=== PATIENT | female | born 1930 | race Caucasian/White ===

== ENCOUNTER 2016-08-16 16:44 | Inpatient (IN) | payer OTHER, MEDICARE ==
[~2016-08-16] VITALS: Ht 167.6 cm; Wt 49.0 kg
[2016-08-16 16:50] VITALS: BP 146/59; PULSE 108; RESP 24; TEMP 98.5; O2SAT 85
[2016-08-16] MEDS ORDERED: CLINDAMYCIN INJ 900 MG in SODIUM CHLORIDE 0.9% INJ 100 ML IV STA (19:25)
[2016-08-16] MEDS ORDERED: SODIUM CHLOR 0.9% 1000 ML INJ 1,000 ML IV ONE (19:25)
[2016-08-16] MEDS ORDERED: HYDROmorphone HCL PF 1 MG/ML VIAL IV ONE (19:30)
--- NOTE | 2016-08-16 20:47 | PD ---
HPI Chief Complaint: Musculoskeletal Complaint Time Seen by Provider: 19:18 Travel History International Travel<30 days: No Contact w/Intl Traveler<30days: No Traveled to known affect area: No History of Present Illness HPI 85-year-old female arrives to the ER complaining of pain in the left foot. She was started on Keflex a few days ago by her primary care provider secondary to a cellulitic wound along the plantar aspect of the left foot. Since then she has developed increasing edema as well as erythema and an apparent blister overlying the region of the anterior left lower leg. She reports constant pain in both lower extremities, worse on the left. The pain is worse with palpation. The Keflex has not helped. Evidently wound culture grew staph aureus resistant to Keflex. She has had no fever. [facility] Past Medical History Respiratory: Yes (COPD 2.5 LPM NC AT HOME) Past Surgical History Hysterectomy: Yes Social History Tobacco Use: Yes (Quit in 1998) Allergies-Medications (Allergen,Severity, Reaction): Coded Allergies: Sulfa (Verified Allergy, Unknown, 08/16/16) Review of Systems Except as stated in HPI: all other systems reviewed are Neg Physical Exam Narrative GENERAL: 85-year-old female pleasant mild distress secondary to pain SKIN: Warm and dry. HEAD: Atraumatic. Normocephalic. EYES: Pupils equal and round. No scleral icterus. No injection or drainage. ENT: No nasal bleeding or discharge. Mucous membranes pink and moist. NECK: Trachea midline. No JVD. CARDIOVASCULAR: Regular rate and rhythm. No murmur appreciated. RESPIRATORY: No accessory muscle use. Clear to auscultation. Breath sounds equal bilaterally. GASTROINTESTINAL: Abdomen soft, non-tender, nondistended. Hepatic and splenic margins not palpable. MUSCULOSKELETAL: Pitting edema is present bilaterally or plus on the left and plus on the right. Along the left lower extremity there is blanching erythema with somewhat indistinct margins though approximately 15 cm in greatest dimension. Within the area of erythema there is an approximate 7 cm in greatest dimension blister. Dorsalis pedis pulse is not palpable on exam. There is exquisite tenderness to palpation along the left great toe which is somewhat dusky in appearance. NEUROLOGICAL: Awake and alert. No obvious cranial nerve deficits. Motor grossly within normal limits. Normal speech. PSYCHIATRIC: Appropriate mood and affect; insight and judgment normal. Data Data Last Documented VS Vital Signs Date Time Temp Pulse Resp B/P Pulse Ox O2 Delivery O2 Flow Rate FiO2 08/16/16 21:01 83 18 08/16/16 21:00 96 Room Air 2.5 08/16/16 16:50 98.5 146/59 VS noted Orders Complete Blood Count With Diff (08/16/16 19:25) Comprehensive Metabolic Panel (08/16/16 19:25) Lactic Acid Sepsis Protocol (08/16/16 19:25) Urinalysis - C+S If Indicated (08/16/16 19:25) Blood Culture (08/16/16 19:25) Wound Culture And Gram Stain (08/16/16 19:25) Blood Glucose (08/16/16 19:25) Ecg Monitoring (08/16/16 19:25) Iv Access Insert/Monitor (08/16/16 19:25) Oximetry (08/16/16 19:25) Oxygen Administration (08/16/16 19:25) Hydromorphone Pf Inj (Dilaudid Pf Inj) (08/16/16 19:30) Clindamycin Inj (Cleocin Inj) (08/16/16 19:25) Sodium Chlor 0.9% 1000 Ml Inj (Ns 1000 M (08/16/16 19:25) Us Leg Venous Doppler (08/16/16 ) Prothrombin Time / Inr (Pt) (08/16/16 20:47) Act Partial Throm Time (Ptt) (08/16/16 20:47) Foot, Limited (2vws) (08/16/16 ) Heparin Infusion EDEL.Q1H (08/16/16 21:21) Heparin Inj (Heparin Inj) (08/16/16 21:30) Heparin Inj (Heparin Inj) (08/17/16 03:30) Heparin Inj (Heparin Inj) (08/17/16 03:30) Heparin-D5w Inj (Heparin-D5w Inj) (08/16/16 21:30) Cbc No Diff, Includes Plts (08/19/16 06:00) Act Partial Throm Time (Ptt) (08/17/16 04:21) Occult Blood (Hemoccult) Stool (08/16/16 21:21) Calcium Gluconate Inj (Calcium Gluconate (08/16/16 21:45) Insulin Human Regular Inj (Novolin R Inj (08/16/16 22:00) Dextrose 50% In Nia (Vial) Inj (D50w (Vi (08/16/16 21:45) Sodium Bicarbonate 8.4% Inj (Sodium Bica (08/16/16 21:45) Sodium Polysty Sulfate Liq (Kayexalate L (08/16/16 21:45) Electrocardiogram (08/16/16 ) Consult Vascular Surgery (08/16/16 ) (Hub Use Only)Inp Phy Cons/Ref (08/16/16 ) Admit Order (Ed Use Only) (08/16/16 22:07) Labs Laboratory Tests Test 08/16/16 08/16/16 08/16/16 20:30 20:40 21:10 White Blood Count 9.2 TH/MM3 Red Blood Count 3.62 MIL/MM3 Hemoglobin 10.3 GM/DL Hematocrit 32.0 % Mean Corpuscular Volume 88.4 FL Mean Corpuscular Hemoglobin 28.3 PG Mean Corpuscular Hemoglobin 32.1 % Concent Red Cell Distribution Width 18.3 % Platelet Count 107 TH/MM3 Mean Platelet Volume 10.3 FL Neutrophils (%) (Auto) 73.8 % Lymphocytes (%) (Auto) 17.9 % Monocytes (%) (Auto) 8.0 % Eosinophils (%) (Auto) 0.1 % Basophils (%) (Auto) 0.2 % Neutrophils # (Auto) 6.8 TH/MM3 Lymphocytes # (Auto) 1.6 TH/MM3 Monocytes # (Auto) 0.7 TH/MM3 Eosinophils # (Auto) 0.0 TH/MM3 Basophils # (Auto) 0.0 TH/MM3 CBC Comment AUTO DIFF Differential Comment AUTO DIFF CONFIRMED Ovalocytes 1+ Sodium Level 141 MEQ/L Potassium Level 6.8 MEQ/L Chloride Level 114 MEQ/L Carbon Dioxide Level 19.2 MEQ/L Anion Gap 8 MEQ/L Blood Urea Nitrogen 121 MG/DL Creatinine 2.05 MG/DL Estimat Glomerular Filtration 23 ML/MIN Rate Random Glucose 101 MG/DL Calcium Level 9.0 MG/DL Total Bilirubin 0.3 MG/DL Aspartate Amino Transf 5 U/L (AST/SGOT) Alanine Aminotransferase 17 U/L (ALT/SGPT) Alkaline Phosphatase 125 U/L Total Protein 6.4 GM/DL Albumin 2.7 GM/DL Lactic Acid Level 0.8 mmol/L Prothrombin Time 10.5 SEC Prothromb Time International 1.0 RATIO Ratio Activated Partial 22.9 SEC Thromboplast Time MDM Medical Decision Making Medical Screen Exam Complete: Yes Emergency Medical Condition: Yes Medical Record Reviewed: Yes Differential Diagnosis PAD, Cellulitis, necrotizing fasciitis, osteomyelitis, arterial occlusion, venous thrombosis, sepsis Narrative Course CBC & BMP Diagram 08/16/16 20:30 Lactic acid is 0.8 LFTs normal INR 1.0 Left lower extremity ultrasound reveals no DVT Left lower extremity x-ray shows no free air disruption of the bony cortex The patient will be admitted as she is in a state of renal failure presumably prerenal etiology with BUN/creatinine ratio 60/1. Hyperkalemia is noted with peak T waves however no QRS prolongation or hemodynamic instability. Calcium, insulin/dextrose, Kayexalate, bicarbonate given. 2 L crystalloid administered. The case was discussed with vascular surgery who will follow however the patient at this time is inappropriate for a revascularization procedure, vascular sx consult added. Heparin started. Clindamycin started. Blood cultures and wound cultures were obtained. Case discussed with Dr. Banerjee. Critical Care Narrative Aggregate critical care time was 35 minutes. Time to perform other separately billable procedures was not included in the critical care time. My time did not include minutes spent treating any other patients simultaneously or on activities that did not directly contribute to the patient's treatment. The services I provided to this patient were to treat and/or prevent clinically significant deterioration that could result in: Hyperkalemic arrhythmia, cardiopulmonary arrest, loss of limb I provided critical care services requiring my management, as noted below: Chart data review, documentation time, medication orders and management, vital sign assessments/reviewing monitor data, ordering and reviewing lab tests, ordering and interpreting/reviewing x-rays and diagnostic studies, care of the patient and discussion of the patient with the admitting physicians. Diagnosis Primary Impression: ARF (acute renal failure) Qualified Code: N17.9 - Acute renal failure, unspecified acute renal failure type Additional Impressions: PVD (peripheral vascular disease) Hyperkalemia Dehydration Admitting Information Admitting Physician Requests: Admit Jerome Mccoy MD Aug 16, 2016 20:47
[2016-08-16 21:19] LABS: AUTOMATED NEUTROPHIL # 6.8 TH/MM3 (1.8-7.7); BASOPHIL % 0.2 % (0.0-2.0); EOSINOPHIL % 0.1 % (0.0-4.0); LYMPH % 17.9 % (9.0-44.0); LYMPHOCYTE # 1.6 TH/MM3 (1.0-4.8); MEAN CELL VOLUME 88.4 FL (80.0-100.0); MEAN CORPUSCULAR HEMOGLOBIN 28.3 PG (27.0-34.0); MEAN CORPUSCULAR HGB CONC 32.1 % (32.0-36.0); NEUT % 73.8 % (16.0-70.0); PLATELET COUNT 107 TH/MM3 (150-450); RED BLOOD COUNT 3.62 MIL/MM3 (4.00-5.30); RED CELL DISTRIBUTION WIDTH 18.3 % (11.6-17.2); WHITE BLOOD COUNT 9.2 TH/MM3 (4.0-11.0)
[2016-08-16 21:21] LABS: HEMO FLAGS AUTO DIFF
[2016-08-16] MEDS ORDERED: HEPARIN SODIUM - IV 10,000 UNITS/10 ML VIAL IV ONE (21:30)
[2016-08-16 21:32] LABS: ALKALINE PHOSPHATASE 125 U/L (45-117); ALT (GPT) 17 U/L (10-53); ANION GAP 8 MEQ/L (5-15); AST (GOT) 5 U/L (15-37); BICARBONATE 19.2 MEQ/L (21.0-32.0); BLOOD UREA NITROGEN 121 MG/DL (7-18); CHLORIDE 114 MEQ/L (98-107); GLOMERULAR FILTRATION RATE 23 ML/MIN (>89); SODIUM (NA) 141 MEQ/L (136-145); TOTAL BILIRUBIN ADULT 0.3 MG/DL (0.2-1.0)
[2016-08-16 21:33] LABS: POTASSIUM 6.8 MEQ/L (3.5-5.1)
[2016-08-16] MEDS ORDERED: SODIUM BICARBONATE 8.4% SOLN 50 MEQ/50 ML VIAL SLOW IVP ONE (21:45)
[2016-08-16] MEDS ORDERED: DEXTROSE 50% IN WATER 50 ML VIAL(D50) IV PUSH ONE (21:45)
[2016-08-16] MEDS ORDERED: SODIUM POLYSTYRENE SULFONATE SUSP 15 GM/60 ML CUP PO ONE ×2 (21:45→22:30)
[2016-08-16] MEDS ORDERED: CALCIUM GLUCONATE 10% 1 GM/10 ML VIAL SLOW IVP ONE (21:45)
[2016-08-16 21:46] LABS: APTT (PATIENT) 22.9 SEC (24.3-30.1); PROTHROMBIN TIME - PATIENT 10.5 SEC (9.8-11.6)
--- NOTE | 2016-08-16 21:47 | RADRPT ---
EXAM DATE/TIME: 08/16/2016 21:07 [facility] COMPARISON: No previous studies available for comparison. INDICATIONS : Left leg pain, swelling and bruising. MEDICAL HISTORY : Chronic obstructive pulmonary disease. SURGICAL HISTORY : Hysterectomy. ENCOUNTER: Initial ACUITY: 3 days PAIN SCORE: 8/10 LOCATION: Left leg. TECHNIQUE: Venous ultrasound of the leg was performed from the inguinal ligament to the proximal calf. Real-jackie e, color Doppler and spectral tracing, compression and augmentation techniques were used. FINDINGS: There is normal compressibility of the deep venous system from the inguinal region to the proximal ca lf. No echogenic clot is seen in the lumen of the common femoral, femoral, popliteal, and posterior tibial veins. There is a normal response of the venous system to proximal and distal augmentation an d respiration. CONCLUSION: No DVT. Josue White MD on August 16, 2016 at 21:45 Board Certified Radiologist. This report was verified electronically.
[2016-08-16] MEDS ORDERED: INSULIN HUMAN REGULAR 1,000 UNITS/10 ML VIAL IV PUSH ONE (22:00)
[2016-08-16 22:01] LABS: OVALOCYTES 1+ (NORMAL); SCAN/DIFF AUTO DIFF CONFIRMED
--- NOTE | 2016-08-16 22:24 | HHI.HP ---
[facility] Service [facility] Primary Care Physician Non-Staff Admission Diagnosis HyperK, Cellulitis, PVD, ARF Diagnoses: (1) Cellulitis of left lower extremity Diagnosis: Principal (2) PVD (peripheral vascular disease) Diagnosis: Principal (3) Hyperkalemia Diagnosis: Principal (4) HARPAL (acute kidney injury) Diagnosis: Principal (5) HTN (hypertension) Diagnosis: Principal (6) COPD (chronic obstructive pulmonary disease) Diagnosis: Principal Travel History International Travel<30 Days: No Contact w/Intl Traveler <30 Da: No Traveled to Known Affected Are: No History of Present Illness This is an 85-year-old female with a PMH of HTN and COPD, O2 Dependent who came to the ER with complaints of left foot pain x2 wks. Pt is somewhat of a poor historian, however she states she developed a wound on the bottom of her left foot 2wks ago, seen by PCP at that time and started on Keflex without improvement. Was referred to Podiatry and was to have imaging at [facility], however pt states "they took too long" so Granddaughter brought her to ER. Also noted to have left pérez hematoma/blister which she states started last night. Not on ASA/Plavix or anticoagulation at home. Denies fever or chills. On arrival, BP 146/59, HR 105, O2 sat 96% on 2L NC, Afebrile. WBC normal. Creatinine 2.05, previously 0.7 on 06/27/06. K+ 6.8. S/p Ca/Insulin/D50 in ER. On exam, pt w/ cold left foot, pulses not dopplerable. ER physician spoke w/ Dr. Mccloud, no need for emergent intervention. Heparin gtt started in ER. S/p Clinda IV x1 dose in ER. Review of Systems Other ROS: 14 point review of systems otherwise negative. Past Family Social History Past Medical History PMH: HTN and COPD, O2 Dependent Past Surgical History PAST SURGICAL HISTORY: Hysterectomy Allergies: Coded Allergies: Sulfa (Verified Allergy, Unknown, 08/16/16) Family History PAST FAMILY HISTORY: Reviewed. No h/o DM or CAD Social History PAST SOCIAL HISTORY: Negative for alcohol, tobacco or drugs per Physical Exam Vital Signs Vital Signs Date Time Temp Pulse Resp B/P Pulse Ox O2 Delivery O2 Flow Rate FiO2 08/16/16 21:01 83 18 08/16/16 21:00 96 Room Air 2.5 08/16/16 16:50 98.5 108 24 146/59 85 Room Air Physical Exam PE: GENERAL: Very pleasant elderly white female in no acute distress. Granddaughter bedside. HEENT: PERRLA, EOMI. No scleral icterus or conjunctival pallor. No lid lag or facial droop. CARDIOVASCULAR: Regular rate and rhythm. No obvious murmurs to auscultation. No chest tenderness to palpation. RESPIRATORY: No obvious rhonchi or wheezing. Clear to auscultation. Breath sounds equal bilaterally. GASTROINTESTINAL: Abdomen soft, non-tender, nondistended. BS normal. MUSCULOSKELETAL: LLE w/ hematoma/blister along left pérez w/ surrounding erythema , foot cold to touch, healing wound to plantar aspect of left foot, tender to touch. 2+ edema bilaterally. NEUROLOGICAL: Awake, alert and oriented x4. No focal neurologic deficits. Moving both upper and lower extremities spontaneously. Laboratory Laboratory Tests Test 08/16/16 08/16/16 08/16/16 20:30 20:40 21:10 White Blood Count 9.2 Red Blood Count 3.62 Hemoglobin 10.3 Hematocrit 32.0 Mean Corpuscular Volume 88.4 Mean Corpuscular Hemoglobin 28.3 Mean Corpuscular Hemoglobin 32.1 Concent Red Cell Distribution Width 18.3 Platelet Count 107 Mean Platelet Volume 10.3 Neutrophils (%) (Auto) 73.8 Lymphocytes (%) (Auto) 17.9 Monocytes (%) (Auto) 8.0 Eosinophils (%) (Auto) 0.1 Basophils (%) (Auto) 0.2 Neutrophils # (Auto) 6.8 Lymphocytes # (Auto) 1.6 Monocytes # (Auto) 0.7 Eosinophils # (Auto) 0.0 Basophils # (Auto) 0.0 CBC Comment AUTO DIFF Differential Comment AUTO DIFF CONFIRMED Ovalocytes 1+ Sodium Level 141 Potassium Level 6.8 Chloride Level 114 Carbon Dioxide Level 19.2 Anion Gap 8 Blood Urea Nitrogen 121 Creatinine 2.05 Estimat Glomerular Filtration 23 Rate Random Glucose 101 Calcium Level 9.0 Total Bilirubin 0.3 Aspartate Amino Transf 5 (AST/SGOT) Alanine Aminotransferase 17 (ALT/SGPT) Alkaline Phosphatase 125 Total Protein 6.4 Albumin 2.7 Lactic Acid Level 0.8 Prothrombin Time 10.5 Prothromb Time International 1.0 Ratio Activated Partial 22.9 Thromboplast Time Date/Time Procedure Status Source Growth 08/16/16 20:40 Gram Stain Received Wound Foot Pending 08/16/16 20:40 Wound Culture Received Wound Foot Pending 08/16/16 20:40 Aerobic Blood Culture Received Blood Peripheral Pending 08/16/16 20:40 Anaerobic Blood Culture Received Blood Peripheral Pending Result Diagram: 08/16/16202908/16/162029 Assessment and Plan Problem List: (1) Cellulitis of left lower extremity ICD Code: L03.116 Status: Acute (2) PVD (peripheral vascular disease) ICD Code: I73.9 Status: Acute (3) Hyperkalemia ICD Code: E87.5 Status: Acute (4) HARPAL (acute kidney injury) ICD Code: N17.9 Status: Acute (5) HTN (hypertension) ICD Code: I10 Status: Acute (6) COPD (chronic obstructive pulmonary disease) ICD Code: J44.9 Status: Acute Assessment and Plan A/P: 1. LLE Cellulitis: wound on plantar aspect of left foot x2 wks, on Keflex with no improvement, +erythema involving left pérez. Afebrile, no leukocytosis. Outpatient Wound Cultures positive for Staph per report. S/p Wound/Blood Cultures in ER and Clinda IV. Follow up cultures, continue IV Abx, Wound Consult. 2. PVD: Left foot cold to touch, pulses not dopplerable. ER physician spoke w / Dr. Mccloud, no need for emergent intervention as symptoms appear chronic, will eval in am. Started on Heparin gtt in ER. 3. Hyperkalemia: K+ 6.8. Creatinine 2.0, new. S/p Ca/Insulin/D50 in ER. Will give Kayexalate, recheck K+. Medications reviewed, hold Enalapril Consult Nephrology for further eval. Check U/a, check urine lytes, check prot/ creatinine ratio. 4. HARPAL: Creatinine 2.05, previously 0.7 on 06/27/16. Check U/a, IVF, repeat labs in am. 5. COPD: Chronic Respiratory Failure. O2 Dependent. Stable. Hypoxia on RA to 85%, O2 sat 96% on 2L NC. 6. HTN: Controlled. Hold Enalapril secondary to above. Monitor BP. 7. DVT Prophylaxis: On Heparin gtt. 8. Social work for d/c planning as needed. 9. Case discussed w/ ER physician at length. Physician Certification 2 Midnight Certification Type: Admission for Inpatient Services Order for Inpatient Services The services are ordered in accordance with Medicare regulations or non- Medicare payer requirements, as applicable. In the case of services not specified as inpatient-only, they are appropriately provided as inpatient services in accordance with the 2-midnight benchmark. Estimated LOS (days): 2 days is the estimated time the patient will need to remain in the hospital, assuming treatment plan goals are met and no additional complications. Post-Hospital Plan: Not yet determined Brandy Banerjee MD Aug 16, 2016 22:24
--- NOTE | 2016-08-16 22:28 | RADRPT ---
EXAM DATE/TIME: 08/16/2016 22:14 [facility] COMPARISON: No previous studies available for comparison. INDICATIONS : Pain. MEDICAL HISTORY : None. SURGICAL HISTORY : None. ENCOUNTER: Initial ACUITY: 2 weeks PAIN SCORE: 4/10 LOCATION: Left foot. FINDINGS: Two view examination of the left foot demonstrates no soft tissue swelling, dislocation, or fracture. The calcaneus is intact. The bones are osteopenic.. CONCLUSION: No acute disease. Josue White MD on August 16, 2016 at 22:25 Board Certified Radiologist. This report was verified electronically.
[2016-08-16] MEDS ORDERED: ACETAMINOPHEN 325 MG TAB PO PRN (22:30)
[2016-08-16] MEDS ORDERED: BISACODYL 10 MG SUPP PR PRN (22:30)
[2016-08-16] MEDS: SODIUM CHLOR 0.9% 1000 ML INJ 1,000 ML IV SCH (23:21)
[2016-08-16] MEDS: HEPARIN-D5W INJ 250 ML IV SCH (23:30)
[2016-08-16 23:36] VITALS: BP 126/58; PULSE 95; RESP 18; O2SAT 96
[2016-08-17] VITALS (13 sets, daily range): BP systolic 118–144; BP diastolic 50–63; PULSE 74–93; RESP 16–28; TEMP 97.8–98.4; O2SAT 96–100
[2016-08-17] MEDS ORDERED: ADVA250A INH (00:23)
[2016-08-17] MEDS ORDERED: APRI0.372 PO (00:23)
[2016-08-17] MEDS ORDERED: OXYM30SP8 NASAL (00:23)
[2016-08-17] MEDS ORDERED: VENTAER INH (00:23)
[2016-08-17] MEDS ORDERED: ENAL20TA PO (00:23)
[2016-08-17] MEDS ORDERED: ALLE60TA PO (00:23)
[2016-08-17] MEDS ORDERED: MISCELLANEOUS NURSING INFORMATION XX SCH (01:00)
[2016-08-17] MEDS ORDERED: CHLORHEXIDINE GLUCONATE 2 % 1 PACK (2 CLOTHS) TOP PRN (01:00)
[2016-08-17] MEDS: MORPHINE SULFATE 4 MG/ML INJ IV PRN ×3 (02:30→12:46)
[2016-08-17] MEDS ORDERED: HEPARIN SODIUM - IV 10,000 UNITS/10 ML VIAL IV PRN ×2 (03:30)
[2016-08-17] MEDS: CHLORHEXIDINE GLUCONATE 2 % 1 PACK (2 CLOTHS) TOP SCH (03:40)
[2016-08-17] MEDS: CLINDAMYCIN INJ 900 MG in SODIUM CHLORIDE 0.9% INJ 100 ML IV SCH ×3 (05:23→19:43)
[2016-08-17 07:29] LABS: AUTOMATED NEUTROPHIL # 4.7 TH/MM3 (1.8-7.7); BASOPHIL % 0.3 % (0.0-2.0); EOSINOPHIL % 0.2 % (0.0-4.0); HEMATOCRIT 26.5 % (35.0-46.0); LYMPH % 23.2 % (9.0-44.0); LYMPHOCYTE # 1.7 TH/MM3 (1.0-4.8); MEAN CORPUSCULAR HEMOGLOBIN 28.9 PG (27.0-34.0); MEAN CORPUSCULAR HGB CONC 32.1 % (32.0-36.0); MONO % 11.6 % (0.0-8.0); NEUT % 64.7 % (16.0-70.0); PLATELET COUNT 93 TH/MM3 (150-450); RED BLOOD COUNT 2.94 MIL/MM3 (4.00-5.30); RED CELL DISTRIBUTION WIDTH 18.7 % (11.6-17.2); WHITE BLOOD COUNT 7.3 TH/MM3 (4.0-11.0)
[2016-08-17 07:33] LABS: APTT (PATIENT) 56.7 SEC (24.3-30.1)
[2016-08-17 07:37] LABS: HEMO FLAGS AUTO DIFF
[2016-08-17 07:50] LABS: ALKALINE PHOSPHATASE 94 U/L (45-117); ALT (GPT) 16 U/L (10-53); ANION GAP 8 MEQ/L (5-15); AST (GOT) 8 U/L (15-37); BICARBONATE 21.2 MEQ/L (21.0-32.0); BLOOD UREA NITROGEN 113 MG/DL (7-18); CHLORIDE 119 MEQ/L (98-107); GLOMERULAR FILTRATION RATE 29 ML/MIN (>89); SODIUM (NA) 148 MEQ/L (136-145); TOTAL BILIRUBIN ADULT 0.2 MG/DL (0.2-1.0)
[2016-08-17] MEDS: SODIUM CHLORIDE 0.9% FLUSH 5 ML FLUSH FLUSH SCH ×2 (09:00→19:43)
[2016-08-17 09:14] LABS: OVALOCYTES 1+ (NORMAL); PLATELET ESTIMATE SMEAR LOW (NORMAL)
[2016-08-17 09:15] LABS: PLATELET MORPHOLOGY ENLARGED (NORMAL); SCAN/DIFF AUTO DIFF CONFIRMED
[2016-08-17 11:14] LABS: BACTERIA, URINE OCC /hpf; BLOOD, URINE NEG (NEG); GLUCOSE,URINE NEG (NEG); KETONE, URINE NEG (NEG); NITRITE,URINE NEG (NEG); SQUAMOUS EPITHELIAL CELL URINE <1 /hpf (0-5); URINE COLOR YELLOW (YELLW/STRAW)
[2016-08-17 11:15] LABS: COMMENT (UR) CATH-CULTURE IND; CULTURE IF INDICATED CATH CULTURE IND
[2016-08-17] MEDS: SODIUM CHLOR 0.9% 1000 ML INJ 1,000 ML IV SCH (11:15)
[2016-08-17 11:25] LABS: APTT (PATIENT) 55.2 SEC (24.3-30.1)
--- NOTE | 2016-08-17 11:42 | PD.CAR.PN ---
CVT Progress Note Subjective/Hospital Course: Patient seen full consult dictated Will follow Susie Dunn Objective: Vital Signs Date Time Temp Pulse Resp B/P Pulse Ox O2 Delivery O2 Flow Rate FiO2 08/17/16 11:00 87 24 118/60 98 08/17/16 10:00 80 17 120/56 98 08/17/16 10:00 77 08/17/16 09:00 74 16 143/50 98 08/17/16 08:00 84 08/17/16 08:00 97.8 84 20 143/60 98 08/17/16 06:00 77 08/17/16 04:00 98.1 85 28 128/59 100 08/17/16 04:00 85 08/17/16 02:00 93 08/17/16 01:18 98.4 82 20 144/63 99 08/17/16 00:41 96 Nasal Cannula 2.5 08/16/16 23:36 95 18 126/58 96 Nasal Cannula 2.5 08/16/16 21:01 83 18 08/16/16 21:00 96 Room Air 2.5 08/16/16 16:50 98.5 108 24 146/59 85 Room Air Labs: Laboratory Tests Test 08/17/16 08/17/16 08/17/16 08/17/16 01:45 05:15 10:10 10:57 Nasal Screen MRSA (PCR) NEGATIVE (NEGATIVE) White Blood Count 7.3 TH/MM3 (4.0-11.0) Red Blood Count 2.94 MIL/MM3 (4.00-5.30) Hemoglobin 8.5 GM/DL (11.6-15.3) Hematocrit 26.5 % (35.0-46.0) Mean Corpuscular Volume 90.0 FL (80.0-100.0) Mean Corpuscular Hemoglobin 28.9 PG (27.0-34.0) Mean Corpuscular Hemoglobin 32.1 % Concent (32.0-36.0) Red Cell Distribution Width 18.7 % (11.6-17.2) Platelet Count 93 TH/MM3 (150-450) Mean Platelet Volume 10.2 FL (7.0-11.0) Neutrophils (%) (Auto) 64.7 % (16.0-70.0) Lymphocytes (%) (Auto) 23.2 % (9.0-44.0) Monocytes (%) (Auto) 11.6 % (0.0-8.0) Eosinophils (%) (Auto) 0.2 % (0.0-4.0) Basophils (%) (Auto) 0.3 % (0.0-2.0) Neutrophils # (Auto) 4.7 TH/MM3 (1.8-7.7) Lymphocytes # (Auto) 1.7 TH/MM3 (1.0-4.8) Monocytes # (Auto) 0.8 TH/MM3 (0-0.9) Eosinophils # (Auto) 0.0 TH/MM3 (0-0.4) Basophils # (Auto) 0.0 TH/MM3 (0-0.2) CBC Comment AUTO DIFF Differential Comment AUTO DIFF CONFIRMED Platelet Estimate LOW (NORMAL) Platelet Morphology Comment ENLARGED (NORMAL) Ovalocytes 1+ (NORMAL) Activated Partial 56.7 SEC 55.2 SEC Thromboplast Time (24.3-30.1) (24.3-30.1) Sodium Level 148 MEQ/L (136-145) Potassium Level 5.0 MEQ/L (3.5-5.1) Chloride Level 119 MEQ/L (98-107) Carbon Dioxide Level 21.2 MEQ/L (21.0-32.0) Anion Gap 8 MEQ/L (5-15) Blood Urea Nitrogen 113 MG/DL (7-18) Creatinine 1.70 MG/DL (0.50-1.00) Estimat Glomerular Filtration 29 ML/MIN (>89) Rate Random Glucose 114 MG/DL (74-106) Calcium Level 8.5 MG/DL (8.5-10.1) Total Bilirubin 0.2 MG/DL (0.2-1.0) Aspartate Amino Transf 8 U/L (15-37) (AST/SGOT) Alanine Aminotransferase 16 U/L (10-53) (ALT/SGPT) Alkaline Phosphatase 94 U/L (45-117) Total Protein 5.2 GM/DL (6.4-8.2) Albumin 2.2 GM/DL (3.4-5.0) Urine Color YELLOW (YELLW/STRAW) Urine Turbidity HAZY (CLEAR) Urine pH 5.0 (5.0-8.5) Urine Specific [place] 1.014 (1.002-1.035) Urine Protein TRACE mg/dL (NEG-TRACE) Urine Glucose (UA) NEG mg/dL (NEG) Urine Ketones NEG mg/dL (NEG) Urine Occult Blood NEG (NEG) Urine Nitrite NEG (NEG) Urine Bilirubin NEG (NEG) Urine Urobilinogen LESS THAN 2.0 MG/DL (LESS THAN 2.0) Urine Leukocyte Esterase NEG (NEG) Urine RBC LESS THAN 1 /hpf (0-3) Urine WBC 3 /hpf (0-5) Urine Squamous Epithelial <1 /hpf (0-5) Cells Urine Amorphous Sediment FEW Urine Bacteria OCC /hpf (NONE) Microscopic Urinalysis Comment CATH-CULTURE IND Result Diagram: 08/17/16 0515 08/17/16 0515 Rachel Mccloud MD Aug 17, 2016 11:42
--- NOTE | 2016-08-17 11:53 | HHI.PR ---
Subjective Remarks Follow-up left lower extremity cellulitis, PVD 08/17/16-patient seen and examined and currently on heparin drip. Complained of left foot pain however tolerable. Afebrile. Objective Vitals Vital Signs Date Time Temp Pulse Resp B/P Pulse Ox O2 Delivery O2 Flow Rate FiO2 08/17/16 11:00 87 24 118/60 98 08/17/16 10:00 80 17 120/56 98 08/17/16 10:00 77 08/17/16 09:00 74 16 143/50 98 08/17/16 08:00 84 08/17/16 08:00 97.8 84 20 143/60 98 08/17/16 06:00 77 08/17/16 04:00 98.1 85 28 128/59 100 08/17/16 04:00 85 08/17/16 02:00 93 08/17/16 01:18 98.4 82 20 144/63 99 08/17/16 00:41 96 Nasal Cannula 2.5 08/16/16 23:36 95 18 126/58 96 Nasal Cannula 2.5 08/16/16 21:01 83 18 08/16/16 21:00 96 Room Air 2.5 08/16/16 16:50 98.5 108 24 146/59 85 Room Air I/O 08/16/16 08/16/16 08/16/16 08/17/16 08/17/16 08/17/16 07:00 15:00 23:00 07:00 15:00 23:00 Intake Total 2979 ml Balance 2979 ml Intake Oral 480 ml IV Total 2499 ml # Voids 1 # Bowel Movements 3 Result Diagram: 08/17/16 0515 08/17/16 0515 Imaging Last Impressions Lower Extremity Ultrasound 08/16/16 0000 Signed Impressions: Service Date/Time: Tuesday, August 16, 2016 21:07 - CONCLUSION: No DVT. Josue White MD Foot X-Ray 08/16/16 0000 Signed Impressions: Service Date/Time: Tuesday, August 16, 2016 22:14 - CONCLUSION: No acute disease. Josue White MD Objective Remarks GENERAL: No acute distress SKIN: Warm and dry. Left lower extremity redness HEAD: Normocephalic. EYES: No scleral icterus. No injection or drainage. NECK: Supple, trachea midline. No JVD or lymphadenopathy. CARDIOVASCULAR: Regular rate and rhythm without murmurs, gallops, or rubs. RESPIRATORY: Breath sounds equal bilaterally. No accessory muscle use. GASTROINTESTINAL: Abdomen soft, non-tender, nondistended. MUSCULOSKELETAL: No cyanosis, or edema. Left foot no palpable pulse BACK: Nontender without obvious deformity. No CVA tenderness. A/P Problem List: (1) Cellulitis of left lower extremity ICD Code: L03.116 Status: Acute (2) PVD (peripheral vascular disease) ICD Code: I73.9 Status: Acute (3) Hyperkalemia ICD Code: E87.5 Status: Acute (4) HARPAL (acute kidney injury) ICD Code: N17.9 Status: Acute (5) HTN (hypertension) ICD Code: I10 Status: Acute (6) COPD (chronic obstructive pulmonary disease) ICD Code: J44.9 Status: Acute Assessment and Plan 85yrs old female 1. LLE Cellulitis: wound on plantar aspect of left foot x2 wks, on Keflex with no improvement, +erythema involving left pérez. Afebrile, no leukocytosis. Outpatient Wound Cultures positive for Staph per report. S/p Wound/Blood Cultures in ER and Clinda IV. Follow up cultures, continue IV Abx, Wound Consult. 2. PVD: Currently on heparin drip and appreciate input from vascular surgery. Doppler negative for DVT 3. Hyperkalemia: Resolved S/p Ca/Insulin/D50 and Kayexalate, appreciate input from nephrology and continue to monitor. 4. HARPAL: Renal ultrasound pending, management per nephrology. 5. COPD: Chronic Respiratory Failure. O2 Dependent. Stable. Hypoxia on RA to 85%, O2 sat 96% on 2L NC. 6. HTN: Controlled. Hold Enalapril secondary to above. Monitor BP. 7. DVT Prophylaxis: On Heparin gtt. Transfer to Eric Piña MD Aug 17, 2016 11:53
--- NOTE | 2016-08-17 12:05 | PD.CONS ---
HPI Service Nephrology Consult Requested By Dr. Banerjee Reason for Consult [facility] Primary Care Physician Non-Staff History of Present Illness Patient is a 85-year-old female with history of COPD, oxygen dependence, hypertension who has the left foot infection and cellulitis that has been treated with Keflex, patient has not been eating and drinking properly and got dehydrated the creatinine was elevated to 2.05 baseline creatinine is 0.7, she denies kidney problems in the past the period, with hydration her creatinine declined to 1.7 she had hyperkalemia resolved as well potassium at admission was 6.8 and now is normal. She received calcium gluconate, D50, insulin, sodium bicarbonate and Kayexalate. Review of Systems Constitutional: COMPLAINS OF: Fatigue Respiratory: COMPLAINS OF: Shortness of breath Gastrointestinal: COMPLAINS OF: Anorexia Musculoskeletal: COMPLAINS OF: Joint pain, Muscle aches, Stiffness Integumentary: COMPLAINS OF: Abnormal pigmentation (X bilateral leg) Neurologic: COMPLAINS OF: Abnormal gait Psychiatric: COMPLAINS OF: Depression Past Family Social History Allergies: Coded Allergies: Sulfa (Verified Allergy, Unknown, 08/16/16) Past Medical History Hypertension COPD Oxygen dependent Bilateral leg edema and skin color changes Left foot wound Peripheral vascular disease Past Surgical History Hysterectomy Appendectomy Reported Medications Reported Meds & Active Scripts Active Reported Apriso (Mesalamine) 0.375 Gm Caper 1.5 Gm PO DAILY Ventolin Hfa 18 GM Inh (Albuterol Sulfate) 90 Mcg/Act Aer 1 Puff INH Q4H PRN Advair Diskus Inh (Fluticasone-Salmeterol Inh) 250-50 Mcg/Blist Aer 1 Puff INH BID Rinse mouth after use. Nasal [place] (Oxymetazoline HCl) 0.05 % Spr 50 Mcg NASAL PRN Zaynab Allergy (Fexofenadine HCl) 60 Mg Tab 60 Mg PO DAILY Enalapril (Enalapril Maleate) 20 Mg Tab 20 Mg PO DAILY Active Ordered Medications Current Medications Medications (Trade) Dose Ordered Sig/Alejandro Route Start Time Stop Time Status Last Admin (Heparin Inj) 5,000 units UNSCH PRN IV 08/17/16 03:30 Heparin Sodium (Porcine) 2500 units 2,500 units UNSCH PRN IV 08/17/16 03:30 Heparin Sodium/ Dextrose 250 ml @ 0 mls/hr TITRATE IV 08/16/16 21:30 08/16/16 23:30 Clindamycin Phosphate 900 mg/ Sodium Chloride 106 ml @ 212 mls/hr Q8H IV 08/17/16 05:00 08/17/16 05:23 (NS 1000 ml Inj) 1,000 ml @ 100 mls/hr Q10H IV 08/16/16 22:19 08/17/16 11:15 (NS Flush) 2 ml UNSCH PRN FLUSH 08/16/16 22:30 (NS Flush) 2 ml BID FLUSH 08/17/16 09:00 (Zofran Inj) 4 mg Q6H PRN IVP 08/16/16 22:30 (Dulcolax Supp) 10 mg DAILY PRN VT 08/16/16 22:30 (Tylenol) 650 mg Q6H PRN PO 08/16/16 22:30 ([place] 5-325 Mg) 1 tab Q4H PRN PO 08/16/16 22:30 (Morphine Inj) 2 mg Q3H PRN IV 08/16/16 22:30 08/17/16 05:24 Miscellaneous Information 1 Q361D XX 08/17/16 01:00 08/17/16 01:00 (Chlorhexidine 2% Cloth) 3 pack Taper DAILY@04 TOP 08/17/16 04:00 08/13/17 03:59 08/17/16 03:40 (Chlorhexidine 2% Cloth) 3 pack UNSCH PRN TOP 08/17/16 01:00 Family History Noncontributory Social History Smoked cigarettes for 50 years quit in 1998, she denied alcohol use Physical Exam Vital Signs Vital Signs Date Time Temp Pulse Resp B/P Pulse Ox O2 Delivery O2 Flow Rate FiO2 08/17/16 11:00 87 24 118/60 98 08/17/16 10:00 80 17 120/56 98 08/17/16 10:00 77 08/17/16 09:00 74 16 143/50 98 08/17/16 08:00 84 08/17/16 08:00 97.8 84 20 143/60 98 08/17/16 06:00 77 08/17/16 04:00 98.1 85 28 128/59 100 08/17/16 04:00 85 08/17/16 02:00 93 08/17/16 01:18 98.4 82 20 144/63 99 08/17/16 00:41 96 Nasal Cannula 2.5 08/16/16 23:36 95 18 126/58 96 Nasal Cannula 2.5 08/16/16 21:01 83 18 08/16/16 21:00 96 Room Air 2.5 08/16/16 16:50 98.5 108 24 146/59 85 Room Air Physical Exam GENERAL: Well-nourished, well-developed patient. SKIN: Warm and dry. HEAD: Normocephalic. EYES: No scleral icterus. No injection or drainage. NECK: Supple, trachea midline. No JVD or lymphadenopathy. CARDIOVASCULAR: Regular rate and rhythm without murmurs, gallops, or rubs. RESPIRATORY: Breath sounds diminished at bases GASTROINTESTINAL: Abdomen soft, non-tender, nondistended. EXTREMITIES: No cyanosis, bilateral edema skin color changes and skin breakdown in the foot. NEUROLOGICAL: Awake, alert, and oriented x 3. Non-focal. Laboratory Laboratory Tests Test 08/16/16 08/16/16 08/16/16 08/17/16 20:30 20:40 21:10 01:45 Sodium Level 141 Potassium Level 6.8 Chloride Level 114 Carbon Dioxide Level 19.2 Anion Gap 8 Blood Urea Nitrogen 121 Creatinine 2.05 Estimat Glomerular Filtration 23 Rate Random Glucose 101 Calcium Level 9.0 Total Bilirubin 0.3 Aspartate Amino Transf 5 (AST/SGOT) Alanine Aminotransferase 17 (ALT/SGPT) Alkaline Phosphatase 125 Total Protein 6.4 Albumin 2.7 White Blood Count 9.2 Red Blood Count 3.62 Hemoglobin 10.3 Hematocrit 32.0 Mean Corpuscular Volume 88.4 Mean Corpuscular Hemoglobin 28.3 Mean Corpuscular Hemoglobin 32.1 Concent Red Cell Distribution Width 18.3 Platelet Count 107 Mean Platelet Volume 10.3 Neutrophils (%) (Auto) 73.8 Lymphocytes (%) (Auto) 17.9 Monocytes (%) (Auto) 8.0 Eosinophils (%) (Auto) 0.1 Basophils (%) (Auto) 0.2 Neutrophils # (Auto) 6.8 Lymphocytes # (Auto) 1.6 Monocytes # (Auto) 0.7 Eosinophils # (Auto) 0.0 Basophils # (Auto) 0.0 CBC Comment AUTO DIFF Differential Comment AUTO DIFF CONFIRMED Ovalocytes 1+ Lactic Acid Level 0.8 Prothrombin Time 10.5 Prothromb Time International 1.0 Ratio Activated Partial 22.9 Thromboplast Time Nasal Screen MRSA (PCR) NEGATIVE Test 08/17/16 08/17/16 08/17/16 05:15 10:10 10:57 White Blood Count 7.3 Red Blood Count 2.94 Hemoglobin 8.5 Hematocrit 26.5 Mean Corpuscular Volume 90.0 Mean Corpuscular Hemoglobin 28.9 Mean Corpuscular Hemoglobin 32.1 Concent Red Cell Distribution Width 18.7 Platelet Count 93 Mean Platelet Volume 10.2 Neutrophils (%) (Auto) 64.7 Lymphocytes (%) (Auto) 23.2 Monocytes (%) (Auto) 11.6 Eosinophils (%) (Auto) 0.2 Basophils (%) (Auto) 0.3 Neutrophils # (Auto) 4.7 Lymphocytes # (Auto) 1.7 Monocytes # (Auto) 0.8 Eosinophils # (Auto) 0.0 Basophils # (Auto) 0.0 CBC Comment AUTO DIFF Differential Comment AUTO DIFF CONFIRMED Platelet Estimate LOW Platelet Morphology Comment ENLARGED Ovalocytes 1+ Activated Partial 56.7 55.2 Thromboplast Time Sodium Level 148 Potassium Level 5.0 Chloride Level 119 Carbon Dioxide Level 21.2 Anion Gap 8 Blood Urea Nitrogen 113 Creatinine 1.70 Estimat Glomerular Filtration 29 Rate Random Glucose 114 Calcium Level 8.5 Total Bilirubin 0.2 Aspartate Amino Transf 8 (AST/SGOT) Alanine Aminotransferase 16 (ALT/SGPT) Alkaline Phosphatase 94 Total Protein 5.2 Albumin 2.2 Urine Color YELLOW Urine Turbidity HAZY Urine pH 5.0 Urine Specific [place] 1.014 Urine Protein TRACE Urine Glucose (UA) NEG Urine Ketones NEG Urine Occult Blood NEG Urine Nitrite NEG Urine Bilirubin NEG Urine Urobilinogen LESS THAN 2.0 Urine Leukocyte Esterase NEG Urine RBC LESS THAN 1 Urine WBC 3 Urine Squamous Epithelial <1 Cells Urine Amorphous Sediment FEW Urine Bacteria OCC Microscopic Urinalysis Comment CATH-CULTURE IND Date/Time Procedure Status Source Growth 08/17/16 10:10 Urine Culture Received Urine Catheterized Urine Pending 08/17/16 02:30 Stool Occult Blood (RICK) - Final Complete Stool Stool HEMOCCULT NEGATIVE 08/16/16 20:40 Gram Stain - Final Resulted Wound Foot 08/16/16 20:40 Wound Culture Resulted Wound Foot Pending 08/16/16 20:40 Aerobic Blood Culture - Preliminary Resulted Blood Peripheral NO GROWTH IN 1 DAY 08/16/16 20:40 Anaerobic Blood Culture - Preliminary Resulted Blood Peripheral NO GROWTH IN 1 DAY Result Diagram: 08/17/16 0515 08/17/16 0515 Imaging Last Impressions Lower Extremity Ultrasound 08/16/16 0000 Signed Impressions: Service Date/Time: Tuesday, August 16, 2016 21:07 - CONCLUSION: No DVT. Josue White MD Foot X-Ray 08/16/16 0000 Signed Impressions: Service Date/Time: Tuesday, August 16, 2016 22:14 - CONCLUSION: No acute disease. Josue White MD Assessment and Plan Problem List: (1) HARPAL (acute kidney injury) Plan: History of acute renal failure is resolving with hydration will continue to hydrate as BMP has improved we just have to observe her for further recovery Due to hypernatremia I will use half normal saline This can be managed by primary team if you need any further input please reconsult (2) Dehydration Plan: Resolving with hydration (3) COPD (chronic obstructive pulmonary disease) Plan: Continue to monitor (4) HTN (hypertension) Plan: Stable (5) PVD (peripheral vascular disease) Plan: Vascular surgery to see her Maia Gutiérrez MD Aug 17, 2016 12:05
[2016-08-17] MEDS: SODIUM CHLOR 0.45% 1000 ML INJ 1,000 ML IV SCH ×2 (12:45→22:02)
--- NOTE | 2016-08-17 13:15 | MB ---
cc: RACHEL DARDEN MD DATE OF CONSULTATION: 08/17/2016. REASON FOR CONSULTATION: Ischemia of the left leg. Renal failure. Congestive heart failure. Hyperkalemia. HISTORY OF PRESENT ILLNESS: This 85-year-old lady was admitted through the emergency room where she showed up with a shallow ulcer of the left foot. The patient states that her foot has been hurting more and more and she had developed edema in both lower legs, left more than right. She was seen by several physicians. Some studies were ordered but then the patient came to the emergency room last night. I was consulted for this vascular evaluation. It is noted by the patient that the last time she walked any was before , so at least two weeks ago, and then short distances. But since then, things got worse and she has not been able to walk at all due to swelling and pain in both legs as well as weakness. The question arises about any surgical implications. PAST MEDICAL HISTORY: The patient states: 1. Hypertension. 2. COPD. 3. She is oxygen-dependent at home. 4. No history of coronary artery disease. PAST SURGICAL HISTORY: A hysterectomy many years ago. SOCIAL HISTORY: The patient does not smoke or drink. ALLERGIES: NO ALLERGIES. MEDICATIONS: Her medications can be found on the record. PHYSICAL EXAMINATION: GENERAL: The physical examination reveals an unfortunate 85-year-old lady awake, alert, oriented. HEAD, EYES, EARS, NOSE, THROAT: Normocephalic. No trauma to the head. Pupils appear to be equal and reactive. Extraocular muscles are intact. NECK: Bilateral carotid pulses. I do not hear any bruit. CHEST: Decreased breath sounds over both lung hernández and atrophy of the chest wall musculature consistent with pulmonary cachexia. HEART: Regular rhythm. No murmurs. ABDOMEN: Patulous, soft, hyperactive bowel sounds. EXTREMITIES: The patient has bilateral palpable femoral pulses but left is worse than right. She has strong Dopplerable popliteal pulses right and weaker signal on the left. Below that, I do not appreciate a dorsalis pedis pulse or posterior tibial pulse on the left and a weak dorsalis pedis pulse on the right. Capillary refill is delayed and toes appear to be somewhat cyanotic bilaterally but more so on the left. There is a small shallow ulcer over the second metatarsal plantar surface, but this is certainly not going to the bone and it appears to be fairly shallow. NEUROLOGICAL: Grossly the patient is intact. In addition, the patient has bruising over both lower extremities, more on the left in the pérez area where the skin is now thinned out and clearly the superficial layers of the skin are necrotic. This is going to peel off soon. Whether this was a trauma of some sort or spontaneous bleeding it is hard to say IMPRESSION AND RECOMMENDATIONS: This is a lady with numerous problems that have now arisen clearly unable to walk for two weeks at least with severe reduction of flow to the left leg. This may be a combination of cardiac disease and pump failure as well as a combination of peripheral vascular disease. The patient certainly has arteriosclerotic changes just by exam but may have superimposed either thromboembolic occlusion or simply cessation of blood flow and degenerative disease that has occurred over many years. Patient likely has an inflow problem by either occlusion or stenosis of the external iliac artery on the left side and probably occlusion of the superficial femoral artery and the left and possibly even on the right but certainly right leg flow is better by clinical exam. At this point, the patient has acute renal insufficiency with a BUN in 100 range and creatinine about 2.8 range. At this point, the patient is not a candidate for any contrast study. The renal failure will have to be attended first and when this is adequately at least partially resolved, we would be able to shoot some dye and see what the vessels look like. For the time being, the patient has other pressing medical problems and clearly my vascular issues are sort of on the back burner. It should be noted the patient is at high risk of losing her extremity with this type of presentation and may have a limited ability for reconstruction considering her general condition, her bedridden state and such. Thank you very much for the referral. I will continue to follow with you and will order appropriate studies as indicated. CRITICAL CARE TIME: Thirty-five (35) minutes. Rachel LOYOLA/MACY /11:36 AM /12:58 PM BRENT
--- NOTE | 2016-08-17 17:13 | RADRPT ---
EXAM DATE/TIME: 08/17/2016 16:01 [facility] COMPARISON: No previous studies available for comparison. EXTERNAL COMPARISON : [facility], US ABDOMEN - COMPLETE, April 18, 2014, CT ABDOMEN & PELVIS W/ & W/O CONTRAST, [place] 2013, CT ABDOMEN & PELVIS W/CONTRAST, July 28, 2012. INDICATIONS : Increased BUN/creatinine. MEDICAL HISTORY : Hypertension. Chronic obstructive pulmonary disease. Dyspnea. Gait problems. Depression. SURGICAL HISTORY : Appendectomy. Hysterectomy. Tubal ligation. ENCOUNTER: Subsequent ACUITY: 1 day PAIN SCORE: 0/10 LOCATION: Bilateral flank MEASUREMENTS: RIGHT KIDNEY: 11.2 x 3.4 x 4.8 cm LEFT KIDNEY: 10.7 x 4.1 x 4.3 cm FINDINGS: RIGHT KIDNEY: The renal cortex is normal in thickness. There is mild dilation of the renal pelvis and calyces. Th e distal seen in the renal sinus. Superior and medial to the right kidney, there is a hypoechoic ova l lesion measuring 2.1 x 2.3 cm which appears to demonstrate through-transmission and has a hyperecho ic echogenic anterior wall. This is of uncertain organ of origin. No flow seen within this area on color Doppler. LEFT KIDNEY: Renal cortex is normal in thickness and echotexture. No hydronephrosis, stone, or mass. BLADDER: Nondistended. Mendes catheter. CONCLUSION: 1. Mild dilation of the collecting system of the right kidney. No evidence of hydronephrosis on the left. 2. 2.1 x 2.3 cm round non-shadowing lesion supermedial to the upper pole the right kidney of uncertai n organ of origin. The right adrenal gland could be located in this area. Wei Corley MD on August 17, 2016 at 17:07 Board Certified Radiologist. This report was verified electronically.
--- NOTE | 2016-08-17 21:55 | EKG ---
Date Performed: 08/16/2016 Time Performed: 22:55:54 PTAGE: 85 years EKG: Sinus rhythm INDETERMINATE AXIS INCOMPLETE RIGHT BUNDLE BRANCH BLOCK BORDERLINE ECG NO PREVIOUS TRACING DOCTOR: Jen Hameed Interpretating Date/Time 08/17/2016 21:54:44
[2016-08-18] VITALS (7 sets, daily range): BP systolic 122–137; BP diastolic 56–63; PULSE 85–92; RESP 16–18; TEMP 96.8–98.4; O2SAT 94–100
[2016-08-18] MEDS: CLINDAMYCIN INJ 900 MG in SODIUM CHLORIDE 0.9% INJ 100 ML IV SCH ×3 (04:00→19:20)
[2016-08-18] MEDS: CHLORHEXIDINE GLUCONATE 2 % 1 PACK (2 CLOTHS) TOP SCH (04:00)
[2016-08-18] MEDS: HEPARIN-D5W INJ 250 ML IV SCH (04:04)
[2016-08-18 05:00] LABS: AUTOMATED NEUTROPHIL # 4.6 TH/MM3 (1.8-7.7); BASOPHIL % 0.3 % (0.0-2.0); EOSINOPHIL % 0.4 % (0.0-4.0); HEMATOCRIT 23.4 % (35.0-46.0); LYMPH % 29.6 % (9.0-44.0); LYMPHOCYTE # 2.4 TH/MM3 (1.0-4.8); MEAN CELL VOLUME 88.3 FL (80.0-100.0); MEAN CORPUSCULAR HEMOGLOBIN 29.2 PG (27.0-34.0); MEAN CORPUSCULAR HGB CONC 33.1 % (32.0-36.0); MONO % 11.5 % (0.0-8.0); NEUT % 58.2 % (16.0-70.0); PLATELET COUNT 84 TH/MM3 (150-450); RED BLOOD COUNT 2.65 MIL/MM3 (4.00-5.30); RED CELL DISTRIBUTION WIDTH 18.2 % (11.6-17.2); WHITE BLOOD COUNT 7.9 TH/MM3 (4.0-11.0)
[2016-08-18 05:02] LABS: APTT (PATIENT) 51.5 SEC (24.3-30.1)
[2016-08-18 05:05] LABS: HEMO FLAGS AUTO DIFF
[2016-08-18 05:11] LABS: BICARBONATE 20.4 MEQ/L (21.0-32.0); POTASSIUM 4.9 MEQ/L (3.5-5.1)
[2016-08-18 06:34] LABS: OVALOCYTES 1+ (NORMAL); SCAN/DIFF AUTO DIFF CONFIRMED
[2016-08-18] MEDS: SODIUM CHLOR 0.45% 1000 ML INJ 1,000 ML IV SCH ×2 (10:20→19:21)
[2016-08-18] MEDS: SODIUM CHLORIDE 0.9% FLUSH 5 ML FLUSH FLUSH SCH ×2 (10:21→19:21)
--- NOTE | 2016-08-18 11:47 | HHI.PR ---
Subjective Remarks Follow-up left lower extremity cellulitis, PVD 08/17/16-patient seen and examined and currently on heparin drip. Complained of left foot pain however tolerable. Afebrile. 08/18/16-patient seen and examined; still complains of left lower extremity pain. Currently afebrile. Denies any shortness of breath. BUN and creatinine improving. Objective Vitals Vital Signs Date Time Temp Pulse Resp B/P Pulse Ox O2 Delivery O2 Flow Rate FiO2 08/18/16 08:00 97.2 85 16 137/60 94 08/18/16 04:00 97.5 87 18 133/56 98 08/18/16 00:00 98.4 85 16 134/63 100 08/17/16 20:18 80 08/17/16 20:00 97.9 84 18 131/59 96 08/17/16 16:45 98.3 88 17 139/60 99 08/17/16 12:00 85 16 136/60 98 08/17/16 12:00 85 I/O 08/17/16 08/17/16 08/17/16 08/18/16 08/18/16 08/18/16 07:00 15:00 23:00 07:00 15:00 23:00 Intake Total 2979 ml 1615 ml 640 ml 1265 ml Output Total 275 ml 400 ml 150 ml Balance 2979 ml 1340 ml 240 ml 1115 ml Intake Oral 480 ml 520 ml 120 ml 240 ml IV Total 2499 ml 1095 ml 520 ml 1025 ml Output Urine Total 275 ml 400 ml 150 ml # Voids 1 # Bowel Movements 3 0 0 0 Result Diagram: 08/18/16 0435 08/18/16 0435 Imaging Last Impressions Renal Ultrasound 08/17/16 0000 Signed Impressions: Service Date/Time: Wednesday, August 17, 2016 16:01 - CONCLUSION: 1. Mild dilation of the collecting system of the right kidney. No evidence of hydronephrosis on the left. 2. 2.1 x 2.3 cm round non-shadowing lesion supermedial to the upper pole the right kidney of uncertain organ of origin. The right adrenal gland could be located in this area. Wei Corley MD Lower Extremity Ultrasound 08/16/16 0000 Signed Impressions: Service Date/Time: Tuesday, August 16, 2016 21:07 - CONCLUSION: No DVT. Josue White MD Foot X-Ray 08/16/16 0000 Signed Impressions: Service Date/Time: Tuesday, August 16, 2016 22:14 - CONCLUSION: No acute disease. Josue White MD Objective Remarks GENERAL: No acute distress SKIN: Warm and dry. Left lower extremity redness HEAD: Normocephalic. EYES: No scleral icterus. No injection or drainage. NECK: Supple, trachea midline. No JVD or lymphadenopathy. CARDIOVASCULAR: Regular rate and rhythm without murmurs, gallops, or rubs. RESPIRATORY: Breath sounds equal bilaterally. No accessory muscle use. GASTROINTESTINAL: Abdomen soft, non-tender, nondistended. MUSCULOSKELETAL: No cyanosis, or edema. Left foot no palpable pulse BACK: Nontender without obvious deformity. No CVA tenderness. A/P Problem List: (1) Cellulitis of left lower extremity ICD Code: L03.116 Status: Acute (2) PVD (peripheral vascular disease) ICD Code: I73.9 Status: Acute (3) Hyperkalemia ICD Code: E87.5 Status: Acute (4) HARPAL (acute kidney injury) ICD Code: N17.9 Status: Acute (5) HTN (hypertension) ICD Code: I10 Status: Acute (6) COPD (chronic obstructive pulmonary disease) ICD Code: J44.9 Status: Acute Assessment and Plan 85yrs old female 1. LLE Cellulitis: wound on plantar aspect of left foot x2 wks, on Keflex with no improvement, +erythema involving left pérez. Afebrile, no leukocytosis. Outpatient Wound Cultures positive for Staph per report. S/p Wound/Blood Cultures in ER and [facility] IV. Follow up cultures, continue IV clindamycin, Wound Consult. 2. PVD: Currently on heparin drip and appreciate input from vascular surgery. Doppler negative for DVT 3. Hyperkalemia: Resolved S/p Ca/Insulin/D50 and Kayexalate, appreciate input from nephrology and continue to monitor. 4. HARPAL: Renal ultrasound reviewed and No evidence of hydronephrosis on the left. 2. 2.1 x 2.3 cm round non-shadowing lesion supermedial to the upper pole the right kidney of uncertain organ of origin. Improving BUN and creatinine, Management per nephrology. 5. COPD: Chronic Respiratory Failure. O2 Dependent. Stable. Hypoxia on RA to 85%, O2 sat 96% on 2L NC. 6. HTN: Controlled. Hold Enalapril secondary to above. Monitor BP. 7. DVT Prophylaxis: On Heparin gtt. Eric Houser MD Aug 18, 2016 11:47
--- NOTE | 2016-08-18 12:03 | PD.CAR.PN ---
CVT Progress Note Subjective/Hospital Course: Patient seen full consult dictated Will follow Susie Dunn 08/18/16 Patient with significant peripheral vascular disease ulcer of the left foot and now reduced edema of the both legs. On physical exam patient has no discernible distal pulses and bluish discoloration of the toes left more than right At this point patient has acute superimposed on chronic renal insufficiency with elevated creatinine view when and I would wait until the renal function improves before we preform a CTA with a runoff, but eventually patient will need arterial a runoff to evaluate degree of the disease and possible options for reconstruction. The current clinical situation based on physical findings including the plantar ulcer the note limb threatening ischemia and therefore full workup is mandatory however correcting renal function and medical issues trumps any further vascular workup at this time Will continue to follow patient which you and when renal function is improved we 'll go ahead with CTA and runoff Objective: Vital Signs Date Time Temp Pulse Resp B/P Pulse Ox O2 Delivery O2 Flow Rate FiO2 08/18/16 08:00 97.2 85 16 137/60 94 08/18/16 04:00 97.5 87 18 133/56 98 08/18/16 00:00 98.4 85 16 134/63 100 08/17/16 20:18 80 08/17/16 20:00 97.9 84 18 131/59 96 08/17/16 16:45 98.3 88 17 139/60 99 Labs: Laboratory Tests Test 08/18/16 04:35 White Blood Count 7.9 TH/MM3 (4.0-11.0) Red Blood Count 2.65 MIL/MM3 (4.00-5.30) Hemoglobin 7.7 GM/DL (11.6-15.3) Hematocrit 23.4 % (35.0-46.0) Mean Corpuscular Volume 88.3 FL (80.0-100.0) Mean Corpuscular Hemoglobin 29.2 PG (27.0-34.0) Mean Corpuscular Hemoglobin 33.1 % Concent (32.0-36.0) Red Cell Distribution Width 18.2 % (11.6-17.2) Platelet Count 84 TH/MM3 (150-450) Mean Platelet Volume 9.8 FL (7.0-11.0) Neutrophils (%) (Auto) 58.2 % (16.0-70.0) Lymphocytes (%) (Auto) 29.6 % (9.0-44.0) Monocytes (%) (Auto) 11.5 % (0.0-8.0) Eosinophils (%) (Auto) 0.4 % (0.0-4.0) Basophils (%) (Auto) 0.3 % (0.0-2.0) Neutrophils # (Auto) 4.6 TH/MM3 (1.8-7.7) Lymphocytes # (Auto) 2.4 TH/MM3 (1.0-4.8) Monocytes # (Auto) 0.9 TH/MM3 (0-0.9) Eosinophils # (Auto) 0.0 TH/MM3 (0-0.4) Basophils # (Auto) 0.0 TH/MM3 (0-0.2) CBC Comment AUTO DIFF Differential Comment AUTO DIFF CONFIRMED Ovalocytes 1+ (NORMAL) Activated Partial 51.5 SEC Thromboplast Time (24.3-30.1) Sodium Level 143 MEQ/L (136-145) Potassium Level 4.9 MEQ/L (3.5-5.1) Chloride Level 115 MEQ/L (98-107) Carbon Dioxide Level 20.4 MEQ/L (21.0-32.0) Anion Gap 8 MEQ/L (5-15) Blood Urea Nitrogen 89 MG/DL (7-18) Creatinine 1.41 MG/DL (0.50-1.00) Estimat Glomerular Filtration 36 ML/MIN (>89) Rate Random Glucose 87 MG/DL (74-106) Calcium Level 7.7 MG/DL (8.5-10.1) Result Diagram: 08/18/16 0435 08/18/16 0435 Rachel Mccloud MD Aug 18, 2016 12:03
--- NOTE | 2016-08-18 14:29 | HHI.NPPN ---
Subjective History of Present Illness 85 year old with HAPRAL/CKD PVD Left foot pain Review of Systems Musculoskeletal MS: Pain/Stiffness Objective Data Data 08/17/16 08/18/16 19:00 07:00 Intake Total 1615 ml 1905 ml Output Total 275 ml 550 ml Balance 1340 ml 1355 ml Intake Oral 520 ml 360 ml IV Total 1095 ml 1545 ml Output Urine Total 275 ml 550 ml # Bowel Movements 0 0 Vital Signs Date Time Temp Pulse Resp B/P Pulse Ox O2 Delivery O2 Flow Rate FiO2 08/18/16 12:00 97.3 92 18 133/61 96 08/18/16 08:00 97.2 85 16 137/60 94 08/18/16 04:00 97.5 87 18 133/56 98 08/18/16 00:00 98.4 85 16 134/63 100 08/17/16 20:18 80 08/17/16 20:00 97.9 84 18 131/59 96 08/17/16 16:45 98.3 88 17 139/60 99 -: 08/18/16 0435 08/18/16 0435 Physical Exam General Appearance: Well Developed Neck Neck Exam: Neck Supple Pulmonary Resp Exam: Clear Bilaterally, Breath Sounds Equal Cardiology CV Exam: Regular, Normal Sinus Rhythm Gastrointestinal/Abdomen GI Exam: Soft, Non-Tender, Bowel Sounds Present Integumentary Skin Exam: Lesion(s) Extremeties Extremities Exam: No Edema Assessment/Plan Problem List: (1) HARPAL (acute kidney injury) Plan: History of acute renal failure is resolving with hydration will continue to hydrate as BMP has improved we just have to observe her for further recovery US Kidney mild hydronephrosis right side possible adrenal gland shadow seen Na aug I will sign off (2) Dehydration Plan: Resolving with hydration (3) COPD (chronic obstructive pulmonary disease) Plan: Continue to monitor (4) HTN (hypertension) Plan: Stable (5) PVD (peripheral vascular disease) Plan: Vascular surgery to see her Maia Gutiérrez MD Aug 18, 2016 14:29
[2016-08-19] VITALS (9 sets, daily range): BP systolic 126–147; BP diastolic 58–66; PULSE 80–99; RESP 16–18; TEMP 96.7–98.9; O2SAT 94–98
[2016-08-19] MEDS: RESP: ALBUTEROL 2.5 MG/IPRATROPIUM 0.5 MG NEB (PRN) NEB ×3 (02:08→20:34)
[2016-08-19] MEDS: CHLORHEXIDINE GLUCONATE 2 % 1 PACK (2 CLOTHS) TOP SCH (04:00)
[2016-08-19] MEDS: CLINDAMYCIN INJ 900 MG in SODIUM CHLORIDE 0.9% INJ 100 ML IV SCH ×3 (04:05→21:09)
[2016-08-19] MEDS: SODIUM CHLOR 0.45% 1000 ML INJ 1,000 ML IV SCH ×3 (04:06→21:09)
[2016-08-19 06:04] LABS: AUTOMATED NEUTROPHIL # 4.1 TH/MM3 (1.8-7.7); BASOPHIL % 0.2 % (0.0-2.0); EOSINOPHIL % 0.2 % (0.0-4.0); HEMATOCRIT 22.6 % (35.0-46.0); LYMPH % 17.7 % (9.0-44.0); MEAN CELL VOLUME 87.9 FL (80.0-100.0); MEAN CORPUSCULAR HEMOGLOBIN 28.5 PG (27.0-34.0); MEAN CORPUSCULAR HGB CONC 32.4 % (32.0-36.0); MONO % 12.6 % (0.0-8.0); NEUT % 69.3 % (16.0-70.0); PLATELET COUNT 75 TH/MM3 (150-450); RED BLOOD COUNT 2.57 MIL/MM3 (4.00-5.30); RED CELL DISTRIBUTION WIDTH 17.6 % (11.6-17.2); WHITE BLOOD COUNT 5.9 TH/MM3 (4.0-11.0)
[2016-08-19 06:11] LABS: APTT (PATIENT) 49.5 SEC (24.3-30.1)
[2016-08-19 06:13] LABS: HEMO FLAGS AUTO DIFF
[2016-08-19 08:16] LABS: BICARBONATE 15.6 MEQ/L (21.0-32.0); POTASSIUM 4.7 MEQ/L (3.5-5.1)
[2016-08-19 08:18] LABS: OVALOCYTES 1+ (NORMAL); PLATELET ESTIMATE SMEAR LOW (NORMAL); PLATELET MORPHOLOGY NORMAL (NORMAL); SCAN/DIFF AUTO DIFF CONFIRMED
[2016-08-19] MEDS: SODIUM CHLORIDE 0.9% FLUSH 5 ML FLUSH FLUSH SCH ×2 (08:54→21:00)
--- NOTE | 2016-08-19 11:02 | HHI.PR ---
Subjective Remarks Follow-up left lower extremity cellulitis, PVD 08/17/16-patient seen and examined and currently on heparin drip. Complained of left foot pain however tolerable. Afebrile. 08/18/16-patient seen and examined; still complains of left lower extremity pain. Currently afebrile. Denies any shortness of breath. BUN and creatinine improving. 08/19/16-patient seen and examined; no complaint of left lower extremity pain. Currently afebrile. Objective Vitals Vital Signs Date Time Temp Pulse Resp B/P Pulse Ox O2 Delivery O2 Flow Rate FiO2 08/19/16 08:00 96.7 99 16 126/60 98 08/19/16 07:40 98 3.00 08/19/16 04:00 97.8 87 18 130/60 96 08/19/16 02:08 98 Nasal Cannula 3.00 08/19/16 00:00 98.9 88 16 131/60 97 08/18/16 20:00 96.8 87 16 129/60 97 08/18/16 19:54 85 08/18/16 15:56 97.6 87 17 122/56 98 08/18/16 12:00 97.3 92 18 133/61 96 I/O 08/18/16 08/18/16 08/18/16 08/19/16 08/19/16 08/19/16 07:00 15:00 23:00 07:00 15:00 23:00 Intake Total 1265 ml 1556 ml 550 ml 1172 ml Output Total 150 ml 325 ml 350 ml 550 ml Balance 1115 ml 1231 ml 200 ml 622 ml Intake Oral 240 ml 480 ml 240 ml 120 ml IV Total 1025 ml 988 ml 310 ml 1052 ml Other 88 ml Output Urine Total 150 ml 325 ml 350 ml 550 ml # Bowel Movements 0 0 1 0 Result Diagram: 08/19/1653008/19/16530 Objective Remarks GENERAL: No acute distress SKIN: Warm and dry. Left lower extremity redness HEAD: Normocephalic. EYES: No scleral icterus. No injection or drainage. NECK: Supple, trachea midline. No JVD or lymphadenopathy. CARDIOVASCULAR: Regular rate and rhythm without murmurs, gallops, or rubs. RESPIRATORY: Breath sounds equal bilaterally. No accessory muscle use. GASTROINTESTINAL: Abdomen soft, non-tender, nondistended. MUSCULOSKELETAL: No cyanosis, or edema. Left foot no palpable pulse BACK: Nontender without obvious deformity. No CVA tenderness. A/P Problem List: (1) Cellulitis of left lower extremity ICD Code: L03.116 Status: Acute (2) PVD (peripheral vascular disease) ICD Code: I73.9 Status: Acute (3) Hyperkalemia ICD Code: E87.5 Status: Acute (4) HARPAL (acute kidney injury) ICD Code: N17.9 Status: Acute (5) HTN (hypertension) ICD Code: I10 Status: Acute (6) COPD (chronic obstructive pulmonary disease) ICD Code: J44.9 Status: Acute Assessment and Plan 85yrs old female 1. LLE Cellulitis: wound on plantar aspect of left foot x2 wks, on Keflex with no improvement, +erythema involving left pérez. Afebrile, no leukocytosis. Outpatient Wound Cultures positive for Staph per report. S/p Wound/Blood Cultures in ER and Clinda IV. Follow up cultures, continue IV clindamycin, Wound Consult input appreciated 2. PVD: Currently on heparin drip and appreciate input from vascular surgery. Doppler negative for DVT. Plan for CTA and run off when renal function improved. 3. Hyperkalemia: Resolved S/p Ca/Insulin/D50 and Kayexalate, appreciate input from nephrology and continue to monitor. 4. HARPAL: Renal ultrasound reviewed and No evidence of hydronephrosis on the left. 2. 2.1 x 2.3 cm round non-shadowing lesion supermedial to the upper pole the right kidney of uncertain organ of origin. Improving BUN and creatinine, Management per nephrology who signed of. 5. COPD: Chronic Respiratory Failure. O2 Dependent. Stable. Hypoxia on RA to 85%, O2 sat 96% on 2L NC. 6. HTN: Controlled. Hold Enalapril secondary to above. Monitor BP. 7. DVT Prophylaxis: On Heparin gtt. Eric Houser MD Aug 19, 2016 11:02
[2016-08-19] MEDS: HEPARIN-D5W INJ 250 ML IV SCH (12:53)
[2016-08-19] MEDS: MORPHINE SULFATE 4 MG/ML INJ IV PRN (21:24)
[2016-08-20] VITALS (7 sets, daily range): BP systolic 112–138; BP diastolic 58–64; PULSE 81–103; RESP 17–18; TEMP 95.8–98.6; O2SAT 93–98
[2016-08-20] MEDS: MORPHINE SULFATE 4 MG/ML INJ IV PRN ×4 (01:14→21:09)
[2016-08-20] MEDS: CHLORHEXIDINE GLUCONATE 2 % 1 PACK (2 CLOTHS) TOP SCH (02:28)
[2016-08-20] MEDS: CLINDAMYCIN INJ 900 MG in SODIUM CHLORIDE 0.9% INJ 100 ML IV SCH (04:43)
[2016-08-20 06:02] LABS: APTT (PATIENT) 38.5 SEC (24.3-30.1)
[2016-08-20 06:08] LABS: BICARBONATE 21.2 MEQ/L (21.0-32.0); POTASSIUM 4.9 MEQ/L (3.5-5.1)
[2016-08-20] MEDS: SODIUM CHLORIDE 0.9% FLUSH 5 ML FLUSH FLUSH SCH ×2 (09:13→20:38)
[2016-08-20] MEDS: RESP: ALBUTEROL 2.5 MG/IPRATROPIUM 0.5 MG NEB (PRN) NEB (10:38)
--- NOTE | 2016-08-20 10:53 | HHI.PR ---
Subjective Remarks Follow-up left lower extremity cellulitis, PVD 08/17/16-patient seen and examined and currently on heparin drip. Complained of left foot pain however tolerable. Afebrile. 08/18/16-patient seen and examined; still complains of left lower extremity pain. Currently afebrile. Denies any shortness of breath. BUN and creatinine improving. 08/19/16-patient seen and examined; no complaint of left lower extremity pain. Currently afebrile. 08/20/16-patient seen and examined;+ some shortness of breath; no chest pain and currently afebrile Objective Vitals Vital Signs Date Time Temp Pulse Resp B/P Pulse Ox O2 Delivery O2 Flow Rate FiO2 08/20/16 10:38 97 Nasal Cannula 2.00 08/20/16 08:00 97.1 81 17 137/58 95 08/20/16 00:08 98.6 103 18 137/60 96 08/19/16 20:36 98 Nasal Cannula 3.00 08/19/16 20:00 98.6 86 18 133/60 96 08/19/16 16:00 98.2 93 17 147/66 94 08/19/16 12:00 96.9 80 16 126/58 98 I/O 08/19/16 08/19/16 08/19/16 08/20/16 08/20/16 08/20/16 06:59 14:59 22:59 06:59 14:59 22:59 Intake Total 1412 ml 1802 ml 1108 ml 1108 ml Output Total 900 ml 500 ml 600 ml 400 ml Balance 512 ml 1302 ml 508 ml 708 ml Intake Oral 360 ml 720 ml 240 ml 240 ml IV Total 1052 ml 1082 ml 800 ml 800 ml Other 68 ml 68 ml Output Urine Total 900 ml 500 ml 600 ml 400 ml # Bowel Movements 1 1 0 Result Diagram: 08/19/16 0531 08/20/16 0422 Imaging Last Impressions Renal Ultrasound 08/17/16 0000 Signed Impressions: Service Date/Time: Wednesday, August 17, 2016 16:01 - CONCLUSION: 1. Mild dilation of the collecting system of the right kidney. No evidence of hydronephrosis on the left. 2. 2.1 x 2.3 cm round non-shadowing lesion supermedial to the upper pole the right kidney of uncertain organ of origin. The right adrenal gland could be located in this area. Wei Croley MD Lower Extremity Ultrasound 08/16/16 0000 Signed Impressions: Service Date/Time: Tuesday, August 16, 2016 21:07 - CONCLUSION: No DVT. Josue White MD Foot X-Ray 08/16/16 0000 Signed Impressions: Service Date/Time: Tuesday, August 16, 2016 22:14 - CONCLUSION: No acute disease. Josue White MD Objective Remarks GENERAL: No acute distress SKIN: Warm and dry. Left lower extremity redness HEAD: Normocephalic. EYES: No scleral icterus. No injection or drainage. NECK: Supple, trachea midline. No JVD or lymphadenopathy. CARDIOVASCULAR: Regular rate and rhythm without murmurs, gallops, or rubs. RESPIRATORY: Breath sounds equal bilaterally. No accessory muscle use. Positive for crackles GASTROINTESTINAL: Abdomen soft, non-tender, nondistended. MUSCULOSKELETAL: No cyanosis, or edema. Left foot no palpable pulse BACK: Nontender without obvious deformity. No CVA tenderness. A/P Problem List: (1) Cellulitis of left lower extremity ICD Code: L03.116 Status: Acute (2) PVD (peripheral vascular disease) ICD Code: I73.9 Status: Acute (3) Hyperkalemia ICD Code: E87.5 Status: Acute (4) HARPAL (acute kidney injury) ICD Code: N17.9 Status: Acute (5) HTN (hypertension) ICD Code: I10 Status: Acute (6) COPD (chronic obstructive pulmonary disease) ICD Code: J44.9 Status: Acute (7) Respiratory failure ICD Code: J96.90 Status: Acute (8) Normochromic normocytic anemia ICD Code: D64.9 Status: Acute Assessment and Plan 85yrs old female 1. LLE Cellulitis: wound on plantar aspect of left foot x2 wks, on Keflex with no improvement, +erythema involving left pérez. Afebrile, no leukocytosis. Outpatient Wound Cultures positive for Staph per report. S/p Wound/Blood Cultures in ER and Clinda IV. Follow up cultures, change to by mouth clindamycin, Wound Consult input appreciated 2. PVD: Currently on heparin drip and appreciate input from vascular surgery. Doppler negative for DVT. Plan for CTA and run off when renal function improved. 3. Hyperkalemia: Resolved S/p Ca/Insulin/D50 and Kayexalate, appreciate input from nephrology and continue to monitor. 4. HARPAL: Renal ultrasound reviewed and No evidence of hydronephrosis on the left. 2. 2.1 x 2.3 cm round non-shadowing lesion supermedial to the upper pole the right kidney of uncertain organ of origin. Improving BUN and creatinine however will decrease IV fluid rate, Management per nephrology who signed off. 5. COPD: Chronic Respiratory Failure. O2 Dependent. Stable. Hypoxia on RA to 85%, O2 sat 96% on 2L NC. 6. HTN: Controlled. Hold Enalapril secondary to above. Monitor BP. 7. DVT Prophylaxis: On Heparin gtt. 8. Respiratory failure: Check chest x-ray as well as BNP 08/20/16, start scheduled DuoNeb 9. Normocytic normochromic anemia: H&H trending down, transfuse for hemoglobin less than 7 monitor H&H Eric Houser MD Aug 20, 2016 10:53
--- NOTE | 2016-08-20 11:29 | EC ---
Study Study Date:08/20/2016 STUDY CONCLUSIONS SUMMARY - Left ventricle: The cavity size was normal. Wall thickness was normal. Systolic function was normal. The estimated ejection fraction was in the range of 55% to 60%. Wall motion was normal; there were no regional wall motion abnormalities. - Aortic valve: Valve area: 2.16cm^2 (Vmax). - Left atrium: The atrium was mildly dilated. - Right atrium: There may be a possible mass in the low atrial cavity, which may be associated with a catheter in SVC although it is not well visualized. This may represent a prominent Eustacian valve. Clinical correlation recommended. - Tricuspid valve: Mild regurgitation. - Pulmonary arteries: Systolic pressure was moderately increased. PA peak pressure: 58mm Hg (S). - Pericardium, extracardiac: There was a left pleural effusion. If LV function is below 40, please consider prescribing an ACEI or ARB or document rationale for non-use. PROCEDURE DATA STUDY STATUS: Elective. Procedure: Transthoracic echocardiography. Image quality was good. Scanning was performed from the parasternal, apical, and subcostal acoustic windows. Study completion: The patient tolerated the procedure well. Transthoracic echocardiography. M-mode, complete 2D, complete spectral Doppler, and color Doppler. Height: Height: 66in. Weight: Weight: 107.8lb. Body mass index: BMI: 17.4kg/m^2. Body surface area: BSA: 1.54m^2. Patient status: Inpatient. CARDIAC ANATOMY LEFT VENTRICLE: The cavity size was normal. Wall thickness was normal. Systolic function was normal. The estimated ejection fraction was in the range of 55% to 60%. Wall motion was normal; there were no regional wall motion abnormalities. AORTIC VALVE: Trileaflet; normal thickness leaflets. Doppler: Transvalvular velocity was within the normal range. There was no stenosis. No regurgitation. Valve area: 2.16cm^2 (Vmax). Indexed valve area: 1.4cm^2/m^2 (Vmax). Peak gradient: 10mm Hg (S). AORTA: Aortic root: The aortic root was normal in size. MITRAL VALVE: Structurally normal valve. Doppler: Transvalvular velocity was within the normal range. There was no evidence for stenosis. Trace to mild regurgitation. Peak gradient: 6mm Hg (D). LEFT ATRIUM: The atrium was mildly dilated. RIGHT VENTRICLE: The cavity size was normal. Wall thickness was normal. PULMONIC VALVE: Doppler: Transvalvular velocity was within the normal range. There was no evidence for stenosis. No regurgitation. TRICUSPID VALVE: Structurally normal valve. Doppler: Transvalvular velocity was within the normal range. Mild regurgitation. PULMONARY ARTERY: Systolic pressure was moderately increased. RIGHT ATRIUM: The atrium was normal in size. There may be a possible mass in the low atrial cavity, which may be associated with a catheter in SVC although it is not well visualized. This may represent a prominent Eustacian valve. Clinical correlation recommended. PERICARDIUM: There was no pericardial effusion. SYSTEMIC VEINS: Inferior vena cava: The vessel was normal in size. Pleura: There was a left pleural effusion. Patient weight: 107.8lb _Ejection fraction:_ 65-75% _Fractional shortening:_ 32% up to 5Kg 5-11.5Kg 11.6-22.9Kg 23-45Kg 45-57Kg Aortic Root 7-13 <17 13-22 17-27 17-27 LA diam 6-13 <23 24-38 33-47 37-40 RVID 10-17 7-15 7-15 7-18 8-17 LVIDd 12-22 <32 24-38 33-47 37-40 LVPW 2-4 3-6 5-7 6-8 7-8 IVS 2-4 3-6 5-7 6-8 7-8 BASIC MEASUREMENTS ADULT NORMAL Left ventricle LV internal dimension, ED, chordal *38.7 mm 43-52 level, PLAX LV internal dimension, ES, chordal 26.7 mm 23-38 level, PLAX Fractional shortening, chordal level, 31 % >29 PLAX LV posterior wall thickness, ED 7.17 mm IVS/LVPW ratio, ED 1.14 <1.3 Ventricular septum Septal thickness, ED 8.19 mm Aortic valve Leaflet separation 15 mm 15-26 Left atrium Anterior-posterior dimension 30 mm Anterior-posterior dimension index 1.95 cm/m^2 <2.2 Right ventricle RV internal dimension, ED, PLAX *15.6 mm 19-38 BASIC MEASUREMENTS ADULT NORMAL Aortic valve Leaflet separation 15 mm 15-26 Aorta Root diameter, ED 26 mm 20-37 DOPPLER MEASUREMENTS ADULT NORMAL Main pulmonary artery Pressure, S *58 mm Hg =30 Aortic valve Peak velocity, S 161 cm/s Peak gradient, S 10 mm Hg Valve area, Vmax 2.16 cm^2 Valve area index, Vmax 1.4 cm^2/m^2 Mitral valve Peak E-wave velocity 127 cm/s Peak A-wave velocity 119 cm/s Deceleration time 180 ms 150-230 Peak gradient, D 6 mm Hg Peak E/A ratio 1.1 Maximal regurgitant velocity 471 cm/s Tricuspid valve Regurgitant peak velocity 295 cm/s Peak RV-RA gradient, S 35 mm Hg Maximal regurgitant velocity 295 cm/s Systemic veins Estimated CVP 10 mm Hg Right ventricle RV pressure, S *58 mm Hg <30 LEGEND: Mean values are shown as u=mean value. Asterisk (*) antoine values outside specified normal range. Prepared and signed by Tunde Chamorro [id number]
[2016-08-20] MEDS: CLINDAMYCIN 150 MG CAP PO SCH ×2 (12:30→17:34)
--- NOTE | 2016-08-20 13:40 | RADRPT ---
EXAM DATE/TIME: 08/20/2016 13:15 [facility] COMPARISON: No previous studies available for comparison. INDICATIONS : Congestion and shortness of breath. MEDICAL HISTORY : Chronic obstructive pulmonary disease. SURGICAL HISTORY : None. ENCOUNTER: Subsequent ACUITY: 4 - 6 days PAIN SCORE: 0/10 LOCATION: Bilateral chest FINDINGS: Portable AP view of the chest demonstrates a normal-sized cardiac silhouette. There are abnormal inte rstitial and air space opacities in the mid and lower lung zones and there are bilateral pleural-base d opacities, left larger than right. No pneumothorax is visualized. Bones and soft tissues demonstrat e no acute finding. CONCLUSION: Bilateral lower lung zone predominant airspace consolidation with small bilateral pleural effusions, left greater than right. Although nonspecific, all of these findings could be related to pulmonary ed lyly in the appropriate clinical setting. Josue Mccall MD on August 20, 2016 at 13:37 Board Certified Radiologist. This report was verified electronically.
[2016-08-20] MEDS: RESP: ALBUTEROL 2.5 MG/IPRATROPIUM 0.5 MG NEB (SCH) NEB ×2 (13:46→21:12)
[2016-08-20 14:23] LABS: APTT (PATIENT) 43.6 SEC (24.3-30.1)
[2016-08-20] MEDS ORDERED: IOHEXOL 350 MG/ML 10 ML VIAL (for RAD DIAG) IV ONE (15:58)
--- NOTE | 2016-08-20 16:41 | PD.CAR.PN ---
CVT Progress Note Subjective/Hospital Course: Patient seen full consult dictated Will follow Susie Dunn 08/18/16 Patient with significant peripheral vascular disease ulcer of the left foot and now reduced edema of the both legs. On physical exam patient has no discernible distal pulses and bluish discoloration of the toes left more than right At this point patient has acute superimposed on chronic renal insufficiency with elevated creatinine view when and I would wait until the renal function improves before we preform a CTA with a runoff, but eventually patient will need arterial a runoff to evaluate degree of the disease and possible options for reconstruction. The current clinical situation based on physical findings including the plantar ulcer the note limb threatening ischemia and therefore full workup is mandatory however correcting renal function and medical issues trumps any further vascular workup at this time Will continue to follow patient which you and when renal function is improved we 'll go ahead with CTA and runoff 08/20/16 Swelling of the legs is significantly decreased Toes are still fairly purplish due to cyanosis but no gangrene is noted Patient is awaiting CTA point we'll be able to tell if there is any unreconstructable disease in the left leg Based on patient's age and frail status of course any procedure has to be tailored toward patient's ability to tolerate the same Objective: Vital Signs Date Time Temp Pulse Resp B/P Pulse Ox O2 Delivery O2 Flow Rate FiO2 08/20/16 12:00 97.5 95 17 138/64 93 08/20/16 10:38 97 Nasal Cannula 2.00 08/20/16 08:00 97.1 81 17 137/58 95 08/20/16 00:08 98.6 103 18 137/60 96 08/19/16 20:36 98 Nasal Cannula 3.00 08/19/16 20:00 98.6 86 18 133/60 96 Labs: Laboratory Tests Test 08/20/16 13:45 Activated Partial 43.6 SEC Thromboplast Time (24.3-30.1) B-Type Natriuretic Peptide 503 PG/ML (0-100) Result Diagram: 08/19/16 0531 08/20/16 0422 Rachel Mccloud MD Aug 20, 2016 16:41
[2016-08-20] MEDS: HEPARIN-D5W INJ 250 ML IV SCH (17:36)
[2016-08-20] MEDS: LACTOBACILLUS ACIDOPHILUS TAB PO SCH (20:38)
[2016-08-20 21:44] LABS: APTT (PATIENT) 86.4 SEC (24.3-30.1)
[2016-08-21] VITALS (10 sets, daily range): BP systolic 110–150; BP diastolic 53–65; PULSE 86–92; RESP 16–18; TEMP 95.4–97; O2SAT 92–97
[2016-08-21] MEDS: MORPHINE SULFATE 4 MG/ML INJ IV PRN ×2 (00:01→03:34)
[2016-08-21] MEDS: CHLORHEXIDINE GLUCONATE 2 % 1 PACK (2 CLOTHS) TOP SCH ×2 (03:40→23:04)
[2016-08-21 03:53] LABS: AUTOMATED NEUTROPHIL # 4.9 TH/MM3 (1.8-7.7); BASOPHIL % 0.1 % (0.0-2.0); EOSINOPHIL % 0.3 % (0.0-4.0); HEMATOCRIT 24.1 % (35.0-46.0); LYMPH % 19.1 % (9.0-44.0); LYMPHOCYTE # 1.4 TH/MM3 (1.0-4.8); MEAN CELL VOLUME 87.9 FL (80.0-100.0); MEAN CORPUSCULAR HEMOGLOBIN 28.9 PG (27.0-34.0); MEAN CORPUSCULAR HGB CONC 32.9 % (32.0-36.0); MONO % 14.9 % (0.0-8.0); NEUT % 65.6 % (16.0-70.0); PLATELET COUNT 75 TH/MM3 (150-450); RED BLOOD COUNT 2.74 MIL/MM3 (4.00-5.30); RED CELL DISTRIBUTION WIDTH 17.9 % (11.6-17.2); WHITE BLOOD COUNT 7.5 TH/MM3 (4.0-11.0)
[2016-08-21 03:55] LABS: HEMO FLAGS AUTO DIFF
[2016-08-21 03:58] LABS: APTT (PATIENT) 36.2 SEC (24.3-30.1)
[2016-08-21 04:12] LABS: BICARBONATE 19.9 MEQ/L (21.0-32.0); POTASSIUM 4.7 MEQ/L (3.5-5.1)
[2016-08-21] MEDS: SODIUM CHLOR 0.45% 1000 ML INJ 1,000 ML IV SCH ×2 (05:06→23:04)
[2016-08-21] MEDS: CLINDAMYCIN 150 MG CAP PO SCH ×5 (05:57→23:03)
[2016-08-21 07:08] LABS: BANDS 3 % (0-6); METAMYELOCYTES 2 % (0-1); NEUTROPHIL # MANUAL DIFF 5.5 TH/MM3 (1.8-7.7); POLYS (SEG NEUTROPHILS) 68 % (16-70); WBC DIFF SAMPLE 100
[2016-08-21 07:12] LABS: OVALOCYTES 1+ (NORMAL); PLATELET ESTIMATE SMEAR LOW (NORMAL); PLATELET MORPHOLOGY NORMAL (NORMAL); SCAN/DIFF FINAL DIFF MANUAL
[2016-08-21] MEDS: LACTOBACILLUS ACIDOPHILUS TAB PO SCH ×2 (08:20→20:27)
[2016-08-21] MEDS: SODIUM CHLORIDE 0.9% FLUSH 5 ML FLUSH FLUSH SCH ×2 (08:21→20:29)
[2016-08-21] MEDS: ACETAMINOPHEN/HYDROcodone 325 MG/5 MG TAB PO PRN ×5 (08:27→22:08)
[2016-08-21] MEDS: RESP: ALBUTEROL 2.5 MG/IPRATROPIUM 0.5 MG NEB (SCH) NEB ×3 (09:07→19:58)
--- NOTE | 2016-08-21 10:38 | RADRPT ---
EXAM DATE/TIME: 08/20/2016 15:58 [facility] COMPARISON: No previous studies available for comparison. INDICATIONS : Peripheral vascular disease with ischemia right leg. IV CONTRAST: 70 cc Omnipaque 350 (iohexol) IV RADIATION DOSE: 7.66 CTDIvol (mGy) MEDICAL HISTORY : Peripheral vascular disease. Cellulitis left leg. SURGICAL HISTORY : None. ENCOUNTER: Initial ACUITY: 4 - 6 days PAIN SCALE: 5/10 LOCATION: Right Leg TECHNIQUE: Volumetric scanning was performed using a multi-row detector CT scanner. The data was post processed with a variety of visualization algorithms including full volume maximum intensity projection, multi -planar sliding thin slab reformation, curved planar reformation, and surface rendering techniques. Using automated exposure control and adjustment of the mA and/or kV according to patient size, radiat ion dose was kept as low as reasonably achievable to obtain optimal diagnostic quality images. FINDINGS: Abdominal aorta: Heavily calcified plaque is present throughout the abdominal aorta. There is no evidence of aneurysma l enlargement or focal aortic stenosis. Significant narrowing and luminal irregularity is present in the aortic branches. There is a high-grade stenosis at the origin of the celiac artery. A moderate to severe stenosis is seen at the origin the superior mesenteric artery. The SMA demonstrates diffuse l uminal irregularity with segmental areas of moderate stenosis. High-grade stenotic lesions are identified in both kidneys. There is a subtotal occlusion of the righ t renal artery and a moderate to severe stenosis of the left renal artery. Inferior mesenteric arteries patent. Iliac vessels: The right iliac vessels demonstrates diffuse irregularity. There is moderate to severe stenosis of th e proximal external iliac artery. The degree of narrowing is in the 50-60% range. The left iliac vessels demonstrate diffuse irregularity and calcific plaquing. There are a high-grade stenoses identified in the proximal and distal external iliac artery. Stenoses appears to be greater than 70%. The distal stenosis lies just above the inguinal ligament. Right lower extremity: Moderate plaquing is identified in the common femoral artery. There is evidence of mild stenosis. The superficial femoral artery is completely occluded. The profunda femoris is patent. There are poorly developed collaterals distally. The proximal popliteal artery is occluded. The popliteal artery reconstitutes approximately 4-5 cente rs about the knee joint. The infrapopliteal vessels are patent however there is diffuse irregularity with multiple tandem mode rate to severe stenotic lesions throughout. Very poor flow is identified into the right foot. Left lower extremity: Calcified eccentric plaque is identified in the common femoral artery. As indicated above there is a high-grade stenosis at the junction of the external iliac and common femoral artery. The common femor al artery demonstrates at least moderate stenosis due to eccentric calcified plaque. The profunda femoris is patent. The superficial femoral artery penetrates long segmental occlusion again at its origin. There is sera nstitution of the vessel just above the adductor canal. Small collateral branches from the profunda f emoris are provided reconstituted flow. Severe disease is identified in the popliteal artery. There is high-grade segmental stenosis just abo ve the knee. The infrapopliteal vessels are patent however they demonstrate diffuse luminal irregularity with tand em moderate to severe stenotic lesions throughout. There is good flow identified extending into the f oot. Miscellaneous: Moderate effusions with underlying consolidating airspace disease is identified in both lower lobes. The liver, spleen pancreas, adrenal glands and kidneys are unremarkable. A small amount of free fluid is identified in the abdomen. Most of fluid is seen in the pelvis. Diverticula are disease is present of the sigmoid colon. There are no active inflammatory changes. 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 Severe irregularity with moderate to severe stenotic lesions are seen in the infrapopliteal runoff ve ssels to both calves and feet. Significantly diminished flow is evident to the right foot. Moderate bilateral pleural effusions with consolidating airspace disease in both lower lobes. Rajat Hu MD on August 21, 2016 at 9:08 Board Certified Radiologist. This report was verified electronically.
[2016-08-21 11:50] LABS: APTT (PATIENT) 38.1 SEC (24.3-30.1)
--- NOTE | 2016-08-21 14:42 | PD.CAR.PN ---
CVT Progress Note Subjective/Hospital Course: Patient seen full consult dictated Will follow Susie Dunn 08/18/16 Patient with significant peripheral vascular disease ulcer of the left foot and now reduced edema of the both legs. On physical exam patient has no discernible distal pulses and bluish discoloration of the toes left more than right At this point patient has acute superimposed on chronic renal insufficiency with elevated creatinine view when and I would wait until the renal function improves before we preform a CTA with a runoff, but eventually patient will need arterial a runoff to evaluate degree of the disease and possible options for reconstruction. The current clinical situation based on physical findings including the plantar ulcer the note limb threatening ischemia and therefore full workup is mandatory however correcting renal function and medical issues trumps any further vascular workup at this time Will continue to follow patient which you and when renal function is improved we 'll go ahead with CTA and runoff 08/20/16 Swelling of the legs is significantly decreased Toes are still fairly purplish due to cyanosis but no gangrene is noted Patient is awaiting CTA point we'll be able to tell if there is any unreconstructable disease in the left leg Based on patient's age and frail status of course any procedure has to be tailored toward patient's ability to tolerate the same 08/21/16 I reviewed the CTA with a runoff This one confirms the clinical impression Right Patient has some external and common iliac disease but no flow-limiting stenosis Right SFA occlusion with distal reconstitution Left Patient has left tight iliofemoral stenosis as well as left external iliac artery stenosis little higher up SFAs are occluded and popliteal artery severely diseased on the left Runoff via posterior tibial artery which is interrupted in several areas At this point I recommend the percutaneous endovascular iliac angioplasty and common femoral angioplasty with the eluding balloon and possibly a stent in the left external iliac. This can be done on endovascular basis Patient will be taken to the endovascular suite tomorrow Objective: Vital Signs Date Time Temp Pulse Resp B/P Pulse Ox O2 Delivery O2 Flow Rate FiO2 08/21/16 13:50 17 08/21/16 12:00 96.5 90 17 115/53 94 08/21/16 09:08 97 Nasal Cannula 2.00 08/21/16 08:00 96.7 92 17 126/59 97 08/21/16 04:00 96.0 88 17 110/60 95 08/21/16 00:00 95.4 88 16 114/55 95 08/20/16 21:13 98 Nasal Cannula 2.00 08/20/16 20:00 97.6 86 18 132/63 97 08/20/16 16:00 95.8 91 17 126/58 94 08/20/16 16:00 96.7 85 17 112/60 97 Labs: Laboratory Tests Test 08/21/16 08/21/16 03:24 11:15 White Blood Count 7.5 TH/MM3 (4.0-11.0) Red Blood Count 2.74 MIL/MM3 (4.00-5.30) Hemoglobin 7.9 GM/DL (11.6-15.3) Hematocrit 24.1 % (35.0-46.0) Mean Corpuscular Volume 87.9 FL (80.0-100.0) Mean Corpuscular Hemoglobin 28.9 PG (27.0-34.0) Mean Corpuscular Hemoglobin 32.9 % Concent (32.0-36.0) Red Cell Distribution Width 17.9 % (11.6-17.2) Platelet Count 75 TH/MM3 (150-450) Mean Platelet Volume 10.4 FL (7.0-11.0) Neutrophils (%) (Auto) 65.6 % (16.0-70.0) Lymphocytes (%) (Auto) 19.1 % (9.0-44.0) Monocytes (%) (Auto) 14.9 % (0.0-8.0) Eosinophils (%) (Auto) 0.3 % (0.0-4.0) Basophils (%) (Auto) 0.1 % (0.0-2.0) Neutrophils # (Auto) 4.9 TH/MM3 (1.8-7.7) Lymphocytes # (Auto) 1.4 TH/MM3 (1.0-4.8) Monocytes # (Auto) 1.1 TH/MM3 (0-0.9) Eosinophils # (Auto) 0.0 TH/MM3 (0-0.4) Basophils # (Auto) 0.0 TH/MM3 (0-0.2) CBC Comment AUTO DIFF Differential Total Cells 100 Counted Neutrophils % (Manual) 68 % (16-70) Band Neutrophils % 3 % (0-6) Lymphocytes % 18 % (9-44) Monocytes % 9 % (0-8) Neutrophils # (Manual) 5.5 TH/MM3 (1.8-7.7) Metamyelocytes 2 % (0-1) Differential Comment FINAL DIFF MANUAL Platelet Estimate LOW (NORMAL) Platelet Morphology Comment NORMAL (NORMAL) Ovalocytes 1+ (NORMAL) Activated Partial 36.2 SEC 38.1 SEC Thromboplast Time (24.3-30.1) (24.3-30.1) Sodium Level 141 MEQ/L (136-145) Potassium Level 4.7 MEQ/L (3.5-5.1) Chloride Level 111 MEQ/L (98-107) Carbon Dioxide Level 19.9 MEQ/L (21.0-32.0) Anion Gap 10 MEQ/L (5-15) Blood Urea Nitrogen 44 MG/DL (7-18) Creatinine 1.05 MG/DL (0.50-1.00) Estimat Glomerular Filtration 50 ML/MIN (>89) Rate Random Glucose 91 MG/DL (74-106) Calcium Level 7.9 MG/DL (8.5-10.1) Result Diagram: 08/21/16 0324 08/21/16 0324 Rachel Mccloud MD Aug 21, 2016 14:42
[2016-08-21 19:12] LABS: APTT (PATIENT) 39.9 SEC (24.3-30.1)
[2016-08-21] MEDS: HEPARIN-D5W INJ 250 ML IV SCH (20:30)
--- NOTE | 2016-08-21 23:57 | HHI.PR ---
Subjective Remarks patient seen today around noon. She reports that pain is under control. Objective Vital Signs Date Time Temp Pulse Resp B/P Pulse Ox O2 Delivery O2 Flow Rate FiO2 08/21/16 23:54 96.9 90 17 115/56 94 08/21/16 20:14 96.2 90 18 150/65 92 08/21/16 19:58 95 Nasal Cannula 2.00 08/21/16 18:11 20 08/21/16 16:00 97.0 90 18 134/62 94 08/21/16 12:00 96.5 90 17 115/53 94 08/21/16 09:08 97 Nasal Cannula 2.00 08/21/16 08:00 96.7 92 17 126/59 97 08/21/16 04:00 96.0 88 17 110/60 95 08/21/16 00:00 95.4 88 16 114/55 95 I/O 08/20/16 08/20/16 08/20/16 08/21/16 08/21/16 08/21/16 06:59 14:59 22:59 06:59 14:59 22:59 Intake Total 1108 ml 881 ml 716 ml 685 ml 1276 ml 612 ml Output Total 400 ml 800 ml 600 ml 200 ml 500 ml Balance 708 ml 81 ml 116 ml 485 ml 776 ml 612 ml Intake Oral 240 ml 240 ml 240 ml 280 ml IV Total 800 ml 881 ml 400 ml 400 ml 1276 ml 332 ml Other 68 ml 76 ml 45 ml Output Urine Total 400 ml 800 ml 600 ml 200 ml 500 ml # Voids 0 # Bowel Movements 1 0 0 Result Diagram: 08/21/16 0324 08/21/16 0324 Objective Remarks GENERAL: patient sitting up in bed. Appears comfortable. Alert and oriented x3. SKIN: Warm and dry. HEAD: Normocephalic. EYES: No scleral icterus. No injection or drainage. NECK: Supple, trachea midline. No JVD or lymphadenopathy. CARDIOVASCULAR: Regular rate and rhythm without murmurs, gallops, or rubs. RESPIRATORY: Breath sounds equal bilaterally. No accessory muscle use. GASTROINTESTINAL: Abdomen soft, non-tender, nondistended. MUSCULOSKELETAL: No cyanosis, or edema. decreased perfusion left foot. BACK: Nontender without obvious deformity. No CVA tenderness. A/P Assessment and Plan //LLE Cellulitis: wound on plantar aspect of left foot x2 wks, on Keflex with no improvement, +erythema involving left pérez. Afebrile, no leukocytosis. Outpatient Wound Cultures positive for Staph per report. S/p Wound/Blood Cultures in ER and Clinda IV. Follow up cultures, change to by mouth clindamycin, Wound Consult input appreciated //PVD: Currently on heparin drip and appreciate input from vascular surgery. Doppler negative for DVT. Plan for CTA and run off as per vascular surgery. // Hyperkalemia: Resolved S/p Ca/Insulin/D50 and Kayexalate, appreciate input from nephrology and // HARPAL: Renal ultrasound reviewed and No evidence of hydronephrosis on the left. 2. 2.1 x 2.3 cm round non-shadowing lesion supermedial to the upper pole the right kidney of uncertain organ of origin. - Nephrology signed off. Continue IV fluids. // COPD: Chronic Respiratory Failure. O2 Dependent. Stable. Hypoxia on RA to 85%, O2 sat 96% on 2L NC. //HTN: Controlled. Hold Enalapril secondary to above. Monitor BP. // DVT Prophylaxis: On Heparin gtt. //Respiratory failure: Check chest x-ray as well as BNP 08/20/16, start scheduled DuoNeb //Normocytic normochromic anemia: H&H stable. transfuse for hemoglobin less than 7 monitor H&H //Prophylaxis. Heparin drip Bry Cowart MD Aug 21, 2016 23:57
[2016-08-22] VITALS (11 sets, daily range): BP systolic 121–158; BP diastolic 55–69; PULSE 81–104; RESP 16–18; TEMP 96.7–98.6; O2SAT 92–98
[2016-08-22] MEDS: ACETAMINOPHEN/HYDROcodone 325 MG/5 MG TAB PO PRN ×3 (02:48→10:04)
[2016-08-22 02:49] LABS: HEMATOCRIT 25.4 % (35.0-46.0); MEAN CELL VOLUME 88.2 FL (80.0-100.0); MEAN CORPUSCULAR HEMOGLOBIN 28.6 PG (27.0-34.0); MEAN CORPUSCULAR HGB CONC 32.4 % (32.0-36.0); PLATELET COUNT 95 TH/MM3 (150-450); RED BLOOD COUNT 2.88 MIL/MM3 (4.00-5.30); RED CELL DISTRIBUTION WIDTH 17.7 % (11.6-17.2)
[2016-08-22 02:51] LABS: REVIEW FLAG FINAL
[2016-08-22 03:00] LABS: APTT (PATIENT) 43.6 SEC (24.3-30.1)
[2016-08-22 05:37] LABS: BASOPHIL % 0.2 % (0.0-2.0); EOSINOPHIL % 0.2 % (0.0-4.0); HEMATOCRIT 24.9 % (35.0-46.0); LYMPH % 10.9 % (9.0-44.0); LYMPHOCYTE # 1.1 TH/MM3 (1.0-4.8); MEAN CELL VOLUME 88.7 FL (80.0-100.0); MEAN CORPUSCULAR HEMOGLOBIN 28.8 PG (27.0-34.0); MEAN CORPUSCULAR HGB CONC 32.5 % (32.0-36.0); MONO % 12.1 % (0.0-8.0); NEUT % 76.6 % (16.0-70.0); PLATELET COUNT 74 TH/MM3 (150-450); RED BLOOD COUNT 2.81 MIL/MM3 (4.00-5.30); RED CELL DISTRIBUTION WIDTH 18.1 % (11.6-17.2); WHITE BLOOD COUNT 10.5 TH/MM3 (4.0-11.0)
[2016-08-22] MEDS: CLINDAMYCIN 150 MG CAP PO SCH ×3 (05:45→19:13)
[2016-08-22 05:46] LABS: BICARBONATE 18.4 MEQ/L (21.0-32.0); POTASSIUM 4.6 MEQ/L (3.5-5.1)
[2016-08-22 06:10] LABS: HEMO FLAGS AUTO DIFF
[2016-08-22] MEDS: RESP: ALBUTEROL 2.5 MG/IPRATROPIUM 0.5 MG NEB (SCH) NEB ×3 (08:51→20:16)
[2016-08-22 09:06] LABS: BANDS 12 % (0-6); EOSINOPHILS 1 % (0-4); METAMYELOCYTES 1 % (0-1); NEUTROPHIL # MANUAL DIFF 9.3 TH/MM3 (1.8-7.7); POLYS (SEG NEUTROPHILS) 76 % (16-70); WBC DIFF SAMPLE 100
[2016-08-22 09:07] LABS: OVALOCYTES 1+ (NORMAL); PLATELET ESTIMATE SMEAR LOW (NORMAL); PLATELET MORPHOLOGY ENLARGED (NORMAL); SCAN/DIFF FINAL DIFF MANUAL
[2016-08-22] MEDS ORDERED: SODIUM BICARBONATE 650 MG TAB PO ONE (09:45)
[2016-08-22] MEDS: LACTOBACILLUS ACIDOPHILUS TAB PO SCH ×2 (10:03→21:37)
--- NOTE | 2016-08-22 11:48 | HHI.PR ---
Subjective Remarks Patient seen this morning around 11 AM. Says she is feeling all right. Denies any chest pain or shortness of breath. Denies any nausea or vomiting. Objective Vital Signs Date Time Temp Pulse Resp B/P Pulse Ox O2 Delivery O2 Flow Rate FiO2 08/22/16 08:51 95 Nasal Cannula 2.00 08/22/16 08:00 97.1 95 17 136/63 92 08/22/16 03:54 96.7 92 16 152/66 94 08/21/16 23:54 96.9 90 17 115/56 94 08/21/16 20:14 96.2 90 18 150/65 92 08/21/16 20:13 86 08/21/16 19:58 95 Nasal Cannula 2.00 08/21/16 18:11 20 08/21/16 16:00 97.0 90 18 134/62 94 08/21/16 12:00 96.5 90 17 115/53 94 I/O 08/21/16 08/21/16 08/21/16 08/22/16 08/22/16 08/22/16 06:59 14:59 22:59 06:59 14:59 22:59 Intake Total 685 ml 1276 ml 612 ml 617 ml Output Total 200 ml 500 ml 700 ml Balance 485 ml 776 ml 612 ml -83 ml Intake Oral 240 ml 280 ml IV Total 400 ml 1276 ml 332 ml 617 ml Other 45 ml Output Urine Total 200 ml 500 ml 700 ml # Voids 0 # Bowel Movements 0 Result Diagram: 08/22/1644008/22/16440 Objective Remarks GENERAL: patient sitting up in bed. Appears comfortable. Alert and oriented x3. No change on exam. SKIN: Warm and dry. HEAD: Normocephalic. EYES: No scleral icterus. No injection or drainage. NECK: Supple, trachea midline. No JVD. CARDIOVASCULAR: Regular rate and rhythm without murmurs, gallops, or rubs. RESPIRATORY: Breath sounds equal bilaterally. No accessory muscle use. GASTROINTESTINAL: Abdomen soft, non-tender, nondistended. MUSCULOSKELETAL: No cyanosis, or edema. decreased perfusion left foot, with slight ecchymosis anterior pérez. BACK: Nontender without obvious deformity. No CVA tenderness. A/P Assessment and Plan //LLE Cellulitis: wound on plantar aspect of left foot x2 wks, on Keflex with no improvement, +erythema involving left pérez. Afebrile, no leukocytosis. Outpatient Wound Cultures positive for Staph per report. S/p Wound/Blood Cultures in ER and Clinda IV. -Follow up cultures -Continue by mouth clindamycin, Wound Consult input appreciated //PVD: Currently on heparin drip and appreciate input from vascular surgery. Doppler negative for DVT. - Plan for CTA and run off as per vascular surgery. // Hyperkalemia: Resolved S/p Ca/Insulin/D50 and Kayexalate, appreciate input from nephrology and // HARPAL: Renal ultrasound reviewed and No evidence of hydronephrosis on the left. 2. 2.1 x 2.3 cm round non-shadowing lesion supermedial to the upper pole the right kidney of uncertain organ of origin. - Nephrology signed off. Continue IV fluids. //Non-anion gap metabolic acidosis. Likely rebound after acute kidney injury. -No diarrhea reported. -08/22. Gave some bicarbonate today. We'll continue to monitor // COPD: Chronic Respiratory Failure. O2 Dependent. Stable. Hypoxia on RA to 85%, O2 sat 96% on 2L NC. //HTN: Controlled. Hold Enalapril secondary to above. Monitor BP. // DVT Prophylaxis: On Heparin gtt. //Respiratory failure: Check chest x-ray as well as BNP 08/20/16, start scheduled DuoNeb //Normocytic normochromic anemia: H&H stable. transfuse for hemoglobin less than 7 monitor H&H //Prophylaxis. Heparin drip Bry Cowart MD Aug 22, 2016 11:48
[2016-08-22] MEDS ORDERED: MIDAZOLAM HCL 5 MG/5 ML VIAL ONE (12:33)
[2016-08-22] MEDS ORDERED: fentaNYL CITRATE 250 MCG/5 ML AMP ONE (12:33)
[2016-08-22] MEDS ORDERED: IODIXANOL 320 MG/ML 50 ML VIAL (for RAD SPEC) I-ARTERIAL ONE (14:26)
--- NOTE | 2016-08-22 16:13 | PD.RAD ---
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 Treament Area: Left Common Femoral angioplasty with DCB Left Ext Iliac angioplasty. Right Ext Iliac angioplasty and stenting. Rajat Hu MD Aug 22, 2016 16:13
--- NOTE | 2016-08-22 16:34 | RADRPT ---
EXAM DATE/TIME: 08/22/2016 13:13 [facility] COMPARISON: No previous studies available for comparison. INDICATIONS : Patient with Rt SFA occlussion and lt SFA occlussion. MEDICAL HISTORY : 1.PVD 2.Lt LE cellulitis 3. Acute kidney injury 4. HTN 5. COPD 6. Hyperkalemia SURGICAL HISTORY : 1.Hysterectomy 2. appendectomy 3. 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 Ultrasound-guided puncture of the access site. 2. Angiography of the access site prior to closure device. 3. Conscious sedation with continuous EKG and Oximetry monitoring. 4. Percutaneous closure of the access site. 5. Angiography of the aortoiliac vessels 6. Angiography of the left common femoral artery 7. Percutaneous transluminal angioplasty of the left common femoral artery with a drug coated balloon . 8. Percutaneous transluminal angioplasty of the left external iliac artery. 9. Percutaneous transluminal angioplasty of the right external iliac artery. 10. Percutaneous transluminal stenting of the right external iliac artery. The risks, benefits and alternatives to the procedure were explained and verbal and written consent w as obtained. The site was prepped in sterile fashion. Full sterile technique was used, including ca p, mask, sterile gloves and gown and a large sterile sheet. Hand hygiene and 2% chlorhexidine and/or betadine/alcohol prep was utilized per protocol for cutaneous antisepsis. The skin and subcutaneous tissues were infiltrated with local anesthetic solution. With ultrasound and fluoroscopic guidance the selected artery was punctured and a vascular sheath was placed. Angiography of the common femoral artery was performed for evaluation prior to percutaneous closure device placement. Aortoiliac arterial: A diagnostic flush catheter was advanced into the infrarenal abdominal aorta and aortoiliac arteriogr am performed. High-grade stenotic lesions are identified in the right external iliac artery, left external iliac ar pau and left common femoral artery. The left common iliac artery was selectively catheterized and a guidewire advanced into the profunda femoris. A 6 Azeri sheath was then advanced through the right groin into the proximal left common iliac arter y. Left common femoral arteriogram: Selective left common femoral arteriogram demonstrates irregular plaque with high-grade stenosis. Left common femoral angioplasty: High-grade stenosis of the left common femoral artery was traversed with a guidewire. A 5 mm balloon was advanced and the left common femoral artery was angioplastied. This was then followed by 6 mm geovani g coated angioplasty balloon. Following angioplasty left calf arteriogram demonstrates significant im provement a little patency with improved flow. Left external iliac artery angioplasty: A 6 mm angiographic balloon was advanced through the sheath into the mid to proximal left external il iac artery. Balloon angioplasty was performed. Post contrast and again demonstrates significant impro vement of luminal patency with no residual stenosis. Right external iliac artery angioplasty and stenting: The high-grade proximal right external echo artery stenosis present opacity with a 6 mm balloon. Resi dual stenosis was noted with a complete luminal expansion. And plasty was then followed by stenting w ith an 8 x 80 mm self-expanding stent. The stent was post dilated with a 6 mm balloon. The post stent ing angiogram demonstrates a widely patent right external iliac artery with significant improvement i n flow. Lower extremity arterial system was not evaluated. Hemostasis was obtained with the prescribed medicated closure device. Conscious sedation was perform ed with the prescribed dosages and duration as above. EKG and oximetry remained stable throughout th e procedure. The patient was sent to post anesthesia recovery in stable condition. CONCLUSION: Diagnostic angiography as described above demonstrates high-grade bilateral external iliac artery angeline noses and high-grade left common femoral artery stenosis. Successful angioplasty of the left common femoral artery and left external iliac artery. Right external iliac artery angioplasty and stenting as described above. Significant improvement in luminal patency of the external iliac arteries and left common femoral art radha following endovascular treatment. Rajat Hu MD on August 22, 2016 at 16:21 Board Certified Radiologist. This report was verified electronically.
[2016-08-22] MEDS: SODIUM CHLORIDE 0.9% FLUSH 5 ML FLUSH FLUSH SCH ×2 (19:09→21:44)
[2016-08-22] MEDS: CLOPIDOGREL 75 MG TAB PO SCH (21:37)
[2016-08-22] MEDS: MORPHINE SULFATE 4 MG/ML INJ IV PRN (21:43)
[2016-08-22] MEDS: SODIUM CHLOR 0.45% 1000 ML INJ 1,000 ML IV SCH (21:44)
[2016-08-23] VITALS (8 sets, daily range): BP systolic 121–141; BP diastolic 50–62; PULSE 92–107; RESP 16–20; TEMP 96.4–97.7; O2SAT 93–100
[2016-08-23] MEDS: CLINDAMYCIN 150 MG CAP PO SCH ×4 (00:50→18:28)
[2016-08-23] MEDS: CHLORHEXIDINE GLUCONATE 2 % 1 PACK (2 CLOTHS) TOP SCH (04:00)
[2016-08-23] MEDS: RESP: ALBUTEROL 2.5 MG/IPRATROPIUM 0.5 MG NEB (PRN) NEB (04:42)
[2016-08-23 05:48] LABS: AUTOMATED NEUTROPHIL # 12.5 TH/MM3 (1.8-7.7); BASOPHIL % 0.1 % (0.0-2.0); EOSINOPHIL % 0.1 % (0.0-4.0); HEMATOCRIT 23.8 % (35.0-46.0); LYMPH % 9.1 % (9.0-44.0); LYMPHOCYTE # 1.4 TH/MM3 (1.0-4.8); MEAN CELL VOLUME 88.6 FL (80.0-100.0); MEAN CORPUSCULAR HEMOGLOBIN 28.4 PG (27.0-34.0); MEAN CORPUSCULAR HGB CONC 32.1 % (32.0-36.0); MONO % 10.2 % (0.0-8.0); NEUT % 80.5 % (16.0-70.0); PLATELET COUNT 80 TH/MM3 (150-450); RED BLOOD COUNT 2.69 MIL/MM3 (4.00-5.30); RED CELL DISTRIBUTION WIDTH 18.2 % (11.6-17.2); WHITE BLOOD COUNT 15.5 TH/MM3 (4.0-11.0)
[2016-08-23 06:05] LABS: HEMO FLAGS AUTO DIFF
[2016-08-23 06:07] LABS: BICARBONATE 18.8 MEQ/L (21.0-32.0); POTASSIUM 4.7 MEQ/L (3.5-5.1)
[2016-08-23] MEDS: ACETAMINOPHEN/HYDROcodone 325 MG/5 MG TAB PO PRN ×3 (06:31→21:33)
[2016-08-23 07:09] LABS: ACANTHOCYTES OCC (NORMAL); KERATOCYTES OCC (NORMAL); OVALOCYTES 1+ (NORMAL); PLATELET ESTIMATE SMEAR LOW (NORMAL); PLATELET MORPHOLOGY NORMAL (NORMAL); SCAN/DIFF AUTO DIFF CONFIRMED
[2016-08-23] MEDS ORDERED: SODIUM BICARBONATE 650 MG TAB PO ONE (09:00)
[2016-08-23] MEDS: SODIUM CHLORIDE 0.9% FLUSH 5 ML FLUSH FLUSH SCH ×2 (09:00→21:32)
[2016-08-23] MEDS: CLOPIDOGREL 75 MG TAB PO SCH (09:49)
[2016-08-23] MEDS: LACTOBACILLUS ACIDOPHILUS TAB PO SCH ×2 (09:49→21:00)
[2016-08-23] MEDS: RESP: ALBUTEROL 2.5 MG/IPRATROPIUM 0.5 MG NEB (SCH) NEB ×3 (09:50→21:08)
[2016-08-23 10:20] LABS: BLOOD GAS BASE EXCESS -8.5 mmol/L (-2-2); BLOOD GAS CARBOXYHEMOGLOBIN 1.5 % (0-4); BLOOD GAS HCO3 18 mmol/L (22-26); BLOOD GAS METHEMOGLOBIN 0.9 % (0-2); BLOOD GAS O2 HGB SATURATION 85 % (90-100); BLOOD GAS OXYGEN CONTENT 9.8 Vol % (12.0-20.0); BLOOD GAS PCO2 45 mmHg (38-42); BLOOD GAS PO2 57 mmHg (61-120); BLOOD GAS TOTAL HGB 8.2 G/DL (12.0-16.0); TEMP CORR TO 98.6
[2016-08-23 10:21] LABS: CRITICAL VALUE YES; OXYGEN DEVICE NASAL CANNULA
[2016-08-23 10:22] LABS: DRAW SITE RT RADIAL; LITER FLOW 2.5 L/M; NUMBER OF ARTERIAL PUNCTURES 1; STAT NO; ULNAR PULSE PRESENT
--- NOTE | 2016-08-23 10:25 | RADRPT ---
EXAM DATE/TIME: 08/23/2016 09:41 [facility] COMPARISON: CHEST SINGLE AP, August 20, 2016, 13:15. INDICATIONS : Short of breath, evaluate pneumonia MEDICAL HISTORY : Chronic obstructive pulmonary disease. SURGICAL HISTORY : None. ENCOUNTER: Subsequent ACUITY: 1 week PAIN SCORE: Non-responsive. LOCATION: Bilateral chest FINDINGS: Persistent diffuse bilateral interstitial and alveolar parenchymal opacity and bilateral effusions. C ardiomediastinal contours are grossly stable. CONCLUSION: No significant change. Josue Lacy MD on August 23, 2016 at 10:22 Board Certified Radiologist. This report was verified electronically.
[2016-08-23 14:35] LABS: BACTERIA, URINE MOD /hpf; BLOOD, URINE SMALL (NEG); COMMENT (UR) CULTURE INDICATED; CULTURE IF INDICATED CULTURE INDICATED; GLUCOSE,URINE NEG (NEG); KETONE, URINE TRACE mg/dL (NEG); NITRITE,URINE POS (NEG); PH, URINE 5.5 (5.0-8.5); SQUAMOUS EPITHELIAL CELL URINE 1 /hpf (0-5); TRANSITIONAL EPI CELLS, URINE <1 /hpf; URINE COLOR LIGHT-YELLOW (YELLW/STRAW)
[2016-08-23] MEDS: SODIUM CHLOR 0.45% 1000 ML INJ 1,000 ML IV SCH (15:09)
--- NOTE | 2016-08-23 17:42 | HHI.NPPN ---
Subjective History of Present Illness 85 year old with HARPAL/CKD PVD Left foot pain Additional Remarks s/p Left Common Femoral angioplasty Left Ext Iliac angioplasty. Right Ext Iliac angioplasty and stenting. Review of Systems Musculoskeletal MS: Pain/Stiffness Objective Data Data 08/22/16 08/23/16 19:00 07:00 Intake Total 360 ml Output Total 1500 ml Balance -1140 ml Intake Oral 360 ml Output Urine Total 1500 ml # Voids 2 # Bowel Movements 0 0 Vital Signs Date Time Temp Pulse Resp B/P Pulse Ox O2 Delivery O2 Flow Rate FiO2 08/23/16 16:00 96.4 102 16 138/62 98 08/23/16 11:55 97.0 107 19 141/61 94 08/23/16 09:51 93 Nasal Cannula 2.50 08/23/16 08:00 97.0 95 17 134/62 97 08/23/16 04:34 96.6 92 16 121/56 98 08/23/16 00:34 97.7 100 16 122/58 94 08/22/16 20:18 98 Nasal Cannula 3.00 08/22/16 20:14 97.6 92 16 121/55 94 -: 08/23/16 0506 08/23/16 0506 Microbiology 08/23/16 Urine Culture, Received Pending Physical Exam General Appearance: Well Developed Neck Neck Exam: Neck Supple Pulmonary Resp Exam: Clear Bilaterally, Breath Sounds Equal Cardiology CV Exam: Regular, Normal Sinus Rhythm Gastrointestinal/Abdomen GI Exam: Soft, Non-Tender, Bowel Sounds Present Integumentary Skin Exam: Lesion(s) Extremeties Extremities Exam: No Edema Assessment/Plan Problem List: (1) Acidosis, metabolic Plan: this is combination of renal failure and bicarbonate loss, new diagnosis UTI, non anion gap type of acidosis in UTI can be seen, urine anion gap + 18 again not reliable as infected. I will treat UTI first usually greater then + 20 is seen in RTA (2) UTI (lower urinary tract infection) Plan: Culture pending start Levaquin (3) CKD (chronic kidney disease) stage 3, GFR 30-59 ml/min Plan: follow GFR s/p angioplasty (4) HARPAL (acute kidney injury) Plan: ARF resolved (5) COPD (chronic obstructive pulmonary disease) Plan: Continue to monitor (6) HTN (hypertension) Plan: Stable (7) PVD (peripheral vascular disease) Plan: Vascular surgery Following her s/p angioplasty Brock,Sajid MD Aug 23, 2016 17:42
[2016-08-23] MEDS: LEVOFLOXACIN 250 MG TAB PO SCH (18:28)
--- NOTE | 2016-08-23 19:31 | PD.CAR.PN ---
CVT Progress Note Subjective/Hospital Course: Patient seen full consult dictated Will follow Thanks Shaun 08/18/16 Patient with significant peripheral vascular disease ulcer of the left foot and now reduced edema of the both legs. On physical exam patient has no discernible distal pulses and bluish discoloration of the toes left more than right At this point patient has acute superimposed on chronic renal insufficiency with elevated creatinine view when and I would wait until the renal function improves before we preform a CTA with a runoff, but eventually patient will need arterial a runoff to evaluate degree of the disease and possible options for reconstruction. The current clinical situation based on physical findings including the plantar ulcer the note limb threatening ischemia and therefore full workup is mandatory however correcting renal function and medical issues trumps any further vascular workup at this time Will continue to follow patient which you and when renal function is improved we 'll go ahead with CTA and runoff 08/20/16 Swelling of the legs is significantly decreased Toes are still fairly purplish due to cyanosis but no gangrene is noted Patient is awaiting CTA point we'll be able to tell if there is any unreconstructable disease in the left leg Based on patient's age and frail status of course any procedure has to be tailored toward patient's ability to tolerate the same 08/21/16 I reviewed the CTA with a runoff This one confirms the clinical impression Right Patient has some external and common iliac disease but no flow-limiting stenosis Right SFA occlusion with distal reconstitution Left Patient has left tight iliofemoral stenosis as well as left external iliac artery stenosis little higher up SFAs are occluded and popliteal artery severely diseased on the left Runoff via posterior tibial artery which is interrupted in several areas At this point I recommend the percutaneous endovascular iliac angioplasty and common femoral angioplasty with the eluding balloon and possibly a stent in the left external iliac. This can be done on endovascular basis Patient will be taken to the endovascular suite tomorrow 08/23/16 Status post percutaneous revascularization of the left leg with eluding balloon dilatation Both feet are now nice and warm and capillary refill is much improved This is a great outcome thanks to great work of Dr. Hu From our point patient can be discharged any time Objective: Vital Signs Date Time Temp Pulse Resp B/P Pulse Ox O2 Delivery O2 Flow Rate FiO2 08/23/16 16:00 96.4 102 16 138/62 98 08/23/16 11:55 97.0 107 19 141/61 94 08/23/16 09:51 93 Nasal Cannula 2.50 08/23/16 08:00 97.0 95 17 134/62 97 08/23/16 04:34 96.6 92 16 121/56 98 08/23/16 00:34 97.7 100 16 122/58 94 08/22/16 20:18 98 Nasal Cannula 3.00 08/22/16 20:14 97.6 92 16 121/55 94 Labs: Laboratory Tests Test 08/23/16 08/23/16 10:06 14:19 Blood Gas Puncture Site RT RADIAL Blood Gas Patient Temperature 98.6 Blood Gas HCO3 18 mmol/L (22-26) Blood Gas Base Excess -8.5 mmol/L (-2-2) Blood Gas Oxygen Saturation 85 % (90-100) Arterial Blood pH 7.22 (7.380-7.420) Arterial Blood Partial 45 mmHg (38-42) Pressure CO2 Arterial Blood Partial 57 mmHg Pressure O2 (61-120) Arterial Blood Oxygen Content 9.8 Vol % (12.0-20.0) Arterial Blood 1.5 % (0-4) Carboxyhemoglobin Arterial Blood Methemoglobin 0.9 % (0-2) Blood Gas Hemoglobin 8.2 G/DL (12.0-16.0) Oxygen Delivery Device NASAL CANNULA Blood Gas Liter Flow 2.5 L/M Urine Color LIGHT-YELLOW (YELLW/STRAW) Urine Turbidity HAZY (CLEAR) Urine pH 5.5 (5.0-8.5) Urine Specific [place] 1.014 (1.002-1.035) Urine Protein 30 mg/dL (NEG-TRACE) Urine Glucose (UA) NEG mg/dL (NEG) Urine Ketones TRACE mg/dL (NEG) Urine Occult Blood SMALL (NEG) Urine Nitrite POS (NEG) Urine Bilirubin NEG (NEG) Urine Urobilinogen LESS THAN 2.0 MG/DL (LESS THAN 2.0) Urine Leukocyte Esterase LARGE (NEG) Urine RBC 32 /hpf (0-3) Urine WBC /hpf (0-5) Urine WBC Clumps RARE (NONE) Urine Squamous Epithelial 1 /hpf (0-5) Cells Urine Transitional Epithelial <1 /hpf (NONE) Cells Urine Bacteria MOD /hpf (NONE) Microscopic Urinalysis Comment CULTURE INDICATED Result Diagram: 08/23/16 0506 08/23/16 0506 Rachel Mccloud MD Aug 23, 2016 19:31
--- NOTE | 2016-08-23 22:04 | HHI.PR ---
Subjective Remarks Patient seen this afternoon around 3pm. denies any pain. reports nausea only when presented with food. no CP. no vomiting Objective Vital Signs Date Time Temp Pulse Resp B/P Pulse Ox O2 Delivery O2 Flow Rate FiO2 08/23/16 20:00 96.9 92 20 126/50 100 08/23/16 16:00 96.4 102 16 138/62 98 08/23/16 11:55 97.0 107 19 141/61 94 08/23/16 09:51 93 Nasal Cannula 2.50 08/23/16 08:00 97.0 95 17 134/62 97 08/23/16 04:34 96.6 92 16 121/56 98 08/23/16 00:34 97.7 100 16 122/58 94 I/O 08/22/16 08/22/16 08/22/16 08/23/16 08/23/16 08/23/16 07:00 15:00 23:00 07:00 15:00 23:00 Intake Total 617 ml 360 ml 753 ml Output Total 700 ml 500 ml 1000 ml Balance -83 ml -140 ml -1000 ml 753 ml Intake Oral 360 ml 210 ml IV Total 617 ml 543 ml Output Urine Total 700 ml 500 ml 1000 ml # Voids 1 1 1 # Bowel Movements 0 0 0 Result Diagram: 08/23/16 0506 08/23/16 0506 Objective Remarks GENERAL: patient sitting up in bed. Appears comfortable. Alert and oriented x3. SKIN: Warm and dry. HEAD: Normocephalic. EYES: No scleral icterus. No injection or drainage. NECK: Supple, trachea midline. No JVD. CARDIOVASCULAR: Regular rate and rhythm without murmurs, gallops, or rubs. RESPIRATORY: Breath sounds equal bilaterally. No accessory muscle use. GASTROINTESTINAL: Abdomen soft, non-tender, nondistended. MUSCULOSKELETAL: No cyanosis, or edema. improved color of BL feet. improved perfusion. BACK: Nontender without obvious deformity. No CVA tenderness. A/P Assessment and Plan //LLE Cellulitis: wound on plantar aspect of left foot x2 wks, on Keflex with no improvement, +erythema involving left pérez. Afebrile, no leukocytosis. Outpatient Wound Cultures positive for Staph per report. S/p Wound/Blood Cultures in ER and Clinda IV. -Follow up cultures -Continue by mouth clindamycin, Wound Consult input appreciated //PVD: Currently on heparin drip and appreciate input from vascular surgery. Doppler negative for DVT. - s/p angioplasty as per vas surgery. appreciate assistance. AC per vas surgery. // Hyperkalemia: Resolved S/p Ca/Insulin/D50 and Kayexalate, appreciate input from nephrology // HARPAL: Renal ultrasound reviewed and No evidence of hydronephrosis on the left. 2. 2.1 x 2.3 cm round non-shadowing lesion supermedial to the upper pole the right kidney of uncertain organ of origin. - Nephrology signed off. Continue IV fluids. //Non-anion gap metabolic acidosis. Likely rebound after acute kidney injury. -No diarrhea reported. -08/23. give bicarb again. consult nephrology. We'll continue to monitor //UTI - levaquin started per neph. f/u cx. // COPD: Chronic Respiratory Failure. O2 Dependent. Stable. Hypoxia on RA to 85%, O2 sat 96% on 2L NC. //HTN: Controlled. Hold Enalapril secondary to above. Monitor BP. // DVT Prophylaxis: On Heparin gtt. //Respiratory failure: Check chest x-ray as well as BNP 08/20/16, start scheduled DuoNeb //Normocytic normochromic anemia: H&H stable. transfuse for hemoglobin less than 7 monitor H&H //malnutrition. poor appetite. patient requests boost, says she will drink this. monitor. //Prophylaxis. Heparin drip Discharge Planning pt will need Rehab placement. expect DC to Rehab/SNF in 2-3 days. Bry Cowart MD Aug 23, 2016 22:03
[2016-08-24] VITALS (7 sets, daily range): BP systolic 133–150; BP diastolic 53–64; PULSE 84–93; RESP 16–20; TEMP 96.9–97.6; O2SAT 95–98
[2016-08-24] MEDS: CHLORHEXIDINE GLUCONATE 2 % 1 PACK (2 CLOTHS) TOP SCH (00:09)
[2016-08-24] MEDS: CLINDAMYCIN 150 MG CAP PO SCH ×4 (00:09→18:33)
[2016-08-24] MEDS: ACETAMINOPHEN/HYDROcodone 325 MG/5 MG TAB PO PRN ×3 (05:10→18:33)
[2016-08-24] MEDS: RESP: ALBUTEROL 2.5 MG/IPRATROPIUM 0.5 MG NEB (PRN) NEB ×2 (05:47→21:34)
[2016-08-24] MEDS: LACTOBACILLUS ACIDOPHILUS TAB PO SCH ×2 (08:27→21:25)
[2016-08-24] MEDS: CLOPIDOGREL 75 MG TAB PO SCH (08:27)
[2016-08-24] MEDS: LEVOFLOXACIN 250 MG TAB PO SCH (08:27)
[2016-08-24] MEDS: SODIUM CHLORIDE 0.9% FLUSH 5 ML FLUSH FLUSH SCH ×2 (08:28→21:26)
[2016-08-24] MEDS: RESP: ALBUTEROL 2.5 MG/IPRATROPIUM 0.5 MG NEB (SCH) NEB ×2 (08:42→13:52)
[2016-08-24 09:16] LABS: AUTOMATED NEUTROPHIL # 9.7 TH/MM3 (1.8-7.7); BASOPHIL % 0.2 % (0.0-2.0); EOSINOPHIL % 0.1 % (0.0-4.0); HEMATOCRIT 21.8 % (35.0-46.0); LYMPH % 6.6 % (9.0-44.0); LYMPHOCYTE # 0.8 TH/MM3 (1.0-4.8); MEAN CELL VOLUME 87.8 FL (80.0-100.0); MEAN CORPUSCULAR HEMOGLOBIN 28.6 PG (27.0-34.0); MEAN CORPUSCULAR HGB CONC 32.6 % (32.0-36.0); MONO % 12.7 % (0.0-8.0); NEUT % 80.4 % (16.0-70.0); PLATELET COUNT 71 TH/MM3 (150-450); RED BLOOD COUNT 2.48 MIL/MM3 (4.00-5.30); WHITE BLOOD COUNT 12.1 TH/MM3 (4.0-11.0)
[2016-08-24 09:21] LABS: HEMO FLAGS AUTO DIFF
[2016-08-24 09:42] LABS: POTASSIUM 4.6 MEQ/L (3.5-5.1)
[2016-08-24 10:43] LABS: BANDS 7 % (0-6); MYELOCYTES 1 % (0-0); NEUTROPHIL # MANUAL DIFF 11.4 TH/MM3 (1.8-7.7); PLATELET ESTIMATE SMEAR LOW (NORMAL); PLATELET MORPHOLOGY NORMAL (NORMAL); POLYS (SEG NEUTROPHILS) 86 % (16-70); SCAN/DIFF FINAL DIFF MANUAL; WBC DIFF SAMPLE 100
--- NOTE | 2016-08-24 16:35 | HHI.NPPN ---
Subjective History of Present Illness 85 year old with HARPAL/CKD PVD Left foot pain Additional Remarks No acute complaints today Review of Systems Musculoskeletal MS: Pain/Stiffness Objective Data Data 08/23/16 08/24/16 19:00 07:00 Intake Total 753 ml 180 ml Balance 753 ml 180 ml Intake Oral 210 ml 180 ml IV Total 543 ml # Voids 1 5 # Bowel Movements 0 Vital Signs Date Time Temp Pulse Resp B/P Pulse Ox O2 Delivery O2 Flow Rate FiO2 08/24/16 12:00 96.9 91 19 146/64 97 08/24/16 08:42 98 Nasal Cannula 3.00 08/24/16 08:00 96.9 92 17 137/64 97 08/24/16 00:00 97.6 92 20 133/53 98 08/23/16 21:08 98 Nasal Cannula 4.00 08/23/16 20:00 96.9 92 20 126/50 100 -: 08/24/16 0855 08/24/16 0855 Physical Exam General Appearance: Well Developed Neck Neck Exam: Neck Supple Pulmonary Resp Exam: Clear Bilaterally, Breath Sounds Equal Cardiology CV Exam: Regular, Normal Sinus Rhythm Gastrointestinal/Abdomen GI Exam: Soft, Non-Tender, Bowel Sounds Present Integumentary Skin Exam: Lesion(s) Extremeties Extremities Exam: No Edema Assessment/Plan Problem List: (1) Acidosis, metabolic Plan: Resolved now. This is combination of renal failure and bicarbonate loss, new diagnosis UTI, non anion gap type of acidosis in UTI can be seen, urine anion gap + 18 again not reliable as infected. Continue UTI treatment (2) UTI (lower urinary tract infection) Plan: Gram negative rods on culture- continue to follow On Levaquin (3) CKD (chronic kidney disease) stage 3, GFR 30-59 ml/min Plan: follow GFR s/p angioplasty Creatinine 1.4 today Will give NS 1L x 1, post angioplasty with IR 08/22 (4) HARPAL (acute kidney injury) Plan: ARF resolved (5) COPD (chronic obstructive pulmonary disease) Plan: Continue to monitor (6) HTN (hypertension) Plan: Stable (7) PVD (peripheral vascular disease) Plan: Vascular surgery Following her s/p angioplasty Jerome Bean MD Aug 24, 2016 16:35
[2016-08-24] MEDS ORDERED: SODIUM CHLOR 0.9% 1000 ML INJ 1,000 ML IV SCH (16:45)
--- NOTE | 2016-08-24 18:29 | HHI.PR ---
Subjective Remarks patient seen on 2 PM. Sleeping, wakes her exam. She denies any pain. Denies any shortness of breath. Instead of chocolate boost, she has chocolate Ensure, which she says she will not drink. No acute events per nursing. Objective Vital Signs Date Time Temp Pulse Resp B/P Pulse Ox O2 Delivery O2 Flow Rate FiO2 08/24/16 16:00 97.1 84 19 149/63 97 08/24/16 12:00 96.9 91 19 146/64 97 08/24/16 08:42 98 Nasal Cannula 3.00 08/24/16 08:00 96.9 92 17 137/64 97 08/24/16 00:00 97.6 92 20 133/53 98 08/23/16 21:08 98 Nasal Cannula 4.00 08/23/16 20:00 96.9 92 20 126/50 100 I/O 08/23/16 08/23/16 08/23/16 08/24/16 08/24/16 08/24/16 07:00 15:00 23:00 07:00 15:00 23:00 Intake Total 753 ml 120 ml 60 ml 440 ml Output Total 1000 ml 200 ml Balance -1000 ml 753 ml 120 ml 60 ml 240 ml Intake Oral 210 ml 120 ml 60 ml 440 ml IV Total 543 ml Output Urine Total 1000 ml 200 ml # Voids 1 2 3 # Bowel Movements 0 0 0 Result Diagram: 08/24/16 0855 08/24/16 0855 Objective Remarks GENERAL: sleeping, wakes for exam.patient sitting up in bed. Appears comfortable. Alert and oriented x3. SKIN: Warm and dry. HEAD: Normocephalic. EYES: No scleral icterus. No injection or drainage. NECK: Supple, trachea midline. No JVD. CARDIOVASCULAR: Regular rate and rhythm without murmurs, gallops, or rubs. RESPIRATORY: Breath sounds equal bilaterally. No accessory muscle use. GASTROINTESTINAL: Abdomen soft, non-tender, nondistended. MUSCULOSKELETAL: No cyanosis, or edema. improved color of BL feet. peripheral perfusion intact. BACK: Nontender without obvious deformity. No CVA tenderness. A/P Assessment and Plan 08/24/16 Anemia. Hemoglobin down to 7.1. No sign of bleeding. Likely dilutional from fluids overnight. Monitor. UTI. Gram-negative abebe on urinalysis. Follow urine cultures. Continue Levaquin. Creatinine slight increase, however BUN stable. Appreciate nephrology assistance. Poor by mouth intake. Consult dietary. Patient says she will accept chocolate boost. Order to dietary. //LLE Cellulitis: wound on plantar aspect of left foot x2 wks, on Keflex with no improvement, +erythema involving left pérez. Afebrile, no leukocytosis. Outpatient Wound Cultures positive for Staph per report. S/p Wound/Blood Cultures in ER and Clinda IV. -Follow up cultures -Continue by mouth clindamycin, Wound Consult input appreciated //PVD: - s/p angioplasty as per vasc surgery. appreciate assistance. AC per vas surgery. // Hyperkalemia: Resolved S/p Ca/Insulin/D50 and Kayexalate, appreciate input from nephrology // HARPAL: Renal ultrasound reviewed and No evidence of hydronephrosis on the left. 2. 2.1 x 2.3 cm round non-shadowing lesion supermedial to the upper pole the right kidney of uncertain organ of origin. - Nephrology signed off. Continue IV fluids. //Non-anion gap metabolic acidosis. Likely rebound after acute kidney injury. -No diarrhea reported. -08/23. give bicarb again. consult nephrology. We'll continue to monitor //UTI - levaquin started per neph. f/u cx. // COPD: Chronic Respiratory Failure. O2 Dependent. Stable. Hypoxia on RA to 85%, O2 sat 96% on 2L NC. //HTN: Controlled. Hold Enalapril secondary to above. Monitor BP. // DVT Prophylaxis: On Heparin gtt. //Respiratory failure: Check chest x-ray as well as BNP 08/20/16, start scheduled DuoNeb //Normocytic normochromic anemia: H&H stable. transfuse for hemoglobin less than 7 monitor H&H //malnutrition. poor appetite. patient requests boost, says she will drink this. monitor. //Prophylaxis. Heparin drip Discharge Planning cleared by vascular surgery and. Still awaiting results of UTI culture. -pt will need Rehab placement. expect DC to Rehab/SNF in 2-3 days. Bry Cowart MD Aug 24, 2016 18:29
[2016-08-25] VITALS (7 sets, daily range): BP systolic 123–145; BP diastolic 51–65; PULSE 94–98; RESP 16–20; TEMP 96.9–98; O2SAT 96–100
[2016-08-25] MEDS: RESP: ALBUTEROL 2.5 MG/IPRATROPIUM 0.5 MG NEB (PRN) NEB ×3 (04:30→19:50)
[2016-08-25] MEDS: CLINDAMYCIN 150 MG CAP PO SCH ×4 (04:44→17:16)
[2016-08-25 06:26] LABS: HEMATOCRIT 24.4 % (35.0-46.0); MEAN CELL VOLUME 88.3 FL (80.0-100.0); MEAN CORPUSCULAR HEMOGLOBIN 28.8 PG (27.0-34.0); MEAN CORPUSCULAR HGB CONC 32.6 % (32.0-36.0); PLATELET COUNT 84 TH/MM3 (150-450); RED BLOOD COUNT 2.76 MIL/MM3 (4.00-5.30); RED CELL DISTRIBUTION WIDTH 18.3 % (11.6-17.2)
[2016-08-25 06:38] LABS: POTASSIUM 4.4 MEQ/L (3.5-5.1)
[2016-08-25 06:51] LABS: REVIEW FLAG AUTO DIFF
[2016-08-25] MEDS: CLOPIDOGREL 75 MG TAB PO SCH (09:59)
[2016-08-25] MEDS: SODIUM CHLORIDE 0.9% FLUSH 5 ML FLUSH FLUSH SCH ×2 (09:59→21:27)
[2016-08-25] MEDS: LACTOBACILLUS ACIDOPHILUS TAB PO SCH ×2 (09:59→21:00)
[2016-08-25] MEDS: LEVOFLOXACIN 250 MG TAB PO SCH (09:59)
[2016-08-25] MEDS ORDERED: DOCUSATE SODIUM 50 MG/SENNA 8.6 MG TAB PO ONE (10:00)
[2016-08-25] MEDS: ONDANSETRON HCL 4 MG/2 ML VIAL IVP PRN ×2 (14:18→21:26)
--- NOTE | 2016-08-25 15:51 | HHI.NPPN ---
Subjective History of Present Illness 85 year old with HARPAL/CKD PVD Left foot pain Additional Remarks No acute complaints today Review of Systems Musculoskeletal MS: Pain/Stiffness Objective Data Data 08/24/16 08/25/16 19:00 07:00 Intake Total 440 ml 60 ml Output Total 200 ml 1575 ml Balance 240 ml -1515 ml Intake Oral 440 ml 60 ml Output Urine Total 200 ml 1575 ml Bladder Scan Volume Amount 720 ml # Bowel Movements 0 Vital Signs Date Time Temp Pulse Resp B/P Pulse Ox O2 Delivery O2 Flow Rate FiO2 08/25/16 11:16 97.5 98 20 145/63 99 08/25/16 09:52 99 Nasal Cannula 3.00 08/25/16 08:00 96.9 94 17 143/65 96 08/25/16 00:00 98.0 94 16 131/63 98 08/24/16 21:35 95 Nasal Cannula 3.00 08/24/16 20:00 97.3 93 16 150/63 97 08/24/16 16:00 97.1 84 19 149/63 97 -: 08/25/16 0508 08/25/16 0508 Physical Exam General Appearance: Well Developed Neck Neck Exam: Neck Supple Pulmonary Resp Exam: Clear Bilaterally, Breath Sounds Equal Cardiology CV Exam: Regular, Normal Sinus Rhythm Gastrointestinal/Abdomen GI Exam: Soft, Non-Tender, Bowel Sounds Present Integumentary Skin Exam: Lesion(s) Extremeties Extremities Exam: No Edema Assessment/Plan Problem List: (1) Acidosis, metabolic Plan: Resolved now. This is combination of renal failure and bicarbonate loss, new diagnosis UTI, non anion gap type of acidosis in UTI can be seen, urine anion gap + 18 again not reliable as infected. Continue UTI treatment - E. Coli UTI (2) UTI (lower urinary tract infection) Plan: E. Coil UTI on culture- continue to follow On Levaquin (3) CKD (chronic kidney disease) stage 3, GFR 30-59 ml/min Plan: follow GFR s/p angioplasty Creatinine 1.4 -> 1.3, stable Given 1L NS yesterday due to poor PO intake. Continue to encourage PO intake, off IVFs now. (4) HARPAL (acute kidney injury) Plan: ARF resolved (5) COPD (chronic obstructive pulmonary disease) Plan: Continue to monitor (6) HTN (hypertension) Plan: Stable (7) PVD (peripheral vascular disease) Plan: Vascular surgery Following her s/p angioplasty Jerome Bean MD Aug 25, 2016 15:51
[2016-08-25] MEDS: CHLORHEXIDINE GLUCONATE 2 % 1 PACK (2 CLOTHS) TOP SCH ×2 (21:27)
--- NOTE | 2016-08-25 23:26 | HHI.PR ---
Subjective Remarks patient seen around 11 AM. She says she is feeling a little better than yesterday. Her daughter has brought in boost from home, she will try this for lunch. Patient denies any nausea, vomiting. no bowel movement in several days. Denies any abdominal pain or discomfort. Objective Vital Signs Date Time Temp Pulse Resp B/P Pulse Ox O2 Delivery O2 Flow Rate FiO2 08/25/16 20:00 97.2 96 20 129/51 98 08/25/16 19:53 99 Nasal Cannula 3.00 08/25/16 16:00 97.8 97 20 123/63 100 08/25/16 11:16 97.5 98 20 145/63 99 08/25/16 09:52 99 Nasal Cannula 3.00 08/25/16 08:00 96.9 94 17 143/65 96 08/25/16 00:00 98.0 94 16 131/63 98 I/O 08/24/16 08/24/16 08/24/16 08/25/16 08/25/16 08/25/16 06:59 14:59 22:59 06:59 14:59 22:59 Intake Total 60 ml 440 ml 60 ml 100 ml 60 ml Output Total 200 ml 425 ml 1150 ml 600 ml 300 ml Balance 60 ml 240 ml -365 ml -1150 ml -500 ml -240 ml Intake Oral 60 ml 440 ml 60 ml 100 ml 60 ml Output Urine Total 200 ml 425 ml 1150 ml 600 ml 300 ml Bladder Scan Volume Amount 720 ml # Voids 3 # Bowel Movements 0 0 Result Diagram: 08/25/16 0508 08/25/16 0508 Objective Remarks GENERAL:awake. Daughter at bedside. Appears comfortable. Alert and oriented x3. SKIN: Warm and dry. HEAD: Normocephalic. EYES: No scleral icterus. No injection or drainage. NECK: Supple, trachea midline. No JVD. CARDIOVASCULAR: Regular rate and rhythm without murmurs, gallops, or rubs. RESPIRATORY: Breath sounds equal bilaterally. No accessory muscle use. GASTROINTESTINAL: Abdomen soft, non-tender, nondistended. MUSCULOSKELETAL: No cyanosis, or edema. improved color of BL feet. peripheral perfusion intact. BACK: Nontender without obvious deformity. No CVA tenderness. A/P Assessment and Plan 08/25/16 Anemia. stable.Back to 8 from 7.1. No sign of bleeding. UTI. Escherichia coli sensitive to most antibiotics.Continue Levaquin. Creatinine /BUN stable.Appreciate nephrology assistance. Poor by mouth intake. daughter has brought in chocolate boost. Hopefully patient will take this. Monitor.. //LLE Cellulitis: wound on plantar aspect of left foot x2 wks, on Keflex with no improvement, +erythema involving left pérez. Afebrile, no leukocytosis. Outpatient Wound Cultures positive for Staph per report. S/p Wound/Blood Cultures in ER and Clinda IV. -Follow up cultures -Continue by mouth clindamycin, Wound Consult input appreciated //PVD: - s/p angioplasty as per vasc surgery. appreciate assistance. AC per vasc surgery. // Hyperkalemia: Resolved S/p Ca/Insulin/D50 and Kayexalate, appreciate input from nephrology // HARPAL: Renal ultrasound reviewed and No evidence of hydronephrosis on the left. 2. 2.1 x 2.3 cm round non-shadowing lesion supermedial to the upper pole the right kidney of uncertain organ of origin. - Nephrology signed off. Continue IV fluids. //Non-anion gap metabolic acidosis. Likely rebound after acute kidney injury. -No diarrhea reported. -08/23. give bicarb again. consult nephrology. We'll continue to monitor -resolved. //UTI - Escherichia coli. Continue Levaquin. Remove Mendes. // COPD: Chronic Respiratory Failure. O2 Dependent. Stable. Hypoxia on RA to 85%, O2 sat 96% on 2L NC. //HTN: Controlled. Hold Enalapril secondary to above. Monitor BP. // DVT Prophylaxis: On Heparin gtt. //Respiratory failure: Check chest x-ray as well as BNP 08/20/16, start scheduled DuoNeb //Normocytic normochromic anemia: H&H stable. transfuse for hemoglobin less than 7 monitor H&H //malnutrition. poor appetite. patient requests boost, says she will drink this. monitor. //Prophylaxis. Heparin drip Discharge Planning -expect patient can be discharged tomorrow if she is tolerating diet, constipation resolved -pt will need Rehab placement. expect DC to Rehab/SNF in one-2 days. Bry Cowart MD Aug 25, 2016 23:26
[2016-08-26] VITALS (7 sets, daily range): BP systolic 117–132; BP diastolic 47–61; PULSE 93–99; RESP 17–20; TEMP 95.4–96.6; O2SAT 94–100
[2016-08-26] MEDS: CLINDAMYCIN 150 MG CAP PO SCH ×4 (00:08→16:58)
[2016-08-26] MEDS: ONDANSETRON HCL 4 MG/2 ML VIAL IVP PRN ×2 (05:35→12:15)
[2016-08-26 06:04] LABS: AUTOMATED NEUTROPHIL # 8.5 TH/MM3 (1.8-7.7); BASOPHIL % 0.1 % (0.0-2.0); HEMATOCRIT 24.9 % (35.0-46.0); LYMPH % 7.4 % (9.0-44.0); LYMPHOCYTE # 0.8 TH/MM3 (1.0-4.8); MEAN CELL VOLUME 88.2 FL (80.0-100.0); MEAN CORPUSCULAR HEMOGLOBIN 29.1 PG (27.0-34.0); MONO % 15.2 % (0.0-8.0); NEUT % 77.3 % (16.0-70.0); PLATELET COUNT 90 TH/MM3 (150-450); RED BLOOD COUNT 2.82 MIL/MM3 (4.00-5.30); RED CELL DISTRIBUTION WIDTH 17.9 % (11.6-17.2)
[2016-08-26 06:05] LABS: HEMO FLAGS AUTO DIFF
[2016-08-26 06:25] LABS: BICARBONATE 26.9 MEQ/L (21.0-32.0); POTASSIUM 4.2 MEQ/L (3.5-5.1)
[2016-08-26 07:02] LABS: BANDS 2 % (0-6); MYELOCYTES 3 % (0-0); NEUTROPHIL # MANUAL DIFF 8.9 TH/MM3 (1.8-7.7); POLYS (SEG NEUTROPHILS) 76 % (16-70); WBC DIFF SAMPLE 100
[2016-08-26 07:04] LABS: KERATOCYTES OCC (NORMAL); PLATELET ESTIMATE SMEAR LOW (NORMAL); PLATELET MORPHOLOGY NORMAL (NORMAL); SCAN/DIFF FINAL DIFF MANUAL
[2016-08-26] MEDS: LACTOBACILLUS ACIDOPHILUS TAB PO SCH ×2 (07:15→21:34)
[2016-08-26] MEDS: CLOPIDOGREL 75 MG TAB PO SCH (07:15)
[2016-08-26] MEDS: LEVOFLOXACIN 250 MG TAB PO SCH (07:15)
[2016-08-26] MEDS: SODIUM CHLORIDE 0.9% FLUSH 5 ML FLUSH FLUSH SCH ×2 (07:18→21:34)
--- NOTE | 2016-08-26 11:27 | HHI.NPPN ---
Subjective History of Present Illness 85 year old with HARPAL/CKD PVD Left foot pain Additional Remarks No acute complaints today Review of Systems Musculoskeletal MS: Pain/Stiffness Objective Data Data 08/25/16 08/26/16 19:00 07:00 Intake Total 100 ml 60 ml Output Total 600 ml 400 ml Balance -500 ml -340 ml Intake Oral 100 ml 60 ml Output Urine Total 600 ml 400 ml # Bowel Movements 0 Vital Signs Date Time Temp Pulse Resp B/P Pulse Ox O2 Delivery O2 Flow Rate FiO2 08/26/16 08:00 95.4 93 17 132/59 99 08/26/16 00:00 96.6 95 20 117/47 100 08/25/16 20:00 97.2 96 20 129/51 98 08/25/16 19:53 99 Nasal Cannula 3.00 08/25/16 16:00 97.8 97 20 123/63 100 -: 08/26/16 0510 08/26/16 0510 Physical Exam General Appearance: Well Developed Neck Neck Exam: Neck Supple Pulmonary Resp Exam: Clear Bilaterally, Breath Sounds Equal Cardiology CV Exam: Regular, Normal Sinus Rhythm Gastrointestinal/Abdomen GI Exam: Soft, Non-Tender, Bowel Sounds Present Integumentary Skin Exam: Lesion(s) Extremeties Extremities Exam: No Edema Assessment/Plan Problem List: (1) Acidosis, metabolic Plan: Resolved now. This is combination of renal failure and bicarbonate loss, new diagnosis UTI, non anion gap type of acidosis in UTI can be seen, urine anion gap + 18 again not reliable as infected. Continue UTI treatment - E. Coli UTI nephrology to follow PRN (2) UTI (lower urinary tract infection) Plan: E. Coil UTI on culture- continue to follow On Levaquin (3) CKD (chronic kidney disease) stage 3, GFR 30-59 ml/min Plan: follow GFR s/p angioplasty Creatinine 1.4 -> 1.3 ---> 1.09, stable FOLLOW OUT PT (4) HARPAL (acute kidney injury) Plan: ARF resolved (5) COPD (chronic obstructive pulmonary disease) Plan: Continue to monitor (6) HTN (hypertension) Plan: Stable (7) PVD (peripheral vascular disease) Plan: Vascular surgery Following her s/p angioplasty Maia Gutiérrez MD Aug 26, 2016 11:27
[2016-08-26] MEDS: MEGESTROL ACETATE 40 MG TAB PO SCH (21:34)
--- NOTE | 2016-08-26 22:10 | HHI.PR ---
Subjective Remarks patient seen around 10:30 AM. She says she is not hungry. Denies any chest pain or shortness of breath. She was nauseous when presented with food earlier. Denies any vomiting. Positive bowel movement. Denies abdominal pain. Objective Vital Signs Date Time Temp Pulse Resp B/P Pulse Ox O2 Delivery O2 Flow Rate FiO2 08/26/16 21:13 98 Nasal Cannula 2.00 08/26/16 20:00 96.5 96 20 130/48 97 08/26/16 16:00 95.5 95 18 130/61 99 08/26/16 13:21 97 Nasal Cannula 2.00 08/26/16 12:00 96.2 99 17 126/57 94 08/26/16 08:00 95.4 93 17 132/59 99 08/26/16 00:00 96.6 95 20 117/47 100 I/O 08/25/16 08/25/16 08/25/16 08/26/16 08/26/16 08/26/16 07:00 15:00 23:00 07:00 15:00 23:00 Intake Total 100 ml 60 ml 0 ml 0 ml Output Total 1150 ml 600 ml 300 ml 100 ml 700 ml Balance -1150 ml -500 ml -240 ml -100 ml -700 ml Intake Oral 100 ml 60 ml 0 ml 0 ml Output Urine Total 1150 ml 600 ml 300 ml 100 ml 700 ml Bladder Scan Volume Amount 720 ml # Bowel Movements 0 3 Result Diagram: 08/26/16 0510 08/26/16 0510 Objective Remarks GENERAL: sleeping, wakes up for exam. Alert and oriented x3. SKIN: Warm and dry. HEAD: Normocephalic. EYES: No scleral icterus. No injection or drainage. NECK: Supple, trachea midline. No JVD. CARDIOVASCULAR: Regular rate and rhythm without murmurs, gallops, or rubs. RESPIRATORY: Breath sounds equal bilaterally. No accessory muscle use. GASTROINTESTINAL: Abdomen soft, non-tender, nondistended. MUSCULOSKELETAL: patient has some residual discoloration of left first toe, however no broken skin. No tenderness. No pain. no edema. improved color of BL feet. peripheral perfusion intact. BACK: Nontender without obvious deformity. No CVA tenderness. A/P Assessment and Plan 08/26/16 - Appetite very poor. Appreciate dietary assistance. Ongoing calorie count until 08/29. UTI. Escherichia coli sensitive to most antibiotics.Continue Levaquin. Stop date 09/02 Creatinine /BUN improving.Appreciate nephrology assistance. - Discontinue clindamycin. No indication of bacterial infection to left lower extremity //LLE Cellulitis: wound on plantar aspect of left foot x2 wks, on Keflex with no improvement, +erythema involving left pérez. Afebrile, no leukocytosis. Outpatient Wound Cultures positive for Staph per report. S/p Wound/Blood Cultures in ER and Clinda IV. -Follow up cultures - No indication of infection currently. Inflammation was likely from vascular insufficiency. Cancel clindamycin //PVD: - s/p angioplasty as per vasc surgery. appreciate assistance. AC per vasc surgery. // Hyperkalemia: Resolved S/p Ca/Insulin/D50 and Kayexalate, appreciate input from nephrology // HARPAL: Renal ultrasound reviewed and No evidence of hydronephrosis on the left. 2. 2.1 x 2.3 cm round non-shadowing lesion supermedial to the upper pole the right kidney of uncertain organ of origin. - Nephrology signed off. Continue IV fluids. //Non-anion gap metabolic acidosis. Likely rebound after acute kidney injury. -No diarrhea reported. -08/23. give bicarb again. consult nephrology. We'll continue to monitor -resolved. //UTI - Escherichia coli. Continue Levaquin. Remove Mendes. // COPD: Chronic Respiratory Failure. O2 Dependent. Stable. Hypoxia on RA to 85%, O2 sat 96% on 2L NC. //HTN: Controlled. Hold Enalapril secondary to above. Monitor BP. // DVT Prophylaxis: On Heparin gtt. //Respiratory failure: Check chest x-ray as well as BNP 08/20/16, start scheduled DuoNeb //Normocytic normochromic anemia: H&H stable. transfuse for hemoglobin less than 7 monitor H&H //malnutrition. poor appetite. - 08/26. Start Megace. Start calorie count ending 08/29. //Prophylaxis. Heparin drip Discharge Planning - Calorie count ending 08/29. -pt will need Rehab placement. expect DC to Rehab/SNF in one-2 days. Bry Cowart MD Aug 26, 2016 22:10
[2016-08-27] VITALS (8 sets, daily range): BP systolic 121–138; BP diastolic 45–63; PULSE 90–95; RESP 16–20; TEMP 96.2–98.3; O2SAT 93–97
[2016-08-27] MEDS: CHLORHEXIDINE GLUCONATE 2 % 1 PACK (2 CLOTHS) TOP SCH ×2 (04:00→22:19)
[2016-08-27 05:21] LABS: HEMATOCRIT 23.7 % (35.0-46.0); MEAN CORPUSCULAR HEMOGLOBIN 28.9 PG (27.0-34.0); MEAN CORPUSCULAR HGB CONC 32.9 % (32.0-36.0); PLATELET COUNT 79 TH/MM3 (150-450); RED BLOOD COUNT 2.69 MIL/MM3 (4.00-5.30); RED CELL DISTRIBUTION WIDTH 17.9 % (11.6-17.2); WHITE BLOOD COUNT 9.4 TH/MM3 (4.0-11.0)
[2016-08-27 05:31] LABS: REVIEW FLAG FINAL
[2016-08-27 05:42] LABS: BICARBONATE 29.5 MEQ/L (21.0-32.0)
[2016-08-27] MEDS: CLOPIDOGREL 75 MG TAB PO SCH (08:48)
[2016-08-27] MEDS: LEVOFLOXACIN 250 MG TAB PO SCH (08:48)
[2016-08-27] MEDS: LACTOBACILLUS ACIDOPHILUS TAB PO SCH ×2 (08:48→22:18)
[2016-08-27] MEDS: MEGESTROL ACETATE 40 MG TAB PO SCH ×2 (08:48→22:18)
[2016-08-27] MEDS: SODIUM CHLORIDE 0.9% FLUSH 5 ML FLUSH FLUSH SCH ×2 (08:49→22:19)
--- NOTE | 2016-08-27 15:48 | HHI.PR ---
Subjective Remarks pt hunger slightly improved on megace but still meals make her nauseus. she only eats pudding, yogurt, milk. she denies any pain. d/w nursing. several BMs recordered yesterday. PROGRAM MANAGEMENT ANALYST says these were not very large, green and watery. patient denies any abd discomfort. left 1st toe now black at the tip, whereas had been purple before. pedal pulse present on doppler BL. Objective Vital Signs Date Time Temp Pulse Resp B/P Pulse Ox O2 Delivery O2 Flow Rate FiO2 08/27/16 12:00 96.3 95 17 137/62 97 08/27/16 10:00 95 Nasal Cannula 2.00 08/27/16 08:00 96.2 93 18 121/57 94 08/27/16 00:00 98.3 95 20 130/45 94 08/26/16 21:13 98 Nasal Cannula 2.00 08/26/16 20:00 96.5 96 20 130/48 97 08/26/16 16:00 95.5 95 18 130/61 99 I/O 08/26/16 08/26/16 08/26/16 08/27/16 08/27/16 08/27/16 07:00 15:00 23:00 07:00 15:00 23:00 Intake Total 0 ml 0 ml 120 ml 120 ml 200 ml Output Total 100 ml 700 ml 300 ml 350 ml 900 ml Balance -100 ml -700 ml -180 ml -230 ml -700 ml Intake Oral 0 ml 0 ml 120 ml 120 ml 200 ml IV Total 0 ml Output Urine Total 100 ml 700 ml 300 ml 350 ml 900 ml # Bowel Movements 3 1 Result Diagram: 08/27/16 0453 08/27/16 0453 Objective Remarks GENERAL: awake. Alert and oriented x3. SKIN: Warm and dry. HEAD: Normocephalic. EYES: No scleral icterus. No injection or drainage. NECK: Supple, trachea midline. No JVD. CARDIOVASCULAR: Regular rate and rhythm without murmurs, gallops, or rubs. RESPIRATORY: Breath sounds equal bilaterally. No accessory muscle use. GASTROINTESTINAL: Abdomen soft, non-tender, nondistended. MUSCULOSKELETAL: patient now had black tip of left first toe. positve pedal pulse on doppler. very small amount of feint surrounding erythema. No tenderness. No pain. no edema. improved color of BL feet. peripheral perfusion intact. BACK: Nontender without obvious deformity. No CVA tenderness. A/P Assessment and Plan 08/27/16 left first toe gangrene. only very minimal surrounding erythema. no pain. Dw Dr Varela - will have podiatry see for possible amputation. - Appetite improved, but still nausea with smelling meals. Appreciate dietary assistance. Ongoing calorie count until 08/29. UTI. Escherichia coli sensitive to most antibiotics.Continue Levaquin. Stop date 09/02 Creatinine /BUN continue improving.Appreciate nephrology assistance. abd film for possible constipation //LLE Cellulitis: wound on plantar aspect of left foot x2 wks, on Keflex with no improvement, +erythema involving left pérez. Afebrile, no leukocytosis. Outpatient Wound Cultures positive for Staph per report. S/p Wound/Blood Cultures in ER and Clinda IV. -Follow up cultures - No indication of infection currently. Inflammation was likely from vascular insufficiency. Cancel clindamycin //PVD: - s/p angioplasty as per vas surgery. appreciate assistance. AC per vas surgery. // Hyperkalemia: Resolved S/p Ca/Insulin/D50 and Kayexalate, appreciate input from nephrology // HARPAL: Renal ultrasound reviewed and No evidence of hydronephrosis on the left. 2. 2.1 x 2.3 cm round non-shadowing lesion supermedial to the upper pole the right kidney of uncertain organ of origin. - Nephrology signed off. Continue IV fluids. //Non-anion gap metabolic acidosis. Likely rebound after acute kidney injury. -No diarrhea reported. -08/23. give bicarb again. consult nephrology. We'll continue to monitor -resolved. //UTI - Escherichia coli. Continue Levaquin. Remove Mendes. // COPD: Chronic Respiratory Failure. O2 Dependent. Stable. Hypoxia on RA to 85%, O2 sat 96% on 2L NC. //HTN: Controlled. Hold Enalapril secondary to above. Monitor BP. // DVT Prophylaxis: On Heparin gtt. //Respiratory failure: Check chest x-ray as well as BNP 08/20/16, start scheduled DuoNeb //Normocytic normochromic anemia: H&H stable. transfuse for hemoglobin less than 7 monitor H&H //malnutrition. poor appetite. - 08/26. Start Megace. continue calorie count ending 08/29. //Constipation. small BMs, but no significant stool per nursing.. possible constipation. abd film //Prophylaxis. Heparin drip Discharge Planning - Calorie count ending 08/29. -pt will need Rehab placement. expect DC to Rehab/SNF in one-2 days. Bry Cowart MD Aug 27, 2016 15:48
[2016-08-27] MEDS ORDERED: SOD PHOSPHATE/SOD BIPHOSPHATE (ADULT) ENEMA 133ML PR ONE (16:00)
--- NOTE | 2016-08-27 20:14 | MB ---
cc: EVELIA GARCÍA DPM DATE OF CONSULTATION 08/27/16 CHIEF COMPLAINT Left foot digital ischemia. HISTORY OF PRESENT ILLNESS Ms High is an 85-year-old patient who was admitted with a chief complaint of left foot pain for two weeks. He was admitted on August 16, 2016. Since that time, she has had many medical interventions, but as of note, she underwent an angioplasty with Dr. Mccloud on August 23. He was apparently successful with the results of the angioplasty as both feet appear to be warm, well-perfused with an audible Doppler. However, over the last two days or so, the areas that were slightly ischemic have now begun to darken with an appearance similar to gangrene and that is why a consultation was placed for me. The patient states she only has minimal discomfort in the left foot. At this time, she denies any fever, headaches, chills, nausea or vomiting. PAST MEDICAL HISTORY 1. Hypertension 2. Chronic obstructive pulmonary disease PAST SURGICAL HISTORY 1. Hysterectomy 2. Angioplasty ALLERGIES [facility] HISTORY Noncontributory. SOCIAL HISTORY The patient denies alcohol and drugs or tobacco abuse. VITAL SIGNS: Temperature is 96.5. LABORATORY DATA White count 9.4, hemoglobin 7.8, hematocrit 23.7, platelets 79. IMAGING STUDIES X-ray of the left foot was negative for any gas in the soft tissue or signs of cortical erosion or other abnormalities. PHYSICAL EXAMINATION On physical exam, the patient has nonpalpable DP and PT pulses. Cap fill time of the left first and second digits is delayed. Both feet do feel warm and well-perfused with the exception of the left digits. Gross sensation is intact. Active range of motion is within normal limits. There are dark areas of surrounding areas of ischemia on the hallux as well as the plantar aspect of the second digit. The dry gangrenous area at the hallux is on the plantar aspect with ischemia extending to the metatarsal-phalangeal joint. The second digit is more isolated to the distal plantar tuft of the second digit. There is a similar ischemic appearance on the plantar fifth metatarsal head and plantar second metatarsal head. ASSESSMENT/PLAN 1. Ischemia of left foot digits one and two. - Agree with the fact that the patient is suffering from ischemia to the digits and will likely need an amputation, but at this time demarcation is not clear enough to allow for amputation. -Suggest the patient follow up as an outpatient and we can monitor until the time of demarcation and appropriate surgical intervention. This can take days or weeks, no advantage to keeping her in the hospital for this observation. -Patent advised to follow up in my office one week after discharge. -If patient remains in house for an extended period time, I will continue to monitor and possibly intervene on this admission. Thank you for this consultation. Evelia PINZON/ /6:03 PM /8:01 PM BRENT
--- NOTE | 2016-08-27 20:57 | RADRPT ---
EXAM DATE/TIME: 08/27/2016 20:39 [facility] COMPARISON: No previous studies available for comparison. INDICATIONS : Abdominal pain. MEDICAL HISTORY : Chronic obstructive pulmonary disease. SURGICAL HISTORY : None. ENCOUNTER: Initial ACUITY: 2 weeks PAIN SCORE: 2/10 LOCATION: Bilateral abdomen. FINDINGS: Left lateral decubitus view of the abdomen demonstrates a normal bowel gas pattern. No free air is i dentified. No organomegaly is evident. Osseous structures are intact. Rounded calcified density adj acent to L1. CONCLUSION: 1. No evidence of obstruction. 2. Calcified density adjacent to L1 could be aneurysm or calcified lymph node. Eric Manning MD on August 27, 2016 at 20:54 Board Certified Radiologist. This report was verified electronically.
[2016-08-28 05:58] LABS: AUTOMATED NEUTROPHIL # 6.8 TH/MM3 (1.8-7.7); BASOPHIL % 0.1 % (0.0-2.0); EOSINOPHIL % 0.1 % (0.0-4.0); HEMATOCRIT 25.3 % (35.0-46.0); LYMPH % 13.3 % (9.0-44.0); LYMPHOCYTE # 1.4 TH/MM3 (1.0-4.8); MEAN CORPUSCULAR HEMOGLOBIN 29.1 PG (27.0-34.0); MONO % 21.5 % (0.0-8.0); PLATELET COUNT 77 TH/MM3 (150-450); RED BLOOD COUNT 2.88 MIL/MM3 (4.00-5.30); RED CELL DISTRIBUTION WIDTH 17.6 % (11.6-17.2); WHITE BLOOD COUNT 10.5 TH/MM3 (4.0-11.0)
[2016-08-28 06:05] LABS: HEMO FLAGS AUTO DIFF
[2016-08-28 06:13] LABS: BICARBONATE 31.9 MEQ/L (21.0-32.0); POTASSIUM 3.7 MEQ/L (3.5-5.1)
[2016-08-28 07:06] LABS: BANDS 2 % (0-6); MYELOCYTES 1 % (0-0); NEUTROPHIL # MANUAL DIFF 7.8 TH/MM3 (1.8-7.7); POLYS (SEG NEUTROPHILS) 71 % (16-70); WBC DIFF SAMPLE 100
[2016-08-28 07:08] LABS: STOMATOCYTES 1+ (NORMAL)
[2016-08-28 07:10] LABS: DOHLE BODIES PRESENT (NONE SEEN); PLATELET ESTIMATE SMEAR LOW (NORMAL); PLATELET MORPHOLOGY NORMAL (NORMAL); SCAN/DIFF FINAL DIFF MANUAL
[2016-08-28] MEDS: LEVOFLOXACIN 250 MG TAB PO SCH (07:56)
[2016-08-28] MEDS: MEGESTROL ACETATE 40 MG TAB PO SCH ×2 (07:56→20:34)
[2016-08-28] MEDS: CLOPIDOGREL 75 MG TAB PO SCH (07:56)
[2016-08-28] MEDS: SODIUM CHLORIDE 0.9% FLUSH 5 ML FLUSH FLUSH SCH ×2 (07:57→20:34)
[2016-08-28] MEDS: LACTOBACILLUS ACIDOPHILUS TAB PO SCH ×2 (07:57→20:34)
[2016-08-28 08:00] VITALS: BP 133/63; PULSE 67; RESP 17; TEMP 96.1; O2SAT 99
[2016-08-28 10:53] VITALS: O2SAT 97
[2016-08-28] MEDS: RESP: ALBUTEROL 2.5 MG/IPRATROPIUM 0.5 MG NEB (PRN) NEB (10:53)
[2016-08-28 12:00] VITALS: BP 127/58; PULSE 85; RESP 17; TEMP 95.7; O2SAT 99
[2016-08-28] MEDS ORDERED: POTASSIUM PHOSPHATE INJ 15 MMOL in SODIUM CHLORIDE 0.9% INJ 150 ML IV ONE (12:00)
--- NOTE | 2016-08-28 12:18 | HHI.PR ---
Subjective Remarks Patient says that appetite is better, however nurse reports she is only having small amounts of yogurt, tips of milk. Denies any chest pain or shortness of breath. Denies any nausea or vomiting, except if she is presented with plates of food. Watery bowel movement after enema yesterday. green, no odor. Per nursing. Objective Vital Signs Date Time Temp Pulse Resp B/P Pulse Ox O2 Delivery O2 Flow Rate FiO2 08/28/16 10:53 97 Nasal Cannula 3.00 08/28/16 08:00 96.1 67 17 133/63 99 08/27/16 23:53 96.3 90 16 138/63 94 08/27/16 21:15 93 Nasal Cannula 2.00 08/27/16 19:59 98.3 92 16 135/63 93 08/27/16 16:00 96.5 94 17 131/60 97 I/O 08/27/16 08/27/16 08/27/16 08/28/16 08/28/16 08/28/16 06:59 14:59 22:59 06:59 14:59 22:59 Intake Total 120 ml 200 ml 280 ml 240 ml Output Total 350 ml 900 ml 480 ml 380 ml Balance -230 ml -700 ml -200 ml -140 ml Intake Oral 120 ml 200 ml 280 ml 240 ml IV Total 0 ml 0 ml Output Urine Total 350 ml 900 ml 480 ml 380 ml # Bowel Movements 1 1 Result Diagram: 08/28/16 0524 08/28/16 0524 Imaging Last Impressions Abdomen X-Ray 08/27/16 1533 Signed Impressions: Service Date/Time: Saturday, August 27, 2016 20:39 - CONCLUSION: 1. No evidence of obstruction. 2. Calcified density adjacent to L1 could be aneurysm or calcified lymph node. Eric Manning MD Chest X-Ray 08/23/16 0000 Signed Impressions: Service Date/Time: Tuesday, August 23, 2016 09:41 - CONCLUSION: No significant change. Josue Lacy MD Angiography 08/22/16 1420 Signed Impressions: Service Date/Time: August 13:13 - CONCLUSION: Diagnostic angiography as described above demonstrates high-grade bilateral external iliac artery stenoses and high-grade left common femoral artery stenosis. Successful angioplasty of the left common femoral artery and left external iliac artery. Right external iliac artery angioplasty and stenting as described above. Significant improvement in luminal patency of the external iliac arteries and left common femoral artery following endovascular treatment. Rajat Hu MD Aorta w/Runoff CTA 08/19/16 0000 Signed Impressions: Service Date/Time: Saturday, August 20, 2016 15:58 - CONCLUSION: Advanced atherosclerotic vasculopathy with hemodynamically significant stenotic/ occlusive lesions in the celiac, superior mesenteric, renal, external iliac, superficial femoral and popliteal arteries as described above. Severe irregularity with moderate to severe stenotic lesions are seen in the infrapopliteal runoff vessels to both calves and feet. Significantly diminished flow is evident to the right foot. Moderate bilateral pleural effusions with consolidating airspace disease in both lower lobes. Rajat Hu MD Renal Ultrasound 08/17/16 0000 Signed Impressions: Service Date/Time: Wednesday, August 17, 2016 16:01 - CONCLUSION: 1. Mild dilation of the collecting system of the right kidney. No evidence of hydronephrosis on the left. 2. 2.1 x 2.3 cm round non-shadowing lesion supermedial to the upper pole the right kidney of uncertain organ of origin. The right adrenal gland could be located in this area. Wei Corley MD Lower Extremity Ultrasound 08/16/16 0000 Signed Impressions: Service Date/Time: Tuesday, August 16, 2016 21:07 - CONCLUSION: No DVT. Josue White MD Foot X-Ray 08/16/16 0000 Signed Impressions: Service Date/Time: Tuesday, August 16, 2016 22:14 - CONCLUSION: No acute disease. Josue White MD Objective Remarks GENERAL: awake. Alert and oriented x3. Appears comfortable. SKIN: Warm and dry. HEAD: Normocephalic. EYES: No scleral icterus. No injection or drainage. NECK: Supple, trachea midline. No JVD. CARDIOVASCULAR: Regular rate and rhythm without murmurs, gallops, or rubs. RESPIRATORY: Breath sounds equal bilaterally. No accessory muscle use. GASTROINTESTINAL: Abdomen soft, non-tender, nondistended. MUSCULOSKELETAL: patient now had black tip of left first toe. positive pedal pulse on doppler. very small amount of feint surrounding erythema. No appreciable change on exam. No tenderness. No pain. no edema. improved color of BL feet. BACK: Nontender without obvious deformity. No CVA tenderness. A/P Assessment and Plan 08/27/16 -Replace phosphorus -Urine output decent. Remove Mendes Left first toe gangrene.Await podiatry consultation. Assistance appreciated -Malnutrition with poor appetite. Discussed with daughter. We'll start Marinol to stimulate appetite. Discussed potential side effects of confusion/ delirium, but considering that next step may be feeding tube, it is worth trying. -Continue antibiotics for UTI. Stop date Levaquin 09/02. -Abdomen with no acute findings. Not constipation. Just poor by mouth intake.. //LLE Cellulitis: Resolved. Wound on plantar aspect of left foot x2 wks, on Keflex with no improvement, +erythema involving left pérez. Afebrile, no leukocytosis. Outpatient Wound Cultures positive for Staph per report. S/p Wound/Blood Cultures in ER and Clinda IV. -Follow up cultures - No indication of infection currently. Inflammation was likely from vascular insufficiency. Cancel clindamycin //PVD: //Gangrene of left first toe. - s/p angioplasty as per vasc surgery. appreciate assistance. AC per vasc surgery. -Follow up podiatry consultation. //UTI - Escherichia coli. Continue Levaquin. -08/28 Remove Mendes. Continue antibiotics, Levaquin was stopped date of 09/02. //HTN: Controlled. Hold Enalapril secondary to above. Monitor BP. //Normocytic normochromic anemia: H&H stable. transfuse for hemoglobin less than 7 monitor H&H //malnutrition. poor appetite. - 08/26. Start Megace. continue calorie count ending 08/29. -08/28. Start Marinol. //Constipation. small BMs, but no significant stool per nursing.. possible constipation. abd film -08/28-Abdomen with no acute findings. Not constipation. Just poor by mouth intake. Chronic/resolved conditions. // Hyperkalemia: Resolved -Was 6.8 on admission. S/p Ca/Insulin/D50 and Kayexalate, appreciate input from nephrology // COPD: Chronic Respiratory Failure. O2 Dependent. Stable. Hypoxia on RA to 85%, O2 sat 96% on 2L NC. // HARPAL: -Resolved. Renal ultrasound reviewed and No evidence of hydronephrosis on the left. 2. 2.1 x 2.3 cm round non-shadowing lesion supermedial to the upper pole the right kidney of uncertain organ of origin. -Resolved. Appreciate nephrology assistance. //Non-anion gap metabolic acidosis. Likely rebound after acute kidney injury. -No diarrhea reported. -08/23. give bicarb again. consult nephrology. We'll continue to monitor -resolved. //Respiratory failure: Resolved. -Check chest x-ray as well as BNP 08/20/16, start scheduled DuoNeb -Respiratory status stable. Continue to monitor. //Prophylaxis. She is on Plavix. Avoid dual anti-coagulation secondary to anemia. Discharge Planning - Calorie count ending 08/29. -pt will need Rehab placement. She has been accepted. -If appetite does not improve, may need to consider feeding tube. DW daughter over the phone on 08/28. Bry Cowart MD Aug 28, 2016 12:18
[2016-08-28] MEDS ORDERED: DRONABINOL 2.5 MG CAP PO ONE (12:30)
[2016-08-28 16:00] VITALS: BP 127/58; PULSE 90; RESP 17; TEMP 97.1; O2SAT 100
[2016-08-28] MEDS: DRONABINOL 2.5 MG CAP PO SCH (16:02)
[2016-08-28 20:00] VITALS: BP 124/57; PULSE 92; RESP 16; TEMP 98.3; O2SAT 99
[2016-08-28] MEDS: CHLORHEXIDINE GLUCONATE 2 % 1 PACK (2 CLOTHS) TOP SCH (20:34)
[2016-08-29 00:03] VITALS: BP 128/60; PULSE 94; RESP 16; TEMP 96.6; O2SAT 99
[2016-08-29] MEDS: LEVOFLOXACIN 250 MG TAB PO SCH (07:29)
[2016-08-29] MEDS: LACTOBACILLUS ACIDOPHILUS TAB PO SCH ×2 (07:29→21:46)
[2016-08-29] MEDS: CLOPIDOGREL 75 MG TAB PO SCH (07:29)
[2016-08-29] MEDS: MEGESTROL ACETATE 40 MG TAB PO SCH ×2 (07:30→21:46)
[2016-08-29] MEDS: SODIUM CHLORIDE 0.9% FLUSH 5 ML FLUSH FLUSH SCH ×2 (07:30→21:47)
[2016-08-29 08:00] VITALS: BP 126/60; PULSE 89; RESP 22; TEMP 96.6; O2SAT 97
[2016-08-29] MEDS: DRONABINOL 2.5 MG CAP PO SCH ×2 (10:05→15:46)
[2016-08-29 12:00] VITALS: BP 135/63; PULSE 91; RESP 20; TEMP 97.6; O2SAT 99
[2016-08-29 16:00] VITALS: BP 132/59; PULSE 85; RESP 23; TEMP 97.9; O2SAT 99
[2016-08-29 16:34] VITALS: PULSE 85
[2016-08-29 20:00] VITALS: BP 128/63; PULSE 93; RESP 18; TEMP 97; O2SAT 94
--- NOTE | 2016-08-29 20:07 | RADRPT ---
EXAM DATE/TIME: 08/29/2016 19:31 [facility] COMPARISON: CHEST SINGLE AP, August 23, 2016, 9:41. ABDOMEN DECUBITUS LEFT, August 27, 2016, 20:39. INDICATIONS : Evaluate NG tube placement. MEDICAL HISTORY : None. SURGICAL HISTORY : None. ENCOUNTER: Initial ACUITY: 1 day PAIN SCORE: 0/10 LOCATION: Abdomen. FINDINGS: NG tube is present with tip in the stomach. The bowel gas is nonspecific without any signs of obstruc tion or free air. Bilateral pleural effusions are seen. CONCLUSION: NG tube tip in the stomach. Nikko Rehman MD on August 29, 2016 at 20:04 Board Certified Radiologist. This report was verified electronically.
--- NOTE | 2016-08-29 23:32 | HHI.PR ---
Subjective Remarks patient seen today around noon. She says she is feeling well. Smiling. She still is not eating. Calorie count reviewed. Patient agrees to nasogastric tube and feeding. She is alert and oriented x3. Daughter called as well, who agrees will feeding. gastroenterology consult placed Objective Vital Signs Date Time Temp Pulse Resp B/P Pulse Ox O2 Delivery O2 Flow Rate FiO2 08/29/16 20:00 97.0 93 18 128/63 94 08/29/16 16:34 85 08/29/16 16:00 97.9 85 23 132/59 99 08/29/16 12:00 97.6 91 20 135/63 99 08/29/16 08:00 96.6 89 22 126/60 97 08/29/16 00:03 96.6 94 16 128/60 99 I/O 08/28/16 08/28/16 08/28/16 08/29/16 08/29/16 08/29/16 07:00 15:00 23:00 07:00 15:00 23:00 Intake Total 240 ml 250 ml 280 ml 240 ml 202 ml 240 ml Output Total 380 ml 700 ml 500 ml 450 ml Balance -140 ml -450 ml 280 ml -260 ml -248 ml 240 ml Intake Oral 240 ml 250 ml 280 ml 240 ml 0 ml 240 ml Oral Supplement 200 ml IV Total 0 ml 2 ml Output Urine Total 380 ml 700 ml 500 ml 450 ml # Voids 2 1 # Bowel Movements 0 1 1 Result Diagram: 08/28/1652308/28/1624 Objective Remarks GENERAL: awake. Alert and oriented x3. lying in bed.Appears comfortable.smiling. SKIN: Warm and dry. HEAD: Normocephalic. EYES: No scleral icterus. No injection or drainage. NECK: Supple, trachea midline. No JVD. CARDIOVASCULAR: Regular rate and rhythm without murmurs, gallops, or rubs. RESPIRATORY: Breath sounds equal bilaterally. No accessory muscle use. GASTROINTESTINAL: Abdomen soft, non-tender, nondistended. MUSCULOSKELETAL: patient now had black tip of left first toe. positive pedal pulse on doppler. very small amount of feint surrounding erythema. No appreciable change on exam. No tenderness. No pain. no edema. improved color of BL feet. BACK: Nontender without obvious deformity. No CVA tenderness. A/P Assessment and Plan 08/29/16 -malnutrition. Start tube feeds. Out of bed elevated. Patient agrees to tube feeds. Discussed with daughter, who agrees as well. We'll consult gastroenterology for possible PEG tube placement. //LLE Cellulitis: Resolved. Wound on plantar aspect of left foot x2 wks, on Keflex with no improvement, +erythema involving left pérez. Afebrile, no leukocytosis. Outpatient Wound Cultures positive for Staph per report. S/p Wound/Blood Cultures in ER and Clinda IV. -Follow up cultures - No indication of infection currently. Inflammation was likely from vascular insufficiency. Cancel clindamycin //PVD: //Gangrene of left first toe. - s/p angioplasty as per vas surgery. appreciate assistance. AC per [facility]. -Follow up podiatry consultation. //UTI - Escherichia coli. Continue Levaquin. -08/28 Remove Mendes. Continue antibiotics, Levaquin was stopped date of 09/02. //HTN: Controlled. Hold Enalapril secondary to above. Monitor BP. //Normocytic normochromic anemia: H&H stable. transfuse for hemoglobin less than 7 monitor H&H //malnutrition. poor appetite. - 08/26. Start Megace. continue calorie count ending 08/29. -08/28. Start Marinol. -08/29start tube feeds via NG tube. Gastroenterology consult placed. //Constipation. small BMs, but no significant stool per nursing.. possible constipation. abd film -08/28-Abdomen with no acute findings. Not constipation. Just poor by mouth intake. Chronic/resolved conditions. // Hyperkalemia: Resolved -Was 6.8 on admission. S/p Ca/Insulin/D50 and Kayexalate, appreciate input from nephrology // COPD: Chronic Respiratory Failure. O2 Dependent. Stable. Hypoxia on RA to 85%, O2 sat 96% on 2L NC. // HARPAL: -Resolved. Renal ultrasound reviewed and No evidence of hydronephrosis on the left. 2. 2.1 x 2.3 cm round non-shadowing lesion supermedial to the upper pole the right kidney of uncertain organ of origin. -Resolved. Appreciate nephrology assistance. //Non-anion gap metabolic acidosis. Likely rebound after acute kidney injury. -No diarrhea reported. -08/23. give bicarb again. consult nephrology. We'll continue to monitor -resolved. //Respiratory failure: Resolved. -Check chest x-ray as well as BNP 08/20/16, start scheduled DuoNeb -Respiratory status stable. Continue to monitor. //Prophylaxis. She is on Plavix. Avoid dual anti-coagulation secondary to anemia. Discharge Planning - Calorie count ending 08/29- will place NG tube start on tube feeds. -pt will need Rehab placement. She has been accepted. -If appetite does not improve, may need to consider feeding tube. SANDRA daughter over the phone on 08/28. Bry Cowart MD Aug 29, 2016 23:32 -If appetite does not improve, may need to consider feeding tube. SANDRA daughter over the phone on 08/28. Bry Cowart MD Aug 29, 2016 23:32
[2016-08-30] VITALS (8 sets, daily range): BP systolic 125–145; BP diastolic 45–82; PULSE 85–104; RESP 16–24; TEMP 96.2–98.9; O2SAT 94–100
[2016-08-30] MEDS: CHLORHEXIDINE GLUCONATE 2 % 1 PACK (2 CLOTHS) TOP SCH (04:00)
[2016-08-30 05:26] LABS: AUTOMATED NEUTROPHIL # 5.9 TH/MM3 (1.8-7.7); BASOPHIL % 0.1 % (0.0-2.0); EOSINOPHIL % 0.1 % (0.0-4.0); HEMATOCRIT 25.5 % (35.0-46.0); LYMPH % 15.2 % (9.0-44.0); LYMPHOCYTE # 1.4 TH/MM3 (1.0-4.8); MEAN CELL VOLUME 88.9 FL (80.0-100.0); MEAN CORPUSCULAR HEMOGLOBIN 29.5 PG (27.0-34.0); MEAN CORPUSCULAR HGB CONC 33.1 % (32.0-36.0); MONO % 22.4 % (0.0-8.0); NEUT % 62.2 % (16.0-70.0); PLATELET COUNT 62 TH/MM3 (150-450); RED BLOOD COUNT 2.87 MIL/MM3 (4.00-5.30); RED CELL DISTRIBUTION WIDTH 17.6 % (11.6-17.2); WHITE BLOOD COUNT 9.4 TH/MM3 (4.0-11.0)
[2016-08-30 05:35] LABS: HEMO FLAGS AUTO DIFF
[2016-08-30 05:38] LABS: BICARBONATE 36.7 MEQ/L (21.0-32.0)
[2016-08-30 06:48] LABS: METAMYELOCYTES 1 % (0-1); MYELOCYTES 2 % (0-0); NEUTROPHIL # MANUAL DIFF 6.9 TH/MM3 (1.8-7.7); PLATELET ESTIMATE SMEAR LOW (NORMAL); PLATELET MORPHOLOGY NORMAL (NORMAL); POLYS (SEG NEUTROPHILS) 70 % (16-70); SCAN/DIFF FINAL DIFF MANUAL; WBC DIFF SAMPLE 100
[2016-08-30] MEDS: LEVOFLOXACIN 250 MG TAB PO SCH (07:55)
[2016-08-30] MEDS: SODIUM CHLORIDE 0.9% FLUSH 5 ML FLUSH FLUSH SCH ×2 (07:55→22:12)
[2016-08-30] MEDS: MEGESTROL ACETATE 40 MG TAB PO SCH ×2 (07:55→22:13)
[2016-08-30] MEDS: CLOPIDOGREL 75 MG TAB PO SCH (07:55)
[2016-08-30] MEDS: LACTOBACILLUS ACIDOPHILUS TAB PO SCH ×2 (07:55→22:12)
[2016-08-30] MEDS ORDERED: BENEPROTEIN POWDER 1 PACK G-TUBE SCH (09:00)
--- NOTE | 2016-08-30 10:00 | PD.CONS ---
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 Since then respiratory failure and HARPAL resolved. GI services have been consulted for PEG tub placement. Currently, patient is receiving TF via NGT, tolerating well, denies nausea, vomiting, abd pain, hematemesis or hematochezia. (Tati Tan) PFSH Past Medical History PMH: HTN and COPD, O2 Dependent, PVD Past Surgical History PAST SURGICAL HISTORY: Hysterectomy (Tati Tan) Coded Allergies: Sulfa (Verified Allergy, Unknown, 08/16/16) Family History PAST FAMILY HISTORY: Reviewed. No h/o DM or CAD Social History PAST SOCIAL HISTORY: Negative for alcohol, tobacco or drugs per (Tati Tan) GI Exam Vitals I&O Vital Signs Date Time Temp Pulse Resp B/P Pulse Ox O2 Delivery O2 Flow Rate FiO2 08/30/16 08:40 86 08/30/16 08:00 96.2 86 24 145/65 97 08/29/16 20:00 97.0 93 18 128/63 94 08/29/16 16:34 85 08/29/16 16:00 97.9 85 23 132/59 99 08/29/16 12:00 97.6 91 20 135/63 99 I/O 08/29/16 08/29/16 08/29/16 08/30/16 08/30/16 08/30/16 07:00 15:00 23:00 07:00 15:00 23:00 Intake Total 240 ml 202 ml 240 ml 218 ml Output Total 500 ml 450 ml Balance -260 ml -248 ml 240 ml 218 ml Intake Oral 240 ml 0 ml 240 ml 120 ml Oral Supplement 200 ml IV Total 2 ml 0 ml 0 ml Tube Feeding 0 ml 98 ml Output Urine Total 500 ml 450 ml # Voids 2 1 3 # Bowel Movements 1 1 2 Imaging Last Impressions Abdomen X-Ray 08/29/16 0000 Signed Impressions: Service Date/Time: August 19:31 - CONCLUSION: NG tube tip in the stomach. KLexi Rehman MD Chest X-Ray 08/23/16 0000 Signed Impressions: Service Date/Time: Tuesday, August 23, 2016 09:41 - CONCLUSION: No significant change. Josue Lacy MD Angiography 08/22/16 1420 Signed Impressions: Service Date/Time: August 13:13 - CONCLUSION: Diagnostic angiography as described above demonstrates high-grade bilateral external iliac artery stenoses and high-grade left common femoral artery stenosis. Successful angioplasty of the left common femoral artery and left external iliac artery. Right external iliac artery angioplasty and stenting as described above. Significant improvement in luminal patency of the external iliac arteries and left common femoral artery following endovascular treatment. Rajat Hu MD Aorta w/Runoff CTA 08/19/16 0000 Signed Impressions: Service Date/Time: Saturday, August 20, 2016 15:58 - CONCLUSION: Advanced atherosclerotic vasculopathy with hemodynamically significant stenotic/ occlusive lesions in the celiac, superior mesenteric, renal, external iliac, superficial femoral and popliteal arteries as described above. Severe irregularity with moderate to severe stenotic lesions are seen in the infrapopliteal runoff vessels to both calves and feet. Significantly diminished flow is evident to the right foot. Moderate bilateral pleural effusions with consolidating airspace disease in both lower lobes. Rajat Hu MD Renal Ultrasound 08/17/16 0000 Signed Impressions: Service Date/Time: Wednesday, August 17, 2016 16:01 - CONCLUSION: 1. Mild dilation of the collecting system of the right kidney. No evidence of hydronephrosis on the left. 2. 2.1 x 2.3 cm round non-shadowing lesion supermedial to the upper pole the right kidney of uncertain organ of origin. The right adrenal gland could be located in this area. Wei Corley MD Lower Extremity Ultrasound 08/16/16 0000 Signed Impressions: Service Date/Time: Tuesday, August 16, 2016 21:07 - CONCLUSION: No DVT. Josue White MD Foot X-Ray 08/16/16 0000 Signed Impressions: Service Date/Time: Tuesday, August 16, 2016 22:14 - CONCLUSION: No acute disease. Josue White MD Laboratory Test 08/30/16 04:15 White Blood Count 9.4 TH/MM3 Red Blood Count 2.87 MIL/MM3 Hemoglobin 8.4 GM/DL Hematocrit 25.5 % Mean Corpuscular Volume 88.9 FL Mean Corpuscular Hemoglobin 29.5 PG Mean Corpuscular Hemoglobin 33.1 % Concent Red Cell Distribution Width 17.6 % Platelet Count 62 TH/MM3 Mean Platelet Volume 10.3 FL Neutrophils (%) (Auto) 62.2 % Lymphocytes (%) (Auto) 15.2 % Monocytes (%) (Auto) 22.4 % Eosinophils (%) (Auto) 0.1 % Basophils (%) (Auto) 0.1 % Neutrophils # (Auto) 5.9 TH/MM3 Lymphocytes # (Auto) 1.4 TH/MM3 Monocytes # (Auto) 2.1 TH/MM3 Eosinophils # (Auto) 0.0 TH/MM3 Basophils # (Auto) 0.0 TH/MM3 CBC Comment AUTO DIFF Differential Total Cells 100 Counted Neutrophils % (Manual) 70 % Lymphocytes % 12 % Monocytes % 15 % Neutrophils # (Manual) 6.9 TH/MM3 Metamyelocytes 1 % Myelocytes 2 % Differential Comment FINAL DIFF MANUAL Platelet Estimate LOW Platelet Morphology Comment NORMAL Basophilic Stippling MOD Sodium Level 142 MEQ/L Potassium Level 4.0 MEQ/L Chloride Level 102 MEQ/L Carbon Dioxide Level 36.7 MEQ/L Anion Gap 3 MEQ/L Blood Urea Nitrogen 23 MG/DL Creatinine 0.59 MG/DL Estimat Glomerular Filtration 97 ML/MIN Rate Random Glucose 106 MG/DL Calcium Level 9.2 MG/DL Physical Examination HEENT: normocephalic; atraumatic; no jaundice. Throat is clear. NECK: Neck is supple, no JVD, no lymphadenopathy. CHEST: Chest is clear to auscultation and percussion. CARDIAC: Regular rate and rhythm with no murmur gallop or rubs. ABDOMEN: Soft, nondistended, nontender; no hepatosplenomegaly; bowel sounds are present in all four quadrants. EXTREMITIES: black tip of left first toe. MANAGER SHOP: No focal deficits; alert and oriented times three. 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 Since then respiratory failure and HARPAL resolved. GI services have been consulted for PEG tub placement. Currently, patient is receiving TF via NGT, tolerating well, denies nausea, vomiting, abd pain, hematemesis or hematochezia. - COPD, PVD, UTI per attending Plan: - TF feeding per recommendation - EGD/PEG tube placement sometimes next week, will need to have Plavix on hold for few days - Cont. supportive care - Patient seen and examined by Dr. Grossman and myself and this note is written on his behalf. (Tati Tan) Physician Comments Seen and examined, plan as above, will hold Plavix for a total of 5 days then PEG placement. (Shanel Grossman MD) Tati Tan Aug 30, 2016 10:00 Shanel Grossman MD Aug 30, 2016 12:37
[2016-08-30] MEDS: DRONABINOL 2.5 MG CAP PO SCH ×2 (11:26→16:00)
[2016-08-30 19:17] LABS: HEMATOCRIT 25.6 % (35.0-46.0); MEAN CORPUSCULAR HEMOGLOBIN 28.6 PG (27.0-34.0); MEAN CORPUSCULAR HGB CONC 32.6 % (32.0-36.0); PLATELET COUNT 64 TH/MM3 (150-450); RED BLOOD COUNT 2.91 MIL/MM3 (4.00-5.30); RED CELL DISTRIBUTION WIDTH 17.6 % (11.6-17.2); WHITE BLOOD COUNT 12.1 TH/MM3 (4.0-11.0)
[2016-08-30 19:19] LABS: REVIEW FLAG FINAL
--- NOTE | 2016-08-30 19:28 | HHI.PR ---
Subjective Remarks patient seen today around 2 PM. Patient's in bed. Smiling. Says she feels well. Denies any chest pain or shortness of breath. Denies any nausea, reflux , vomiting. Objective Vital Signs Date Time Temp Pulse Resp B/P Pulse Ox O2 Delivery O2 Flow Rate FiO2 08/30/16 18:06 94 Nasal Cannula 2.00 08/30/16 16:00 98.5 87 16 129/46 94 08/30/16 12:30 98.3 85 16 125/45 96 08/30/16 12:00 97.2 87 20 128/56 100 08/30/16 09:51 97 21 08/30/16 08:40 86 08/30/16 08:00 96.2 86 24 145/65 97 08/29/16 20:00 97.0 93 18 128/63 94 I/O 08/29/16 08/29/16 08/29/16 08/30/16 08/30/16 08/30/16 07:00 15:00 23:00 07:00 15:00 23:00 Intake Total 240 ml 202 ml 240 ml 218 ml Output Total 500 ml 450 ml Balance -260 ml -248 ml 240 ml 218 ml Intake Oral 240 ml 0 ml 240 ml 120 ml Oral Supplement 200 ml IV Total 2 ml 0 ml 0 ml Tube Feeding 0 ml 98 ml Output Urine Total 500 ml 450 ml # Voids 2 1 3 # Bowel Movements 1 1 2 Result Diagram: 08/30/165 08/30/16414 Objective Remarks GENERAL: awake. Alert and oriented x3. sitting up in bed.Appears comfortable.smiling as before. SKIN: Warm and dry. HEAD: Normocephalic. EYES: No scleral icterus. No injection or drainage. NECK: Supple, trachea midline. No JVD. CARDIOVASCULAR: Regular rate and rhythm without murmurs, gallops, or rubs. RESPIRATORY: Breath sounds equal bilaterally. No accessory muscle use. GASTROINTESTINAL: Abdomen soft, non-tender, nondistended. NG tube in place. MUSCULOSKELETAL: patient now has black tip of left first toe, unchanged from yesterday. 08/29positive pedal pulse on doppler. very small amount of feint surrounding erythema. No appreciable change on exam. No tenderness. No pain. no edema. improved color of BL feet. BACK: Nontender without obvious deformity. No CVA tenderness. A/P Assessment and Plan patient admitted for left lower extremity ischemia, underwent angioplasty left lower extremity on 08/25. Still big toe with gangrene. Postoperatively very poor appetite. Failed calorie count. NG tube placed with tube feeds. Plan for PEG tube placement by GI on 09/02. We'll need to hold Plavix for this, bridge on heparin drip. 08/30/16 -malnutrition. continue ng tube feeds.. Increase rate to 45 mL per hour Jevity 1.5. Plan for PEG tube on Friday. Appreciate GI assistance Peripheral vascular disease, status post left lower extremity [id number]. As patient will be having PEG tube placement on Friday. We will hold Plavix, plan to start heparin drip tomorrow, which will need to be stopped at least 4 hours prior to PEG tube placement. //LLE Cellulitis: Resolved. Wound on plantar aspect of left foot x2 wks, on Keflex with no improvement, +erythema involving left pérez. Afebrile, no leukocytosis. Outpatient Wound Cultures positive for Staph per report. S/p Wound/Blood Cultures in ER and Clinda IV. -Follow up cultures - 08/25 No indication of infection currently. Inflammation was likely from vascular insufficiency. Cancel clindamycin //PVD: //Gangrene of left first toe. - s/p angioplasty as per vasc surgery. appreciate assistance. AC per vasc surgery. -Follow up podiatry consultation. //UTI - Escherichia coli. Continue Levaquin. -08/28 Remove Mendes. Continue antibiotics, Levaquin was stopped date of 09/02. //HTN: Controlled. Hold Enalapril secondary to above. Monitor BP. //Normocytic normochromic anemia: H&H stable. transfuse for hemoglobin less than 7 monitor H&H //malnutrition. poor appetite. - 08/26. Start Megace. continue calorie count ending 08/29. -08/28. Start Marinol. -08/29start tube feeds via NG tube. Gastroenterology consult placed. //Constipation. small BMs, but no significant stool per nursing.. possible constipation. abd film -08/28-Abdomen with no acute findings. Not constipation. Just poor by mouth intake. Chronic/resolved conditions. // Hyperkalemia: Resolved -Was 6.8 on admission. S/p Ca/Insulin/D50 and Kayexalate, appreciate input from nephrology // COPD: Chronic Respiratory Failure. O2 Dependent. Stable. Hypoxia on RA to 85%, O2 sat 96% on 2L NC. // HARPAL: -Resolved. Renal ultrasound reviewed and No evidence of hydronephrosis on the left. 2. 2.1 x 2.3 cm round non-shadowing lesion supermedial to the upper pole the right kidney of uncertain organ of origin. -Resolved. Appreciate nephrology assistance. //Non-anion gap metabolic acidosis. resolved. -No diarrhea reported. -08/23. give bicarb again. consult nephrology. We'll continue to monitor -resolved. //Respiratory failure: Resolved. -Check chest x-ray as well as BNP 08/20/16, start scheduled DuoNeb -Respiratory status stable. Continue to monitor. thrombocytopenia. No bleeding noted. Continue monitor. //Prophylaxis. She is on Plavix. Avoid dual anti-coagulation secondary to anemia. Discharge Planning - malnutrition. Patient to undergo PEG tube on Friday. -pt will need Rehab placement. She has been accepted. -If appetite does not improve, may need to consider feeding tube. DW daughter over the phone on 08/28. Bry Cowart MD Aug 30, 2016 19:28
[2016-08-30 19:33] LABS: APTT (PATIENT) 31.4 SEC (24.3-30.1); INTERNATIONAL NORMALIZED RATIO 1.1 RATIO; PROTHROMBIN TIME - PATIENT 12.4 SEC (9.8-11.6)
[2016-08-31] VITALS (7 sets, daily range): BP systolic 127–154; BP diastolic 48–72; PULSE 80–94; RESP 16–18; TEMP 95.8–98.5; O2SAT 98–100
[2016-08-31] MEDS ORDERED: HEPARIN SODIUM - IV 10,000 UNITS/10 ML VIAL IV PRN ×2 (00:30)
[2016-08-31] MEDS: CHLORHEXIDINE GLUCONATE 2 % 1 PACK (2 CLOTHS) TOP SCH (04:00)
[2016-08-31 06:11] LABS: AUTOMATED NEUTROPHIL # 8.5 TH/MM3 (1.8-7.7); BASOPHIL % 0.2 % (0.0-2.0); EOSINOPHIL % 0.1 % (0.0-4.0); HEMATOCRIT 26.8 % (35.0-46.0); LYMPH % 12.1 % (9.0-44.0); LYMPHOCYTE # 1.5 TH/MM3 (1.0-4.8); MEAN CELL VOLUME 88.9 FL (80.0-100.0); MEAN CORPUSCULAR HEMOGLOBIN 28.5 PG (27.0-34.0); MEAN CORPUSCULAR HGB CONC 32.1 % (32.0-36.0); MONO % 20.8 % (0.0-8.0); NEUT % 66.8 % (16.0-70.0); PLATELET COUNT 54 TH/MM3 (150-450); RED BLOOD COUNT 3.02 MIL/MM3 (4.00-5.30); WHITE BLOOD COUNT 12.8 TH/MM3 (4.0-11.0)
[2016-08-31 06:16] LABS: HEMO FLAGS AUTO DIFF
[2016-08-31 06:42] LABS: BICARBONATE 38.6 MEQ/L (21.0-32.0); POTASSIUM 3.8 MEQ/L (3.5-5.1)
[2016-08-31 07:33] LABS: BANDS 4 % (0-6); MYELOCYTES 1 % (0-0); NEUTROPHIL # MANUAL DIFF 9.3 TH/MM3 (1.8-7.7); PLATELET ESTIMATE SMEAR LOW (NORMAL); PLATELET MORPHOLOGY ENLARGED (NORMAL); POLYS (SEG NEUTROPHILS) 68 % (16-70); SCAN/DIFF FINAL DIFF MANUAL; WBC DIFF SAMPLE 100
[2016-08-31] MEDS: SODIUM CHLORIDE 0.9% FLUSH 5 ML FLUSH FLUSH SCH ×2 (09:10→20:27)
[2016-08-31] MEDS: MEGESTROL ACETATE 40 MG TAB PO SCH ×2 (09:11→20:00)
[2016-08-31] MEDS: LACTOBACILLUS ACIDOPHILUS TAB PO SCH ×2 (09:12→19:59)
[2016-08-31] MEDS: LEVOFLOXACIN 250 MG TAB PO SCH (09:12)
[2016-08-31] MEDS: DRONABINOL 2.5 MG CAP PO SCH ×2 (11:00→17:22)
[2016-08-31] MEDS ORDERED: HEPARIN-D5W INJ 250 ML IV SCH (12:00)
--- NOTE | 2016-08-31 15:08 | HHI.PR ---
Subjective Remarks The patient was opening cards and watching TV. She said she felt comfortable and only complained of minimal discomfort from the NG tube. She had no acute complaints. Discussed with nursing. Objective Vitals Vital Signs Date Time Temp Pulse Resp B/P Pulse Ox O2 Delivery O2 Flow Rate FiO2 08/31/16 12:00 95.8 89 18 149/48 98 08/31/16 08:00 97.1 90 18 145/63 98 08/31/16 04:00 98.3 83 16 127/60 99 08/31/16 00:00 98.5 80 16 144/67 100 08/30/16 20:00 97.4 89 16 136/59 100 08/30/16 18:06 94 Nasal Cannula 2.00 08/30/16 16:00 98.5 87 16 129/46 94 I/O 08/30/16 08/30/16 08/30/16 08/31/16 08/31/16 08/31/16 06:59 14:59 22:59 06:59 14:59 22:59 Intake Total 218 ml 0 ml 100 ml Output Total 1100 ml Balance 218 ml -1100 ml 100 ml Intake Oral 120 ml 0 ml 100 ml IV Total 0 ml Tube Feeding 98 ml Output Urine Total 1100 ml # Voids 3 0 3 # Bowel Movements 2 1 3 Result Diagram: 08/31/16 0520 08/31/16 0520 Imaging Last Impressions Abdomen X-Ray 08/29/16 0000 Signed Impressions: Service Date/Time: August 19:31 - CONCLUSION: NG tube tip in the stomach. K. Alonzo Rehman MD Chest X-Ray 08/23/16 0000 Signed Impressions: Service Date/Time: Tuesday, August 23, 2016 09:41 - CONCLUSION: No significant change. Josue Lacy MD Angiography 08/22/16 1420 Signed Impressions: Service Date/Time: August 13:13 - CONCLUSION: Diagnostic angiography as described above demonstrates high-grade bilateral external iliac artery stenoses and high-grade left common femoral artery stenosis. Successful angioplasty of the left common femoral artery and left external iliac artery. Right external iliac artery angioplasty and stenting as described above. Significant improvement in luminal patency of the external iliac arteries and left common femoral artery following endovascular treatment. Rajat Hu MD Aorta w/Runoff CTA 08/19/16 0000 Signed Impressions: Service Date/Time: Saturday, August 20, 2016 15:58 - CONCLUSION: Advanced atherosclerotic vasculopathy with hemodynamically significant stenotic/ occlusive lesions in the celiac, superior mesenteric, renal, external iliac, superficial femoral and popliteal arteries as described above. Severe irregularity with moderate to severe stenotic lesions are seen in the infrapopliteal runoff vessels to both calves and feet. Significantly diminished flow is evident to the right foot. Moderate bilateral pleural effusions with consolidating airspace disease in both lower lobes. Rajat Hu MD Renal Ultrasound 08/17/16 0000 Signed Impressions: Service Date/Time: Wednesday, August 17, 2016 16:01 - CONCLUSION: 1. Mild dilation of the collecting system of the right kidney. No evidence of hydronephrosis on the left. 2. 2.1 x 2.3 cm round non-shadowing lesion supermedial to the upper pole the right kidney of uncertain organ of origin. The right adrenal gland could be located in this area. Wei Corley MD Lower Extremity Ultrasound 08/16/16 0000 Signed Impressions: Service Date/Time: Tuesday, August 16, 2016 21:07 - CONCLUSION: No DVT. Josue White MD Foot X-Ray 08/16/16 0000 Signed Impressions: Service Date/Time: Tuesday, August 16, 2016 22:14 - CONCLUSION: No acute disease. Josue White MD Objective Remarks GENERAL: Alert and oriented. Sitting up in bed. Appears comfortable. SKIN: Warm and dry. HEAD: Normocephalic. EYES: No scleral icterus. No injection or drainage. NECK: Supple, trachea midline. No JVD. CARDIOVASCULAR: Regular rate and rhythm without murmurs, gallops, or rubs. RESPIRATORY: Breath sounds equal bilaterally. No accessory muscle use. GASTROINTESTINAL: Abdomen soft, non-tender, nondistended. NG tube in place. MUSCULOSKELETAL: Patient now has black tip of left first toe. No tenderness. No pain. No edema. Improved color of BL feet. BACK: Nontender without obvious deformity. No CVA tenderness. Medications and IVs Current Medications Medications (Trade) Dose Ordered Sig/Alejandro Route Start Time Stop Time Status Last Admin (NS Flush) 2 ml UNSCH PRN FLUSH 08/16/16 22:30 (NS Flush) 2 ml BID FLUSH 08/17/16 09:00 08/31/16 09:10 (Zofran Inj) 4 mg Q6H PRN IVP 08/16/16 22:30 08/26/16 12:15 (Dulcolax Supp) 10 mg DAILY PRN NV 08/16/16 22:30 (Tylenol) 650 mg Q6H PRN PO 08/16/16 22:30 Miscellaneous Information 1 Q361D XX 08/17/16 01:00 08/17/16 01:00 (Chlorhexidine 2% Cloth) Taper DAILY@04 TOP 08/17/16 04:00 08/13/17 03:59 08/17/16 03:40 (Chlorhexidine 2% Cloth) 3 pack UNSCH PRN TOP 08/17/16 01:00 (Lactinex) 1 tab Q12HR PO 08/20/16 21:00 08/31/16 09:12 (Plavix) 75 mg DAILY PO 08/22/16 21:00 Hold 08/30/16 07:55 (Levaquin) 250 mg DAILY PO 08/23/16 17:45 08/31/16 09:12 (Megace) 40 mg Q12HR PO 08/26/16 21:00 08/31/16 09:11 (Marinol) 2.5 mg BID@,16 PO 08/28/16 16:00 08/30/16 11:26 (Heparin Inj) 5,000 units UNSCH PRN IV 08/31/16 00:30 Heparin Sodium (Porcine) 2500 units 2,500 units UNSCH PRN IV 08/31/16 00:30 (Heparin-D5W Inj) 250 ml @ 0 mls/hr TITRATE IV 08/31/16 12:00 A/P Problem List: (1) Cellulitis of left lower extremity ICD Code: L03.116 Status: Acute (2) PVD (peripheral vascular disease) ICD Code: I73.9 Status: Acute (3) Hyperkalemia ICD Code: E87.5 Status: Acute (4) HARPAL (acute kidney injury) ICD Code: N17.9 Status: Acute (5) HTN (hypertension) ICD Code: I10 Status: Acute (6) COPD (chronic obstructive pulmonary disease) ICD Code: J44.9 Status: Acute (7) Respiratory failure ICD Code: J96.90 Status: Acute (8) Normochromic normocytic anemia ICD Code: D64.9 Status: Acute Assessment and Plan Malnutrition Postoperatively very poor appetite. Failed calorie count. NG tube placed with tube feeds. Appreciate GI consult. - Plan for PEG tube placement by GI on 09/02. - We'll need to hold Plavix for this, bridge on heparin drip. Holding hepatin gtt 08/31 in setting of worsening thrombocytopenia. - Megace and Marinol added. LLE Cellulitis Wound on plantar aspect of left foot x2 wks, on Keflex with no improvement, + erythema involving left pérez. Afebrile, no leukocytosis. Outpatient Wound Cultures positive for Staph per report. S/p Wound/Blood Cultures in ER and Clinda IV. - Follow up cultures. - resolved. PVD/ Gangrene of left first toe S/p angioplasty as per [facility] surgery. - wound care per surgery. - heparin gtt, Plavix on hold. UTI Culture grew Escherichia coli. - Continue Levaquin. Stop date 09/02. Normocytic normochromic anemia Stable. - follow CBC and transfuse as needed. HARPAL Resolved. Renal ultrasound reviewed and no evidence of hydronephrosis on the left. 2. 2.1 x 2.3 cm round non-shadowing lesion supermedial to the upper pole the right kidney of uncertain organ of origin. Appreciate nephrology assistance. - follow BMP and avoid nephrotoxins. - outpt follow-up for right kidney lesion. Thrombocytopenia Unsure of baseline. No bleeding noted. Plt count decreasing. - Continue to monitor. - hold heparin. PPx: Heparin gtt on hold s/t thrombocytopenia. Discharge Planning PEG tube planned, then rehab. Abdoul Black DO Aug 31, 2016 15:08
[2016-09-01] VITALS (7 sets, daily range): BP systolic 136–156; BP diastolic 61–70; PULSE 86–94; RESP 15–28; TEMP 96.2–98.2; O2SAT 96–100
[2016-09-01] MEDS: CHLORHEXIDINE GLUCONATE 2 % 1 PACK (2 CLOTHS) TOP SCH ×2 (04:00→21:16)
[2016-09-01 04:19] LABS: HEMATOCRIT 26.8 % (35.0-46.0); MEAN CELL VOLUME 88.8 FL (80.0-100.0); MEAN CORPUSCULAR HEMOGLOBIN 28.6 PG (27.0-34.0); MEAN CORPUSCULAR HGB CONC 32.2 % (32.0-36.0); PLATELET COUNT 56 TH/MM3 (150-450); RED BLOOD COUNT 3.02 MIL/MM3 (4.00-5.30); RED CELL DISTRIBUTION WIDTH 18.3 % (11.6-17.2); WHITE BLOOD COUNT 14.2 TH/MM3 (4.0-11.0)
[2016-09-01 04:23] LABS: REVIEW FLAG FINAL
[2016-09-01 04:45] LABS: BICARBONATE 39.8 MEQ/L (21.0-32.0); MAGNESIUM 1.9 MG/DL (1.5-2.5)
[2016-09-01] MEDS: RESP: ALBUTEROL 2.5 MG/IPRATROPIUM 0.5 MG NEB (PRN) NEB ×2 (09:08→15:41)
[2016-09-01] MEDS: MEGESTROL ACETATE 40 MG TAB PO SCH ×2 (10:46→21:18)
[2016-09-01] MEDS: SODIUM CHLORIDE 0.9% FLUSH 5 ML FLUSH FLUSH SCH ×2 (10:46→21:22)
[2016-09-01] MEDS: LEVOFLOXACIN 250 MG TAB PO SCH (10:46)
[2016-09-01] MEDS: LACTOBACILLUS ACIDOPHILUS TAB PO SCH ×2 (10:46→21:18)
[2016-09-01] MEDS: DRONABINOL 2.5 MG CAP PO SCH ×2 (10:46→16:23)
[2016-09-01] MEDS ORDERED: ENALAPRILAT 1.25 MG/ML VIAL IV PUSH PRN (17:15)
--- NOTE | 2016-09-01 17:19 | HHI.PR ---
Subjective Remarks The patient had the TV on very loud. She had no acute complaints. Nursing at the bedside. Objective Vitals Vital Signs Date Time Temp Pulse Resp B/P Pulse Ox O2 Delivery O2 Flow Rate FiO2 09/01/16 16:00 97.6 88 20 148/63 99 09/01/16 12:00 98.2 88 20 138/61 100 09/01/16 09:11 97 Nasal Cannula 3.00 09/01/16 08:00 96.8 94 28 140/62 96 09/01/16 04:00 96.2 86 16 156/70 97 09/01/16 00:00 97.5 86 15 146/65 96 08/31/16 20:00 97.2 94 17 154/72 98 08/31/16 19:00 99 Nasal Cannula 2.00 I/O 08/31/16 08/31/16 08/31/16 09/01/16 09/01/16 09/01/16 07:00 15:00 23:00 07:00 15:00 23:00 Intake Total 0 ml 100 ml 120 ml Output Total 1100 ml 1 ml 200 ml Balance -1100 ml 100 ml -1 ml -80 ml Intake Oral 0 ml 100 ml 120 ml Output Urine Total 1100 ml 1 ml 200 ml # Voids 3 1 # Bowel Movements 1 3 1 Result Diagram: 09/01/16 0405 09/01/16 0405 Imaging Last Impressions Abdomen X-Ray 08/29/16 0000 Signed Impressions: Service Date/Time: August 19:31 - CONCLUSION: NG tube tip in the stomach. K. Alonzo Rehman MD Chest X-Ray 08/23/16 0000 Signed Impressions: Service Date/Time: Tuesday, August 23, 2016 09:41 - CONCLUSION: No significant change. Josue Lacy MD Angiography 08/22/16 1420 Signed Impressions: Service Date/Time: August 13:13 - CONCLUSION: Diagnostic angiography as described above demonstrates high-grade bilateral external iliac artery stenoses and high-grade left common femoral artery stenosis. Successful angioplasty of the left common femoral artery and left external iliac artery. Right external iliac artery angioplasty and stenting as described above. Significant improvement in luminal patency of the external iliac arteries and left common femoral artery following endovascular treatment. Rajat Hu MD Aorta w/Runoff CTA 08/19/16 0000 Signed Impressions: Service Date/Time: Saturday, August 20, 2016 15:58 - CONCLUSION: Advanced atherosclerotic vasculopathy with hemodynamically significant stenotic/ occlusive lesions in the celiac, superior mesenteric, renal, external iliac, superficial femoral and popliteal arteries as described above. Severe irregularity with moderate to severe stenotic lesions are seen in the infrapopliteal runoff vessels to both calves and feet. Significantly diminished flow is evident to the right foot. Moderate bilateral pleural effusions with consolidating airspace disease in both lower lobes. Rajat Hu MD Renal Ultrasound 08/17/16 0000 Signed Impressions: Service Date/Time: Wednesday, August 17, 2016 16:01 - CONCLUSION: 1. Mild dilation of the collecting system of the right kidney. No evidence of hydronephrosis on the left. 2. 2.1 x 2.3 cm round non-shadowing lesion supermedial to the upper pole the right kidney of uncertain organ of origin. The right adrenal gland could be located in this area. Wei Corley MD Lower Extremity Ultrasound 08/16/16 0000 Signed Impressions: Service Date/Time: Tuesday, August 16, 2016 21:07 - CONCLUSION: No DVT. Josue White MD Foot X-Ray 08/16/16 0000 Signed Impressions: Service Date/Time: Tuesday, August 16, 2016 22:14 - CONCLUSION: No acute disease. Josue White MD Objective Remarks GENERAL: Alert and oriented. Sitting up in bed. Appears comfortable. SKIN: Warm and dry. HEAD: Normocephalic. EYES: No scleral icterus. No injection or drainage. NECK: Supple, trachea midline. No JVD. CARDIOVASCULAR: Regular rate and rhythm without murmurs, gallops, or rubs. RESPIRATORY: Breath sounds equal bilaterally. No accessory muscle use. GASTROINTESTINAL: Abdomen soft, non-tender, nondistended. NG tube in place. MUSCULOSKELETAL: Patient now has black tip of left first toe. No tenderness. No pain. No edema. Improved color of BL feet. BACK: Nontender without obvious deformity. No CVA tenderness. NEURO: Hard of hearing. Medications and IVs Current Medications Medications (Trade) Dose Ordered Sig/Alejandro Route Start Time Stop Time Status Last Admin (NS Flush) 2 ml UNSCH PRN FLUSH 08/16/16 22:30 (NS Flush) 2 ml BID FLUSH 08/17/16 09:00 09/01/16 10:46 (Zofran Inj) 4 mg Q6H PRN IVP 08/16/16 22:30 08/26/16 12:15 (Dulcolax Supp) 10 mg DAILY PRN [place] 08/16/16 22:30 (Tylenol) 650 mg Q6H PRN PO 08/16/16 22:30 Miscellaneous Information 1 Q361D XX 08/17/16 01:00 08/17/16 01:00 (Chlorhexidine 2% Cloth) Taper DAILY@04 TOP 08/17/16 04:00 08/13/17 03:59 08/17/16 03:40 (Chlorhexidine 2% Cloth) 3 pack UNSCH PRN TOP 08/17/16 01:00 (Lactinex) 1 tab Q12HR PO 08/20/16 21:00 09/01/16 10:46 (Plavix) 75 mg DAILY PO 08/22/16 21:00 Hold 08/30/16 07:55 (Levaquin) 250 mg DAILY PO 08/23/16 17:45 09/01/16 10:46 (Megace) 40 mg Q12HR PO 08/26/16 21:00 09/01/16 10:46 (Marinol) 2.5 mg BID@11,16 PO 08/28/16 16:00 09/01/16 16:23 (Heparin Inj) 5,000 units UNSCH PRN IV 08/31/16 00:30 Heparin Sodium (Porcine) 2500 units 2,500 units UNSCH PRN IV 08/31/16 00:30 (Heparin-D5W Inj) 250 ml @ 0 mls/hr TITRATE IV 08/31/16 12:00 A/P Problem List: (1) Cellulitis of left lower extremity ICD Code: L03.116 Status: Acute (2) PVD (peripheral vascular disease) ICD Code: I73.9 Status: Acute (3) Hyperkalemia ICD Code: E87.5 Status: Acute (4) HARPAL (acute kidney injury) ICD Code: N17.9 Status: Acute (5) HTN (hypertension) ICD Code: I10 Status: Acute (6) COPD (chronic obstructive pulmonary disease) ICD Code: J44.9 Status: Acute (7) Respiratory failure ICD Code: J96.90 Status: Acute (8) Normochromic normocytic anemia ICD Code: D64.9 Status: Acute Assessment and Plan Malnutrition Postoperatively very poor appetite. Failed calorie count. NG tube placed with tube feeds. Appreciate GI consult. - Plan for PEG tube placement by GI on 09/02. Doubt GI would want to proceed in the setting of thrombocytopenia. Follow CBC. - We'll need to hold Plavix for this, bridge on heparin drip. Holding hepatin gtt 08/31 in setting of worsening thrombocytopenia. - Megace and Marinol added. LLE Cellulitis Wound on plantar aspect of left foot x2 wks, on Keflex with no improvement, + erythema involving left pérez. Afebrile, no leukocytosis. Outpatient Wound Cultures positive for Staph per report. S/p Wound/Blood Cultures in ER and Clinda IV. - Follow up cultures. - resolved. Leukocytosis The pt is afebrile. - repeat UA, check CXR. - follow CBC. PVD/ Gangrene of left first toe S/p angioplasty as per [facility] surgery. - wound care per surgery. - heparin gtt, Plavix on hold. UTI Culture grew Escherichia coli. - Continue Levaquin. Stop date 09/01. Will d/c. Normocytic normochromic anemia Stable. - follow CBC and transfuse as needed. HARPAL Resolved. Renal ultrasound reviewed and no evidence of hydronephrosis on the left. 2. 2.1 x 2.3 cm round non-shadowing lesion supermedial to the upper pole the right kidney of uncertain organ of origin. Appreciate nephrology assistance. - follow BMP and avoid nephrotoxins. - outpt follow-up for right kidney lesion. Thrombocytopenia Unsure of baseline. No bleeding noted. Plt count decreasing. - Continue to monitor. - hold heparin gtt for now. PPx: Heparin gtt on hold s/t thrombocytopenia. Discharge Planning PEG tube planned, then rehab. Abdoul Black DO Sep 01, 2016 17:19
--- NOTE | 2016-09-01 18:25 | RADRPT ---
EXAM DATE/TIME: 09/01/2016 17:16 [place] COMPARISON: CHEST SINGLE AP, August 23, 2016, 9:41. INDICATIONS : Evaluate for pneumonia. MEDICAL HISTORY : Chronic obstructive pulmonary disease. SURGICAL HISTORY : None. ENCOUNTER: Initial ACUITY: 1 day PAIN SCORE: 0/10 LOCATION: Bilateral chest FINDINGS: Bilateral pleural effusions have not changed. Left lung base consolidation is also suspected. NG tube is present with tip in the stomach. There is mild prominence of the interstitial markings may repres ent pulmonary edema. CONCLUSION: Bilateral pleural effusions probable slight pulmonary edema and left lung base consolidation not sign ificantly changed. Nikko Rehman MD on September 01, 2016 at 18:22 Board Certified Radiologist. This report was verified electronically.
[2016-09-02] VITALS (7 sets, daily range): BP systolic 131–158; BP diastolic 60–67; PULSE 81–86; RESP 16–18; TEMP 96.2–97.8; O2SAT 94–100
[2016-09-02] MEDS: SODIUM CHLORIDE 0.9% FLUSH 5 ML FLUSH FLUSH SCH ×2 (08:32→20:20)
[2016-09-02] MEDS: LACTOBACILLUS ACIDOPHILUS TAB PO SCH ×2 (08:32→20:20)
[2016-09-02] MEDS: MEGESTROL ACETATE 40 MG TAB PO SCH ×2 (08:32→20:20)
[2016-09-02 09:50] LABS: HEMATOCRIT 24.8 % (35.0-46.0); MEAN CELL VOLUME 90.5 FL (80.0-100.0); MEAN CORPUSCULAR HEMOGLOBIN 28.4 PG (27.0-34.0); MEAN CORPUSCULAR HGB CONC 31.4 % (32.0-36.0); PLATELET COUNT 56 TH/MM3 (150-450); RED BLOOD COUNT 2.75 MIL/MM3 (4.00-5.30); RED CELL DISTRIBUTION WIDTH 18.7 % (11.6-17.2); WHITE BLOOD COUNT 13.1 TH/MM3 (4.0-11.0)
[2016-09-02 09:58] LABS: REVIEW FLAG FINAL
[2016-09-02] MEDS ORDERED: LEVOFLOXACIN 500 MG PREMIX INJ 100 ML IV SCH (10:45)
[2016-09-02] MEDS: DRONABINOL 2.5 MG CAP PO SCH ×2 (11:00→15:02)
--- NOTE | 2016-09-02 11:50 | HHI.PR ---
Subjective Remarks The patient said that she used to follow with a display and banner designer for her low platelet count. She says her platelets are always low. She says she bruises pretty easily. She had no acute complaints. Discussed with nursing. Objective Vitals Vital Signs Date Time Temp Pulse Resp B/P Pulse Ox O2 Delivery O2 Flow Rate FiO2 09/02/16 08:00 97.2 84 18 140/64 94 09/02/16 04:00 96.4 84 16 158/67 99 09/02/16 00:00 96.2 84 16 140/64 99 09/01/16 19:00 97.2 86 16 136/61 100 09/01/16 16:00 97.6 88 20 148/63 99 09/01/16 12:00 98.2 88 20 138/61 100 I/O 09/01/16 09/01/16 09/01/16 09/02/16 09/02/16 09/02/16 06:59 14:59 22:59 06:59 14:59 22:59 Intake Total 120 ml 395 ml Output Total 200 ml 200 ml Balance -200 ml 120 ml 195 ml Intake Oral 120 ml Tube Feeding 295 ml Other 100 ml Output Urine Total 200 ml 200 ml # Voids 1 1 # Bowel Movements 1 1 Result Diagram: 09/02/16 0744 09/01/16 0405 Imaging Last Impressions Chest X-Ray 09/01/16 0000 Signed Impressions: Service Date/Time: Thursday, September 01, 2016 17:16 - CONCLUSION: Bilateral pleural effusions probable slight pulmonary edema and left lung base consolidation not significantly changed. Nikko Rehman MD Abdomen X-Ray 08/29/16 0000 Signed Impressions: Service Date/Time: August 19:31 - CONCLUSION: NG tube tip in the stomach. Nikko Rehman MD Angiography 08/22/16 1420 Signed Impressions: Service Date/Time: August 13:13 - CONCLUSION: Diagnostic angiography as described above demonstrates high-grade bilateral external iliac artery stenoses and high-grade left common femoral artery stenosis. Successful angioplasty of the left common femoral artery and left external iliac artery. Right external iliac artery angioplasty and stenting as described above. Significant improvement in luminal patency of the external iliac arteries and left common femoral artery following endovascular treatment. Rajat Hu MD Aorta w/Runoff CTA 08/19/16 0000 Signed Impressions: Service Date/Time: Saturday, August 20, 2016 15:58 - CONCLUSION: Advanced atherosclerotic vasculopathy with hemodynamically significant stenotic/ occlusive lesions in the celiac, superior mesenteric, renal, external iliac, superficial femoral and popliteal arteries as described above. Severe irregularity with moderate to severe stenotic lesions are seen in the infrapopliteal runoff vessels to both calves and feet. Significantly diminished flow is evident to the right foot. Moderate bilateral pleural effusions with consolidating airspace disease in both lower lobes. Rajat Hu MD Renal Ultrasound 08/17/16 0000 Signed Impressions: Service Date/Time: Wednesday, August 17, 2016 16:01 - CONCLUSION: 1. Mild dilation of the collecting system of the right kidney. No evidence of hydronephrosis on the left. 2. 2.1 x 2.3 cm round non-shadowing lesion supermedial to the upper pole the right kidney of uncertain organ of origin. The right adrenal gland could be located in this area. Wei Corley MD Lower Extremity Ultrasound 08/16/16 0000 Signed Impressions: Service Date/Time: Tuesday, August 16, 2016 21:07 - CONCLUSION: No DVT. Josue White MD Foot X-Ray 08/16/16 0000 Signed Impressions: Service Date/Time: Tuesday, August 16, 2016 22:14 - CONCLUSION: No acute disease. Josue White MD Objective Remarks GENERAL: Alert and oriented. Sitting up in bed. Appears comfortable. SKIN: Warm and dry. HEAD: Normocephalic. EYES: No scleral icterus. No injection or drainage. NECK: Supple, trachea midline. No JVD. CARDIOVASCULAR: Regular rate and rhythm without murmurs, gallops, or rubs. RESPIRATORY: Breath sounds equal bilaterally. No accessory muscle use. GASTROINTESTINAL: Abdomen soft, non-tender, nondistended. NG tube in place. MUSCULOSKELETAL: Patient now has black tip of left first toe. No tenderness. No pain. No edema. Improved color of BL feet. BACK: Nontender without obvious deformity. No CVA tenderness. NEURO: Hard of hearing. Medications and IVs Current Medications Medications (Trade) Dose Ordered Sig/Alejandro Route Start Time Stop Time Status Last Admin (NS Flush) 2 ml UNSCH PRN FLUSH 08/16/16 22:30 (NS Flush) 2 ml BID FLUSH 08/17/16 09:00 09/02/16 08:32 (Zofran Inj) 4 mg Q6H PRN IVP 08/16/16 22:30 08/26/16 12:15 (Dulcolax Supp) 10 mg DAILY PRN [place] 08/16/16 22:30 (Tylenol) 650 mg Q6H PRN PO 08/16/16 22:30 Miscellaneous Information 1 Q361D XX 08/17/16 01:00 08/17/16 01:00 (Chlorhexidine 2% Cloth) Taper DAILY@04 TOP 08/17/16 04:00 08/13/17 03:59 08/17/16 03:40 (Chlorhexidine 2% Cloth) 3 pack UNSCH PRN TOP 08/17/16 01:00 (Lactinex) 1 tab Q12HR PO 08/20/16 21:00 09/02/16 08:32 (Plavix) 75 mg DAILY PO 08/22/16 21:00 Hold 08/30/16 07:55 (Megace) 40 mg Q12HR PO 08/26/16 21:00 09/02/16 08:32 (Marinol) 2.5 mg BID@11,16 PO 08/28/16 16:00 09/01/16 16:23 (Heparin Inj) 5,000 units UNSCH PRN IV 08/31/16 00:30 Heparin Sodium (Porcine) 2500 units 2,500 units UNSCH PRN IV 08/31/16 00:30 (Heparin-D5W Inj) 250 ml @ 0 mls/hr TITRATE IV 08/31/16 12:00 Enalaprilat 1.25 mg 1.25 mg Q6H PRN IV PUSH 09/01/16 17:15 (Levaquin 750 Mg Premix Inj) 150 ml @ 100 mls/hr Q24H IV 09/02/16 12:00 A/P Problem List: (1) Cellulitis of left lower extremity ICD Code: L03.116 Status: Acute (2) PVD (peripheral vascular disease) ICD Code: I73.9 Status: Acute (3) Hyperkalemia ICD Code: E87.5 Status: Acute (4) HARPAL (acute kidney injury) ICD Code: N17.9 Status: Acute (5) HTN (hypertension) ICD Code: I10 Status: Acute (6) COPD (chronic obstructive pulmonary disease) ICD Code: J44.9 Status: Acute (7) Respiratory failure ICD Code: J96.90 Status: Acute (8) Normochromic normocytic anemia ICD Code: D64.9 Status: Acute Assessment and Plan Malnutrition Postoperatively very poor appetite. Failed calorie count. NG tube placed with tube feeds. Appreciate GI consult. - Plan for PEG tube placement by GI once Plavix has been on hold for 5 days. The patient also has thrombocytopenia. Follow CBC. - Holding hepatin gtt 08/31 in setting of worsening thrombocytopenia. - Megace and Marinol added. LLE Cellulitis Wound on plantar aspect of left foot x2 wks, on Keflex with no improvement, + erythema involving left pérez. Afebrile, no leukocytosis. Outpatient Wound Cultures positive for Staph per report. S/p Wound/Blood Cultures in ER and Clinda IV. - Follow up cultures. - resolved. Leukocytosis/ PNA The pt is afebrile. Status post treatment for UTI. Chest x-ray with evidence of consolidation. Concern for aspiration. - Start IV Levaquin. - Speech evaluation pending. - follow CBC. PVD/ Gangrene of left first toe S/p angioplasty as per vas surgery. - wound care per surgery. - heparin gtt, Plavix on hold. Normocytic normochromic anemia Stable. - follow CBC and transfuse as needed. HARPAL Resolved. Renal ultrasound reviewed and no evidence of hydronephrosis on the left. 2. 2.1 x 2.3 cm round non-shadowing lesion supermedial to the upper pole the right kidney of uncertain organ of origin. Appreciate nephrology assistance. - follow BMP and avoid nephrotoxins. - outpt follow-up for right kidney lesion. Thrombocytopenia Unsure of baseline. No bleeding noted. Plt count low but stable. Has followed with a display and banner designer in the past. - Continue to monitor. - hold heparin gtt for now. - hematology consult pending. PPx: Heparin gtt on hold s/t thrombocytopenia. Discharge Planning PEG tube planned, then rehab. Abdoul Black DO Sep 02, 2016 11:49
[2016-09-02] MEDS: LEVOFLOXACIN 750 MG PREMIX INJ 150 ML IV SCH (13:00)
[2016-09-02 15:09] LABS: AUTOMATED NEUTROPHIL # 6.5 TH/MM3 (1.8-7.7); BASOPHIL % 0.3 % (0.0-2.0); EOSINOPHIL % 0.2 % (0.0-4.0); HEMATOCRIT 23.8 % (35.0-46.0); LYMPH % 13.6 % (9.0-44.0); LYMPHOCYTE # 1.4 TH/MM3 (1.0-4.8); MEAN CELL VOLUME 90.2 FL (80.0-100.0); MEAN CORPUSCULAR HEMOGLOBIN 28.5 PG (27.0-34.0); MEAN CORPUSCULAR HGB CONC 31.6 % (32.0-36.0); MONO % 22.9 % (0.0-8.0); PLATELET COUNT 49 TH/MM3 (150-450); RED BLOOD COUNT 2.64 MIL/MM3 (4.00-5.30); RED CELL DISTRIBUTION WIDTH 18.5 % (11.6-17.2); WHITE BLOOD COUNT 10.3 TH/MM3 (4.0-11.0)
[2016-09-02 15:11] LABS: HEMO FLAGS AUTO DIFF
[2016-09-02 15:24] LABS: APTT (PATIENT) 30.8 SEC (24.3-30.1); PROTHROMBIN TIME - PATIENT 11.5 SEC (9.8-11.6)
[2016-09-02 15:56] LABS: BANDS 2 % (0-6); MYELOCYTES 2 % (0-0); NEUTROPHIL # MANUAL DIFF 6.8 TH/MM3 (1.8-7.7); POLYS (SEG NEUTROPHILS) 62 % (16-70); WBC DIFF SAMPLE 100
[2016-09-02 15:57] LABS: PLATELET ESTIMATE SMEAR LOW (NORMAL); PLATELET MORPHOLOGY NORMAL (NORMAL); SCAN/DIFF FINAL DIFF MANUAL
[2016-09-02 17:20] LABS: BACTERIA, URINE RARE /hpf; BLOOD, URINE NEG (NEG); COMMENT (UR) CULTURE INDICATED; CULTURE IF INDICATED CULTURE INDICATED; GLUCOSE,URINE NEG (NEG); KETONE, URINE NEG (NEG); MUCUS URINE FEW /lpf (OCC); NITRITE,URINE NEG (NEG); SQUAMOUS EPITHELIAL CELL URINE 1 /hpf (0-5); URINE COLOR YELLOW (YELLW/STRAW)
--- NOTE | 2016-09-02 19:27 | MB ---
cc: LUKASJOHNNY DATE OF CONSULTATION 09/02/16 CHIEF COMPLAINT "I am having trouble swallowing." PRESENT ILLNESS This patient is a pleasant, somewhat depressed 85-year-old woman. She entered the hospital with evidence of peripheral vascular insufficiency. The patient did undergo revascularization with Dr. Narvaez and has stabilized. She, however, continues with gangrenous changes involving the lower extremity. The patient in the course of evaluation has had difficulty in swallowing. The doctors recently placed a feeding tube. The patient has been consistently thrombocytopenic since hospital admission and her platelet count has ranged from 107,000 down to 56,000. The doctors because of her thrombocytopenia requested a hematology consultation. She is resting comfortably in bed as i am coming to see her regarding her thrombocytopenia. PRIOR HOSPITALIZATIONS AND MEDICAL EXAMS COPD, hypertension, appendectomy, hysterectomy, tubal ligation, degenerative arthritis, depression and history of tobacco consumption. ALLERGIES SULFA. MEDICATIONS Medicines at the time of admission included: 1. Albuterol 1 puff q. 4 hours p.r.n. 2. Enalapril 20 milligrams daily. 3. Zaynab 60 milligrams daily. 4. Advair discus one whiff b.i.d. 5. Apriso 1-1/2 grams daily. 6. Nasal spray oxymetazoline 50 micrograms p.r.n. SOCIAL HISTORY This lady lives locally. She is . She is retired. FAMILY HISTORY Noncontributory. HABITS The patient denies alcohol, substance or current tobacco use. She relates she quit smoking in 1998. REVIEW OF SYSTEMS Patient offers no complaints of fever, chills, night sweats, temperature, headache, double vision or recent visual change. Recent hearing or taste alterations are not reported. No reports of paroxysmal nocturnal dyspnea, vomiting, diarrhea, hematochezia, or constipation. Patient denies dysuria, pyuria, frequency, urgency, hematuria, skin eruption or skin breakdown. I did review the nurse 13-point review of systems and she does admit to COPD, hypertension, dyspnea, appendectomy, hysterectomy, tubal ligation, three live births, joint pain, arthritis, gait problems, depression and fatigue as well as skin problems. PHYSICAL EXAMINATION GENERAL: Chronically ill female in no acute distress. VITAL SIGNS: Temperature is 97, her pulse is 86. Her respirations 16, her blood pressure is 146/65, her oximetry is 100%. HEAD: No pain, irregularities or exostosis. EARS: External anatomy is normal. Ear canals are normal. NOSE: No cysts or deviation of nasal septa appreciated. MOUTH: Tongue is in midline. Uvula non-deviated. No masses evident. Dentition is acceptable. NECK: Pulses are full and equal bilaterally. No bruits are identified. No goiter or masses are palpated. CHEST: Appearance is normal with adequate expansion. LUNGS: Diminished chest wall expansion, diminished breath sounds. BREASTS: Examination not performed. HEART: Normal S1 and S2 are present. No bruits, lifts, murmurs or thrills. S3 and S4 are absent. ABDOMEN: Abdomen is scaphoid. No localized tenderness or rebound. No masses. The liver and spleen cannot be palpated. Bowel sounds are normal. INGUINAL: Examination not performed. PELVIC: Examination not performed. RECTAL: Examination not performed. EXTREMITIES: Degenerative changes and gangrenous changes involving her lower extremity LYMPHATIC: Pathologic adenopathy not appreciated. SKIN: The skin surface integrity is maintained symmetrically without edema or breakdown except for gangrenous changes involving the lower extremity. ASSESSMENT 1. COPD. 2. Thrombocytopenia. 3. Degenerative arthritis. 4. Hypertension. 5. Severe Peripheral Arterial Disease 6. Lower extremity gangrenous changes. RECOMMENDATIONS I have been asked to see this woman regarding her thrombocytopenia. The patient has gangrenous changes. The patient's thrombocytopenia is likely a consumptive coagulopathy due to the associated gangrenous changes. Orders have been written. Johnny Liao MD WJD/EO /2:19 PM /7:11 PM BRENT
[2016-09-02] MEDS: CHLORHEXIDINE GLUCONATE 2 % 1 PACK (2 CLOTHS) TOP SCH (19:58)
[2016-09-02] MEDS: SODIUM CHLORIDE 0.9% FLUSH 5 ML FLUSH FLUSH PRN (20:20)
[2016-09-03] VITALS (8 sets, daily range): BP systolic 142–167; BP diastolic 50–71; PULSE 76–82; RESP 16–18; TEMP 96–97.9; O2SAT 95–100
[2016-09-03] MEDS: SODIUM CHLORIDE 0.9% FLUSH 5 ML FLUSH FLUSH PRN ×2 (03:19→22:33)
[2016-09-03 06:55] LABS: HEMATOCRIT 29.5 % (35.0-46.0); MEAN CELL VOLUME 88.5 FL (80.0-100.0); MEAN CORPUSCULAR HEMOGLOBIN 28.6 PG (27.0-34.0); MEAN CORPUSCULAR HGB CONC 32.3 % (32.0-36.0); PLATELET COUNT 42 TH/MM3 (150-450); RED BLOOD COUNT 3.34 MIL/MM3 (4.00-5.30); RED CELL DISTRIBUTION WIDTH 18.3 % (11.6-17.2); WHITE BLOOD COUNT 12.8 TH/MM3 (4.0-11.0)
[2016-09-03 07:29] LABS: REVIEW FLAG FINAL
[2016-09-03] MEDS: LACTOBACILLUS ACIDOPHILUS TAB PO SCH ×2 (08:16→22:33)
[2016-09-03] MEDS: SODIUM CHLORIDE 0.9% FLUSH 5 ML FLUSH FLUSH SCH ×2 (08:17→22:33)
--- NOTE | 2016-09-03 10:39 | HHI.PR ---
Subjective Remarks The pt was working with physical therapy. She says she has not had a bowel movement. She says she can eat ice but can't drink water. She had no acute complaints. Discussed with nursing. Objective Vitals Vital Signs Date Time Temp Pulse Resp B/P Pulse Ox O2 Delivery O2 Flow Rate FiO2 09/03/16 08:00 97.9 79 16 167/55 99 09/03/16 03:17 97.3 82 18 142/65 100 09/03/16 00:37 97.5 82 16 149/65 99 09/03/16 00:19 96.8 82 18 154/67 98 09/02/16 20:19 96 Nasal Cannula 3.00 09/02/16 20:00 96.5 81 18 143/63 100 09/02/16 16:00 97.8 84 18 131/60 98 09/02/16 12:00 97.4 86 16 146/65 100 I/O 09/02/16 09/02/16 09/02/16 09/03/16 09/03/16 09/03/16 07:00 15:00 23:00 07:00 15:00 23:00 Intake Total 395 ml 480 ml 1072 ml 360 ml Output Total 200 ml Balance 195 ml 480 ml 1072 ml 360 ml Intake Oral 480 ml IV Total 20 ml Tube Feeding 295 ml 952 ml Packed Cells 340 ml Other 100 ml 120 ml Output Urine Total 200 ml # Voids 1 2 1 # Bowel Movements 1 1 Result Diagram: 09/03/16 0557 09/01/16 0405 Imaging Last Impressions Chest X-Ray 09/01/16 0000 Signed Impressions: Service Date/Time: Thursday, September 01, 2016 17:16 - CONCLUSION: Bilateral pleural effusions probable slight pulmonary edema and left lung base consolidation not significantly changed. Nikko Rehman MD Abdomen X-Ray 08/29/16 0000 Signed Impressions: Service Date/Time: August 19:31 - CONCLUSION: NG tube tip in the stomach. Nikko Rehman MD Angiography 08/22/16 1420 Signed Impressions: Service Date/Time: August 13:13 - CONCLUSION: Diagnostic angiography as described above demonstrates high-grade bilateral external iliac artery stenoses and high-grade left common femoral artery stenosis. Successful angioplasty of the left common femoral artery and left external iliac artery. Right external iliac artery angioplasty and stenting as described above. Significant improvement in luminal patency of the external iliac arteries and left common femoral artery following endovascular treatment. Rajat Hu MD Aorta w/Runoff CTA 08/19/16 0000 Signed Impressions: Service Date/Time: Saturday, August 20, 2016 15:58 - CONCLUSION: Advanced atherosclerotic vasculopathy with hemodynamically significant stenotic/ occlusive lesions in the celiac, superior mesenteric, renal, external iliac, superficial femoral and popliteal arteries as described above. Severe irregularity with moderate to severe stenotic lesions are seen in the infrapopliteal runoff vessels to both calves and feet. Significantly diminished flow is evident to the right foot. Moderate bilateral pleural effusions with consolidating airspace disease in both lower lobes. Rajat Hu MD Renal Ultrasound 08/17/16 0000 Signed Impressions: Service Date/Time: Wednesday, August 17, 2016 16:01 - CONCLUSION: 1. Mild dilation of the collecting system of the right kidney. No evidence of hydronephrosis on the left. 2. 2.1 x 2.3 cm round non-shadowing lesion supermedial to the upper pole the right kidney of uncertain organ of origin. The right adrenal gland could be located in this area. Wei Corley MD Lower Extremity Ultrasound 08/16/16 0000 Signed Impressions: Service Date/Time: Tuesday, August 16, 2016 21:07 - CONCLUSION: No DVT. Josue White MD Foot X-Ray 08/16/16 0000 Signed Impressions: Service Date/Time: Tuesday, August 16, 2016 22:14 - CONCLUSION: No acute disease. Josue White MD Objective Remarks GENERAL: Alert and oriented. Sitting up in bed. Appears comfortable. SKIN: Warm and dry. Gangrenous changes in the lower extremities. HEAD: Normocephalic. EYES: No scleral icterus. No injection or drainage. NECK: Supple, trachea midline. No JVD. CARDIOVASCULAR: Regular rate and rhythm without murmurs, gallops, or rubs. RESPIRATORY: Breath sounds equal bilaterally. No accessory muscle use. GASTROINTESTINAL: Abdomen soft, non-tender, nondistended. NG tube in place. MUSCULOSKELETAL: No tenderness. No pain. No edema. Improved color of BL feet. BACK: Nontender without obvious deformity. No CVA tenderness. NEURO: Hard of hearing. Medications and IVs Current Medications Medications (Trade) Dose Ordered Sig/Alejandro Route Start Time Stop Time Status Last Admin (NS Flush) 2 ml UNSCH PRN FLUSH 08/16/16 22:30 09/03/16 03:19 (NS Flush) 2 ml BID FLUSH 08/17/16 09:00 09/03/16 08:17 (Zofran Inj) 4 mg Q6H PRN IVP 08/16/16 22:30 08/26/16 12:15 (Dulcolax Supp) 10 mg DAILY PRN HI 08/16/16 22:30 (Tylenol) 650 mg Q6H PRN PO 08/16/16 22:30 Miscellaneous Information 1 Q361D XX 08/17/16 01:00 08/17/16 01:00 (Chlorhexidine 2% Cloth) Taper DAILY@04 TOP 08/17/16 04:00 08/13/17 03:59 08/17/16 03:40 (Chlorhexidine 2% Cloth) 3 pack UNSCH PRN TOP 08/17/16 01:00 (Lactinex) 1 tab Q12HR PO 08/20/16 21:00 09/03/16 08:16 (Plavix) 75 mg DAILY PO 08/22/16 21:00 Hold 08/30/16 07:55 (Heparin Inj) 5,000 units UNSCH PRN IV 08/31/16 00:30 Heparin Sodium (Porcine) 2500 units 2,500 units UNSCH PRN IV 08/31/16 00:30 (Heparin-D5W Inj) 250 ml @ 0 mls/hr TITRATE IV 08/31/16 12:00 Enalaprilat 1.25 mg 1.25 mg Q6H PRN IV PUSH 09/01/16 17:15 (Levaquin 750 Mg Premix Inj) 150 ml @ 100 mls/hr Q24H IV 09/02/16 12:00 09/02/16 13:00 A/P Problem List: (1) Cellulitis of left lower extremity ICD Code: L03.116 Status: Acute (2) PVD (peripheral vascular disease) ICD Code: I73.9 Status: Acute (3) Hyperkalemia ICD Code: E87.5 Status: Acute (4) HARPAL (acute kidney injury) ICD Code: N17.9 Status: Acute (5) HTN (hypertension) ICD Code: I10 Status: Acute (6) COPD (chronic obstructive pulmonary disease) ICD Code: J44.9 Status: Acute (7) Respiratory failure ICD Code: J96.90 Status: Acute (8) Normochromic normocytic anemia ICD Code: D64.9 Status: Acute Assessment and Plan Malnutrition Postoperatively very poor appetite. Failed calorie count. NG tube placed with tube feeds. Appreciate GI consult. Pt made NPO 09/02 by speech therapy. - Plan for PEG tube placement by GI once Plavix has been on hold for 5 days. The patient also has thrombocytopenia. Follow CBC. - Holding hepatin gtt 08/31 in setting of worsening thrombocytopenia. - Megace and Marinol added. LLE Cellulitis Wound on plantar aspect of left foot x2 wks, on Keflex with no improvement, + erythema involving left pérez. Afebrile, no leukocytosis. Outpatient Wound Cultures positive for Staph per report. S/p Wound/Blood Cultures in ER and Clinda IV. - Follow up cultures. - resolved. Aspiration PNA Chest x-ray with evidence of consolidation. Concern for aspiration. - Started IV Levaquin 09/02. - Speech therapy follow-up. PVD/ Gangrene of left first toe S/p angioplasty as per [facility] surgery. - wound care per surgery. - heparin gtt, Plavix on hold in setting of thrombocytopenia. Normocytic normochromic anemia Stable. - follow CBC and transfuse as needed. S/p 1 unit 09/03 per hematology. HARPAL Resolved. Renal ultrasound reviewed and no evidence of hydronephrosis on the left. 2. 2.1 x 2.3 cm round non-shadowing lesion supermedial to the upper pole the right kidney of uncertain organ of origin. Appreciate nephrology assistance. - follow BMP and avoid nephrotoxins. - outpt follow-up for right kidney lesion. Thrombocytopenia Unsure of baseline. No bleeding noted. Plt count low but stable. Appreciate hematology consult. - Continue to monitor. - hold heparin gtt/ Plavix for now. - follow up with hematology. PPx: Heparin gtt on hold s/t thrombocytopenia. Discharge Planning PEG tube planned, then rehab. Abdoul Black DO Sep 03, 2016 10:39
[2016-09-03] MEDS: LEVOFLOXACIN 750 MG PREMIX INJ 150 ML IV SCH (12:43)
[2016-09-03 14:47] LABS: AUTOMATED NEUTROPHIL # 6.7 TH/MM3 (1.8-7.7); BASOPHIL % 0.3 % (0.0-2.0); EOSINOPHIL % 0.1 % (0.0-4.0); HEMATOCRIT 27.8 % (35.0-46.0); LYMPH % 13.5 % (9.0-44.0); LYMPHOCYTE # 1.3 TH/MM3 (1.0-4.8); MEAN CELL VOLUME 87.9 FL (80.0-100.0); MEAN CORPUSCULAR HEMOGLOBIN 28.6 PG (27.0-34.0); MEAN CORPUSCULAR HGB CONC 32.6 % (32.0-36.0); MONO % 17.8 % (0.0-8.0); NEUT % 68.3 % (16.0-70.0); PLATELET COUNT 39 TH/MM3 (150-450); RED BLOOD COUNT 3.16 MIL/MM3 (4.00-5.30); RED CELL DISTRIBUTION WIDTH 18.2 % (11.6-17.2); WHITE BLOOD COUNT 9.8 TH/MM3 (4.0-11.0)
[2016-09-03 14:55] LABS: HEMO FLAGS AUTO DIFF
[2016-09-03 16:02] LABS: BANDS 6 % (0-6); MYELOCYTES 3 % (0-0); POLYS (SEG NEUTROPHILS) 62 % (16-70); WBC DIFF SAMPLE 100
[2016-09-03 16:03] LABS: PLATELET ESTIMATE SMEAR LOW (NORMAL); PLATELET MORPHOLOGY NORMAL (NORMAL); SCAN/DIFF FINAL DIFF MANUAL
--- NOTE | 2016-09-03 17:53 | PD.POD ---
Subjective Remarks Sleepy did not respond, reviewed with nursing Past Med/Surg/Social History Social History Smoking Status: Former Smoker Objective Vital Signs Vital Signs Date Time Temp Pulse Resp B/P Pulse Ox O2 Delivery O2 Flow Rate FiO2 09/03/16 12:00 96.0 77 18 143/50 99 09/03/16 08:00 97.9 79 16 167/55 99 09/03/16 03:17 97.3 82 18 142/65 100 09/03/16 00:37 97.5 82 16 149/65 99 09/03/16 00:19 96.8 82 18 154/67 98 09/02/16 20:19 96 Nasal Cannula 3.00 09/02/16 20:00 96.5 81 18 143/63 100 Coded Allergies: Sulfa (Verified Allergy, Unknown, 08/16/16) Medications and IVs Administered Medications Medications (Trade) Dose Ordered Sig/Alejandro Route PRN Reason Start Time Stop Time Status Last Admin Dose Admin IV Flush (NS Flush) 2 ml UNSCH PRN FLUSH FLUSH AFTER USING IV ACCESS 08/16/16 22:30 09/03/16 03:19 IV Flush (NS Flush) 2 ml BID FLUSH 08/17/16 09:00 09/03/16 08:17 Ondansetron HCl (Zofran Inj) 4 mg Q6H PRN IVP NAUSEA OR VOMITING 08/16/16 22:30 08/26/16 12:15 Miscellaneous Information 1 Q361D XX 08/17/16 01:00 08/17/16 01:00 Chlorhexidine Gluconate (Chlorhexidine 2% Cloth) Taper DAILY@04 TOP 08/17/16 04:00 08/13/17 03:59 08/17/16 03:40 Lactobacillus Acidophilus (Lactinex) 1 tab Q12HR PO 08/20/16 21:00 09/03/16 08:16 Clopidogrel Bisulfate 75 mg 75 mg DAILY PO 08/22/16 21:00 Hold 08/30/16 07:55 Levofloxacin/ Dextrose (Levaquin 750 Mg Premix Inj) 150 ml @ 100 mls/hr Q24H IV 09/02/16 12:00 09/03/16 12:43 Other Results CBC & BMP Diagram 09/03/16 05:57 09/03/16 14:07 Physical Exam Remarks nonpalpable DP and PT pulses. Cap fill time of the left first and second digits is delayed. Both feet do feel warm and well-perfused with the exception of the left digits. Gross sensation is intact. Active range of motion is within normal limits. There are dark dry gangrene areas of surrounding areas of ischemia on the hallux as well as the plantar aspect of the second digit. The dry gangrenous area at the hallux is on the plantar aspect with ischemia extending to the metatarsal-phalangeal joint. The second digit is more isolated to the distal plantar tuft of the second digit. There is a similar ischemic appearance on the plantar fifth metatarsal head and plantar second metatarsal head. 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 SP IR of the the left. Patient appears to be demarcating slowly. Low platelets. At this point allowing drying of digits is acceptable and may auto amputate over time. We can move forward with amputation if the digits appear infected. Will FU 5-7 days however please call if there is new concern. Giovani Ma DPM Sep 03, 2016 17:53
[2016-09-04] VITALS: BP 156/71; PULSE 77; RESP 18; TEMP 96.7; O2SAT 98
[2016-09-04] MEDS: CHLORHEXIDINE GLUCONATE 2 % 1 PACK (2 CLOTHS) TOP SCH (02:04)
[2016-09-04 04:00] VITALS: BP 156/68; PULSE 76; RESP 18; TEMP 96.2; O2SAT 98
[2016-09-04 05:40] LABS: AUTOMATED NEUTROPHIL # 6.5 TH/MM3 (1.8-7.7); BASOPHIL % 0.1 % (0.0-2.0); EOSINOPHIL % 0.1 % (0.0-4.0); HEMATOCRIT 29.7 % (35.0-46.0); LYMPH % 15.6 % (9.0-44.0); LYMPHOCYTE # 1.6 TH/MM3 (1.0-4.8); MEAN CELL VOLUME 88.3 FL (80.0-100.0); MEAN CORPUSCULAR HEMOGLOBIN 28.6 PG (27.0-34.0); MEAN CORPUSCULAR HGB CONC 32.4 % (32.0-36.0); MONO % 21.1 % (0.0-8.0); NEUT % 63.1 % (16.0-70.0); PLATELET COUNT 40 TH/MM3 (150-450); RED BLOOD COUNT 3.36 MIL/MM3 (4.00-5.30); RED CELL DISTRIBUTION WIDTH 17.6 % (11.6-17.2); WHITE BLOOD COUNT 10.3 TH/MM3 (4.0-11.0)
[2016-09-04 05:43] LABS: HEMO FLAGS AUTO DIFF
[2016-09-04 08:00] VITALS: BP 126/62; PULSE 77; RESP 18; TEMP 98.5; O2SAT 99
[2016-09-04] MEDS: LACTOBACILLUS ACIDOPHILUS TAB PO SCH ×2 (08:18→20:54)
[2016-09-04] MEDS: SODIUM CHLORIDE 0.9% FLUSH 5 ML FLUSH FLUSH SCH ×2 (08:18→20:54)
[2016-09-04 09:35] LABS: BANDS 14 % (0-6); BASOPHILS 1 % (0-2); METAMYELOCYTES 1 % (0-1); MYELOCYTES 1 % (0-0); NEUTROPHIL # MANUAL DIFF 7.7 TH/MM3 (1.8-7.7); POLYS (SEG NEUTROPHILS) 59 % (16-70); WBC DIFF SAMPLE 100
[2016-09-04 09:36] LABS: OVALOCYTES 1+ (NORMAL); PLATELET ESTIMATE SMEAR LOW (NORMAL); PLATELET MORPHOLOGY NORMAL (NORMAL); SCAN/DIFF FINAL DIFF MANUAL
[2016-09-04 12:00] VITALS: BP 145/63; PULSE 72; RESP 18; TEMP 98.1; O2SAT 100
[2016-09-04] MEDS: LEVOFLOXACIN 750 MG PREMIX INJ 150 ML IV SCH (12:11)
[2016-09-04 16:00] VITALS: BP 163/70; PULSE 74; RESP 18; TEMP 98.1; O2SAT 100
--- NOTE | 2016-09-04 16:47 | HHI.PR ---
Subjective Remarks The patient was requesting a bedpan. She said her family was visiting her today. No acute complaints. Discussed with nursing. Objective Vitals Vital Signs Date Time Temp Pulse Resp B/P Pulse Ox O2 Delivery O2 Flow Rate FiO2 09/04/16 12:00 98.1 72 18 145/63 100 09/04/16 08:00 98.5 77 18 126/62 99 09/04/16 04:00 96.2 76 18 156/68 98 09/04/16 00:00 96.7 77 18 156/71 98 09/03/16 23:00 95 Nasal Cannula 3.00 09/03/16 20:00 96.3 80 18 157/71 98 I/O 09/03/16 09/03/16 09/03/16 09/04/16 09/04/16 09/04/16 07:00 15:00 23:00 07:00 15:00 23:00 Intake Total 360 ml 596 ml 480 ml Output Total 150 ml Balance 360 ml 596 ml -150 ml 480 ml Intake Oral 480 ml IV Total 20 ml 157 ml Tube Feeding 379 ml Packed Cells 340 ml Other 60 ml Output Urine Total 150 ml # Voids 1 2 2 3 # Bowel Movements 3 1 1 2 Result Diagram: 09/04/16 0525 09/01/16 0405 Imaging Last Impressions Chest X-Ray 09/01/16 0000 Signed Impressions: Service Date/Time: Thursday, September 01, 2016 17:16 - CONCLUSION: Bilateral pleural effusions probable slight pulmonary edema and left lung base consolidation not significantly changed. Nikko Rehman MD Abdomen X-Ray 08/29/16 0000 Signed Impressions: Service Date/Time: August 19:31 - CONCLUSION: NG tube tip in the stomach. Nikko Rehman MD Angiography 08/22/16 1420 Signed Impressions: Service Date/Time: August 13:13 - CONCLUSION: Diagnostic angiography as described above demonstrates high-grade bilateral external iliac artery stenoses and high-grade left common femoral artery stenosis. Successful angioplasty of the left common femoral artery and left external iliac artery. Right external iliac artery angioplasty and stenting as described above. Significant improvement in luminal patency of the external iliac arteries and left common femoral artery following endovascular treatment. Rajat Hu MD Aorta w/Runoff CTA 08/19/16 0000 Signed Impressions: Service Date/Time: Saturday, August 20, 2016 15:58 - CONCLUSION: Advanced atherosclerotic vasculopathy with hemodynamically significant stenotic/ occlusive lesions in the celiac, superior mesenteric, renal, external iliac, superficial femoral and popliteal arteries as described above. Severe irregularity with moderate to severe stenotic lesions are seen in the infrapopliteal runoff vessels to both calves and feet. Significantly diminished flow is evident to the right foot. Moderate bilateral pleural effusions with consolidating airspace disease in both lower lobes. Rajat Hu MD Renal Ultrasound 08/17/16 0000 Signed Impressions: Service Date/Time: Wednesday, August 17, 2016 16:01 - CONCLUSION: 1. Mild dilation of the collecting system of the right kidney. No evidence of hydronephrosis on the left. 2. 2.1 x 2.3 cm round non-shadowing lesion supermedial to the upper pole the right kidney of uncertain organ of origin. The right adrenal gland could be located in this area. Wei Corley MD Lower Extremity Ultrasound 08/16/16 0000 Signed Impressions: Service Date/Time: Tuesday, August 16, 2016 21:07 - CONCLUSION: No DVT. Josue White MD Foot X-Ray 08/16/16 0000 Signed Impressions: Service Date/Time: Tuesday, August 16, 2016 22:14 - CONCLUSION: No acute disease. Josue White MD Objective Remarks GENERAL: Alert and oriented. Sitting up in bed. Appears comfortable. SKIN: Warm and dry. Gangrenous changes in the lower extremities. HEAD: Normocephalic. EYES: No scleral icterus. No injection or drainage. NECK: Supple, trachea midline. No JVD. CARDIOVASCULAR: Regular rate and rhythm without murmurs, gallops, or rubs. RESPIRATORY: Breath sounds equal bilaterally. No accessory muscle use. GASTROINTESTINAL: Abdomen soft, non-tender, nondistended. NG tube in place. MUSCULOSKELETAL: No tenderness. No pain. No edema. Improved color of BL feet. BACK: Nontender without obvious deformity. No CVA tenderness. NEURO: Hard of hearing. Medications and IVs Current Medications Medications (Trade) Dose Ordered Sig/Alejandro Route Start Time Stop Time Status Last Admin (NS Flush) 2 ml UNSCH PRN FLUSH 08/16/16 22:30 09/03/16 22:33 (NS Flush) 2 ml BID FLUSH 08/17/16 09:00 09/04/16 08:18 (Zofran Inj) 4 mg Q6H PRN IVP 08/16/16 22:30 08/26/16 12:15 (Dulcolax Supp) 10 mg DAILY PRN [place] 08/16/16 22:30 (Tylenol) 650 mg Q6H PRN PO 08/16/16 22:30 Miscellaneous Information 1 Q361D XX 08/17/16 01:00 08/17/16 01:00 (Chlorhexidine 2% Cloth) Taper DAILY@04 TOP 08/17/16 04:00 08/13/17 03:59 08/17/16 03:40 (Chlorhexidine 2% Cloth) 3 pack UNSCH PRN TOP 08/17/16 01:00 (Lactinex) 1 tab Q12HR PO 08/20/16 21:00 09/04/16 08:18 (Plavix) 75 mg DAILY PO 08/22/16 21:00 Hold 08/30/16 07:55 (Heparin Inj) 5,000 units UNSCH PRN IV 08/31/16 00:30 Heparin Sodium (Porcine) 2500 units 2,500 units UNSCH PRN IV 08/31/16 00:30 (Heparin-D5W Inj) 250 ml @ 0 mls/hr TITRATE IV 08/31/16 12:00 Enalaprilat 1.25 mg 1.25 mg Q6H PRN IV PUSH 09/01/16 17:15 (Levaquin 750 Mg Premix Inj) 150 ml @ 100 mls/hr Q24H IV 09/02/16 12:00 09/04/16 12:11 A/P Problem List: (1) Cellulitis of left lower extremity ICD Code: L03.116 Status: Acute (2) PVD (peripheral vascular disease) ICD Code: I73.9 Status: Acute (3) Hyperkalemia ICD Code: E87.5 Status: Acute (4) HARPAL (acute kidney injury) ICD Code: N17.9 Status: Acute (5) HTN (hypertension) ICD Code: I10 Status: Acute (6) COPD (chronic obstructive pulmonary disease) ICD Code: J44.9 Status: Acute (7) Respiratory failure ICD Code: J96.90 Status: Acute (8) Normochromic normocytic anemia ICD Code: D64.9 Status: Acute Assessment and Plan Malnutrition Postoperatively very poor appetite. Failed calorie count. NG tube placed with tube feeds. Appreciate GI consult. Pt made NPO 09/02 by speech therapy. - Plan for PEG tube placement by GI once Plavix has been on hold for 5 days. The patient also has thrombocytopenia. Follow CBC. Recheck with GI 09/05 as it will have been 5 days since Plavix. - Holding hepatin gtt 08/31 in setting of worsening thrombocytopenia. - Megace and Marinol added. LLE Cellulitis Wound on plantar aspect of left foot x2 wks, on Keflex with no improvement, + erythema involving left pérez. Afebrile, no leukocytosis. Outpatient Wound Cultures positive for Staph per report. S/p Wound/Blood Cultures in ER and Clinda IV. - Follow up cultures. - resolved. Aspiration PNA Chest x-ray with evidence of consolidation. Concern for aspiration. - Started IV Levaquin 09/02. - Speech therapy follow-up. PVD/ Gangrene of left first toe S/p angioplasty as per [facility] surgery. - wound care per surgery. - heparin gtt, Plavix on hold in setting of thrombocytopenia. Normocytic normochromic anemia Stable. - follow CBC and transfuse as needed. S/p 1 unit 09/03 per hematology. HARPAL Resolved. Renal ultrasound reviewed and no evidence of hydronephrosis on the left. 2. 2.1 x 2.3 cm round non-shadowing lesion supermedial to the upper pole the right kidney of uncertain organ of origin. Appreciate nephrology assistance. - follow BMP and avoid nephrotoxins. - outpt follow-up for right kidney lesion. Thrombocytopenia Unsure of baseline. No bleeding noted. Plt count low but stable. Appreciate hematology consult. - Continue to monitor. - hold heparin gtt/ Plavix for now. - follow up with hematology. PPx: Heparin gtt on hold s/t thrombocytopenia. Discharge Planning PEG tube planned, then rehab. Abdoul Black DO Sep 04, 2016 16:47
[2016-09-04 20:00] VITALS: BP 152/68; PULSE 71; RESP 18; TEMP 96.9; O2SAT 100
[2016-09-04 23:55] LABS: UFH SEROTONIN RELEASE RESULT NEGATIVE (NEGATIVE)
[2016-09-05] VITALS (7 sets, daily range): BP systolic 121–151; BP diastolic 58–71; PULSE 70–76; RESP 17–18; TEMP 97–98; O2SAT 95–99
[2016-09-05] MEDS: CHLORHEXIDINE GLUCONATE 2 % 1 PACK (2 CLOTHS) TOP SCH (03:17)
[2016-09-05 06:58] LABS: MEAN CELL VOLUME 89.7 FL (80.0-100.0); MEAN CORPUSCULAR HGB CONC 32.3 % (32.0-36.0); PLATELET COUNT 36 TH/MM3 (150-450); RED BLOOD COUNT 3.24 MIL/MM3 (4.00-5.30); RED CELL DISTRIBUTION WIDTH 16.8 % (11.6-17.2); WHITE BLOOD COUNT 10.1 TH/MM3 (4.0-11.0)
[2016-09-05 06:59] LABS: REVIEW FLAG FINAL
[2016-09-05] MEDS: LACTOBACILLUS ACIDOPHILUS TAB PO SCH ×2 (08:24→21:01)
[2016-09-05] MEDS: SODIUM CHLORIDE 0.9% FLUSH 5 ML FLUSH FLUSH SCH ×2 (08:25→21:00)
[2016-09-05] MEDS: LEVOFLOXACIN 750 MG PREMIX INJ 150 ML IV SCH (12:34)
--- NOTE | 2016-09-05 12:34 | HHI.GIFU ---
Subjective Remarks Patient is resting in bed, continue to have NGT and tolerating TF okay, denies nausea, vomiting or abd pain. Plavix and Heparin on hold, however, Plt count is low, this is 36 today, hematology consulted and felt this was secondary to gangrenous changes (Tati Tan) Objective Vitals I&O Vital Signs Date Time Temp Pulse Resp B/P Pulse Ox O2 Delivery O2 Flow Rate FiO2 09/05/16 09:30 99 Nasal Cannula 3.00 09/05/16 08:00 97.4 72 18 140/63 95 09/05/16 04:00 97.0 71 18 151/71 99 09/05/16 00:00 97.4 74 18 133/62 99 09/04/16 20:00 96.9 71 18 152/68 100 09/04/16 16:00 98.1 74 18 163/70 100 I/O 09/04/16 09/04/16 09/04/16 09/05/16 09/05/16 09/05/16 07:00 15:00 23:00 07:00 15:00 23:00 Intake Total 480 ml 480 ml 50 ml Balance 480 ml 480 ml 50 ml Intake Oral 480 ml 480 ml 50 ml # Voids 2 3 2 2 # Bowel Movements 1 2 Laboratory Laboratory Tests Test 09/05/16 06:20 White Blood Count 10.1 Red Blood Count 3.24 Hemoglobin 9.4 Hematocrit 29.0 Mean Corpuscular Volume 89.7 Mean Corpuscular Hemoglobin 29.0 Mean Corpuscular Hemoglobin 32.3 Concent Red Cell Distribution Width 16.8 Platelet Count 36 Mean Platelet Volume 10.8 Date/Time Procedure Status Source Growth 09/02/16 14:30 Urine Culture - Final Complete Urine Clean Catch Imaging Last Impressions Chest X-Ray 09/01/16 0000 Signed Impressions: Service Date/Time: Thursday, September 01, 2016 17:16 - CONCLUSION: Bilateral pleural effusions probable slight pulmonary edema and left lung base consolidation not significantly changed. Nikko Rehman MD Abdomen X-Ray 08/29/16 0000 Signed Impressions: Service Date/Time: August 19:31 - CONCLUSION: NG tube tip in the stomach. Nikko Rehman MD Angiography 08/22/16 1420 Signed Impressions: Service Date/Time: August 13:13 - CONCLUSION: Diagnostic angiography as described above demonstrates high-grade bilateral external iliac artery stenoses and high-grade left common femoral artery stenosis. Successful angioplasty of the left common femoral artery and left external iliac artery. Right external iliac artery angioplasty and stenting as described above. Significant improvement in luminal patency of the external iliac arteries and left common femoral artery following endovascular treatment. Rajat Hu MD Aorta w/Runoff CTA 08/19/16 0000 Signed Impressions: Service Date/Time: Saturday, August 20, 2016 15:58 - CONCLUSION: Advanced atherosclerotic vasculopathy with hemodynamically significant stenotic/ occlusive lesions in the celiac, superior mesenteric, renal, external iliac, superficial femoral and popliteal arteries as described above. Severe irregularity with moderate to severe stenotic lesions are seen in the infrapopliteal runoff vessels to both calves and feet. Significantly diminished flow is evident to the right foot. Moderate bilateral pleural effusions with consolidating airspace disease in both lower lobes. Rajat Hu MD Renal Ultrasound 08/17/16 0000 Signed Impressions: Service Date/Time: Wednesday, August 17, 2016 16:01 - CONCLUSION: 1. Mild dilation of the collecting system of the right kidney. No evidence of hydronephrosis on the left. 2. 2.1 x 2.3 cm round non-shadowing lesion supermedial to the upper pole the right kidney of uncertain organ of origin. The right adrenal gland could be located in this area. Wei Corley MD Lower Extremity Ultrasound 08/16/16 0000 Signed Impressions: Service Date/Time: Tuesday, August 16, 2016 21:07 - CONCLUSION: No DVT. Josue White MD Foot X-Ray 08/16/16 0000 Signed Impressions: Service Date/Time: Tuesday, August 16, 2016 22:14 - CONCLUSION: No acute disease. Josue White MD Physical Exam HEENT: normocephalic; atraumatic; no jaundice. NECK: Neck is supple, no JVD, no lymphadenopathy. CHEST: Chest is clear to auscultation and percussion. CARDIAC: Regular rate and rhythm with no murmur gallop or rubs. ABDOMEN: Soft, nondistended, nontender; no hepatosplenomegaly; bowel sounds are present in all four quadrants. EXTREMITIES: No clubbing, cyanosis, + edema in left arm SKIN: gangrenous changes involving lower extremity PATTERN CLERK: alert and oriented times three. (Tati Tan) Assessment and Plan Plan - Malnutrition/poor appetite and PO intake- GI services have been consulted for PEG tub placement. Currently, patient is receiving TF via NGT, tolerating well, denies nausea, vomiting, abd pain, hematemesis or hematochezia. - Thrombocytopenia- Plt is 36 today, hematology consulted and felt this was secondary to gangrenous changes, anticoagulants on hold - Wound on the bottom of her left foot, and was found to have gangrene of the left first toe, s/p angioplasty - Respiratory failure- resolved - HARPAL- resolved. - PVD- Plavix on hold due to low platelets - COPD, PVD, UTI per attending Plan: - TF feeding per recommendation - EGD/PEG tube placement once platelets corrected by medical team - Cont. supportive care - Patient seen and examined by Dr. Grossman and myself and this note is written on his behalf. (aTti Tan) Physician Comments Plan as above, will schedule the procedure when plat>50 K, will follow up with you. Further recommendations to follow. (Shanel Grossman MD) Tati Tan Sep 05, 2016 12:34 Shanel Grossman MD Sep 05, 2016 17:31
--- NOTE | 2016-09-05 17:05 | HHI.PR ---
Subjective Remarks The patient's daughter was at the bedside. The patient was resting comfortably. She had no acute complaints. The patient's daughter had questions which were answered. Discussed with nursing and hematology. Objective Vitals Vital Signs Date Time Temp Pulse Resp B/P Pulse Ox O2 Delivery O2 Flow Rate FiO2 09/05/16 16:35 98.0 70 18 121/58 96 09/05/16 12:43 98.0 73 18 149/66 95 09/05/16 09:30 99 Nasal Cannula 3.00 09/05/16 08:00 97.4 72 18 140/63 95 09/05/16 04:00 97.0 71 18 151/71 99 09/05/16 00:00 97.4 74 18 133/62 99 09/04/16 20:00 96.9 71 18 152/68 100 I/O 09/04/16 09/04/16 09/04/16 09/05/16 09/05/16 09/05/16 07:00 15:00 23:00 07:00 15:00 23:00 Intake Total 480 ml 480 ml 50 ml Balance 480 ml 480 ml 50 ml Intake Oral 480 ml 480 ml 50 ml # Voids 2 3 2 2 1 # Bowel Movements 1 2 1 Result Diagram: 09/05/16 0620 09/01/16 0405 Imaging Last Impressions Chest X-Ray 09/01/16 0000 Signed Impressions: Service Date/Time: Thursday, September 01, 2016 17:16 - CONCLUSION: Bilateral pleural effusions probable slight pulmonary edema and left lung base consolidation not significantly changed. Nikko Rehman MD Abdomen X-Ray 08/29/16 0000 Signed Impressions: Service Date/Time: August 19:31 - CONCLUSION: NG tube tip in the stomach. Nikko Rehman MD Angiography 08/22/16 1420 Signed Impressions: Service Date/Time: August 13:13 - CONCLUSION: Diagnostic angiography as described above demonstrates high-grade bilateral external iliac artery stenoses and high-grade left common femoral artery stenosis. Successful angioplasty of the left common femoral artery and left external iliac artery. Right external iliac artery angioplasty and stenting as described above. Significant improvement in luminal patency of the external iliac arteries and left common femoral artery following endovascular treatment. Rajat Hu MD Aorta w/Runoff CTA 08/19/16 0000 Signed Impressions: Service Date/Time: Saturday, August 20, 2016 15:58 - CONCLUSION: Advanced atherosclerotic vasculopathy with hemodynamically significant stenotic/ occlusive lesions in the celiac, superior mesenteric, renal, external iliac, superficial femoral and popliteal arteries as described above. Severe irregularity with moderate to severe stenotic lesions are seen in the infrapopliteal runoff vessels to both calves and feet. Significantly diminished flow is evident to the right foot. Moderate bilateral pleural effusions with consolidating airspace disease in both lower lobes. Rajat Hu MD Renal Ultrasound 08/17/16 0000 Signed Impressions: Service Date/Time: Wednesday, August 17, 2016 16:01 - CONCLUSION: 1. Mild dilation of the collecting system of the right kidney. No evidence of hydronephrosis on the left. 2. 2.1 x 2.3 cm round non-shadowing lesion supermedial to the upper pole the right kidney of uncertain organ of origin. The right adrenal gland could be located in this area. Wei Corley MD Lower Extremity Ultrasound 08/16/16 0000 Signed Impressions: Service Date/Time: Tuesday, August 16, 2016 21:07 - CONCLUSION: No DVT. Josue White MD Foot X-Ray 08/16/16 0000 Signed Impressions: Service Date/Time: Tuesday, August 16, 2016 22:14 - CONCLUSION: No acute disease. Josue White MD Objective Remarks GENERAL: Alert and oriented. Sitting up in bed. Appears comfortable. SKIN: Warm and dry. Gangrenous changes in the lower extremities. HEAD: Normocephalic. EYES: No scleral icterus. No injection or drainage. NECK: Supple, trachea midline. No JVD. NGT in place. CARDIOVASCULAR: Regular rate and rhythm without murmurs, gallops, or rubs. RESPIRATORY: Breath sounds equal bilaterally. No accessory muscle use. GASTROINTESTINAL: Abdomen soft, non-tender, nondistended. NG tube in place. MUSCULOSKELETAL: No tenderness. No pain. No edema. Improved color of BL feet. BACK: Nontender without obvious deformity. No CVA tenderness. NEURO: Hard of hearing. Medications and IVs Current Medications Medications (Trade) Dose Ordered Sig/Alejandro Route Start Time Stop Time Status Last Admin (NS Flush) 2 ml UNSCH PRN FLUSH 08/16/16 22:30 09/03/16 22:33 (NS Flush) 2 ml BID FLUSH 08/17/16 09:00 09/05/16 08:25 (Zofran Inj) 4 mg Q6H PRN IVP 08/16/16 22:30 08/26/16 12:15 (Dulcolax Supp) 10 mg DAILY PRN MI 08/16/16 22:30 (Tylenol) 650 mg Q6H PRN PO 08/16/16 22:30 Miscellaneous Information 1 Q361D XX 08/17/16 01:00 08/17/16 01:00 (Chlorhexidine 2% Cloth) 3 pack Taper DAILY@04 TOP 08/17/16 04:00 08/13/17 03:59 08/17/16 03:40 (Chlorhexidine 2% Cloth) 3 pack UNSCH PRN TOP 08/17/16 01:00 (Lactinex) 1 tab Q12HR PO 08/20/16 21:00 09/05/16 08:24 (Plavix) 75 mg DAILY PO 08/22/16 21:00 Hold 08/30/16 07:55 (Heparin Inj) 5,000 units UNSCH PRN IV 08/31/16 00:30 Heparin Sodium (Porcine) 2500 units 2,500 units UNSCH PRN IV 08/31/16 00:30 (Heparin-D5W Inj) 250 ml @ 0 mls/hr TITRATE IV 08/31/16 12:00 Enalaprilat 1.25 mg 1.25 mg Q6H PRN IV PUSH 09/01/16 17:15 (Levaquin 750 Mg Premix Inj) 150 ml @ 100 mls/hr Q24H IV 09/02/16 12:00 09/05/16 12:34 A/P Problem List: (1) Cellulitis of left lower extremity ICD Code: L03.116 Status: Acute (2) PVD (peripheral vascular disease) ICD Code: I73.9 Status: Acute (3) Hyperkalemia ICD Code: E87.5 Status: Acute (4) HARPAL (acute kidney injury) ICD Code: N17.9 Status: Acute (5) HTN (hypertension) ICD Code: I10 Status: Acute (6) COPD (chronic obstructive pulmonary disease) ICD Code: J44.9 Status: Acute (7) Respiratory failure ICD Code: J96.90 Status: Acute (8) Normochromic normocytic anemia ICD Code: D64.9 Status: Acute Assessment and Plan PVD/ Gangrene S/p angioplasty as per [facility] surgery. The pt has gangrenous changes in the lower extremities. Hematology believes pt is in DIC s/t gangrene. - discussed with podiatry and vascular surgery 09/05. They will evaluate pt to see if candidate for further debridement at this time. - wound care. - heparin gtt, Plavix on hold in setting of thrombocytopenia. Thrombocytopenia/ DIC The pt has a history of thrombocytopenia but her plt count continues to drop. Appreciate hematology consult. Per hematology the pt is in DIC s/t gangrene and the underlying issue needs to be addressed. The pt is hemodynamically stable. - Continue to follow CBC. INR in AM. - hold heparin gtt/ Plavix for now. - vascular surgery and podiatry to re-evaluate pt 09/05 to see if pt is candidate for further debridement. - follow up with hematology. - continue antibiotics. Malnutrition Postoperatively very poor appetite. Failed calorie count. NG tube placed with tube feeds. Appreciate GI consult. Pt made NPO 09/02 by speech therapy. - Plan for PEG tube placement once stable. - continue tube feeds via NGT. - follow up with speech therapy. LLE Cellulitis Wound on plantar aspect of left foot x2 wks, on Keflex with no improvement, + erythema involving left pérez. Afebrile, no leukocytosis. Outpatient Wound Cultures positive for Staph per report. S/p Wound/Blood Cultures in ER and [facility] IV. - Follow up cultures. - resolved. Aspiration PNA Chest x-ray with evidence of consolidation. Concern for aspiration. Speech therapy made the pt NPO. - Started IV Levaquin 09/02. - Speech therapy follow-up. - continue tube feeds. Normocytic normochromic anemia Stable. - follow CBC and transfuse as needed. S/p 1 unit 09/03 per hematology. HARPAL Resolved. Renal ultrasound reviewed and no evidence of hydronephrosis on the left. 2. 2.1 x 2.3 cm round non-shadowing lesion supermedial to the upper pole the right kidney of uncertain organ of origin. Appreciate nephrology assistance. - follow BMP and avoid nephrotoxins. - outpt follow-up for right kidney lesion. PPx: Heparin gtt on hold s/t thrombocytopenia. Discharge Planning Awaiting further input from vascular surgery and podiatry. Abdoul Black DO Sep 05, 2016 17:05
--- NOTE | 2016-09-05 17:59 | PD.CAR.PN ---
CVT Progress Note Subjective/Hospital Course: Patient seen full consult dictated Will follow Thanks Shaun 08/18/16 Patient with significant peripheral vascular disease ulcer of the left foot and now reduced edema of the both legs. On physical exam patient has no discernible distal pulses and bluish discoloration of the toes left more than right At this point patient has acute superimposed on chronic renal insufficiency with elevated creatinine view when and I would wait until the renal function improves before we preform a CTA with a runoff, but eventually patient will need arterial a runoff to evaluate degree of the disease and possible options for reconstruction. The current clinical situation based on physical findings including the plantar ulcer the note limb threatening ischemia and therefore full workup is mandatory however correcting renal function and medical issues trumps any further vascular workup at this time Will continue to follow patient which you and when renal function is improved we 'll go ahead with CTA and runoff 08/20/16 Swelling of the legs is significantly decreased Toes are still fairly purplish due to cyanosis but no gangrene is noted Patient is awaiting CTA point we'll be able to tell if there is any unreconstructable disease in the left leg Based on patient's age and frail status of course any procedure has to be tailored toward patient's ability to tolerate the same 08/21/16 I reviewed the CTA with a runoff This one confirms the clinical impression Right Patient has some external and common iliac disease but no flow-limiting stenosis Right SFA occlusion with distal reconstitution Left Patient has left tight iliofemoral stenosis as well as left external iliac artery stenosis little higher up SFAs are occluded and popliteal artery severely diseased on the left Runoff via posterior tibial artery which is interrupted in several areas At this point I recommend the percutaneous endovascular iliac angioplasty and common femoral angioplasty with the eluding balloon and possibly a stent in the left external iliac. This can be done on endovascular basis Patient will be taken to the endovascular suite tomorrow 08/23/16 Status post percutaneous revascularization of the left leg with eluding balloon dilatation Both feet are now nice and warm and capillary refill is much improved This is a great outcome thanks to great work of Dr. Hu From our point patient can be discharged any time 09/05/16 Patient had revascularization of the leg with eluding balloon Foot is warm and well perfused Left greater toe is gangrenous involved in dry gangrene and if amputated this will most likely heal There are no other ways to improve the blood supply to the foot at this point and no other endovascular or vascular interventions are either indicated or warranted From vascular point podiatry can proceed with amputation of the left hallux any time Objective: Vital Signs Date Time Temp Pulse Resp B/P Pulse Ox O2 Delivery O2 Flow Rate FiO2 09/05/16 16:35 98.0 70 18 121/58 96 09/05/16 12:43 98.0 73 18 149/66 95 09/05/16 09:30 99 Nasal Cannula 3.00 09/05/16 08:00 97.4 72 18 140/63 95 09/05/16 04:00 97.0 71 18 151/71 99 09/05/16 00:00 97.4 74 18 133/62 99 09/04/16 20:00 96.9 71 18 152/68 100 Labs: Laboratory Tests Test 09/05/16 06:20 White Blood Count 10.1 TH/MM3 (4.0-11.0) Red Blood Count 3.24 MIL/MM3 (4.00-5.30) Hemoglobin 9.4 GM/DL (11.6-15.3) Hematocrit 29.0 % (35.0-46.0) Mean Corpuscular Volume 89.7 FL (80.0-100.0) Mean Corpuscular Hemoglobin 29.0 PG (27.0-34.0) Mean Corpuscular Hemoglobin 32.3 % Concent (32.0-36.0) Red Cell Distribution Width 16.8 % (11.6-17.2) Platelet Count 36 TH/MM3 (150-450) Mean Platelet Volume 10.8 FL (7.0-11.0) Result Diagram: 09/05/16 0620 09/01/16 0405 Rachel Mccloud MD Sep 05, 2016 17:59
--- NOTE | 2016-09-05 19:11 | PD.POD ---
Subjective Remarks awake understands the need for digit amputation Past Med/Surg/Social History Social History Smoking Status: Former Smoker Objective Vital Signs Vital Signs Date Time Temp Pulse Resp B/P Pulse Ox O2 Delivery O2 Flow Rate FiO2 09/05/16 16:35 98.0 70 18 121/58 96 09/05/16 12:43 98.0 73 18 149/66 95 09/05/16 09:30 99 Nasal Cannula 3.00 09/05/16 08:00 97.4 72 18 140/63 95 09/05/16 04:00 97.0 71 18 151/71 99 09/05/16 00:00 97.4 74 18 133/62 99 09/04/16 20:00 96.9 71 18 152/68 100 Coded Allergies: Sulfa (Verified Allergy, Unknown, 08/16/16) Physical Exam Remarks nonpalpable DP and PT pulses. Cap fill time of the left first and second digits is delayed. Both feet do feel warm and well-perfused with the exception of the left digits. Gross sensation is intact. Active range of motion is within normal limits. There are dark dry gangrene areas of surrounding areas of ischemia on the hallux as well as the plantar aspect of the second digit. The dry gangrenous area at the hallux is on the plantar aspect with ischemia extending to the metatarsal-phalangeal joint. The second digit is more isolated to the distal plantar tuft of the second digit. There is a similar ischemic appearance on the plantar fifth metatarsal head and plantar second metatarsal head. 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 SP IR of the the left. Reviewed case with Medicine. Vascular permits proceeding with amputation. Explained risks to patient, non healing wounds that may progress to loss of foot / limb. NPO after MN for surgery tomorrow. Giovani Ma DPM Sep 05, 2016 19:11
[2016-09-06] VITALS: BP 138/63; PULSE 73; RESP 17; TEMP 97.1; O2SAT 98
[2016-09-06] MEDS: CHLORHEXIDINE GLUCONATE 2 % 1 PACK (2 CLOTHS) TOP SCH (03:34)
[2016-09-06 04:00] VITALS: BP 142/63; PULSE 76; RESP 18; TEMP 97.6; O2SAT 96
[2016-09-06 06:45] VITALS: BP 120/53; PULSE 79; RESP 20; TEMP 95.7; O2SAT 96
[2016-09-06 06:45] LABS: HEMATOCRIT 28.2 % (35.0-46.0); MEAN CELL VOLUME 88.5 FL (80.0-100.0); MEAN CORPUSCULAR HEMOGLOBIN 29.1 PG (27.0-34.0); MEAN CORPUSCULAR HGB CONC 32.9 % (32.0-36.0); PLATELET COUNT 35 TH/MM3 (150-450); RED BLOOD COUNT 3.19 MIL/MM3 (4.00-5.30); RED CELL DISTRIBUTION WIDTH 16.9 % (11.6-17.2); WHITE BLOOD COUNT 8.7 TH/MM3 (4.0-11.0)
[2016-09-06 06:48] LABS: PROTHROMBIN TIME - PATIENT 10.9 SEC (9.8-11.6)
[2016-09-06 06:52] LABS: REVIEW FLAG FINAL
[2016-09-06 07:11] LABS: ANION GAP 2 MEQ/L (5-15); BICARBONATE GREATER THAN 45.0 MEQ/L (21.0-32.0); BLOOD UREA NITROGEN 35 MG/DL (7-18); CHLORIDE 93 MEQ/L (98-107); GLOMERULAR FILTRATION RATE 81 ML/MIN (>89); MAGNESIUM 2.2 MG/DL (1.5-2.5); POTASSIUM 4.4 MEQ/L (3.5-5.1); SODIUM (NA) 140 MEQ/L (136-145)
[2016-09-06] MEDS: LACTOBACILLUS ACIDOPHILUS TAB PO SCH ×2 (08:05→20:55)
[2016-09-06] MEDS ORDERED: PROPOFOL 200 MG/20 ML AMP IV ONE (09:41)
[2016-09-06] MEDS ORDERED: BUPIVACAINE HCL PF 0.5% 30 ML VIAL ONE (10:55)
[2016-09-06] MEDS: SODIUM CHLORIDE 0.9% FLUSH 5 ML FLUSH FLUSH SCH ×2 (11:11→20:56)
[2016-09-06] MEDS: LEVOFLOXACIN 750 MG PREMIX INJ 150 ML IV SCH (11:11)
[2016-09-06 12:00] VITALS: BP 118/50; PULSE 77; RESP 19; TEMP 95.6; O2SAT 94
[2016-09-06] MEDS ORDERED: KETAMINE HCL 500 MG/5 ML VIAL ONE (13:42)
[2016-09-06] MEDS ORDERED: BUPIVACAINE HCL PF 0.25% 30 ML VIAL INFIL ONE (14:24)
[2016-09-06] MEDS ORDERED: NEOMYCIN/POLYMYXIN 1 ML G.U. IRRIGANT IR ONE (14:24)
[2016-09-06] MEDS ORDERED: DO NOT ADM ANY ANTICOAGULANT DRUGS XX PRN (15:20)
--- NOTE | 2016-09-06 15:23 | HHI.PR ---
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
--- NOTE | 2016-09-06 16:38 | HHI.PR ---
Subjective Remarks Follow-up ischemic left foot/left big toe 09/06/16-patient seen and examined; she had Left hallux and 2nd digit amputation ; patient with decubitus ulcer, no other issues. Case discussed with Dr. Medeiros Objective Vitals Vital Signs Date Time Temp Pulse Resp B/P Pulse Ox O2 Delivery O2 Flow Rate FiO2 09/06/16 16:00 97.9 66 16 139/51 97 Nasal Cannula 3 09/06/16 15:45 62 16 129/47 97 Nasal Cannula 3 09/06/16 15:30 62 16 129/48 96 Nasal Cannula 3 09/06/16 15:22 98.4 74 16 135/57 96 Nasal Cannula 3 09/06/16 12:00 95.6 77 19 118/50 94 09/06/16 06:45 95.7 79 20 120/53 96 09/06/16 04:00 97.6 76 18 142/63 96 09/06/16 00:00 97.1 73 17 138/63 98 09/05/16 20:00 97.8 76 17 149/67 96 09/05/16 16:35 98.0 70 18 121/58 96 I/O 09/05/16 09/05/16 09/05/16 09/06/16 09/06/16 09/06/16 07:00 15:00 23:00 07:00 15:00 23:00 Intake Total 50 ml 122 ml 925 ml Output Total 10 ml Balance 50 ml 122 ml 915 ml Intake Oral 50 ml 0 ml IV Total 122 ml 25 ml Other 900 ml Output Urine Total 0 ml Estimated Blood Loss 10 ml # Voids 2 4 1 0 0 # Bowel Movements 3 0 0 Result Diagram: 09/06/16 0556 09/06/16 0556 Imaging Last Impressions Chest X-Ray 09/01/16 0000 Signed Impressions: Service Date/Time: Thursday, September 01, 2016 17:16 - CONCLUSION: Bilateral pleural effusions probable slight pulmonary edema and left lung base consolidation not significantly changed. Nikko Rehman MD Abdomen X-Ray 08/29/16 0000 Signed Impressions: Service Date/Time: August 19:31 - CONCLUSION: NG tube tip in the stomach. Nikko Rehman MD Angiography 08/22/16 1420 Signed Impressions: Service Date/Time: August 13:13 - CONCLUSION: Diagnostic angiography as described above demonstrates high-grade bilateral external iliac artery stenoses and high-grade left common femoral artery stenosis. Successful angioplasty of the left common femoral artery and left external iliac artery. Right external iliac artery angioplasty and stenting as described above. Significant improvement in luminal patency of the external iliac arteries and left common femoral artery following endovascular treatment. Rajat Hu MD Aorta w/Runoff CTA 08/19/16 0000 Signed Impressions: Service Date/Time: Saturday, August 20, 2016 15:58 - CONCLUSION: Advanced atherosclerotic vasculopathy with hemodynamically significant stenotic/ occlusive lesions in the celiac, superior mesenteric, renal, external iliac, superficial femoral and popliteal arteries as described above. Severe irregularity with moderate to severe stenotic lesions are seen in the infrapopliteal runoff vessels to both calves and feet. Significantly diminished flow is evident to the right foot. Moderate bilateral pleural effusions with consolidating airspace disease in both lower lobes. Rajat Hu MD Renal Ultrasound 08/17/16 0000 Signed Impressions: Service Date/Time: Wednesday, August 17, 2016 16:01 - CONCLUSION: 1. Mild dilation of the collecting system of the right kidney. No evidence of hydronephrosis on the left. 2. 2.1 x 2.3 cm round non-shadowing lesion supermedial to the upper pole the right kidney of uncertain organ of origin. The right adrenal gland could be located in this area. Wei Corley MD Lower Extremity Ultrasound 08/16/16 0000 Signed Impressions: Service Date/Time: Tuesday, August 16, 2016 21:07 - CONCLUSION: No DVT. Josue White MD Foot X-Ray 08/16/16 0000 Signed Impressions: Service Date/Time: Tuesday, August 16, 2016 22:14 - CONCLUSION: No acute disease. Josue White MD Objective Remarks GENERAL: No acute distress SKIN: Warm and dry. Left lower extremity redness HEAD: Normocephalic. EYES: No scleral icterus. No injection or drainage. NECK: Supple, trachea midline. No JVD or lymphadenopathy. CARDIOVASCULAR: Regular rate and rhythm without murmurs, gallops, or rubs. RESPIRATORY: Breath sounds equal bilaterally. No accessory muscle use. GASTROINTESTINAL: Abdomen soft, non-tender, nondistended. MUSCULOSKELETAL: No cyanosis, or edema. s/p Left hallux and 2nd digit amputation BACK: Nontender without obvious deformity. No CVA tenderness. Procedures 09/06/16 status post Left hallux and 2nd digit amputation A/P Problem List: (1) Cellulitis of left lower extremity ICD Code: L03.116 Status: Acute (2) PVD (peripheral vascular disease) ICD Code: I73.9 Status: Acute (3) Hyperkalemia ICD Code: E87.5 Status: Acute (4) HARPAL (acute kidney injury) ICD Code: N17.9 Status: Acute (5) HTN (hypertension) ICD Code: I10 Status: Acute (6) COPD (chronic obstructive pulmonary disease) ICD Code: J44.9 Status: Acute (7) Respiratory failure ICD Code: J96.90 Status: Acute (8) Normochromic normocytic anemia ICD Code: D64.9 Status: Acute Assessment and Plan 85yrs old female PVD/ Gangrene S/p angioplasty as per vas surgery. The pt has gangrenous changes in the lower extremities. - s/p Left hallux and 2nd digit amputation 09/06/16 and management per podiatry - heparin gtt, Plavix on hold in setting of thrombocytopenia. Thrombocytopenia/ DIC The pt has a history of thrombocytopenia but her plt count continues to drop. Appreciate hematology consult. Per hematology the pt is in DIC s/t gangrene and the underlying issue needs to be addressed. - Continue to follow CBC. INR - hold heparin gtt/ Plavix for now. - continue antibiotics. Malnutrition Postoperatively very poor appetite. Failed calorie count. NG tube placed with tube feeds. Appreciate GI consult. Pt made NPO 09/02 by speech therapy. - Plan for PEG tube placement once stable. - continue tube feeds via NGT. - follow up with speech therapy. LLE Cellulitis Wound on plantar aspect of left foot x2 wks, on Keflex with no improvement, + erythema involving left pérez. Afebrile, no leukocytosis. Outpatient Wound Cultures positive for Staph per report. Resolved. Aspiration PNA Chest x-ray with evidence of consolidation. Concern for aspiration. Currently nothing by mouth and continue with tube feed - Started IV Levaquin 09/02. - Speech therapy follow-up. Normocytic normochromic anemia Stable. - follow CBC and transfuse as needed. S/p 1 unit 09/03 per hematology. HARPAL Resolved. Renal ultrasound reviewed and no evidence of hydronephrosis on the left. 2. 2.1 x 2.3 cm round non-shadowing lesion supermedial to the upper pole the right kidney of uncertain organ of origin. Nephrology following and monitor BUN and creatinine. Avoid all nephrotoxic drugs. - outpt follow-up for right kidney lesion. PPx: Heparin gtt on hold s/t thrombocytopenia. Eric Houser MD Sep 06, 2016 16:38 assistance. - follow BMP and avoid nephrotoxins. - outpt follow-up for right kidney lesion. PPx: Heparin gtt on hold s/t thrombocytopenia. Eric Houser MD Sep 06, 2016 16:38
[2016-09-06] MEDS ORDERED: KETOROLAC TROMETHAMINE 30 MG/ML (IVP) VIAL IV PUSH PRN (18:45)
[2016-09-06 20:00] VITALS: BP 135/61; PULSE 71; RESP 16; TEMP 97.3; O2SAT 97
[2016-09-07] VITALS (8 sets, daily range): BP systolic 134–150; BP diastolic 51–66; PULSE 65–92; RESP 15–20; TEMP 97–98; O2SAT 93–97
[2016-09-07] MEDS: CHLORHEXIDINE GLUCONATE 2 % 1 PACK (2 CLOTHS) TOP SCH (03:49)
[2016-09-07] MEDS: SODIUM CHLORIDE 0.9% FLUSH 5 ML FLUSH FLUSH SCH ×2 (09:38→20:39)
[2016-09-07] MEDS: LACTOBACILLUS ACIDOPHILUS TAB PO SCH ×2 (09:38→20:39)
--- NOTE | 2016-09-07 10:40 | PD.POD ---
Subjective Pain score: 1 Remarks doing well no left foot pain Past Med/Surg/Social History Social History Smoking Status: Former Smoker Objective Vital Signs Vital Signs Date Time Temp Pulse Resp B/P Pulse Ox O2 Delivery O2 Flow Rate FiO2 09/07/16 08:00 97.1 82 18 150/66 97 09/07/16 04:00 97.4 75 15 145/63 97 09/07/16 00:00 97.2 65 18 137/58 93 09/06/16 20:00 97.3 71 16 135/61 97 09/06/16 16:00 97.9 66 16 139/51 97 Nasal Cannula 3 09/06/16 15:45 62 16 129/47 97 Nasal Cannula 3 09/06/16 15:30 62 16 129/48 96 Nasal Cannula 3 09/06/16 15:22 98.4 74 16 135/57 96 Nasal Cannula 3 09/06/16 12:00 95.6 77 19 118/50 94 Coded Allergies: Sulfa (Verified Allergy, Unknown, 08/16/16) Medications and IVs Administered Medications Medications (Trade) Dose Ordered Sig/Alejandro Route PRN Reason Start Time Stop Time Status Last Admin Dose Admin IV Flush (NS Flush) 2 ml UNSCH PRN FLUSH FLUSH AFTER USING IV ACCESS 08/16/16 22:30 09/03/16 22:33 IV Flush (NS Flush) 2 ml BID FLUSH 08/17/16 09:00 09/07/16 09:38 Ondansetron HCl (Zofran Inj) 4 mg Q6H PRN IVP NAUSEA OR VOMITING 08/16/16 22:30 08/26/16 12:15 Miscellaneous Information 1 Q361D XX 08/17/16 01:00 08/17/16 01:00 Chlorhexidine Gluconate (Chlorhexidine 2% Cloth) 3 pack Taper DAILY@04 TOP 08/17/16 04:00 08/13/17 03:59 08/17/16 03:40 Lactobacillus Acidophilus (Lactinex) 1 tab Q12HR PO 08/20/16 21:00 09/07/16 09:38 Clopidogrel Bisulfate 75 mg 75 mg DAILY PO 08/22/16 21:00 Hold 08/30/16 07:55 Levofloxacin/ Dextrose (Levaquin 750 Mg Premix Inj) 150 ml @ 100 mls/hr Q24H IV 09/02/16 12:00 09/06/16 11:11 Other Results Laboratory Tests Test 09/06/16 05:56 White Blood Count 8.7 TH/MM3 Red Blood Count 3.19 MIL/MM3 Hemoglobin 9.3 GM/DL Hematocrit 28.2 % Mean Corpuscular Volume 88.5 FL Mean Corpuscular Hemoglobin 29.1 PG Mean Corpuscular Hemoglobin 32.9 % Concent Red Cell Distribution Width 16.9 % Platelet Count 35 TH/MM3 Mean Platelet Volume 11.8 FL Laboratory Tests Test 09/06/16 05:56 Sodium Level 140 MEQ/L Potassium Level 4.4 MEQ/L Chloride Level 93 MEQ/L Carbon Dioxide Level GREATER THAN 45.0 MEQ/L Anion Gap 2 MEQ/L Blood Urea Nitrogen 35 MG/DL Creatinine 0.69 MG/DL Estimat Glomerular Filtration 81 ML/MIN Rate Random Glucose 91 MG/DL Calcium Level 9.3 MG/DL Magnesium Level 2.2 MG/DL Exam-Podiatry Remarks Right foot with skin breakdown, foot is warm Left calf with abrasion and diffuse purpura with SOI left hallux and 2nd digit amputation site well coapted with minimal bloody type discharge, posterior heel with border line partial thickness ulcer, foot is warm sensation decreased Assessment & Plan A/P 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 SP left 1 2 digit amputation 09-06 Bandage changed- foot looks ok for now, reviewed with nurse the need to offload heel and prevent calf abrasions, offload with pillow and blankets. Nursing to proceed with bandage changes starting 09/08. Will wound check in 2-3 days, Dr Ibarra to cover. Giovani Ma DPM Sep 07, 2016 10:40
[2016-09-07] MEDS: LEVOFLOXACIN 750 MG PREMIX INJ 150 ML IV SCH (11:58)
[2016-09-07 12:06] LABS: AUTOMATED NEUTROPHIL # 6.5 TH/MM3 (1.8-7.7); BASOPHIL % 0.2 % (0.0-2.0); EOSINOPHIL % 0.1 % (0.0-4.0); HEMATOCRIT 27.5 % (35.0-46.0); LYMPH % 14.3 % (9.0-44.0); LYMPHOCYTE # 1.4 TH/MM3 (1.0-4.8); MEAN CELL VOLUME 88.3 FL (80.0-100.0); MEAN CORPUSCULAR HEMOGLOBIN 28.6 PG (27.0-34.0); MEAN CORPUSCULAR HGB CONC 32.4 % (32.0-36.0); MONO % 19.9 % (0.0-8.0); NEUT % 65.5 % (16.0-70.0); PLATELET COUNT 36 TH/MM3 (150-450); RED BLOOD COUNT 3.12 MIL/MM3 (4.00-5.30); RED CELL DISTRIBUTION WIDTH 16.9 % (11.6-17.2); WHITE BLOOD COUNT 9.9 TH/MM3 (4.0-11.0)
[2016-09-07 12:09] LABS: HEMO FLAGS AUTO DIFF
[2016-09-07 12:28] LABS: BICARBONATE 42.4 MEQ/L (21.0-32.0); POTASSIUM 3.7 MEQ/L (3.5-5.1)
--- NOTE | 2016-09-07 12:34 | PD.CAR.PN ---
CVT Progress Note Subjective/Hospital Course: Patient seen full consult dictated Will follow Thanks Shaun 08/18/16 Patient with significant peripheral vascular disease ulcer of the left foot and now reduced edema of the both legs. On physical exam patient has no discernible distal pulses and bluish discoloration of the toes left more than right At this point patient has acute superimposed on chronic renal insufficiency with elevated creatinine view when and I would wait until the renal function improves before we preform a CTA with a runoff, but eventually patient will need arterial a runoff to evaluate degree of the disease and possible options for reconstruction. The current clinical situation based on physical findings including the plantar ulcer the note limb threatening ischemia and therefore full workup is mandatory however correcting renal function and medical issues trumps any further vascular workup at this time Will continue to follow patient which you and when renal function is improved we 'll go ahead with CTA and runoff 08/20/16 Swelling of the legs is significantly decreased Toes are still fairly purplish due to cyanosis but no gangrene is noted Patient is awaiting CTA point we'll be able to tell if there is any unreconstructable disease in the left leg Based on patient's age and frail status of course any procedure has to be tailored toward patient's ability to tolerate the same 08/21/16 I reviewed the CTA with a runoff This one confirms the clinical impression Right Patient has some external and common iliac disease but no flow-limiting stenosis Right SFA occlusion with distal reconstitution Left Patient has left tight iliofemoral stenosis as well as left external iliac artery stenosis little higher up SFAs are occluded and popliteal artery severely diseased on the left Runoff via posterior tibial artery which is interrupted in several areas At this point I recommend the percutaneous endovascular iliac angioplasty and common femoral angioplasty with the eluding balloon and possibly a stent in the left external iliac. This can be done on endovascular basis Patient will be taken to the endovascular suite tomorrow 08/23/16 Status post percutaneous revascularization of the left leg with eluding balloon dilatation Both feet are now nice and warm and capillary refill is much improved This is a great outcome thanks to great work of Dr. Hu From our point patient can be discharged any time 09/05/16 Patient had revascularization of the leg with eluding balloon Foot is warm and well perfused Left greater toe is gangrenous involved in dry gangrene and if amputated this will most likely heal There are no other ways to improve the blood supply to the foot at this point and no other endovascular or vascular interventions are either indicated or warranted From vascular point podiatry can proceed with amputation of the left hallux any time 09/07/16 Patient underwent successful hallux amputation by Dr. Ma yesterday Foot remains warm and blood supply to the foot is adequate Nothing to add from vascular surgery point Objective: Vital Signs Date Time Temp Pulse Resp B/P Pulse Ox O2 Delivery O2 Flow Rate FiO2 09/07/16 11:07 97 Nasal Cannula 2.00 09/07/16 08:00 97.1 82 18 150/66 97 09/07/16 04:00 97.4 75 15 145/63 97 09/07/16 00:00 97.2 65 18 137/58 93 09/06/16 20:00 97.3 71 16 135/61 97 09/06/16 16:00 97.9 66 16 139/51 97 Nasal Cannula 3 09/06/16 15:45 62 16 129/47 97 Nasal Cannula 3 09/06/16 15:30 62 16 129/48 96 Nasal Cannula 3 09/06/16 15:22 98.4 74 16 135/57 96 Nasal Cannula 3 Labs: Laboratory Tests Test 09/07/16 11:10 White Blood Count 9.9 TH/MM3 (4.0-11.0) Red Blood Count 3.12 MIL/MM3 (4.00-5.30) Hemoglobin 8.9 GM/DL (11.6-15.3) Hematocrit 27.5 % (35.0-46.0) Mean Corpuscular Volume 88.3 FL (80.0-100.0) Mean Corpuscular Hemoglobin 28.6 PG (27.0-34.0) Mean Corpuscular Hemoglobin 32.4 % Concent (32.0-36.0) Red Cell Distribution Width 16.9 % (11.6-17.2) Platelet Count 36 TH/MM3 (150-450) Mean Platelet Volume 11.6 FL (7.0-11.0) Neutrophils (%) (Auto) 65.5 % (16.0-70.0) Lymphocytes (%) (Auto) 14.3 % (9.0-44.0) Monocytes (%) (Auto) 19.9 % (0.0-8.0) Eosinophils (%) (Auto) 0.1 % (0.0-4.0) Basophils (%) (Auto) 0.2 % (0.0-2.0) Neutrophils # (Auto) 6.5 TH/MM3 (1.8-7.7) Lymphocytes # (Auto) 1.4 TH/MM3 (1.0-4.8) Monocytes # (Auto) 2.0 TH/MM3 (0-0.9) Eosinophils # (Auto) 0.0 TH/MM3 (0-0.4) Basophils # (Auto) 0.0 TH/MM3 (0-0.2) CBC Comment AUTO DIFF Sodium Level 141 MEQ/L (136-145) Potassium Level 3.7 MEQ/L (3.5-5.1) Chloride Level 93 MEQ/L (98-107) Carbon Dioxide Level 42.4 MEQ/L (21.0-32.0) Anion Gap 6 MEQ/L (5-15) Blood Urea Nitrogen 37 MG/DL (7-18) Creatinine 0.73 MG/DL (0.50-1.00) Estimat Glomerular Filtration 76 ML/MIN (>89) Rate Random Glucose 108 MG/DL (74-106) Calcium Level 9.3 MG/DL (8.5-10.1) Result Diagram: 09/07/16 1110 09/07/16 1110 Rachel Mccloud MD Sep 07, 2016 12:34
--- NOTE | 2016-09-07 13:00 | HHI.PR ---
Subjective Remarks Follow-up ischemic left foot/left big toe 09/06/16-patient seen and examined; she had Left hallux and 2nd digit amputation ; patient with decubitus ulcer, no other issues. Case discussed with Dr. Medeiros 09/07/16-patient seen and examined, denies any left foot pain. Currently afebrile. No other issues. Objective Vitals Vital Signs Date Time Temp Pulse Resp B/P Pulse Ox O2 Delivery O2 Flow Rate FiO2 09/07/16 11:07 97 Nasal Cannula 2.00 09/07/16 08:00 97.1 82 18 150/66 97 09/07/16 04:00 97.4 75 15 145/63 97 09/07/16 00:00 97.2 65 18 137/58 93 09/06/16 20:00 97.3 71 16 135/61 97 09/06/16 16:00 97.9 66 16 139/51 97 Nasal Cannula 3 09/06/16 15:45 62 16 129/47 97 Nasal Cannula 3 09/06/16 15:30 62 16 129/48 96 Nasal Cannula 3 09/06/16 15:22 98.4 74 16 135/57 96 Nasal Cannula 3 I/O 09/06/16 09/06/16 09/06/16 09/07/16 09/07/16 09/07/16 07:00 15:00 23:00 07:00 15:00 23:00 Intake Total 122 ml 1045 ml 0 ml Output Total 560 ml 150 ml Balance 122 ml 485 ml -150 ml Intake Oral 120 ml 0 ml IV Total 122 ml 25 ml Other 900 ml Output Urine Total 550 ml 150 ml Estimated Blood Loss 10 ml # Voids 0 2 # Bowel Movements 0 1 Result Diagram: 09/07/16 1110 09/07/16 1110 Objective Remarks GENERAL: No acute distress SKIN: Warm and dry. Left lower extremity redness HEAD: Normocephalic. EYES: No scleral icterus. No injection or drainage. NECK: Supple, trachea midline. No JVD or lymphadenopathy. CARDIOVASCULAR: Regular rate and rhythm without murmurs, gallops, or rubs. RESPIRATORY: Breath sounds equal bilaterally. No accessory muscle use. GASTROINTESTINAL: Abdomen soft, non-tender, nondistended. MUSCULOSKELETAL: No cyanosis, or edema. s/p Left hallux and 2nd digit amputation BACK: Nontender without obvious deformity. No CVA tenderness. Procedures 09/06/16 status post Left hallux and 2nd digit amputation A/P Problem List: (1) Cellulitis of left lower extremity ICD Code: L03.116 Status: Acute (2) PVD (peripheral vascular disease) ICD Code: I73.9 Status: Acute (3) Hyperkalemia ICD Code: E87.5 Status: Acute (4) HARPAL (acute kidney injury) ICD Code: N17.9 Status: Acute (5) HTN (hypertension) ICD Code: I10 Status: Chronic (6) COPD (chronic obstructive pulmonary disease) ICD Code: J44.9 Status: Chronic (7) Respiratory failure ICD Code: J96.90 Status: Resolved (8) Normochromic normocytic anemia ICD Code: D64.9 Status: Acute Assessment and Plan 85yrs old female PVD/ Gangrene S/p angioplasty as per [facility] surgery. The pt has gangrenous changes in the lower extremities. 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 Continue with Toradol when necessary for pain - heparin gtt, Plavix on hold in setting of thrombocytopenia. Thrombocytopenia/ DIC The pt has a history of thrombocytopenia but her plt count continues to drop. Appreciate hematology consult. Per hematology the pt is in DIC s/t gangrene and the underlying issue needs to be addressed. - Continue to follow CBC. INR - hold heparin gtt/ Plavix for now. - continue antibiotics. Malnutrition Postoperatively very poor appetite. Failed calorie count. NG tube placed with tube feeds. Appreciate GI consult. Pt made NPO 09/02 by speech therapy. - Plan for PEG tube placement once stable. - continue tube feeds via NGT. - follow up with speech therapy. LLE Cellulitis Wound on plantar aspect of left foot x2 wks, on Keflex with no improvement, + erythema involving left pérez. Afebrile, no leukocytosis. Outpatient Wound Cultures positive for Staph per report. Resolved. Aspiration PNA Chest x-ray with evidence of consolidation. Concern for aspiration. Currently nothing by mouth and continue with tube feed - Started IV Levaquin 09/02. - Speech therapy follow-up. Normocytic normochromic anemia Stable. - follow CBC and transfuse as needed. S/p 1 unit 09/03 per hematology. HARPAL Resolved. Renal ultrasound reviewed and no evidence of hydronephrosis on the left. 2. 2.1 x 2.3 cm round non-shadowing lesion supermedial to the upper pole the right kidney of uncertain organ of origin. Nephrology following and monitor BUN and creatinine. Avoid all nephrotoxic drugs. - outpt follow-up for right kidney lesion. PPx: Heparin gtt on hold s/t thrombocytopenia. Eric Houser MD Sep 07, 2016 13:00
[2016-09-07 13:57] LABS: PLATELET ESTIMATE SMEAR LOW (NORMAL); PLATELET MORPHOLOGY ENLARGED (NORMAL); SCAN/DIFF AUTO DIFF CONFIRMED
[2016-09-07] MEDS: RESP: ALBUTEROL 2.5 MG/IPRATROPIUM 0.5 MG NEB (PRN) NEB (14:18)
[2016-09-08] VITALS (8 sets, daily range): BP systolic 124–148; BP diastolic 48–65; PULSE 77–85; RESP 14–17; TEMP 96.3–98; O2SAT 91–98
[2016-09-08] MEDS: CHLORHEXIDINE GLUCONATE 2 % 1 PACK (2 CLOTHS) TOP SCH (03:01)
[2016-09-08] MEDS: SODIUM CHLORIDE 0.9% FLUSH 5 ML FLUSH FLUSH SCH ×2 (09:28→22:39)
[2016-09-08] MEDS: LACTOBACILLUS ACIDOPHILUS TAB PO SCH ×2 (09:29→22:38)
--- NOTE | 2016-09-08 11:27 | HHI.PR ---
Subjective Remarks Follow-up ischemic left foot/left big toe 09/06/16-patient seen and examined; she had Left hallux and 2nd digit amputation ; patient with decubitus ulcer, no other issues. Case discussed with Dr. Medeiros 09/07/16-patient seen and examined, denies any left foot pain. Currently afebrile. No other issues. 09/08/16-patient seen and examined, stable and no complaints. Objective Vitals Vital Signs Date Time Temp Pulse Resp B/P Pulse Ox O2 Delivery O2 Flow Rate FiO2 09/08/16 08:00 97.3 77 14 133/53 95 09/08/16 04:00 97.3 84 17 146/62 91 09/08/16 00:00 98.0 82 17 148/63 93 09/07/16 20:28 95 Nasal Cannula 2.00 09/07/16 20:00 97.2 86 17 140/55 94 09/07/16 16:00 98.0 92 20 134/51 95 09/07/16 12:00 97.0 77 18 135/60 94 I/O 09/07/16 09/07/16 09/07/16 09/08/16 09/08/16 09/08/16 07:00 15:00 23:00 07:00 15:00 23:00 Intake Total 0 ml 120 ml Output Total 150 ml 200 ml Balance -150 ml 120 ml -200 ml Intake Oral 0 ml 120 ml Output Urine Total 150 ml 200 ml # Voids 2 1 1 # Bowel Movements 3 0 0 Result Diagram: 09/07/16 1110 09/07/16 1110 Objective Remarks GENERAL: No acute distress SKIN: Warm and dry. Left lower extremity redness HEAD: Normocephalic. EYES: No scleral icterus. No injection or drainage. NECK: Supple, trachea midline. No JVD or lymphadenopathy. CARDIOVASCULAR: Regular rate and rhythm without murmurs, gallops, or rubs. RESPIRATORY: Breath sounds equal bilaterally. No accessory muscle use. GASTROINTESTINAL: Abdomen soft, non-tender, nondistended. MUSCULOSKELETAL: No cyanosis, or edema. s/p Left hallux and 2nd digit amputation BACK: Nontender without obvious deformity. No CVA tenderness. Procedures 09/06/16 status post Left hallux and 2nd digit amputation A/P Problem List: (1) Cellulitis of left lower extremity ICD Code: L03.116 Status: Acute (2) PVD (peripheral vascular disease) ICD Code: I73.9 Status: Acute (3) Hyperkalemia ICD Code: E87.5 Status: Acute (4) HARPAL (acute kidney injury) ICD Code: N17.9 Status: Acute (5) HTN (hypertension) ICD Code: I10 Status: Chronic (6) COPD (chronic obstructive pulmonary disease) ICD Code: J44.9 Status: Chronic (7) Respiratory failure ICD Code: J96.90 Status: Resolved (8) Normochromic normocytic anemia ICD Code: D64.9 Status: Acute Assessment and Plan 85yrs old female PVD/ Gangrene S/p angioplasty as per [facility] surgery. The pt has gangrenous changes in the lower extremities. 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 Continue with Toradol when necessary for pain -Continue to hold heparin gtt, Plavix in setting of thrombocytopenia. Thrombocytopenia/ DIC The pt has a history of thrombocytopenia but her plt count continues to drop. Appreciate hematology consult. Per hematology the pt is in DIC s/t gangrene and the underlying issue needs to be addressed. - Continue to follow CBC. INR - hold heparin gtt/ Plavix for now. - continue antibiotics. Malnutrition Postoperatively very poor appetite. Failed calorie count. NG tube placed with tube feeds. Appreciate GI consult. Pt made NPO 09/02 by speech therapy. - Plan for PEG tube placement once stable. - continue tube feeds via NGT. - follow up with speech therapy. LLE Cellulitis Wound on plantar aspect of left foot x2 wks, on Keflex with no improvement, + erythema involving left pérez. Afebrile, no leukocytosis. Outpatient Wound Cultures positive for Staph per report. Resolved. Aspiration PNA Chest x-ray with evidence of consolidation. Concern for aspiration. Currently nothing by mouth and continue with tube feed - Continue IV Levaquin 09/02. - Speech therapy follow-up. Normocytic normochromic anemia Stable. - follow CBC and transfuse as needed. S/p 1 unit 09/03 per hematology. HARPAL Resolved. Renal ultrasound reviewed and no evidence of hydronephrosis on the left. 2. 2.1 x 2.3 cm round non-shadowing lesion supermedial to the upper pole the right kidney of uncertain organ of origin. Nephrology following and monitor BUN and creatinine. Avoid all nephrotoxic drugs. - outpt follow-up for right kidney lesion. PPx: Heparin gtt on hold s/t thrombocytopenia. Eric Houser MD Sep 08, 2016 11:27
[2016-09-08] MEDS: LEVOFLOXACIN 750 MG PREMIX INJ 150 ML IV SCH (12:12)
[2016-09-08 22:47] LABS: C. DIFF EPI 027 PRESUMPTIVE NEGATIVE (NEGATIVE); C. DIFF TOXIN PCR NEGATIVE (NEGATIVE)
[2016-09-09] VITALS (8 sets, daily range): BP systolic 106–150; BP diastolic 49–68; PULSE 78–88; RESP 16–23; TEMP 96.9–99; O2SAT 93–97
[2016-09-09] MEDS: CHLORHEXIDINE GLUCONATE 2 % 1 PACK (2 CLOTHS) TOP SCH (03:31)
[2016-09-09] MEDS: SODIUM CHLORIDE 0.9% FLUSH 5 ML FLUSH FLUSH SCH ×2 (09:00→20:56)
[2016-09-09] MEDS: LACTOBACILLUS ACIDOPHILUS TAB PO SCH ×2 (09:00→20:56)
[2016-09-09] MEDS: LEVOFLOXACIN 750 MG PREMIX INJ 150 ML IV SCH (11:54)
--- NOTE | 2016-09-09 12:24 | HHI.PR ---
Subjective Remarks Follow-up ischemic left foot/left big toe 09/06/16-patient seen and examined; she had Left hallux and 2nd digit amputation ; patient with decubitus ulcer, no other issues. Case discussed with Dr. Medeiros 09/07/16-patient seen and examined, denies any left foot pain. Currently afebrile. No other issues. 09/08/16-patient seen and examined, stable and no complaints. 09/09/16-patient seen and examined, currently nothing by mouth with diarrheal stool. C. difficile PCR negative. Case discussed with gastroenterology. Objective Vitals Vital Signs Date Time Temp Pulse Resp B/P Pulse Ox O2 Delivery O2 Flow Rate FiO2 09/09/16 08:56 97.4 78 20 131/52 97 09/09/16 07:55 94 Nasal Cannula 2.50 09/09/16 04:00 97.6 80 23 106/49 94 09/09/16 00:00 97.1 78 18 150/58 93 09/08/16 21:12 92 Nasal Cannula 2.50 09/08/16 20:00 97.1 81 17 144/65 98 09/08/16 16:00 96.3 85 14 124/48 95 09/08/16 12:45 93 Nasal Cannula 2.00 I/O 09/08/16 09/08/16 09/08/16 09/09/16 09/09/16 09/09/16 07:00 15:00 23:00 07:00 15:00 23:00 Intake Total 473 ml 60 ml 60 ml 0 ml Output Total 200 ml Balance -200 ml 473 ml 60 ml 60 ml 0 ml Intake Oral 60 ml 60 ml 0 ml IV Total 158 ml Tube Feeding 315 ml Output Urine Total 200 ml # Voids 1 2 4 5 1 # Bowel Movements 0 3 4 2 1 Result Diagram: 09/07/16 1110 09/07/16 1110 Objective Remarks GENERAL: No acute distress SKIN: Warm and dry. Left lower extremity redness HEAD: Normocephalic. EYES: No scleral icterus. No injection or drainage. NECK: Supple, trachea midline. No JVD or lymphadenopathy. CARDIOVASCULAR: Regular rate and rhythm without murmurs, gallops, or rubs. RESPIRATORY: Breath sounds equal bilaterally. No accessory muscle use. GASTROINTESTINAL: Abdomen soft, non-tender, nondistended. MUSCULOSKELETAL: No cyanosis, or edema. s/p Left hallux and 2nd digit amputation BACK: Nontender without obvious deformity. No CVA tenderness. Procedures 09/06/16 status post Left hallux and 2nd digit amputation A/P Problem List: (1) Cellulitis of left lower extremity ICD Code: L03.116 Status: Acute (2) PVD (peripheral vascular disease) ICD Code: I73.9 Status: Acute (3) Hyperkalemia ICD Code: E87.5 Status: Acute (4) HARPAL (acute kidney injury) ICD Code: N17.9 Status: Acute (5) HTN (hypertension) ICD Code: I10 Status: Chronic (6) COPD (chronic obstructive pulmonary disease) ICD Code: J44.9 Status: Chronic (7) Respiratory failure ICD Code: J96.90 Status: Resolved (8) Normochromic normocytic anemia ICD Code: D64.9 Status: Acute Assessment and Plan 85yrs old female PVD/ Gangrene S/p angioplasty as per [facility] surgery. The pt has gangrenous changes in the lower extremities. 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 Continue with Toradol when necessary for pain -Continue to hold heparin gtt, Plavix in setting of thrombocytopenia. Thrombocytopenia/ DIC The pt has a history of thrombocytopenia but her plt count continues to drop. Appreciate hematology consult. Per hematology the pt is in DIC s/t gangrene and the underlying issue needs to be addressed. - Continue to follow CBC. INR - hold heparin gtt/ Plavix for now. - continue antibiotics. Malnutrition Postoperatively very poor appetite. Failed calorie count. NG tube placed with tube feeds. Appreciate GI consult. Pt made NPO 09/02 by speech therapy. 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 LLE Cellulitis Wound on plantar aspect of left foot x2 wks, on Keflex with no improvement, + erythema involving left pérez. Afebrile, no leukocytosis. Outpatient Wound Cultures positive for Staph per report. Resolved. Aspiration PNA Chest x-ray with evidence of consolidation. Currently nothing by mouth and continue with tube feed - Continue IV Levaquin 09/02. - Speech therapy follow-up. Normocytic normochromic anemia Stable. - follow CBC and transfuse as needed. S/p 1 unit 09/03 per hematology. Diarrhea: C. difficile PCR negative; start with antidiarrhea medications HARPAL Resolved. Renal ultrasound reviewed and no evidence of hydronephrosis on the left. 2. 2.1 x 2.3 cm round non-shadowing lesion supermedial to the upper pole the right kidney of uncertain organ of origin. Nephrology following and monitor BUN and creatinine. Avoid all nephrotoxic drugs. - outpt follow-up for right kidney lesion. PPx: Heparin gtt on hold s/t thrombocytopenia. Eric Houser MD Sep 09, 2016 12:24
[2016-09-09] MEDS ORDERED: LOPERAMIDE HCL 2 MG CAP PO PRN (12:30)
--- NOTE | 2016-09-09 12:55 | PD.POD ---
Subjective Podiatric Problems s/p Left partial 1st ray and left 2nd digit amputation. DOS 09/06/[address] Ma. No complaints Pain scale used: 0-10 numeric scale Pain score: 0 Past Med/Surg/Social History Social History Smoking Status: Former Smoker Objective Vital Signs Vital Signs Date Time Temp Pulse Resp B/P Pulse Ox O2 Delivery O2 Flow Rate FiO2 09/09/16 08:56 97.4 78 20 131/52 97 09/09/16 07:55 94 Nasal Cannula 2.50 09/09/16 04:00 97.6 80 23 106/49 94 09/09/16 00:00 97.1 78 18 150/58 93 09/08/16 21:12 92 Nasal Cannula 2.50 09/08/16 20:00 97.1 81 17 144/65 98 09/08/16 16:00 96.3 85 14 124/48 95 Coded Allergies: Sulfa (Verified Allergy, Unknown, 08/16/16) Other Results Laboratory Tests Test 09/06/16 09/07/16 09/08/16 05:56 11:10 14:40 Prothrombin Time 10.9 SEC Prothromb Time International 1.0 RATIO Ratio Magnesium Level 2.2 MG/DL White Blood Count 9.9 TH/MM3 Red Blood Count 3.12 MIL/MM3 Hemoglobin 8.9 GM/DL Hematocrit 27.5 % Mean Corpuscular Volume 88.3 FL Mean Corpuscular Hemoglobin 28.6 PG Mean Corpuscular Hemoglobin 32.4 % Concent Red Cell Distribution Width 16.9 % Platelet Count 36 TH/MM3 Mean Platelet Volume 11.6 FL Neutrophils (%) (Auto) 65.5 % Lymphocytes (%) (Auto) 14.3 % Monocytes (%) (Auto) 19.9 % Eosinophils (%) (Auto) 0.1 % Basophils (%) (Auto) 0.2 % Neutrophils # (Auto) 6.5 TH/MM3 Lymphocytes # (Auto) 1.4 TH/MM3 Monocytes # (Auto) 2.0 TH/MM3 Eosinophils # (Auto) 0.0 TH/MM3 Basophils # (Auto) 0.0 TH/MM3 CBC Comment AUTO DIFF Differential Comment AUTO DIFF CONFIRMED Platelet Estimate LOW Platelet Morphology Comment ENLARGED Sodium Level 141 MEQ/L Potassium Level 3.7 MEQ/L Chloride Level 93 MEQ/L Carbon Dioxide Level 42.4 MEQ/L Anion Gap 6 MEQ/L Blood Urea Nitrogen 37 MG/DL Creatinine 0.73 MG/DL Estimat Glomerular Filtration 76 ML/MIN Rate Random Glucose 108 MG/DL Calcium Level 9.3 MG/DL Stool C. difficile Toxin (PCR) NEGATIVE Stl C. difficile Toxin PRESUMPTIVE Epiderm 027 NEGATIVE Exam-Podiatry Dermatological Exam Ulcers: Location/Measurements LLE left foot amputation site is well approximated. Intact sutures. No erythema, no drainage and no acute soi. Left posterior calf with skin abrasion/tear. + ecchymosis to the left midcalf. No pain with palpation at the calf. Warm to warm , proximal to distal. Assessment & Plan Diagnosis: (1) PVD (peripheral vascular disease) Status: Acute (2) History of amputation of hallux Status: Acute A/P s/l Left partial 1st ray and 2nd digit amputation. DOS 09/06/[address] Ma. Surgery is stable. Dressing changes carried out today with nursing. Once more reinforced use of luisito boot b/l. F/U with Dr Ma once d/c with 1 week. OK to d/c per Podiatry. Candis Ibarra DPM Sep 09, 2016 12:54
[2016-09-09] MEDS ORDERED: DIPHENOXYLATE/ATROPINE 2.5 MG/0.025 MG TAB PO ONE (13:30)
--- NOTE | 2016-09-09 22:51 | RADRPT ---
EXAM DATE/TIME: 09/09/2016 21:26 [place] COMPARISON: No previous studies available for comparison. INDICATIONS : Left arm pain and swelling. MEDICAL HISTORY : Hypertension. Chronic obstructive pulmonary disease. Dyspnea. SURGICAL HISTORY : Appendectomy. Hysterectomy. Tubal ligation. ENCOUNTER: Initial ACUITY: 1 day PAIN SCORE: 5/10 LOCATION: Left arm. FINDINGS: There is spontaneous flow documented in the brachial, basilic, cephalic, axillary, and subclavian vei ns. The vessels are compressible and augmentation response is documented. No filling defects are se en. The flow is phasic with respiration. Direction of flow in the jugular vein is caudal. Subcutaneous edema noted. CONCLUSION: No DVT left upper extremity. Josue Hernandez MD on September 09, 2016 at 22:50 Board Certified Radiologist. This report was verified electronically.
[2016-09-10] VITALS (7 sets, daily range): BP systolic 122–168; BP diastolic 58–72; PULSE 77–89; RESP 16–22; TEMP 96.5–98.2; O2SAT 93–98
[2016-09-10] MEDS: CHLORHEXIDINE GLUCONATE 2 % 1 PACK (2 CLOTHS) TOP SCH (03:12)
[2016-09-10] MEDS: LACTOBACILLUS ACIDOPHILUS TAB PO SCH ×2 (10:08→21:25)
[2016-09-10] MEDS: SODIUM CHLORIDE 0.9% FLUSH 5 ML FLUSH FLUSH SCH ×2 (10:09→21:25)
--- NOTE | 2016-09-10 12:09 | HHI.GIFU ---
Subjective Remarks Patient is resting in bed, denies abdominal pain, nausea or vomiting, per nurse , NGT clogged this morning. Case was discussed with dr. Stewart and oncology, CBC has been ordered and pending results, will decide on the next step (Tati Tan) Objective Vitals I&O Vital Signs Date Time Temp Pulse Resp B/P Pulse Ox O2 Delivery O2 Flow Rate FiO2 09/10/16 08:30 97 Nasal Cannula 2.00 09/10/16 07:45 97.0 88 20 168/72 96 09/10/16 04:00 98.2 89 18 167/70 93 09/10/16 00:00 97.1 83 18 158/67 94 09/09/16 21:54 93 Nasal Cannula 3.00 09/09/16 20:45 98.3 86 16 134/62 93 09/09/16 15:56 96.9 88 20 138/68 95 09/09/16 14:15 99.0 82 20 143/61 94 I/O 09/09/16 09/09/16 09/09/16 09/10/16 09/10/16 09/10/16 07:00 15:00 23:00 07:00 15:00 23:00 Intake Total 60 ml 0 ml 0 ml Output Total 400 ml Balance 60 ml 0 ml -400 ml Intake Oral 60 ml 0 ml 0 ml Output Urine Total 400 ml # Voids 5 2 1 2 # Bowel Movements 2 2 Laboratory Date/Time Procedure Status Source Growth 09/08/16 22:48 Gram Stain - Final Resulted Wound Buttock 09/08/16 22:48 Wound Culture Resulted Wound Buttock Pending 09/08/16 08:01 Gram Stain Received Wound Buttock Pending 09/08/16 08:01 Wound Culture Received Wound Buttock Pending Imaging Last Impressions Upper Extremity Ultrasound 09/09/16 0000 Signed Impressions: Service Date/Time: Friday, September 09, 2016 21:26 - CONCLUSION: No DVT left upper extremity. Josue Hernandez MD Chest X-Ray 09/01/16 0000 Signed Impressions: Service Date/Time: Thursday, September 01, 2016 17:16 - CONCLUSION: Bilateral pleural effusions probable slight pulmonary edema and left lung base consolidation not significantly changed. Nikko Rehman MD Abdomen X-Ray 08/29/16 0000 Signed Impressions: Service Date/Time: August 19:31 - CONCLUSION: NG tube tip in the stomach. KLexi Rehman MD Angiography 08/22/16 1420 Signed Impressions: Service Date/Time: August 13:13 - CONCLUSION: Diagnostic angiography as described above demonstrates high-grade bilateral external iliac artery stenoses and high-grade left common femoral artery stenosis. Successful angioplasty of the left common femoral artery and left external iliac artery. Right external iliac artery angioplasty and stenting as described above. Significant improvement in luminal patency of the external iliac arteries and left common femoral artery following endovascular treatment. Rajat Hu MD Aorta w/Runoff CTA 08/19/16 0000 Signed Impressions: Service Date/Time: Saturday, August 20, 2016 15:58 - CONCLUSION: Advanced atherosclerotic vasculopathy with hemodynamically significant stenotic/ occlusive lesions in the celiac, superior mesenteric, renal, external iliac, superficial femoral and popliteal arteries as described above. Severe irregularity with moderate to severe stenotic lesions are seen in the infrapopliteal runoff vessels to both calves and feet. Significantly diminished flow is evident to the right foot. Moderate bilateral pleural effusions with consolidating airspace disease in both lower lobes. Rajat Hu MD Renal Ultrasound 08/17/16 0000 Signed Impressions: Service Date/Time: Wednesday, August 17, 2016 16:01 - CONCLUSION: 1. Mild dilation of the collecting system of the right kidney. No evidence of hydronephrosis on the left. 2. 2.1 x 2.3 cm round non-shadowing lesion supermedial to the upper pole the right kidney of uncertain organ of origin. The right adrenal gland could be located in this area. Wei Corley MD Lower Extremity Ultrasound 08/16/16 0000 Signed Impressions: Service Date/Time: Tuesday, August 16, 2016 21:07 - CONCLUSION: No DVT. Josue White MD Foot X-Ray 08/16/16 0000 Signed Impressions: Service Date/Time: Tuesday, August 16, 2016 22:14 - CONCLUSION: No acute disease. Josue White MD Physical Exam HEENT: normocephalic; atraumatic; no jaundice. NECK: Neck is supple, no JVD, no lymphadenopathy. CHEST: Chest is clear to auscultation and percussion. CARDIAC: Regular rate and rhythm with no murmur gallop or rubs. ABDOMEN: Soft, nondistended, nontender; no hepatosplenomegaly; bowel sounds are present in all four quadrants. 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 (Tati Tan) Assessment and Plan Plan - Malnutrition/poor appetite and PO intake- GI services have been consulted for PEG tub placement. Currently, patient is receiving TF via NGT, this is clogged per nurse, she is going to try to unclog it with soda, denies nausea, vomiting, abd pain, hematemesis or hematochezia. - Thrombocytopenia- Plt is 38, hematology consulted and felt this was secondary to gangrenous changes, anticoagulants on hold Case was discussed with dr. Stewart and oncology, CBC has been ordered and pending results, will decide on the next step - Wound on the bottom of her left foot/ gangrenous changes , s/p angioplasty, s /p s/p Left partial 1st ray and left 2nd digit amputation - Respiratory failure- resolved - HARPAL- resolved. - PVD- Plavix on hold due to low platelets - COPD, PVD, UTI per attending Plan: - TF feeding per recommendation once unclogged - EGD/PEG tube in the am, - 2 units of platelets ordered, to be given in the am at 8 am, and check cbc after completion - she is already on abx - Will hold Heparin after mn - Cont. supportive care - Patient seen and examined by Dr. Gillette and myself and this note is written on his behalf. (Tati Tan) Physician Comments Patient was seen and examined, agree with above note. we will check labs, continue supportive care. PEG tube placement in am. plt will be given before PEG. (Diamante Gillette MD) Tati Tan Sep 10, 2016 12:09 Diamante Gillette MD Sep 10, 2016 22:04
--- NOTE | 2016-09-10 13:23 | HHI.PR ---
Subjective Remarks Follow-up ischemic left foot/left big toe 09/06/16-patient seen and examined; she had Left hallux and 2nd digit amputation ; patient with decubitus ulcer, no other issues. Case discussed with Dr. Medeiros 09/07/16-patient seen and examined, denies any left foot pain. Currently afebrile. No other issues. 09/08/16-patient seen and examined, stable and no complaints. 09/09/16-patient seen and examined, currently nothing by mouth with diarrheal stool. C. difficile PCR negative. Case discussed with gastroenterology. 09/10/16-patient seen and examined. NG tube clog up. No other issues Objective Vitals Vital Signs Date Time Temp Pulse Resp B/P Pulse Ox O2 Delivery O2 Flow Rate FiO2 09/10/16 12:00 97.6 78 22 145/67 96 09/10/16 08:30 97 Nasal Cannula 2.00 09/10/16 07:45 97.0 88 20 168/72 96 09/10/16 04:00 98.2 89 18 167/70 93 09/10/16 00:00 97.1 83 18 158/67 94 09/09/16 21:54 93 Nasal Cannula 3.00 09/09/16 20:45 98.3 86 16 134/62 93 09/09/16 15:56 96.9 88 20 138/68 95 09/09/16 14:15 99.0 82 20 143/61 94 I/O 09/09/16 09/09/16 09/09/16 09/10/16 09/10/16 09/10/16 06:59 14:59 22:59 06:59 14:59 22:59 Intake Total 60 ml 0 ml 0 ml Output Total 400 ml Balance 60 ml 0 ml -400 ml Intake Oral 60 ml 0 ml 0 ml Output Urine Total 400 ml # Voids 5 2 1 2 1 # Bowel Movements 2 2 Result Diagram: 09/07/16 1110 09/07/16 1110 Objective Remarks GENERAL: No acute distress SKIN: Warm and dry. Left lower extremity redness HEAD: Normocephalic. EYES: No scleral icterus. No injection or drainage. NECK: Supple, trachea midline. No JVD or lymphadenopathy. CARDIOVASCULAR: Regular rate and rhythm without murmurs, gallops, or rubs. RESPIRATORY: Breath sounds equal bilaterally. No accessory muscle use. GASTROINTESTINAL: Abdomen soft, non-tender, nondistended. MUSCULOSKELETAL: No cyanosis, or edema. s/p Left hallux and 2nd digit amputation BACK: Nontender without obvious deformity. No CVA tenderness. Procedures 09/06/16 status post Left hallux and 2nd digit amputation A/P Problem List: (1) Cellulitis of left lower extremity ICD Code: L03.116 Status: Acute (2) PVD (peripheral vascular disease) ICD Code: I73.9 Status: Acute (3) Hyperkalemia ICD Code: E87.5 Status: Acute (4) HARPAL (acute kidney injury) ICD Code: N17.9 Status: Acute (5) HTN (hypertension) ICD Code: I10 Status: Chronic (6) COPD (chronic obstructive pulmonary disease) ICD Code: J44.9 Status: Chronic (7) Respiratory failure ICD Code: J96.90 Status: Resolved (8) Normochromic normocytic anemia ICD Code: D64.9 Status: Acute Assessment and Plan 85yrs old female PVD/ Gangrene S/p angioplasty as per [facility] surgery. The pt has gangrenous changes in the lower extremities. 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 Continue with Toradol when necessary for pain -Continue to hold heparin gtt, Plavix in setting of thrombocytopenia. Thrombocytopenia/ DIC The pt has a history of thrombocytopenia but her plt count continues to drop. Appreciate hematology consult. Per hematology the pt is in DIC s/t gangrene and the underlying issue needs to be addressed. - Continue to follow CBC. INR - hold heparin gtt/ Plavix for now. - continue antibiotics. Malnutrition Postoperatively very poor appetite. Failed calorie count. NG tube placed with tube feeds. Appreciate GI consult. Pt made NPO 09/02 by speech therapy. 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 Will have hematology advice - continue tube feeds via NGT. LLE Cellulitis Wound on plantar aspect of left foot x2 wks, on Keflex with no improvement, + erythema involving left pérez. Afebrile, no leukocytosis. Outpatient Wound Cultures positive for Staph per report. Resolved. Aspiration PNA Chest x-ray with evidence of consolidation. Currently nothing by mouth and continue with tube feed - Continue IV Levaquin 12/26. - Speech therapy follow-up. Normocytic normochromic anemia Stable. - follow CBC and transfuse as needed. S/p 1 unit 09/03 per hematology. Diarrhea: C. difficile PCR negative; start with antidiarrhea medications HARPAL Resolved. Renal ultrasound reviewed and no evidence of hydronephrosis on the left. 2. 2.1 x 2.3 cm round non-shadowing lesion supermedial to the upper pole the right kidney of uncertain organ of origin. Nephrology following and monitor BUN and creatinine. Avoid all nephrotoxic drugs. - outpt follow-up for right kidney lesion. PPx: Heparin gtt on hold s/t thrombocytopenia. Eric Houser MD Sep 10, 2016 13:23
[2016-09-10 13:55] LABS: AUTOMATED NEUTROPHIL # 6.1 TH/MM3 (1.8-7.7); BASOPHIL % 0.5 % (0.0-2.0); EOSINOPHIL % 0.3 % (0.0-4.0); LYMPH % 18.3 % (9.0-44.0); LYMPHOCYTE # 1.7 TH/MM3 (1.0-4.8); MEAN CELL VOLUME 88.5 FL (80.0-100.0); MEAN CORPUSCULAR HEMOGLOBIN 28.8 PG (27.0-34.0); MEAN CORPUSCULAR HGB CONC 32.6 % (32.0-36.0); MONO % 13.4 % (0.0-8.0); NEUT % 67.5 % (16.0-70.0); PLATELET COUNT 38 TH/MM3 (150-450); RED BLOOD COUNT 2.83 MIL/MM3 (4.00-5.30); RED CELL DISTRIBUTION WIDTH 17.2 % (11.6-17.2); WHITE BLOOD COUNT 9.1 TH/MM3 (4.0-11.0)
[2016-09-10 13:56] LABS: HEMO FLAGS AUTO DIFF
[2016-09-10 14:10] LABS: PROTHROMBIN TIME - PATIENT 11.4 SEC (9.8-11.6)
[2016-09-10 14:31] LABS: ALKALINE PHOSPHATASE 66 U/L (45-117); ALT (GPT) 12 U/L (10-53); ANION GAP 4 MEQ/L (5-15); AST (GOT) 14 U/L (15-37); BICARBONATE 41.3 MEQ/L (21.0-32.0); BLOOD UREA NITROGEN 38 MG/DL (7-18); CHLORIDE 97 MEQ/L (98-107); GLOMERULAR FILTRATION RATE 77 ML/MIN (>89); POTASSIUM 3.7 MEQ/L (3.5-5.1); SODIUM (NA) 142 MEQ/L (136-145); TOTAL BILIRUBIN ADULT 0.4 MG/DL (0.2-1.0)
[2016-09-10 14:42] LABS: PLATELET ESTIMATE SMEAR LOW (NORMAL); PLATELET MORPHOLOGY ENLARGED (NORMAL); SCAN/DIFF AUTO DIFF CONFIRMED
[2016-09-10] MEDS: LEVOFLOXACIN 750 MG PREMIX INJ 150 ML IV SCH (14:51)
[2016-09-10] MEDS ORDERED: SODIUM CHLOR 0.9% 250 ML INJ 250 ML IV ONE (15:30)
[2016-09-11] VITALS (9 sets, daily range): BP systolic 127–147; BP diastolic 58–75; PULSE 64–87; RESP 16–18; TEMP 96.1–98; O2SAT 94–95
[2016-09-11] MEDS: CHLORHEXIDINE GLUCONATE 2 % 1 PACK (2 CLOTHS) TOP SCH (03:43)
[2016-09-11] MEDS: LACTOBACILLUS ACIDOPHILUS TAB PO SCH ×2 (08:00→21:56)
[2016-09-11 08:39] LABS: AUTOMATED NEUTROPHIL # 5.9 TH/MM3 (1.8-7.7); BASOPHIL % 0.3 % (0.0-2.0); EOSINOPHIL % 0.2 % (0.0-4.0); HEMATOCRIT 26.7 % (35.0-46.0); LYMPH % 17.6 % (9.0-44.0); LYMPHOCYTE # 1.5 TH/MM3 (1.0-4.8); MEAN CELL VOLUME 89.6 FL (80.0-100.0); MEAN CORPUSCULAR HGB CONC 32.4 % (32.0-36.0); MONO % 13.8 % (0.0-8.0); NEUT % 68.1 % (16.0-70.0); PLATELET COUNT 28 TH/MM3 (150-450); RED BLOOD COUNT 2.98 MIL/MM3 (4.00-5.30); RED CELL DISTRIBUTION WIDTH 17.3 % (11.6-17.2); WHITE BLOOD COUNT 8.7 TH/MM3 (4.0-11.0)
[2016-09-11 08:41] LABS: HEMO FLAGS AUTO DIFF
[2016-09-11 09:44] LABS: BANDS 14 % (0-6); NEUTROPHIL # MANUAL DIFF 7.3 TH/MM3 (1.8-7.7); PLATELET ESTIMATE SMEAR LOW (NORMAL); POLYS (SEG NEUTROPHILS) 70 % (16-70); SCAN/DIFF FINAL DIFF MANUAL; WBC DIFF SAMPLE 100
[2016-09-11 09:45] LABS: PLATELET MORPHOLOGY ENLARGED (NORMAL)
[2016-09-11] MEDS ORDERED: ceFAZolin INJ 1,000 MG VIAL IV ONE (10:41)
[2016-09-11] MEDS ORDERED: PROPOFOL 200 MG/20 ML AMP IV ONE (10:43)
--- NOTE | 2016-09-11 11:22 | HHI.GIFU ---
Subjective Remarks doing ok, still have NGT. Objective Vitals I&O Vital Signs Date Time Temp Pulse Resp B/P Pulse Ox O2 Delivery O2 Flow Rate FiO2 09/11/16 10:15 97.1 74 16 142/65 95 09/11/16 08:47 97.1 74 16 142/65 95 09/11/16 08:00 97.4 75 18 136/63 94 09/11/16 05:39 96.7 79 16 127/58 09/11/16 00:00 96.1 79 16 130/62 94 09/10/16 20:00 96.5 77 18 151/67 96 09/10/16 16:00 97.1 78 16 122/58 98 09/10/16 12:00 97.6 78 22 145/67 96 I/O 09/10/16 09/10/16 09/10/16 09/11/16 09/11/16 09/11/16 07:00 15:00 23:00 07:00 15:00 23:00 Intake Total 0 ml 200 ml Output Total 400 ml 125 ml Balance -400 ml 75 ml Intake Oral 0 ml Other 200 ml Output Urine Total 400 ml 125 ml # Voids 2 2 2 # Bowel Movements 1 1 Laboratory Laboratory Tests Test 09/10/16 09/11/16 09/11/16 13:25 06:48 07:11 White Blood Count 9.1 8.7 Red Blood Count 2.83 2.98 Hemoglobin 8.2 8.6 Hematocrit 25.0 26.7 Mean Corpuscular Volume 88.5 89.6 Mean Corpuscular Hemoglobin 28.8 29.0 Mean Corpuscular Hemoglobin 32.6 32.4 Concent Red Cell Distribution Width 17.2 17.3 Platelet Count 38 28 Mean Platelet Volume 11.9 12.5 Neutrophils (%) (Auto) 67.5 68.1 Lymphocytes (%) (Auto) 18.3 17.6 Monocytes (%) (Auto) 13.4 13.8 Eosinophils (%) (Auto) 0.3 0.2 Basophils (%) (Auto) 0.5 0.3 Neutrophils # (Auto) 6.1 5.9 Lymphocytes # (Auto) 1.7 1.5 Monocytes # (Auto) 1.2 1.2 Eosinophils # (Auto) 0.0 0.0 Basophils # (Auto) 0.0 0.0 CBC Comment AUTO DIFF AUTO DIFF Differential Comment AUTO DIFF FINAL DIFF CONFIRMED MANUAL Platelet Estimate LOW LOW Platelet Morphology Comment ENLARGED ENLARGED Prothrombin Time 11.4 Prothromb Time International 1.0 Ratio Activated Partial 30.0 Thromboplast Time Fibrinogen 266 Sodium Level 142 Potassium Level 3.7 Chloride Level 97 Carbon Dioxide Level 41.3 Anion Gap 4 Blood Urea Nitrogen 38 Creatinine 0.72 Estimat Glomerular Filtration 77 Rate Random Glucose 98 Calcium Level 8.6 Total Bilirubin 0.4 Aspartate Amino Transf 14 (AST/SGOT) Alanine Aminotransferase 12 (ALT/SGPT) Alkaline Phosphatase 66 Total Protein 4.6 Albumin 1.7 Differential Total Cells 100 Counted Neutrophils % (Manual) 70 Band Neutrophils % 14 Lymphocytes % 7 Monocytes % 9 Neutrophils # (Manual) 7.3 Blood Bank Comment Date/Time Procedure Status Source Growth 09/08/16 22:48 Gram Stain - Final Complete Wound Buttock 09/08/16 22:48 Wound Culture - Final Complete Wound Buttock HEAVY GROWTH NORMAL SKIN ZAIRA... 09/08/16 08:01 Gram Stain Received Wound Buttock Pending 09/08/16 08:01 Wound Culture Received Wound Buttock Pending Physical Exam HEENT: normocephalic; atraumatic; no jaundice. NECK: Neck is supple, no JVD, no lymphadenopathy. CHEST: Chest is clear to auscultation and percussion. CARDIAC: Regular rate and rhythm with no murmur gallop or rubs. ABDOMEN: Soft, nondistended, nontender; no hepatosplenomegaly; bowel sounds are present in all four quadrants. 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 Assessment and Plan Plan - Malnutrition/poor appetite and PO intake- GI services have been consulted for PEG tub placement. Currently, patient is receiving TF via NGT, this is clogged per nurse, she is going to try to unclog it with soda, denies nausea, vomiting, abd pain, hematemesis or hematochezia. - Thrombocytopenia- Plt is 38, hematology consulted and felt this was secondary to gangrenous changes, anticoagulants on hold Case was discussed with dr. Stewart and oncology, CBC has been ordered and pending results, will decide on the next step - Wound on the bottom of her left foot/ gangrenous changes , s/p angioplasty, s /p s/p Left partial 1st ray and left 2nd digit amputation - Respiratory failure- resolved - HARPAL- resolved. - PVD- Plavix on hold due to low platelets - COPD, PVD, UTI per attending 1-4-16 S/P EGD, PEG tube was placed, patient has esophageal ulcer and gastritis Bx done Plan: -PEG feeding per recommendation once unclogged - EGD/PEG tube in the am, - 2 units of platelets was given before endoscopy, - Cont. supportive care - start Protonix 40 mg daily. Diamante Gillette MD Sep 11, 2016 11:22
[2016-09-11] MEDS: PANTOPRAZOLE SOD 40 MG DELAYED RELEASE TAB PO SCH (13:00)
[2016-09-11] MEDS: SODIUM CHLORIDE 0.9% FLUSH 5 ML FLUSH FLUSH SCH ×2 (14:49→21:56)
[2016-09-11] MEDS: LEVOFLOXACIN 750 MG PREMIX INJ 150 ML IV SCH (14:49)
--- NOTE | 2016-09-11 16:03 | HHI.PR ---
Subjective Remarks Follow-up ischemic left foot/left big toe 09/06/16-patient seen and examined; she had Left hallux and 2nd digit amputation ; patient with decubitus ulcer, no other issues. Case discussed with Dr. Medeiros 09/07/16-patient seen and examined, denies any left foot pain. Currently afebrile. No other issues. 09/08/16-patient seen and examined, stable and no complaints. 09/09/16-patient seen and examined, currently nothing by mouth with diarrheal stool. C. difficile PCR negative. Case discussed with gastroenterology. 09/10/16-patient seen and examined. NG tube clog up. No other issues 09/11/16-patient seen and examined. She underwent EGD with PEG tube placement today Objective Vitals Vital Signs Date Time Temp Pulse Resp B/P Pulse Ox O2 Delivery O2 Flow Rate FiO2 09/11/16 12:00 98.0 87 16 142/70 95 09/11/16 11:15 68 14 131/51 93 09/11/16 11:10 69 14 119/50 95 09/11/16 11:05 97.6 73 16 121/51 100 09/11/16 10:15 97.1 74 16 142/65 95 09/11/16 08:47 97.1 74 16 142/65 95 09/11/16 08:30 95 Nasal Cannula 2.00 09/11/16 08:00 97.4 75 18 136/63 94 09/11/16 05:39 96.7 79 16 127/58 09/11/16 00:00 96.1 79 16 130/62 94 09/10/16 20:00 96.5 77 18 151/67 96 I/O 09/10/16 09/10/16 09/10/16 09/11/16 09/11/16 09/11/16 07:00 15:00 23:00 07:00 15:00 23:00 Intake Total 0 ml 200 ml 100 ml Output Total 400 ml 125 ml 150 ml Balance -400 ml 75 ml -50 ml Intake Oral 0 ml 0 ml IV Total 100 ml Other 200 ml Output Urine Total 400 ml 125 ml 150 ml # Voids 2 2 2 # Bowel Movements 1 1 1 Result Diagram: 09/11/16 0648 09/10/16 1325 Imaging Last Impressions Upper Extremity Ultrasound 09/09/16 0000 Signed Impressions: Service Date/Time: Friday, September 09, 2016 21:26 - CONCLUSION: No DVT left upper extremity. Josue Hernandez MD Chest X-Ray 09/01/16 0000 Signed Impressions: Service Date/Time: Thursday, September 01, 2016 17:16 - CONCLUSION: Bilateral pleural effusions probable slight pulmonary edema and left lung base consolidation not significantly changed. Nikko Rehman MD Abdomen X-Ray 08/29/16 0000 Signed Impressions: Service Date/Time: August 19:31 - CONCLUSION: NG tube tip in the stomach. Nikko Rehman MD Angiography 08/22/16 1420 Signed Impressions: Service Date/Time: August 13:13 - CONCLUSION: Diagnostic angiography as described above demonstrates high-grade bilateral external iliac artery stenoses and high-grade left common femoral artery stenosis. Successful angioplasty of the left common femoral artery and left external iliac artery. Right external iliac artery angioplasty and stenting as described above. Significant improvement in luminal patency of the external iliac arteries and left common femoral artery following endovascular treatment. Rajat Hu MD Aorta w/Runoff CTA 08/19/16 0000 Signed Impressions: Service Date/Time: Saturday, August 20, 2016 15:58 - CONCLUSION: Advanced atherosclerotic vasculopathy with hemodynamically significant stenotic/ occlusive lesions in the celiac, superior mesenteric, renal, external iliac, superficial femoral and popliteal arteries as described above. Severe irregularity with moderate to severe stenotic lesions are seen in the infrapopliteal runoff vessels to both calves and feet. Significantly diminished flow is evident to the right foot. Moderate bilateral pleural effusions with consolidating airspace disease in both lower lobes. Rajat Hu MD Renal Ultrasound 08/17/16 0000 Signed Impressions: Service Date/Time: Wednesday, August 17, 2016 16:01 - CONCLUSION: 1. Mild dilation of the collecting system of the right kidney. No evidence of hydronephrosis on the left. 2. 2.1 x 2.3 cm round non-shadowing lesion supermedial to the upper pole the right kidney of uncertain organ of origin. The right adrenal gland could be located in this area. Wei Corley MD Lower Extremity Ultrasound 08/16/16 0000 Signed Impressions: Service Date/Time: Tuesday, August 16, 2016 21:07 - CONCLUSION: No DVT. Josue White MD Foot X-Ray 08/16/16 0000 Signed Impressions: Service Date/Time: Tuesday, August 16, 2016 22:14 - CONCLUSION: No acute disease. Josue White MD Objective Remarks GENERAL: No acute distress SKIN: Warm and dry. Left lower extremity redness HEAD: Normocephalic. EYES: No scleral icterus. No injection or drainage. NECK: Supple, trachea midline. No JVD or lymphadenopathy. CARDIOVASCULAR: Regular rate and rhythm without murmurs, gallops, or rubs. RESPIRATORY: Breath sounds equal bilaterally. No accessory muscle use. GASTROINTESTINAL: Abdomen soft, non-tender, nondistended. PEG tube in place MUSCULOSKELETAL: No cyanosis, or edema. s/p Left hallux and 2nd digit amputation BACK: Nontender without obvious deformity. No CVA tenderness. Procedures 09/06/16 status post Left hallux and 2nd digit amputation A/P Problem List: (1) Cellulitis of left lower extremity ICD Code: L03.116 Status: Acute (2) PVD (peripheral vascular disease) ICD Code: I73.9 Status: Acute (3) Hyperkalemia ICD Code: E87.5 Status: Acute (4) HARPAL (acute kidney injury) ICD Code: N17.9 Status: Acute (5) HTN (hypertension) ICD Code: I10 Status: Chronic (6) COPD (chronic obstructive pulmonary disease) ICD Code: J44.9 Status: Chronic (7) Respiratory failure ICD Code: J96.90 Status: Resolved (8) Normochromic normocytic anemia ICD Code: D64.9 Status: Acute Assessment and Plan 85yrs old female PVD/ Gangrene S/p angioplasty as per [facility]. The pt has gangrenous changes in the lower extremities. 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 Continue with Toradol when necessary for pain -Continue to hold heparin gtt, Plavix in setting of thrombocytopenia. Thrombocytopenia/ DIC The pt has a history of thrombocytopenia but her plt count continues to drop. Appreciate hematology consult. Per hematology the pt is in DIC s/t gangrene and the underlying issue needs to be addressed. - Continue to follow CBC. INR - hold heparin gtt/ Plavix for now. - continue antibiotics. Malnutrition Postoperatively very poor appetite. Failed calorie count. NG tube placed with tube feeds. Appreciate GI consult. - s/p EGD with PEG tube placement today 09/11/16 -Nutrition to consult LLE Cellulitis Wound on plantar aspect of left foot x2 wks, on Keflex with no improvement, + erythema involving left pérez. Afebrile, no leukocytosis. Outpatient Wound Cultures positive for Staph per report. Resolved. Aspiration PNA Chest x-ray with evidence of consolidation. - Continue IV Levaquin 09/02. - Speech therapy follow-up. Normocytic normochromic anemia Stable. - follow CBC and transfuse as needed. S/p 1 unit 09/03 per hematology. Diarrhea: C. difficile PCR negative; start with antidiarrhea medications HARPAL Resolved. Renal ultrasound reviewed and no evidence of hydronephrosis on the left. 2. 2.1 x 2.3 cm round non-shadowing lesion supermedial to the upper pole the right kidney of uncertain organ of origin. Nephrology following and monitor BUN and creatinine. Avoid all nephrotoxic drugs. - outpt follow-up for right kidney lesion. PPx: Heparin gtt on hold s/t thrombocytopenia. Eric Houser MD Sep 11, 2016 16:03
[2016-09-12] VITALS (7 sets, daily range): BP systolic 120–142; BP diastolic 57–65; PULSE 74–86; RESP 14–16; TEMP 96.3–97.8; O2SAT 93–95
[2016-09-12] MEDS: CHLORHEXIDINE GLUCONATE 2 % 1 PACK (2 CLOTHS) TOP SCH (03:24)
[2016-09-12 07:04] LABS: HEMATOCRIT 23.6 % (35.0-46.0); MEAN CELL VOLUME 88.5 FL (80.0-100.0); MEAN CORPUSCULAR HEMOGLOBIN 28.8 PG (27.0-34.0); MEAN CORPUSCULAR HGB CONC 32.5 % (32.0-36.0); PLATELET COUNT 28 TH/MM3 (150-450); RED BLOOD COUNT 2.66 MIL/MM3 (4.00-5.30); RED CELL DISTRIBUTION WIDTH 16.7 % (11.6-17.2); WHITE BLOOD COUNT 8.9 TH/MM3 (4.0-11.0)
[2016-09-12 07:12] LABS: REVIEW FLAG FINAL
[2016-09-12] MEDS: SODIUM CHLORIDE 0.9% FLUSH 5 ML FLUSH FLUSH SCH ×2 (08:37→21:28)
[2016-09-12] MEDS: LACTOBACILLUS ACIDOPHILUS TAB PO SCH ×2 (08:37→21:27)
--- NOTE | 2016-09-12 11:12 | HHI.PR ---
Subjective Remarks Follow-up ischemic left foot/left big toe 09/06/16-patient seen and examined; she had Left hallux and 2nd digit amputation ; patient with decubitus ulcer, no other issues. Case discussed with Dr. Medeiros 09/07/16-patient seen and examined, denies any left foot pain. Currently afebrile. No other issues. 09/08/16-patient seen and examined, stable and no complaints. 09/09/16-patient seen and examined, currently nothing by mouth with diarrheal stool. C. difficile PCR negative. Case discussed with gastroenterology. 09/10/16-patient seen and examined. NG tube clog up. No other issues 09/11/16-patient seen and examined. She underwent EGD with PEG tube placement today 09/12/16-patient seen and examined; tolerating tube feed through PEG; left arm swelling but not pain. Afebrile Objective Vitals Vital Signs Date Time Temp Pulse Resp B/P Pulse Ox O2 Delivery O2 Flow Rate FiO2 09/12/16 08:00 96.5 78 14 126/57 93 09/12/16 07:29 93 Nasal Cannula 2.00 09/12/16 04:56 96.3 78 16 142/65 95 09/12/16 00:00 97.6 78 16 124/58 95 09/11/16 20:00 97.4 82 16 141/65 94 09/11/16 16:00 97.7 79 18 139/75 94 09/11/16 12:00 98.0 87 16 142/70 95 09/11/16 11:15 68 14 131/51 93 I/O 09/11/16 09/11/16 09/11/16 09/12/16 09/12/16 09/12/16 07:00 15:00 23:00 07:00 15:00 23:00 Intake Total 100 ml 200 ml 598 ml Output Total 150 ml Balance -50 ml 200 ml 598 ml Intake Oral 0 ml 200 ml 200 ml IV Total 100 ml Tube Feeding 398 ml Output Urine Total 150 ml # Voids 1 2 # Bowel Movements 1 0 0 Result Diagram: 09/12/16 0607 09/10/16 9165 Objective Remarks GENERAL: No acute distress SKIN: Warm and dry. Left lower extremity redness HEAD: Normocephalic. EYES: No scleral icterus. No injection or drainage. NECK: Supple, trachea midline. No JVD or lymphadenopathy. CARDIOVASCULAR: Regular rate and rhythm without murmurs, gallops, or rubs. RESPIRATORY: Breath sounds equal bilaterally. No accessory muscle use. GASTROINTESTINAL: Abdomen soft, non-tender, nondistended. PEG tube in place MUSCULOSKELETAL: No cyanosis, or edema. s/p Left hallux and 2nd digit amputation. left arm swelling BACK: Nontender without obvious deformity. No CVA tenderness. Procedures 09/06/16 status post Left hallux and 2nd digit amputation A/P Problem List: (1) Cellulitis of left lower extremity ICD Code: L03.116 Status: Acute (2) PVD (peripheral vascular disease) ICD Code: I73.9 Status: Acute (3) Hyperkalemia ICD Code: E87.5 Status: Acute (4) HARPAL (acute kidney injury) ICD Code: N17.9 Status: Acute (5) HTN (hypertension) ICD Code: I10 Status: Chronic (6) COPD (chronic obstructive pulmonary disease) ICD Code: J44.9 Status: Chronic (7) Respiratory failure ICD Code: J96.90 Status: Resolved (8) Normochromic normocytic anemia ICD Code: D64.9 Status: Acute Assessment and Plan 85yrs old female PVD/ Gangrene S/p angioplasty as per vasc surgery. The pt has gangrenous changes in the lower extremities. 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 Continue with Toradol when necessary for pain -Continue to hold heparin gtt, Plavix in setting of thrombocytopenia. Thrombocytopenia/ DIC The pt has a history of thrombocytopenia but her plt count continues to drop. Appreciate hematology consult. Per hematology the pt is in DIC s/t gangrene and the underlying issue needs to be addressed. - Continue to follow CBC. INR - hold heparin gtt/ Plavix for now. - continue antibiotics. Malnutrition Postoperatively very poor appetite. Failed calorie count. NG tube placed with tube feeds. Appreciate GI consult. - s/p EGD with PEG tube placement 09/11/16 -Tolerating Tube feed LLE Cellulitis Wound on plantar aspect of left foot x2 wks, on Keflex with no improvement, + erythema involving left pérez. Afebrile, no leukocytosis. Outpatient Wound Cultures positive for Staph per report. Resolved. Left arm swelling: rule out DVT with Doppler today 09/12/16 Aspiration PNA Chest x-ray with evidence of consolidation. Repeat CXR today 09/12/16 - Continue IV Levaquin 09/02. - Speech therapy follow-up. Normocytic normochromic anemia Stable. - follow CBC and transfuse as needed. S/p 1 unit 09/03 per hematology. Diarrhea: C. difficile PCR negative; start with antidiarrhea medications HARPAL Resolved. Renal ultrasound reviewed and no evidence of hydronephrosis on the left. 2. 2.1 x 2.3 cm round non-shadowing lesion supermedial to the upper pole the right kidney of uncertain organ of origin. Nephrology following and monitor BUN and creatinine. Avoid all nephrotoxic drugs. - outpt follow-up for right kidney lesion. PPx: Heparin gtt on hold s/t thrombocytopenia. Eric Houser MD Sep 12, 2016 11:12
--- NOTE | 2016-09-12 12:44 | HHI.GIFU ---
Subjective Remarks Patient is resting in bed, seems comfortable, tolerating TF via PEG tube okay, no GI complaints (Tati Tan) Objective Vitals I&O Vital Signs Date Time Temp Pulse Resp B/P Pulse Ox O2 Delivery O2 Flow Rate FiO2 09/12/16 12:00 97.1 80 14 132/60 94 09/12/16 08:00 96.5 78 14 126/57 93 09/12/16 07:29 93 Nasal Cannula 2.00 09/12/16 04:56 96.3 78 16 142/65 95 09/12/16 00:00 97.6 78 16 124/58 95 09/11/16 20:00 97.4 82 16 141/65 94 09/11/16 16:00 97.7 79 18 139/75 94 I/O 09/11/16 09/11/16 09/11/16 09/12/16 09/12/16 09/12/16 07:00 15:00 23:00 07:00 15:00 23:00 Intake Total 100 ml 200 ml 598 ml Output Total 150 ml 100 ml Balance -50 ml 200 ml 598 ml -100 ml Intake Oral 0 ml 200 ml 200 ml IV Total 100 ml Tube Feeding 398 ml Output Urine Total 150 ml 100 ml # Voids 1 2 # Bowel Movements 1 0 0 1 Laboratory Laboratory Tests Test 09/12/16 06:07 White Blood Count 8.9 Red Blood Count 2.66 Hemoglobin 7.7 Hematocrit 23.6 Mean Corpuscular Volume 88.5 Mean Corpuscular Hemoglobin 28.8 Mean Corpuscular Hemoglobin 32.5 Concent Red Cell Distribution Width 16.7 Platelet Count 28 Mean Platelet Volume 11.8 Date/Time Procedure Status Source Growth 09/08/16 22:48 Gram Stain - Final Complete Wound Buttock 09/08/16 22:48 Wound Culture - Final Complete Wound Buttock HEAVY GROWTH NORMAL SKIN ZAIRA... 09/08/16 08:01 Gram Stain Received Wound Buttock Pending 09/08/16 08:01 Wound Culture Received Wound Buttock Pending Imaging Last Impressions Upper Extremity Ultrasound 09/09/16 0000 Signed Impressions: Service Date/Time: Friday, September 09, 2016 21:26 - CONCLUSION: No DVT left upper extremity. Josue Hernandez MD Chest X-Ray 09/01/16 0000 Signed Impressions: Service Date/Time: Thursday, September 01, 2016 17:16 - CONCLUSION: Bilateral pleural effusions probable slight pulmonary edema and left lung base consolidation not significantly changed. Nikko Rehman MD Abdomen X-Ray 08/29/16 0000 Signed Impressions: Service Date/Time: August 19:31 - CONCLUSION: NG tube tip in the stomach. Nikko Rehman MD Angiography 08/22/16 1420 Signed Impressions: Service Date/Time: August 13:13 - CONCLUSION: Diagnostic angiography as described above demonstrates high-grade bilateral external iliac artery stenoses and high-grade left common femoral artery stenosis. Successful angioplasty of the left common femoral artery and left external iliac artery. Right external iliac artery angioplasty and stenting as described above. Significant improvement in luminal patency of the external iliac arteries and left common femoral artery following endovascular treatment. Rajat Hu MD Aorta w/Runoff CTA 08/19/16 0000 Signed Impressions: Service Date/Time: Saturday, August 20, 2016 15:58 - CONCLUSION: Advanced atherosclerotic vasculopathy with hemodynamically significant stenotic/ occlusive lesions in the celiac, superior mesenteric, renal, external iliac, superficial femoral and popliteal arteries as described above. Severe irregularity with moderate to severe stenotic lesions are seen in the infrapopliteal runoff vessels to both calves and feet. Significantly diminished flow is evident to the right foot. Moderate bilateral pleural effusions with consolidating airspace disease in both lower lobes. Rajat Hu MD Renal Ultrasound 08/17/16 0000 Signed Impressions: Service Date/Time: Wednesday, August 17, 2016 16:01 - CONCLUSION: 1. Mild dilation of the collecting system of the right kidney. No evidence of hydronephrosis on the left. 2. 2.1 x 2.3 cm round non-shadowing lesion supermedial to the upper pole the right kidney of uncertain organ of origin. The right adrenal gland could be located in this area. Wei Corley MD Lower Extremity Ultrasound 08/16/16 0000 Signed Impressions: Service Date/Time: Tuesday, August 16, 2016 21:07 - CONCLUSION: No DVT. Josue White MD Foot X-Ray 08/16/16 0000 Signed Impressions: Service Date/Time: Tuesday, August 16, 2016 22:14 - CONCLUSION: No acute disease. Josue White MD Physical Exam HEENT: normocephalic; atraumatic; no jaundice. NECK: Neck is supple, no JVD, no lymphadenopathy. CHEST: Chest is clear to auscultation and percussion. CARDIAC: Regular rate and rhythm with no murmur gallop or rubs. ABDOMEN: Soft, nondistended, nontender; no hepatosplenomegaly; bowel sounds are present in all four quadrants. PEG tube EXTREMITIES: No clubbing, cyanosis, + edema in left arm SKIN: Dressing to Left extremity s/p surgical amputation [employer]: alert and oriented times three. (Tati Tan) Assessment and Plan Plan - Malnutrition/poor appetite and PO intake- S/P EGD/PEG on (09/11/16)-----> esophageal ulcer in distal esophagus, bx pending, gastritis bx pending - Thrombocytopenia- hematology consulted and felt this was secondary to gangrenous changes, anticoagulants on hold - Wound on the bottom of her left foot/ gangrenous changes , s/p angioplasty, s /p s/p Left partial 1st ray and left 2nd digit amputation - Respiratory failure- resolved - HARPAL- resolved. - PVD- Plavix on hold due to low platelets - COPD, PVD, UTI per attending Plan: - TF per dietary recommendations - Await bx - Cont. Protonix - Gi will sign off - Patient seen and examined by Dr. Gillette and myself and this note is written on his behalf. (Tati Tan) Physician Comments Patient was seen and examined, agree with above note and plan, tolerating feeding tube, we will sign off. (Diamante Gillette MD) Tati Tan Sep 12, 2016 12:44 Diamante Gillette MD Sep 12, 2016 20:14
--- NOTE | 2016-09-12 13:44 | RADRPT ---
EXAM DATE/TIME: 09/12/2016 12:28 [facility] COMPARISON: No previous studies available for comparison. INDICATIONS : Short of breath, evaluate infiltrate MEDICAL HISTORY : Chronic obstructive pulmonary disease. cellulitis, PVD SURGICAL HISTORY : None. ENCOUNTER: Subsequent ACUITY: 3 weeks PAIN SCORE: Non-responsive. LOCATION: Bilateral chest FINDINGS: A single view of the chest demonstrates moderate bilateral pleural effusions. Cardiomegaly. Bilateral basilar and perihilar airspace disease. No pneumothorax. CONCLUSION: 1. Bilateral mostly basilar and perihilar airspace disease similar in appearance to September 01. Mode rate effusions. Findings most characteristic of congestive heart failure. Cannot exclude pneumonia. Sumit Vaughn MD on September 12, 2016 at 13:41 Board Certified Radiologist. This report was verified electronically.
[2016-09-12] MEDS: LEVOFLOXACIN 750 MG PREMIX INJ 150 ML IV SCH (15:19)
--- NOTE | 2016-09-12 16:51 | RADRPT ---
EXAM DATE/TIME: 09/12/2016 14:08 [facility] COMPARISON: No previous studies available for comparison. INDICATIONS : Increased swelling. MEDICAL HISTORY : Hypertension. Chronic obstructive pulmonary disease. SURGICAL HISTORY : Hysterectomy. Appendectomy. Tubal ligation. ENCOUNTER: Subsequent ACUITY: 4 - 6 days PAIN SCORE: 4/10 LOCATION: Left arm. FINDINGS: There is spontaneous flow documented in the brachial, basilic, cephalic, axillary, and subclavian vei ns. The vessels are compressible and augmentation response is documented. No filling defects are se en. The flow is phasic with respiration. Direction of flow in the jugular vein is caudal. Soft tiss ue swelling/edema in the left arm. CONCLUSION: No DVT in the left arm. Eric Manning MD on September 12, 2016 at 16:48 Board Certified Radiologist. This report was verified electronically.
[2016-09-12] MEDS: PANTOPRAZOLE SOD 40 MG DELAYED RELEASE TAB PO SCH (17:35)
[2016-09-12 21:08] LABS: MEAN CORPUSCULAR HGB CONC 36.5 % (32.0-36.0)
[2016-09-13 00:02] VITALS: BP 122/56; PULSE 82; RESP 16; TEMP 98.4; O2SAT 92
[2016-09-13 04:00] VITALS: BP 154/67; PULSE 83; RESP 16; TEMP 97.5; O2SAT 92
[2016-09-13] MEDS: CHLORHEXIDINE GLUCONATE 2 % 1 PACK (2 CLOTHS) TOP SCH (04:00)
[2016-09-13 08:00] VITALS: BP 130/59; PULSE 85; RESP 18; TEMP 97.1; O2SAT 93
[2016-09-13 09:05] LABS: HEMATOCRIT 22.7 % (35.0-46.0); MEAN CELL VOLUME 87.5 FL (80.0-100.0); RED BLOOD COUNT 2.59 MIL/MM3 (4.00-5.30); RED CELL DISTRIBUTION WIDTH 17.6 % (11.6-17.2)
[2016-09-13 09:06] LABS: REVIEW FLAG AUTO DIFF
[2016-09-13] MEDS: PANTOPRAZOLE SOD 40 MG DELAYED RELEASE TAB PO SCH (10:04)
[2016-09-13] MEDS: LACTOBACILLUS ACIDOPHILUS TAB PO SCH ×2 (10:04→21:29)
[2016-09-13] MEDS: SODIUM CHLORIDE 0.9% FLUSH 5 ML FLUSH FLUSH SCH ×2 (10:04→21:29)
[2016-09-13 12:00] VITALS: BP 128/57; PULSE 85; RESP 16; TEMP 97.2; O2SAT 93
[2016-09-13] MEDS: LEVOFLOXACIN 750 MG PREMIX INJ 150 ML IV SCH (12:41)
--- NOTE | 2016-09-13 12:46 | HHI.PR ---
Subjective Remarks Follow-up ischemic left foot/left big toe 09/06/16-patient seen and examined; she had Left hallux and 2nd digit amputation ; patient with decubitus ulcer, no other issues. Case discussed with Dr. Medeiros 09/07/16-patient seen and examined, denies any left foot pain. Currently afebrile. No other issues. 09/08/16-patient seen and examined, stable and no complaints. 09/09/16-patient seen and examined, currently nothing by mouth with diarrheal stool. C. difficile PCR negative. Case discussed with gastroenterology. 09/10/16-patient seen and examined. NG tube clog up. No other issues 09/11/16-patient seen and examined. She underwent EGD with PEG tube placement today 09/12/16-patient seen and examined; tolerating tube feed through PEG; left arm swelling but not pain. Afebrile 09/13/16-patient seen and examined; now doing well with feed tube with tray without any complication of nausea or emesis. Afebrile.Denies any shortness of breath Objective Vitals Vital Signs Date Time Temp Pulse Resp B/P Pulse Ox O2 Delivery O2 Flow Rate FiO2 09/13/16 08:00 97.1 85 18 130/59 93 09/13/16 04:00 97.5 83 16 154/67 92 09/13/16 00:02 98.4 82 16 122/56 92 09/12/16 20:00 97.8 86 16 129/58 94 09/12/16 16:00 96.5 74 16 120/58 93 I/O 09/12/16 09/12/16 09/12/16 09/13/16 09/13/16 09/13/16 07:00 15:00 23:00 07:00 15:00 23:00 Intake Total 598 ml 360 ml 1351 ml 510 ml Output Total 300 ml 500 ml Balance 598 ml 60 ml 1351 ml 10 ml Intake Oral 200 ml 360 ml 200 ml 150 ml Tube Feeding 398 ml 781 ml 360 ml Other 370 ml Output Urine Total 300 ml 500 ml # Voids 2 1 # Bowel Movements 0 2 1 2 Result Diagram: 09/13/16 0633 09/10/16 1325 Imaging Last Impressions Upper Extremity Ultrasound 09/12/16 0000 Signed Impressions: Service Date/Time: September 14:08 - CONCLUSION: No DVT in the left arm. Eric Manning MD Chest X-Ray 09/12/16 0000 Signed Impressions: Service Date/Time: September 12:28 - CONCLUSION: 1. Bilateral mostly basilar and perihilar airspace disease similar in appearance to September 01. Moderate effusions. Findings most characteristic of congestive heart failure. Cannot exclude pneumonia. Sumit Vaughn MD Abdomen X-Ray 08/29/16 0000 Signed Impressions: Service Date/Time: August 19:31 - CONCLUSION: NG tube tip in the stomach. K. Alonzo Rehman MD Angiography 08/22/16 1420 Signed Impressions: Service Date/Time: August 13:13 - CONCLUSION: Diagnostic angiography as described above demonstrates high-grade bilateral external iliac artery stenoses and high-grade left common femoral artery stenosis. Successful angioplasty of the left common femoral artery and left external iliac artery. Right external iliac artery angioplasty and stenting as described above. Significant improvement in luminal patency of the external iliac arteries and left common femoral artery following endovascular treatment. Rajat Hu MD Aorta w/Runoff CTA 08/19/16 0000 Signed Impressions: Service Date/Time: Saturday, August 20, 2016 15:58 - CONCLUSION: Advanced atherosclerotic vasculopathy with hemodynamically significant stenotic/ occlusive lesions in the celiac, superior mesenteric, renal, external iliac, superficial femoral and popliteal arteries as described above. Severe irregularity with moderate to severe stenotic lesions are seen in the infrapopliteal runoff vessels to both calves and feet. Significantly diminished flow is evident to the right foot. Moderate bilateral pleural effusions with consolidating airspace disease in both lower lobes. Rajat Hu MD Renal Ultrasound 08/17/16 0000 Signed Impressions: Service Date/Time: Wednesday, August 17, 2016 16:01 - CONCLUSION: 1. Mild dilation of the collecting system of the right kidney. No evidence of hydronephrosis on the left. 2. 2.1 x 2.3 cm round non-shadowing lesion supermedial to the upper pole the right kidney of uncertain organ of origin. The right adrenal gland could be located in this area. Wei Corley MD Lower Extremity Ultrasound 08/16/16 0000 Signed Impressions: Service Date/Time: Tuesday, August 16, 2016 21:07 - CONCLUSION: No DVT. Josue White MD Foot X-Ray 08/16/16 0000 Signed Impressions: Service Date/Time: Tuesday, August 16, 2016 22:14 - CONCLUSION: No acute disease. Josue White MD Objective Remarks GENERAL: No acute distress SKIN: Warm and dry. Left lower extremity redness HEAD: Normocephalic. EYES: No scleral icterus. No injection or drainage. NECK: Supple, trachea midline. No JVD or lymphadenopathy. CARDIOVASCULAR: Regular rate and rhythm without murmurs, gallops, or rubs. RESPIRATORY: Breath sounds equal bilaterally. No accessory muscle use. GASTROINTESTINAL: Abdomen soft, non-tender, nondistended. PEG tube in place MUSCULOSKELETAL: No cyanosis, or edema. s/p Left hallux and 2nd digit amputation. left arm swelling BACK: Nontender without obvious deformity. No CVA tenderness. Procedures 09/06/16 status post Left hallux and 2nd digit amputation A/P Problem List: (1) Cellulitis of left lower extremity ICD Code: L03.116 Status: Acute (2) PVD (peripheral vascular disease) ICD Code: I73.9 Status: Acute (3) Hyperkalemia ICD Code: E87.5 Status: Acute (4) HARPAL (acute kidney injury) ICD Code: N17.9 Status: Acute (5) HTN (hypertension) ICD Code: I10 Status: Chronic (6) COPD (chronic obstructive pulmonary disease) ICD Code: J44.9 Status: Chronic (7) Respiratory failure ICD Code: J96.90 Status: Resolved (8) Normochromic normocytic anemia ICD Code: D64.9 Status: Acute Assessment and Plan 85yrs old female PVD/ Gangrene S/p angioplasty as per vas surgery. The pt has gangrenous changes in the lower extremities. 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 Continue with Toradol when necessary for pain -Continue to hold heparin gtt, Plavix in setting of thrombocytopenia. Thrombocytopenia/ DIC The pt has a history of thrombocytopenia but her plt count continues to drop. Appreciate hematology consult. Per hematology the pt is in DIC s/t gangrene and the underlying issue needs to be addressed. - Continue to follow CBC. INR - hold heparin gtt/ Plavix for now. - continue antibiotics. Malnutrition Postoperatively very poor appetite. Failed calorie count. Appreciate GI consult. - s/p EGD with PEG tube placement 09/11/16 -Tolerating Tube feed with tray LLE Cellulitis Wound on plantar aspect of left foot x2 wks. Outpatient Wound Cultures positive for Staph per report. Resolved. Left arm swelling: DVT ruled out with Doppler 09/12/16 Aspiration PNA Chest x-ray with evidence of consolidation. Repeat CXR 09/12/16 noted and reviewed - Continue IV Levaquin 09/02. - Speech therapy follow-up. Acute Hypercapnic respiratory failure: Keep oxygen saturation above 92%; may consider BIPAP vs Diuretic therapy +/- steroid Normocytic normochromic anemia Stable. - follow CBC and transfuse as needed. S/p 1 unit 09/03 per hematology. Diarrhea: C. difficile PCR negative;Resolved HARPAL Resolved. Renal ultrasound reviewed and no evidence of hydronephrosis on the left. 2. 2.1 x 2.3 cm round non-shadowing lesion supermedial to the upper pole the right kidney of uncertain organ of origin. Nephrology following and monitor BUN and creatinine. Avoid all nephrotoxic drugs. - outpt follow-up for right kidney lesion. PPx: Heparin gtt on hold s/t thrombocytopenia. Eric Houser MD Sep 13, 2016 12:46
[2016-09-13 16:00] VITALS: BP 148/63; PULSE 85; RESP 18; TEMP 97.4; O2SAT 95
[2016-09-13 20:00] VITALS: BP 140/63; PULSE 83; RESP 16; TEMP 96.3; O2SAT 95
[2016-09-14] VITALS (7 sets, daily range): BP systolic 117–152; BP diastolic 55–67; PULSE 70–85; RESP 16–20; TEMP 96–97.3; O2SAT 90–95
[2016-09-14] MEDS: CHLORHEXIDINE GLUCONATE 2 % 1 PACK (2 CLOTHS) TOP SCH (04:00)
[2016-09-14 08:09] LABS: AUTOMATED NEUTROPHIL # 7.2 TH/MM3 (1.8-7.7); BASOPHIL % 0.2 % (0.0-2.0); EOSINOPHIL % 0.2 % (0.0-4.0); HEMATOCRIT 25.7 % (35.0-46.0); LYMPH % 19.3 % (9.0-44.0); LYMPHOCYTE # 2.1 TH/MM3 (1.0-4.8); MEAN CELL VOLUME 90.3 FL (80.0-100.0); MEAN CORPUSCULAR HEMOGLOBIN 29.4 PG (27.0-34.0); MEAN CORPUSCULAR HGB CONC 32.5 % (32.0-36.0); MONO % 14.7 % (0.0-8.0); NEUT % 65.6 % (16.0-70.0); PLATELET COUNT 24 TH/MM3 (150-450); RED BLOOD COUNT 2.85 MIL/MM3 (4.00-5.30); RED CELL DISTRIBUTION WIDTH 16.9 % (11.6-17.2)
[2016-09-14 09:00] LABS: HEMO FLAGS AUTO DIFF
[2016-09-14 09:19] LABS: BANDS 3 % (0-6); MYELOCYTES 1 % (0-0); NEUTROPHIL # MANUAL DIFF 8.6 TH/MM3 (1.8-7.7); POLYS (SEG NEUTROPHILS) 74 % (16-70); WBC DIFF SAMPLE 100
[2016-09-14 09:20] LABS: PLATELET ESTIMATE SMEAR LOW (NORMAL); PLATELET MORPHOLOGY NORMAL (NORMAL); SCAN/DIFF FINAL DIFF MANUAL
[2016-09-14] MEDS: PANTOPRAZOLE SOD 40 MG DELAYED RELEASE TAB PO SCH (09:46)
[2016-09-14] MEDS: LACTOBACILLUS ACIDOPHILUS TAB PO SCH ×2 (09:46→21:04)
--- NOTE | 2016-09-14 11:36 | PD.POD ---
Subjective Podiatric Problems s/p Left partial 1st ray and left 2nd digit amputation. DOS 09/06/[address] Ma. No complaints Pain scale used: 0-10 numeric scale Pain score: 0 Past Med/Surg/Social History Social History Smoking Status: Former Smoker Objective Vital Signs Vital Signs Date Time Temp Pulse Resp B/P Pulse Ox O2 Delivery O2 Flow Rate FiO2 09/14/16 08:00 96.6 78 20 121/55 90 09/14/16 04:00 96.1 85 16 149/67 94 09/14/16 00:00 96.0 85 16 117/56 95 09/13/16 20:00 96.3 83 16 140/63 95 09/13/16 16:00 97.4 85 18 148/63 95 09/13/16 12:00 97.2 85 16 128/57 93 Coded Allergies: Sulfa (Verified Allergy, Unknown, 08/16/16) Other Results Laboratory Tests Test 09/10/16 09/11/16 09/14/16 13:25 07:11 06:50 Prothrombin Time 11.4 SEC Prothromb Time International 1.0 RATIO Ratio Activated Partial 30.0 SEC Thromboplast Time Fibrinogen 266 mg/dL Sodium Level 142 MEQ/L Potassium Level 3.7 MEQ/L Chloride Level 97 MEQ/L Carbon Dioxide Level 41.3 MEQ/L Anion Gap 4 MEQ/L Blood Urea Nitrogen 38 MG/DL Creatinine 0.72 MG/DL Estimat Glomerular Filtration 77 ML/MIN Rate Random Glucose 98 MG/DL Calcium Level 8.6 MG/DL Total Bilirubin 0.4 MG/DL Aspartate Amino Transf 14 U/L (AST/SGOT) Alanine Aminotransferase 12 U/L (ALT/SGPT) Alkaline Phosphatase 66 U/L Total Protein 4.6 GM/DL Albumin 1.7 GM/DL Blood Bank Comment White Blood Count 11.0 TH/MM3 Red Blood Count 2.85 MIL/MM3 Hemoglobin 8.4 GM/DL Hematocrit 25.7 % Mean Corpuscular Volume 90.3 FL Mean Corpuscular Hemoglobin 29.4 PG Mean Corpuscular Hemoglobin 32.5 % Concent Red Cell Distribution Width 16.9 % Platelet Count 24 TH/MM3 Mean Platelet Volume 12.3 FL Neutrophils (%) (Auto) 65.6 % Lymphocytes (%) (Auto) 19.3 % Monocytes (%) (Auto) 14.7 % Eosinophils (%) (Auto) 0.2 % Basophils (%) (Auto) 0.2 % Neutrophils # (Auto) 7.2 TH/MM3 Lymphocytes # (Auto) 2.1 TH/MM3 Monocytes # (Auto) 1.6 TH/MM3 Eosinophils # (Auto) 0.0 TH/MM3 Basophils # (Auto) 0.0 TH/MM3 CBC Comment AUTO DIFF Differential Total Cells 100 Counted Neutrophils % (Manual) 74 % Band Neutrophils % 3 % Lymphocytes % 14 % Monocytes % 8 % Neutrophils # (Manual) 8.6 TH/MM3 Myelocytes 1 % Differential Comment FINAL DIFF MANUAL Platelet Estimate LOW Platelet Morphology Comment NORMAL Physical Exam Details LLE: Intact dressing at the foot and leg with no strikethrough. LE is warm to warm proximal to distal. Intact luisito prevolon boot. Assessment & Plan Diagnosis: (1) PVD (peripheral vascular disease) Status: Acute (2) History of amputation of hallux Status: Acute A/P s/l Left partial 1st ray and 2nd digit amputation. DOS 09/06/[address] Ma. F/U with Dr Ma once d/c with [address] Mckeon begin coverage 09/16/16 OK to d/c per Podiatry. Candis Ibarra DPM Sep 14, 2016 11:36
--- NOTE | 2016-09-14 11:49 | HHI.PR ---
Subjective Remarks Follow-up ischemic left foot/left big toe 09/06/16-patient seen and examined; she had Left hallux and 2nd digit amputation ; patient with decubitus ulcer, no other issues. Case discussed with Dr. Medeiros 09/07/16-patient seen and examined, denies any left foot pain. Currently afebrile. No other issues. 09/08/16-patient seen and examined, stable and no complaints. 09/09/16-patient seen and examined, currently nothing by mouth with diarrheal stool. C. difficile PCR negative. Case discussed with gastroenterology. 09/10/16-patient seen and examined. NG tube clog up. No other issues 09/11/16-patient seen and examined. She underwent EGD with PEG tube placement today 09/12/16-patient seen and examined; tolerating tube feed through PEG; left arm swelling but not pain. Afebrile 09/13/16-patient seen and examined; now doing well with feed tube with tray without any complication of nausea or emesis. Afebrile.Denies any shortness of breath 09/14/16-patient seen and examined, currently resting and no acute event overnight. Niece by the bedside and stated the patient did not take much in term of by mouth yesterday Objective Vitals Vital Signs Date Time Temp Pulse Resp B/P Pulse Ox O2 Delivery O2 Flow Rate FiO2 09/14/16 08:00 96.6 78 20 121/55 90 09/14/16 04:00 96.1 85 16 149/67 94 09/14/16 00:00 96.0 85 16 117/56 95 09/13/16 20:00 96.3 83 16 140/63 95 09/13/16 16:00 97.4 85 18 148/63 95 09/13/16 12:00 97.2 85 16 128/57 93 I/O 09/13/16 09/13/16 09/13/16 09/14/16 09/14/16 09/14/16 07:00 15:00 23:00 07:00 15:00 23:00 Intake Total 510 ml 960 ml 480 ml 1760 ml Output Total 500 ml 200 ml 300 ml 350 ml Balance 10 ml 760 ml 180 ml 1410 ml Intake Oral 150 ml 960 ml 480 ml 480 ml Tube Feeding 360 ml 980 ml Other 300 ml Output Urine Total 500 ml 200 ml 300 ml 350 ml # Voids 5 1 # Bowel Movements 2 3 1 2 1 Result Diagram: 09/14/16 0650 09/10/16 1325 Objective Remarks GENERAL: No acute distress SKIN: Warm and dry. Left lower extremity redness HEAD: Normocephalic. EYES: No scleral icterus. No injection or drainage. NECK: Supple, trachea midline. No JVD or lymphadenopathy. CARDIOVASCULAR: Regular rate and rhythm without murmurs, gallops, or rubs. RESPIRATORY: Breath sounds equal bilaterally. No accessory muscle use. GASTROINTESTINAL: Abdomen soft, non-tender, nondistended. PEG tube in place MUSCULOSKELETAL: No cyanosis, or edema. s/p Left hallux and 2nd digit amputation. left arm swelling BACK: Nontender without obvious deformity. No CVA tenderness. Procedures 09/06/16 status post Left hallux and 2nd digit amputation A/P Problem List: (1) Cellulitis of left lower extremity ICD Code: L03.116 Status: Acute (2) PVD (peripheral vascular disease) ICD Code: I73.9 Status: Acute (3) Hyperkalemia ICD Code: E87.5 Status: Acute (4) HARPAL (acute kidney injury) ICD Code: N17.9 Status: Acute (5) HTN (hypertension) ICD Code: I10 Status: Chronic (6) COPD (chronic obstructive pulmonary disease) ICD Code: J44.9 Status: Chronic (7) Respiratory failure ICD Code: J96.90 Status: Resolved (8) Normochromic normocytic anemia ICD Code: D64.9 Status: Acute Assessment and Plan 85yrs old female PVD/ Gangrene S/p angioplasty as per [facility] surgery. The pt has gangrenous changes in the lower extremities. 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 Continue with Toradol when necessary for pain -Continue to hold heparin gtt, Plavix in setting of thrombocytopenia. Thrombocytopenia/ DIC The pt has a history of thrombocytopenia but her plt count continues to drop. Appreciate hematology consult. Per hematology the pt is in DIC s/t gangrene and the underlying issue needs to be addressed. - Continue to follow CBC. INR - hold heparin gtt/ Plavix f - continue antibiotics. Malnutrition Postoperatively very poor appetite. Failed calorie count. Appreciate GI consult. - s/p EGD with PEG tube placement 09/11/16 -Continue Tube feed with tray -Consider trial of Marinol LLE Cellulitis Wound on plantar aspect of left foot x2 wks. Outpatient Wound Cultures positive for Staph per report. Resolved. Left arm swelling: DVT ruled out with Doppler 09/12/16 Aspiration PNA Chest x-ray with evidence of consolidation. Repeat CXR 09/12/16 noted and reviewed - Continue IV Levaquin 09/02. - Speech therapy follow-up. Acute Hypercapnic respiratory failure: Keep oxygen saturation above 92%; may consider BIPAP vs Diuretic therapy +/- steroid Normocytic normochromic anemia Stable. - follow CBC and transfuse as needed. S/p 1 unit 09/03 per hematology. Diarrhea: C. difficile PCR negative;Resolved HARPAL Resolved. Renal ultrasound reviewed and no evidence of hydronephrosis on the left. 2. 2.1 x 2.3 cm round non-shadowing lesion supermedial to the upper pole the right kidney of uncertain organ of origin. Appreciate input from nephrology. Avoid all nephrotoxic drugs. - outpt follow-up for right kidney lesion. PPx: Heparin gtt on hold s/t thrombocytopenia. Eric Houser MD Sep 14, 2016 11:49
[2016-09-14] MEDS: LEVOFLOXACIN 750 MG PREMIX INJ 150 ML IV SCH (13:31)
[2016-09-14] MEDS: SODIUM CHLORIDE 0.9% FLUSH 5 ML FLUSH FLUSH SCH ×2 (13:35→21:04)
[2016-09-15] VITALS: BP 119/56; PULSE 81; RESP 16; TEMP 96; O2SAT 95
[2016-09-15] MEDS: CHLORHEXIDINE GLUCONATE 2 % 1 PACK (2 CLOTHS) TOP SCH (03:32)
[2016-09-15 04:00] VITALS: BP 157/68; PULSE 76; RESP 16; TEMP 96.8; O2SAT 94
[2016-09-15 07:50] VITALS: BP 126/59; PULSE 73; RESP 20; TEMP 95.1; O2SAT 66; O2SAT 96
[2016-09-15 08:10] LABS: BASOPHIL % 0.3 % (0.0-2.0); EOSINOPHIL % 0.3 % (0.0-4.0); HEMATOCRIT 25.6 % (35.0-46.0); LYMPH % 19.3 % (9.0-44.0); LYMPHOCYTE # 1.8 TH/MM3 (1.0-4.8); MEAN CELL VOLUME 90.1 FL (80.0-100.0); MEAN CORPUSCULAR HEMOGLOBIN 29.1 PG (27.0-34.0); MEAN CORPUSCULAR HGB CONC 32.3 % (32.0-36.0); MONO % 13.7 % (0.0-8.0); NEUT % 66.4 % (16.0-70.0); RED BLOOD COUNT 2.84 MIL/MM3 (4.00-5.30); WHITE BLOOD COUNT 9.1 TH/MM3 (4.0-11.0)
[2016-09-15 08:17] LABS: HEMO FLAGS AUTO DIFF
[2016-09-15 08:23] LABS: PLATELET COUNT 18 TH/MM3 (150-450)
[2016-09-15] MEDS: SODIUM CHLORIDE 0.9% FLUSH 5 ML FLUSH FLUSH SCH ×2 (08:56→20:45)
[2016-09-15] MEDS: PANTOPRAZOLE SOD 40 MG DELAYED RELEASE TAB PO SCH (08:56)
[2016-09-15] MEDS: LACTOBACILLUS ACIDOPHILUS TAB PO SCH ×2 (08:56→20:44)
[2016-09-15] MEDS ORDERED: SODIUM CHLOR 0.9% 250 ML INJ 250 ML IV ONE (09:15)
--- NOTE | 2016-09-15 09:25 | HHI.PR ---
Subjective Remarks Follow-up ischemic left foot/left big toe 09/06/16-patient seen and examined; she had Left hallux and 2nd digit amputation ; patient with decubitus ulcer, no other issues. Case discussed with Dr. Medeiros 09/07/16-patient seen and examined, denies any left foot pain. Currently afebrile. No other issues. 09/08/16-patient seen and examined, stable and no complaints. 09/09/16-patient seen and examined, currently nothing by mouth with diarrheal stool. C. difficile PCR negative. Case discussed with gastroenterology. 09/10/16-patient seen and examined. NG tube clog up. No other issues 09/11/16-patient seen and examined. She underwent EGD with PEG tube placement today 09/12/16-patient seen and examined; tolerating tube feed through PEG; left arm swelling but not pain. Afebrile 09/13/16-patient seen and examined; now doing well with feed tube with tray without any complication of nausea or emesis. Afebrile.Denies any shortness of breath 09/14/16-patient seen and examined, currently resting and no acute event overnight. Niece by the bedside and stated the patient did not take much in term of by mouth yesterday 09/15/16-patient seen and examined; currently resting with no acute events overnight. Tolerating tube feeds. Afebrile, vital signs stable. Objective Vitals Vital Signs Date Time Temp Pulse Resp B/P Pulse Ox O2 Delivery O2 Flow Rate FiO2 09/15/16 07:50 95.1 73 20 126/59 66 09/15/16 04:00 96.8 76 16 157/68 94 09/15/16 00:00 96.0 81 16 119/56 95 09/14/16 20:00 96.2 78 16 123/58 95 09/14/16 17:37 95 Nasal Cannula 2.00 09/14/16 16:00 97.0 79 16 152/67 95 09/14/16 12:38 Nasal Cannula 2.00 09/14/16 12:00 97.3 70 16 124/56 93 I/O 09/14/16 09/14/16 09/14/16 09/15/16 09/15/16 09/15/16 07:00 15:00 23:00 07:00 15:00 23:00 Intake Total 1760 ml 100 ml 1190 ml 120 ml Output Total 350 ml 500 ml Balance 1410 ml 100 ml 1190 ml -380 ml Intake Oral 480 ml 100 ml 480 ml 120 ml IV Total 170 ml Tube Feeding 980 ml 410 ml Other 300 ml 130 ml Output Urine Total 350 ml 500 ml # Voids 2 # Bowel Movements 2 2 Result Diagram: 09/15/16 0547 Objective Remarks GENERAL: No acute distress SKIN: Warm and dry. Left lower extremity redness HEAD: Normocephalic. EYES: No scleral icterus. No injection or drainage. NECK: Supple, trachea midline. No JVD or lymphadenopathy. CARDIOVASCULAR: Regular rate and rhythm without murmurs, gallops, or rubs. RESPIRATORY: Breath sounds equal bilaterally. No accessory muscle use. GASTROINTESTINAL: Abdomen soft, non-tender, nondistended. PEG tube in place MUSCULOSKELETAL: No cyanosis, or edema. s/p Left hallux and 2nd digit amputation. BACK: Nontender without obvious deformity. Procedures 09/06/16 status post Left hallux and 2nd digit amputation A/P Problem List: (1) Cellulitis of left lower extremity ICD Code: L03.116 Status: Acute (2) PVD (peripheral vascular disease) ICD Code: I73.9 Status: Acute (3) Hyperkalemia ICD Code: E87.5 Status: Acute (4) HARPAL (acute kidney injury) ICD Code: N17.9 Status: Acute (5) HTN (hypertension) ICD Code: I10 Status: Chronic (6) COPD (chronic obstructive pulmonary disease) ICD Code: J44.9 Status: Chronic (7) Respiratory failure ICD Code: J96.90 Status: Resolved (8) Normochromic normocytic anemia ICD Code: D64.9 Status: Acute Assessment and Plan 85yr old female PVD/ Gangrene S/p angioplasty as per [facility]. The pt has gangrenous changes in the lower extremities. 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 Continue with Toradol when necessary for pain -Continue to hold heparin gtt, Plavix in setting of thrombocytopenia. Thrombocytopenia/ DIC The pt has a history of thrombocytopenia but her plt count continues to drop. Appreciate hematology consult. Per hematology the pt is in DIC s/t gangrene and the underlying issue needs to be addressed. - Continue to follow CBC. INR - hold heparin gtt/ Plavix f - continue antibiotics. - Transfuse 2 units platelets today as platelet count 18,000 Malnutrition Postoperatively very poor appetite. Failed calorie count. Appreciate GI consult. - s/p EGD with PEG tube placement 09/11/16 -Continue Tube feed with tray -Consider trial of Marinol LLE Cellulitis Wound on plantar aspect of left foot x2 wks. Outpatient Wound Cultures positive for Staph per report. Resolved. Left arm swelling: DVT ruled out with Doppler 09/12/16 Aspiration PNA Chest x-ray with evidence of consolidation. Repeat CXR 09/12/16 noted and reviewed - Continue IV Levaquin 09/02. - Speech therapy follow-up. Acute Hypercapnic respiratory failure: Keep oxygen saturation above 92%; may consider BIPAP vs Diuretic therapy +/- steroid Normocytic normochromic anemia Stable. - follow CBC and transfuse as needed. S/p 1 unit 09/03 per hematology. Diarrhea: C. difficile PCR negative;Resolved HARPAL Resolved. Renal ultrasound reviewed and no evidence of hydronephrosis on the left. 2. 2.1 x 2.3 cm round non-shadowing lesion supermedial to the upper pole the right kidney of uncertain organ of origin. Appreciate input from nephrology. Avoid all nephrotoxic drugs. - outpt follow-up for right kidney lesion. PPx: Heparin gtt on hold s/t thrombocytopenia. Case reviewed and discussed with the resident. Agree with plan of care as discussed with me and documented in the resident note. Renee Ellison MD R3 Sep 15, 2016 09:25 Yaron Bower MD Sep 15, 2016 15:45
[2016-09-15 09:38] LABS: BANDS 3 % (0-6); NEUTROPHIL # MANUAL DIFF 6.8 TH/MM3 (1.8-7.7); POLYS (SEG NEUTROPHILS) 72 % (16-70); WBC DIFF SAMPLE 100
[2016-09-15 09:39] LABS: PLATELET ESTIMATE SMEAR RARE (NORMAL); PLATELET MORPHOLOGY ENLARGED (NORMAL); SCAN/DIFF FINAL DIFF MANUAL
[2016-09-15 11:30] VITALS: BP 116/51; PULSE 70; RESP 20; TEMP 96.7; O2SAT 97
[2016-09-15 15:00] VITALS: BP 124/58; PULSE 80; RESP 20; TEMP 97.1; O2SAT 97
[2016-09-15] MEDS: LEVOFLOXACIN 750 MG PREMIX INJ 150 ML IV SCH (16:37)
[2016-09-15 20:00] VITALS: BP 166/74; PULSE 88; RESP 19; TEMP 98.8; O2SAT 98
[2016-09-16] VITALS (14 sets, daily range): BP systolic 129–159; BP diastolic 48–69; PULSE 77–88; RESP 16–18; TEMP 95.8–97.8; O2SAT 84–96
[2016-09-16] MEDS: RESP: ALBUTEROL 2.5 MG/IPRATROPIUM 0.5 MG NEB (PRN) NEB (01:06)
[2016-09-16] MEDS: CHLORHEXIDINE GLUCONATE 2 % 1 PACK (2 CLOTHS) TOP SCH (03:16)
[2016-09-16 07:51] LABS: AUTOMATED NEUTROPHIL # 5.9 TH/MM3 (1.8-7.7); BASOPHIL % 0.2 % (0.0-2.0); HEMATOCRIT 21.8 % (35.0-46.0); LYMPH % 13.8 % (9.0-44.0); LYMPHOCYTE # 1.2 TH/MM3 (1.0-4.8); MEAN CORPUSCULAR HEMOGLOBIN 29.3 PG (27.0-34.0); MEAN CORPUSCULAR HGB CONC 32.5 % (32.0-36.0); RED BLOOD COUNT 2.42 MIL/MM3 (4.00-5.30); RED CELL DISTRIBUTION WIDTH 16.9 % (11.6-17.2); WHITE BLOOD COUNT 8.4 TH/MM3 (4.0-11.0)
[2016-09-16 07:55] LABS: HEMO FLAGS AUTO DIFF
[2016-09-16 07:56] LABS: PLATELET COUNT 15 TH/MM3 (150-450)
[2016-09-16] MEDS ORDERED: SODIUM CHLOR 0.9% 250 ML INJ 250 ML IV ONE (10:00)
[2016-09-16] MEDS ORDERED: FUROSEMIDE 20 MG/2 ML VIAL IV ONE (10:00)
--- NOTE | 2016-09-16 10:12 | PD.ONC.PN ---
Subjective Subjective Remarks Afebrile overnight. Pt states she is doing OK. Very [place]. Per nursing she has had no bleeding episodes. Discussed with pt about doing a bone marrow biopsy. She states she has had one of these about 10 years ago and is willing to go through with another one. Objective Data Date Time Temp Pulse Resp B/P Pulse Ox O2 Delivery O2 Flow Rate FiO2 09/16/16 04:00 96.4 85 17 144/65 94 09/16/16 00:00 97.2 88 18 150/68 95 09/15/16 20:00 98.8 88 19 166/74 98 09/15/16 15:00 97.1 80 20 124/58 97 09/15/16 11:30 96.7 70 20 116/51 97 Result Diagram: 09/16/16 0728 Laboratory Results Laboratory Tests Test 09/15/16 09/16/16 11:17 07:28 Blood Type A POSITIVE Antibody Screen NEGATIVE Blood Bank Comment White Blood Count 8.4 TH/MM3 Red Blood Count 2.42 MIL/MM3 Hemoglobin 7.1 GM/DL Hematocrit 21.8 % Mean Corpuscular Volume 90.0 FL Mean Corpuscular Hemoglobin 29.3 PG Mean Corpuscular Hemoglobin 32.5 % Concent Red Cell Distribution Width 16.9 % Platelet Count 15 TH/MM3 Mean Platelet Volume 10.5 FL Neutrophils (%) (Auto) 70.0 % Lymphocytes (%) (Auto) 13.8 % Monocytes (%) (Auto) 16.0 % Eosinophils (%) (Auto) 0.0 % Basophils (%) (Auto) 0.2 % Neutrophils # (Auto) 5.9 TH/MM3 Lymphocytes # (Auto) 1.2 TH/MM3 Monocytes # (Auto) 1.4 TH/MM3 Eosinophils # (Auto) 0.0 TH/MM3 Basophils # (Auto) 0.0 TH/MM3 CBC Comment AUTO DIFF Administered Medications Medications (Trade) Dose Ordered Sig/Alejandro Route PRN Reason Start Time Stop Time Status Last Admin Dose Admin IV Flush (NS Flush) 2 ml UNSCH PRN FLUSH FLUSH AFTER USING IV ACCESS 08/16/16 22:30 09/03/16 22:33 IV Flush (NS Flush) 2 ml BID FLUSH 08/17/16 09:00 09/15/16 20:45 Ondansetron HCl (Zofran Inj) 4 mg Q6H PRN IVP NAUSEA OR VOMITING 08/16/16 22:30 08/26/16 12:15 Miscellaneous Information 1 [id number] XX 08/17/16 01:00 08/17/16 01:00 Chlorhexidine Gluconate (Chlorhexidine 2% Cloth) Taper DAILY@04 TOP 08/17/16 04:00 08/13/17 03:59 08/17/16 03:40 Lactobacillus Acidophilus (Lactinex) 1 tab Q12HR PO 08/20/16 21:00 09/15/16 20:44 Clopidogrel Bisulfate 75 mg 75 mg DAILY PO 08/22/16 21:00 Hold 08/30/16 07:55 Levofloxacin/ Dextrose (Levaquin 750 Mg Premix Inj) 150 ml @ 100 mls/hr Q24H IV 09/02/16 12:00 09/15/16 16:37 Pantoprazole Sodium (Protonix) 40 mg DAILY PO 09/11/16 13:00 09/15/16 08:56 Objective Remarks GENERAL: Older female, lying in bed watching TV in no distress. SKIN: Warm and dry. Multiple ecchymoses noted to bilateral upper and lower extremities. Very mild oozing noted to peripheral IV. HEAD: Normocephalic. EYES: No injection or drainage. NECK: Supple, trachea midline. CARDIOVASCULAR: +S1/S2. No murmur appreciated. RESPIRATORY: Lungs clear throughout. Diminished to bases. GASTROINTESTINAL: +BS. Soft. Non tender. EXTREMITIES: 1+ edema to BLE. NEUROLOGICAL: Awake and alert. No obvious focal deficit. Assessment/Plan Problem List: (1) Thrombocytopenia Status: Acute Plan: 09/16/16: Platelets 15K today despite getting 2 units yesterday. Will order HLA matched platelets for refractory transfusions. Will transfuse one unit platelets and PRBC's today. BMB ordered. -- The thrombocytopenia is behaving less like a consumptive coagulopathy and more like a production failure in the marrow. -- We will order a bone marrow biopsy to r/o an underlying condition. Hospital Workup: The patient states that she had a bone marrow biopsy done approximately 10 years ago. She does not remember what the results were that time. During this hospitalization and her platelet count has been as high as 107 ,000 and today they are 15,000. This is behaving less like a consumptive coagulopathy and more like a problem with production in the bone marrow. We will plan to schedule a bone marrow biopsy for further workup. (2) Normochromic normocytic anemia Status: Acute Plan: 09/16/16: Hgb 7.1 Will transfuse 1 unit PRBC's today. Pt will be going down for bone marrow biopsy with IR. Assessment 85 y/o female who presents to the ER with c/o cellulitis on her L foot. Plan 1. Transfuse 1 unit platelets, 1 unit PRBC's today. 2. Schedule bone marrow biopsy to determine cause of persistent thrombocytopenia. 3. Supportive care. Fariha Rodriguez Sep 16, 2016 10:12
[2016-09-16 10:22] LABS: BANDS 1 % (0-6); METAMYELOCYTES 1 % (0-1); NEUTROPHIL # MANUAL DIFF 6.1 TH/MM3 (1.8-7.7); PLATELET ESTIMATE SMEAR RARE (NORMAL); PLATELET MORPHOLOGY NORMAL (NORMAL); POLYS (SEG NEUTROPHILS) 71 % (16-70); SCAN/DIFF FINAL DIFF MANUAL; WBC DIFF SAMPLE 100
[2016-09-16 10:23] LABS: OVALOCYTES 1+ (NORMAL)
[2016-09-16] MEDS: LACTOBACILLUS ACIDOPHILUS TAB PO SCH ×2 (12:39→21:52)
[2016-09-16] MEDS: SODIUM CHLORIDE 0.9% FLUSH 5 ML FLUSH FLUSH SCH ×2 (12:39→21:53)
[2016-09-16] MEDS: PANTOPRAZOLE SODIUM 40 MG VIAL IV PUSH SCH (12:39)
--- NOTE | 2016-09-16 14:00 | HHI.PR ---
Subjective Remarks Follow up for PVD, Thrombocytopenia. Ms. High does not hear very well. She denies any chest pain, shortness of breath, fever, chills. Platelet count dropped to 15K. No signs of bleeding. Objective Vitals Vital Signs Date Time Temp Pulse Resp B/P Pulse Ox O2 Delivery O2 Flow Rate FiO2 09/16/16 13:16 97.2 77 18 142/61 94 09/16/16 12:46 97.6 79 18 147/64 84 09/16/16 12:00 96.6 80 16 129/59 94 09/16/16 11:28 97.6 84 18 137/60 09/16/16 11:28 97.6 84 18 137/60 94 09/16/16 11:07 83 130/59 09/16/16 11:06 97.8 83 16 132/59 93 09/16/16 10:07 96 Nasal Cannula 2.00 09/16/16 08:00 95.8 79 16 129/48 95 09/16/16 04:00 96.4 85 17 144/65 94 09/16/16 00:00 97.2 88 18 150/68 95 09/15/16 20:00 98.8 88 19 166/74 98 09/15/16 15:00 97.1 80 20 124/58 97 I/O 09/15/16 09/15/16 09/15/16 09/16/16 09/16/16 09/16/16 07:00 15:00 23:00 07:00 15:00 23:00 Intake Total 120 ml 0 ml 1311 ml 120 ml Output Total 500 ml 1 ml Balance -380 ml -1 ml 1311 ml 120 ml Intake Oral 120 ml 0 ml 120 ml 120 ml Tube Feeding 1061 ml Other 130 ml Output Urine Total 500 ml 1 ml # Voids 1 1 # Bowel Movements 2 1 0 Result Diagram: 09/16/16 0728 Objective Remarks GENERAL: Alert, NAD. SKIN: Warm and dry. LLE skin erythematous. HEAD: Normocephalic. EYES: No scleral icterus. No injection or drainage. NECK: Supple, trachea midline. No JVD or lymphadenopathy. CARDIOVASCULAR: Regular rate and rhythm without murmurs, gallops, or rubs. RESPIRATORY: Breath sounds equal bilaterally. No accessory muscle use. GASTROINTESTINAL: Abdomen soft, non-tender, nondistended. MUSCULOSKELETAL: No cyanosis, or edema. s/p Left foot surgery. BACK: Nontender without obvious deformity. No CVA tenderness. Procedures 09/06/16 status post Left hallux and 2nd digit amputation A/P Problem List: (1) Cellulitis of left lower extremity ICD Code: L03.116 Status: Acute (2) PVD (peripheral vascular disease) ICD Code: I73.9 Status: Acute (3) Hyperkalemia ICD Code: E87.5 Status: Acute (4) HARPAL (acute kidney injury) ICD Code: N17.9 Status: Acute (5) HTN (hypertension) ICD Code: I10 Status: Chronic (6) COPD (chronic obstructive pulmonary disease) ICD Code: J44.9 Status: Chronic (7) Respiratory failure ICD Code: J96.90 Status: Resolved (8) Normochromic normocytic anemia ICD Code: D64.9 Status: Acute Assessment and Plan 85yr old female PVD/ Gangrene - S/p angioplasty as per [facility] surgery. The pt has gangrenous changes in the lower extremities. 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 Continue with Toradol when necessary for pain - Continue to hold heparin gtt, Plavix in setting of thrombocytopenia. Thrombocytopenia/ DIC - The pt has a history of thrombocytopenia but her plt count continues to drop. Appreciate hematology consult. 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 - Continue to follow CBC. INR - hold heparin gtt/ Plavix - continue antibiotics - Levofloxacin - Plt count 15K today. Hematology ordered one unit of Platelet transfusion today 09/16/2016. Malnutrition Postoperatively very poor appetite. Failed calorie count. Appreciate GI consult. - s/p EGD with PEG tube placement 09/11/16 - Continue Tube feed with tray - Consider trial of Marinol LLE Cellulitis - Wound on plantar aspect of left foot x2 wks. Outpatient Wound Cultures positive for Staph per report. Resolved. Left arm swelling: DVT ruled out with Doppler 09/12/16 Aspiration PNA - Chest x-ray with evidence of consolidation. Repeat CXR 09/12/16 noted and reviewed - Continue IV Levaquin 09/02. - Speech therapy follow-up. Acute Hypercapnic respiratory failure: Keep oxygen saturation above 92%; may consider BIPAP vs Diuretic therapy +/- steroid Normocytic normochromic anemia Stable. - follow CBC and transfuse as needed. S/p 1 unit 09/03 per hematology. Diarrhea: C. difficile PCR negative;Resolved HARPAL Resolved. Renal ultrasound reviewed and no evidence of hydronephrosis on the left. 2. 2.1 x 2.3 cm round non-shadowing lesion supermedial to the upper pole the right kidney of uncertain organ of origin. Appreciate input from nephrology. Avoid all nephrotoxic drugs. - outpt follow-up for right kidney lesion. Full code. PPx: Heparin gtt on hold s/t thrombocytopenia. Daniel Rae DO Sep 16, 2016 14:00
[2016-09-16] MEDS: LEVOFLOXACIN 750 MG PREMIX INJ 150 ML IV SCH (16:08)
[2016-09-17] VITALS (13 sets, daily range): BP systolic 107–161; BP diastolic 49–70; PULSE 64–84; RESP 16–26; TEMP 96.7–98.6; O2SAT 92–100
[2016-09-17] MEDS: LACTOBACILLUS ACIDOPHILUS TAB PO SCH ×2 (00:30→09:00)
[2016-09-17] MEDS: SODIUM CHLORIDE 0.9% FLUSH 5 ML FLUSH FLUSH SCH ×2 (00:30→09:00)
[2016-09-17] MEDS: CHLORHEXIDINE GLUCONATE 2 % 1 PACK (2 CLOTHS) TOP SCH (04:52)
[2016-09-17 07:20] LABS: AUTOMATED NEUTROPHIL # 5.6 TH/MM3 (1.8-7.7); BASOPHIL % 0.1 % (0.0-2.0); EOSINOPHIL % 0.2 % (0.0-4.0); HEMATOCRIT 26.9 % (35.0-46.0); LYMPH % 18.6 % (9.0-44.0); LYMPHOCYTE # 1.5 TH/MM3 (1.0-4.8); MEAN CELL VOLUME 86.1 FL (80.0-100.0); MEAN CORPUSCULAR HEMOGLOBIN 28.7 PG (27.0-34.0); MEAN CORPUSCULAR HGB CONC 33.3 % (32.0-36.0); MONO % 13.6 % (0.0-8.0); NEUT % 67.5 % (16.0-70.0); RED BLOOD COUNT 3.12 MIL/MM3 (4.00-5.30); RED CELL DISTRIBUTION WIDTH 18.7 % (11.6-17.2); WHITE BLOOD COUNT 8.3 TH/MM3 (4.0-11.0)
[2016-09-17 07:32] LABS: HEMO FLAGS AUTO DIFF; PLATELET COUNT 17 TH/MM3 (150-450)
[2016-09-17 07:37] LABS: RETIC % 2.3 % (0.4-3.0)
[2016-09-17 07:38] LABS: REVIEW FLAG FINAL
[2016-09-17 07:41] LABS: ALKALINE PHOSPHATASE 71 U/L (45-117); ALT (GPT) 13 U/L (10-53); ANION GAP 5 MEQ/L (5-15); AST (GOT) 7 U/L (15-37); BICARBONATE 41.7 MEQ/L (21.0-32.0); BLOOD UREA NITROGEN 35 MG/DL (7-18); CHLORIDE 99 MEQ/L (98-107); GLOMERULAR FILTRATION RATE 99 ML/MIN (>89); POTASSIUM 3.9 MEQ/L (3.5-5.1); SODIUM (NA) 146 MEQ/L (136-145); TOTAL BILIRUBIN ADULT 0.4 MG/DL (0.2-1.0)
[2016-09-17] MEDS ORDERED: diphenhydrAMINE HCL 25 MG CAP PO PRN (07:45)
[2016-09-17] MEDS ORDERED: SODIUM CHLOR 0.9% 250 ML INJ 250 ML IV ONE (07:45)
[2016-09-17] MEDS ORDERED: ACETAMINOPHEN 325 MG TAB PO PRN (07:45)
[2016-09-17 08:47] LABS: BANDS 5 % (0-6); NEUTROPHIL # MANUAL DIFF 6.7 TH/MM3 (1.8-7.7); POLYS (SEG NEUTROPHILS) 76 % (16-70); SCAN/DIFF FINAL DIFF MANUAL; WBC DIFF SAMPLE 100
[2016-09-17 08:48] LABS: PLATELET ESTIMATE SMEAR RARE (NORMAL); PLATELET MORPHOLOGY NORMAL (NORMAL)
[2016-09-17] MEDS: PANTOPRAZOLE SODIUM 40 MG VIAL IV PUSH SCH (11:00)
--- NOTE | 2016-09-17 11:48 | PD.ONC.PN ---
Subjective Subjective Remarks Afebrile overnight. Niece at bedside. Per nurse, patient has been lethargic this AM. She also noticed a rash on her back, present for the past few days. The patient is hard of hearing and it is difficult to assess her. Niece at bedside tells me she also noticed the patient is lethargic today. Objective Data Date Time Temp Pulse Resp B/P Pulse Ox O2 Delivery O2 Flow Rate FiO2 09/17/16 11:25 97.7 70 26 131/65 95 09/17/16 10:32 97 Nasal Cannula 2.00 09/17/16 10:25 97.8 84 16 119/55 95 09/17/16 08:31 96.7 71 16 126/51 94 09/17/16 04:45 98.6 77 16 137/49 92 09/17/16 00:00 97.8 79 16 161/70 95 09/16/16 21:18 96 Nasal Cannula 2.00 09/16/16 20:00 97.3 81 16 156/67 95 09/16/16 16:00 97.2 82 16 159/67 93 09/16/16 15:58 97.2 83 18 159/69 93 09/16/16 13:16 97.2 77 18 142/61 94 09/16/16 12:46 97.6 79 18 147/64 84 09/16/16 12:00 96.6 80 16 129/59 94 Result Diagram: 09/17/16 0558 09/17/16 0558 Laboratory Results Laboratory Tests Test 09/16/16 09/16/16 09/17/16 09/17/16 12:57 21:25 05:58 07:31 Platelet Count 43 TH/MM3 19 TH/MM3 17 TH/MM3 White Blood Count 8.3 TH/MM3 Red Blood Count 3.12 MIL/MM3 Hemoglobin 9.0 GM/DL Hematocrit 26.9 % Mean Corpuscular Volume 86.1 FL Mean Corpuscular Hemoglobin 28.7 PG Mean Corpuscular Hemoglobin 33.3 % Concent Red Cell Distribution Width 18.7 % Mean Platelet Volume 10.5 FL Neutrophils (%) (Auto) 67.5 % Lymphocytes (%) (Auto) 18.6 % Monocytes (%) (Auto) 13.6 % Eosinophils (%) (Auto) 0.2 % Basophils (%) (Auto) 0.1 % Neutrophils # (Auto) 5.6 TH/MM3 Lymphocytes # (Auto) 1.5 TH/MM3 Monocytes # (Auto) 1.1 TH/MM3 Eosinophils # (Auto) 0.0 TH/MM3 Basophils # (Auto) 0.0 TH/MM3 CBC Comment AUTO DIFF Differential Total Cells 100 Counted Neutrophils % (Manual) 76 % Band Neutrophils % 5 % Lymphocytes % 10 % Monocytes % 9 % Neutrophils # (Manual) 6.7 TH/MM3 Differential Comment FINAL DIFF MANUAL Platelet Estimate RARE Platelet Morphology Comment NORMAL Basophilic Stippling MOD Reticulocyte Count 2.3 % Absolute Reticulocyte Count 73.2 MIL/L Sodium Level 146 MEQ/L Potassium Level 3.9 MEQ/L Chloride Level 99 MEQ/L Carbon Dioxide Level 41.7 MEQ/L Anion Gap 5 MEQ/L Blood Urea Nitrogen 35 MG/DL Creatinine 0.58 MG/DL Estimat Glomerular Filtration 99 ML/MIN Rate Random Glucose 87 MG/DL Calcium Level 8.1 MG/DL Total Bilirubin 0.4 MG/DL Aspartate Amino Transf 7 U/L (AST/SGOT) Alanine Aminotransferase 13 U/L (ALT/SGPT) Alkaline Phosphatase 71 U/L Total Protein 5.0 GM/DL Albumin 1.9 GM/DL Blood Bank Comment Administered Medications Medications (Trade) Dose Ordered Sig/Alejandro Route PRN Reason Start Time Stop Time Status Last Admin Dose Admin IV Flush (NS Flush) 2 ml UNSCH PRN FLUSH FLUSH AFTER USING IV ACCESS 08/16/16 22:30 09/03/16 22:33 IV Flush (NS Flush) 2 ml BID FLUSH 08/17/16 09:00 09/16/16 21:53 Ondansetron HCl (Zofran Inj) 4 mg Q6H PRN IVP NAUSEA OR VOMITING 08/16/16 22:30 08/26/16 12:15 Miscellaneous Information 1 [id number] XX 08/17/16 01:00 08/17/16 01:00 Chlorhexidine Gluconate (Chlorhexidine 2% Cloth) Taper DAILY@04 TOP 08/17/16 04:00 08/13/17 03:59 08/17/16 03:40 Lactobacillus Acidophilus (Lactinex) 1 tab Q12HR PO 08/20/16 21:00 09/17/16 09:00 Clopidogrel Bisulfate 75 mg 75 mg DAILY PO 08/22/16 21:00 Hold 08/30/16 07:55 Levofloxacin/ Dextrose (Levaquin 750 Mg Premix Inj) 150 ml @ 100 mls/hr Q24H IV 09/02/16 12:00 09/16/16 16:08 Pantoprazole Sodium 40 mg 40 mg Q24H IV PUSH 09/16/16 11:00 09/16/16 12:39 Sodium Chloride (NS 250 ml Inj) 250 ml @ 15 mls/hr ONCE ONCE IV 09/17/16 07:45 09/18/16 00:24 09/17/16 07:45 Objective Remarks GENERAL: Elderly female, lying in bed, sleeping on approach. SKIN: Warm and dry. Multiple ecchymoses noted to bilateral upper and lower extremities. Very mild oozing noted to peripheral IV. HEAD: Normocephalic. EYES: No injection or drainage. NECK: Supple, trachea midline. CARDIOVASCULAR: +S1/S2. RESPIRATORY: anterior hernández clear. tachypneic GASTROINTESTINAL: thin. soft nontender. EXTREMITIES: LLE with bandages in place, RLE warm and well perfused. NEUROLOGICAL: lethargic. arousable to hard shaking or sternal rub Assessment/Plan Problem List: (1) Altered mental state Status: Acute Plan: --ABG, CT brain, ammonia levels ordered --d/w Dr. Rae (2) Thrombocytopenia Status: Acute Plan: 09/17/16: bone marrow biopsy today. 1 unit platelets ordered 09/16/16: Platelets 15K today despite getting 2 units yesterday. Will order HLA matched platelets for refractory transfusions. Will transfuse one unit platelets and PRBC's today. BMB ordered. -- The thrombocytopenia is behaving less like a consumptive coagulopathy and more like a production failure in the marrow. -- We will order a bone marrow biopsy to r/o an underlying condition. Hospital Workup: The patient states that she had a bone marrow biopsy done approximately 10 years ago. She does not remember what the results were that time. During this hospitalization and her platelet count has been as high as 107 ,000 and today they are 15,000. This is behaving less like a consumptive coagulopathy and more like a problem with production in the bone marrow. We will plan to schedule a bone marrow biopsy for further workup. (3) Normochromic normocytic anemia Status: Acute Plan: 09/17/16: hgb improved to 9.0 today 09/16/16: Hgb 7.1 Will transfuse 1 unit PRBC's today. Pt will be going down for bone marrow biopsy with IR. 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 Hematology following for anemia, thrombocytopenia. --Aspiration PNA-->on IV levaquin Plan 1. Transfuse 1 unit platelets today 2. CT brain, ABG, ammonia levels ordered d/w Dr. Rae, patient's nurse, patient, patient's niece, Tamela Angel Sep 17, 2016 11:48 Tamela Reynolds Sep 17, 2016 11:48
--- NOTE | 2016-09-17 12:20 | RADRPT ---
EXAM DATE/TIME: 09/17/2016 12:05 [facility] COMPARISON: No previous studies available for comparison. INDICATIONS : Altered mental status RADIATION DOSE: 56.35 CTDIvol (mGy) MEDICAL HISTORY : Hypertension. SURGICAL HISTORY : None. ENCOUNTER: Initial ACUITY: 1 day PAIN SCALE: Non-responsive LOCATION: cranial TECHNIQUE: Multiple contiguous axial images were obtained of the head. Using automated exposure control and adj ustment of the mA and/or kV according to patient size, radiation dose was kept as low as reasonably a chievable to obtain optimal diagnostic quality images. FINDINGS: CEREBRUM: There is mild cerebral atr. Ventricles are normal in size. There is mild periventricular white matter low-attenuation. No evidence of midline shift, mass lesion, hemorrhage or acute infarction. No ext ra-axial fluid collections are seen. POSTERIOR FOSSA: The cerebellum and brainstem are intact. The 4th ventricle is midline. The cerebellopontine angle i s unremarkable. EXTRACRANIAL: There is fluid within the mastoid air cells bilaterally. SKULL: The calvaria is intact. No evidence of skull fracture. CONCLUSION: 1. No acute intracranial abnormality is identified. Chronic changes include mild cerebral atrophy and periventricular white matter low attenuation characteristic of chronic microvascular ischemia. 2. There is fluid in the mastoid air cells bilaterally which can be seen with acute mastoiditis. Josue Mccall MD on September 17, 2016 at 12:17 Board Certified Radiologist. This report was verified electronically.
[2016-09-17 13:04] LABS: BLOOD GAS BASE EXCESS 14.7 mmol/L (-2-2); BLOOD GAS CARBOXYHEMOGLOBIN 3.4 % (0-4); BLOOD GAS HCO3 40 mmol/L (22-26); BLOOD GAS METHEMOGLOBIN 0.8 % (0-2); BLOOD GAS O2 HGB SATURATION 92 % (90-100); BLOOD GAS OXYGEN CONTENT 10.9 Vol % (12.0-20.0); BLOOD GAS PCO2 66 mmHg (38-42); BLOOD GAS PO2 78 mmHg (61-120); BLOOD GAS TOTAL HGB 8.3 G/DL (12.0-16.0); TEMP CORR TO 98.6
[2016-09-17 13:05] LABS: CRITICAL VALUE YES; DRAW SITE RT RADIAL; LITER FLOW 3 L/M; NUMBER OF ARTERIAL PUNCTURES 2; OXYGEN DEVICE NASAL CANNULA; STAT YES; ULNAR PULSE PRESENT
[2016-09-17] MEDS: LEVOFLOXACIN 750 MG PREMIX INJ 150 ML IV SCH (14:08)
[2016-09-17 14:58] LABS: MAGNESIUM 2.3 MG/DL (1.5-2.5)
[2016-09-17 18:06] LABS: BLOOD GAS BASE EXCESS 13.7 mmol/L (-2-2); BLOOD GAS CARBOXYHEMOGLOBIN 3.4 % (0-4); BLOOD GAS HCO3 39 mmol/L (22-26); BLOOD GAS METHEMOGLOBIN 1.2 % (0-2); BLOOD GAS O2 HGB SATURATION 93 % (90-100); BLOOD GAS PCO2 66 mmHg (38-42); BLOOD GAS PO2 90 mmHg (61-120); BLOOD GAS TOTAL HGB 8.3 G/DL (12.0-16.0); TEMP CORR TO 98.6
[2016-09-17 18:07] LABS: CRITICAL VALUE YES; OXYGEN DEVICE BIPAP; VENT SETTINGS IPAP10/EPAP5
[2016-09-17 18:08] LABS: DRAW SITE RT RADIAL; FIO2 30 %; NUMBER OF ARTERIAL PUNCTURES 1; STAT NO
--- NOTE | 2016-09-17 23:01 | HHI.PR ---
Subjective Remarks Follow up for PVD, possible aspiration pneumonia, respiratory failure. Ms. High appears to be more lethargic today. She wakes up on verbal commands but then drifts to drowsy state. Family member at bedside. No fever, chills. Platelet was transfused yesterday, went up transiently but then dropped again today. Objective Vitals Vital Signs Date Time Temp Pulse Resp B/P Pulse Ox O2 Delivery O2 Flow Rate FiO2 09/17/16 20:00 97.6 71 16 107/49 100 09/17/16 18:21 96 30 09/17/16 16:00 97.4 77 16 121/55 99 09/17/16 15:30 96 35 09/17/16 12:00 97.1 64 16 132/62 97 09/17/16 11:45 97.1 64 16 132/62 97 09/17/16 11:25 97.7 70 26 131/65 95 09/17/16 10:32 97 Nasal Cannula 2.00 09/17/16 10:25 97.8 84 16 119/55 95 09/17/16 08:31 96.7 71 16 126/51 94 09/17/16 04:45 98.6 77 16 137/49 92 09/17/16 00:00 97.8 79 16 161/70 95 I/O 09/16/16 09/16/16 09/16/16 09/17/16 09/17/16 09/17/16 07:00 15:00 23:00 07:00 15:00 23:00 Intake Total 120 ml 80 ml 330 ml Balance 120 ml 80 ml 330 ml Intake Oral 120 ml 80 ml IV Total 150 ml Platelets 180 ml # Voids 1 2 3 2 # Bowel Movements 0 3 1 0 Result Diagram: 09/17/16 0558 09/17/16 0558 Imaging Last Impressions Head CT 09/17/16 0000 Signed Impressions: Service Date/Time: Saturday, September 17, 2016 12:05 - CONCLUSION: 1. No acute intracranial abnormality is identified. Chronic changes include mild cerebral atrophy and periventricular white matter low attenuation characteristic of chronic microvascular ischemia. 2. There is fluid in the mastoid air cells bilaterally which can be seen with acute mastoiditis. Josue Mccall MD Upper Extremity Ultrasound 09/12/16 0000 Signed Impressions: Service Date/Time: September 14:08 - CONCLUSION: No DVT in the left arm. Eric Manning MD Chest X-Ray 09/12/16 0000 Signed Impressions: Service Date/Time: September 12:28 - CONCLUSION: 1. Bilateral mostly basilar and perihilar airspace disease similar in appearance to September 01. Moderate effusions. Findings most characteristic of congestive heart failure. Cannot exclude pneumonia. Sumit Vaughn MD Abdomen X-Ray 08/29/16 0000 Signed Impressions: Service Date/Time: August 19:31 - CONCLUSION: NG tube tip in the stomach. K. Alonzo Rehman MD Angiography 08/22/16 1420 Signed Impressions: Service Date/Time: August 13:13 - CONCLUSION: Diagnostic angiography as described above demonstrates high-grade bilateral external iliac artery stenoses and high-grade left common femoral artery stenosis. Successful angioplasty of the left common femoral artery and left external iliac artery. Right external iliac artery angioplasty and stenting as described above. Significant improvement in luminal patency of the external iliac arteries and left common femoral artery following endovascular treatment. Rajat Hu MD Aorta w/Runoff CTA 08/19/16 0000 Signed Impressions: Service Date/Time: Saturday, August 20, 2016 15:58 - CONCLUSION: Advanced atherosclerotic vasculopathy with hemodynamically significant stenotic/ occlusive lesions in the celiac, superior mesenteric, renal, external iliac, superficial femoral and popliteal arteries as described above. Severe irregularity with moderate to severe stenotic lesions are seen in the infrapopliteal runoff vessels to both calves and feet. Significantly diminished flow is evident to the right foot. Moderate bilateral pleural effusions with consolidating airspace disease in both lower lobes. Rajat Hu MD Renal Ultrasound 08/17/16 0000 Signed Impressions: Service Date/Time: Wednesday, August 17, 2016 16:01 - CONCLUSION: 1. Mild dilation of the collecting system of the right kidney. No evidence of hydronephrosis on the left. 2. 2.1 x 2.3 cm round non-shadowing lesion supermedial to the upper pole the right kidney of uncertain organ of origin. The right adrenal gland could be located in this area. Wei Corley MD Lower Extremity Ultrasound 08/16/16 0000 Signed Impressions: Service Date/Time: Tuesday, August 16, 2016 21:07 - CONCLUSION: No DVT. Josue White MD Foot X-Ray 08/16/16 0000 Signed Impressions: Service Date/Time: Tuesday, August 16, 2016 22:14 - CONCLUSION: No acute disease. Josue White MD Objective Remarks GENERAL: Drowsy but wakes up, NAD. SKIN: Warm and dry. LLE redness. HEAD: Normocephalic. EYES: No scleral icterus. No injection or drainage. NECK: Supple, trachea midline. No JVD or lymphadenopathy. CARDIOVASCULAR: Regular rate and rhythm without murmurs, gallops, or rubs. RESPIRATORY: Breath sounds equal bilaterally. No accessory muscle use. GASTROINTESTINAL: Abdomen soft, non-tender, nondistended. MUSCULOSKELETAL: No cyanosis, or edema. 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 BACK: Nontender without obvious deformity. No CVA tenderness. Procedures 09/06/16 status post Left hallux and 2nd digit amputation A/P Problem List: (1) Cellulitis of left lower extremity ICD Code: L03.116 Status: Acute (2) PVD (peripheral vascular disease) ICD Code: I73.9 Status: Acute (3) Hyperkalemia ICD Code: E87.5 Status: Acute (4) HARPAL (acute kidney injury) ICD Code: N17.9 Status: Acute (5) HTN (hypertension) ICD Code: I10 Status: Chronic (6) COPD (chronic obstructive pulmonary disease) ICD Code: J44.9 Status: Chronic (7) Respiratory failure ICD Code: J96.90 Status: Resolved (8) Normochromic normocytic anemia ICD Code: D64.9 Status: Acute Assessment and Plan 85yr old female - Hypercapnic respiratory failure - patient is oxygenating well. However, ABG shows her CO2 is 66, previous CO2 on ABG was 45. This may be the cause of patient's lethargy. - Will start patient on BiPAP therapy with 10/5 setting. - Repeat ABG at 6PM. - Discussed with patient's niece regarding code status. - She discussed with patient's children and called me back. As of now, patient remains full code. PVD/ Gangrene - S/p angioplasty as per vasc surgery. The pt has gangrenous changes in the lower extremities. 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 Continue with Toradol when necessary for pain - Continue to hold heparin gtt, Plavix in setting of thrombocytopenia. Thrombocytopenia/ DIC - The pt has a history of thrombocytopenia but her plt count continues to drop. Appreciate hematology consult. 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 - Continue to follow CBC. INR - hold heparin gtt/ Plavix - continue antibiotics - Levofloxacin - Plt count 15K today. Hematology ordered one unit of Platelet transfusion today 09/16/2016. Transiently improved to 43 but today 17. - Discussed with hematology. Bone marrow bx on hold for now. Malnutrition Postoperatively very poor appetite. Failed calorie count. Appreciate GI consult. - s/p EGD with PEG tube placement 09/11/16 - Continue Tube feed with tray - Consider trial of Marinol LLE Cellulitis - Wound on plantar aspect of left foot x2 wks. Outpatient Wound Cultures positive for Staph per report. Resolved. Left arm swelling: DVT ruled out with Doppler 09/12/16 Aspiration PNA - Chest x-ray with evidence of consolidation. Repeat CXR 09/12/16 noted and reviewed - Continue IV Levaquin 09/02. - Speech therapy follow-up. Acute Hypercapnic respiratory failure: Keep oxygen saturation above 92%; may consider BIPAP vs Diuretic therapy +/- steroid Normocytic normochromic anemia Stable. - follow CBC and transfuse as needed. S/p 1 unit 09/03 per hematology. Diarrhea: C. difficile PCR negative;Resolved HARPAL Resolved. Renal ultrasound reviewed and no evidence of hydronephrosis on the left. 2. 2.1 x 2.3 cm round non-shadowing lesion supermedial to the upper pole the right kidney of uncertain organ of origin. Appreciate input from nephrology. Avoid all nephrotoxic drugs. - outpt follow-up for right kidney lesion. Full code. PPx: Heparin gtt on hold s/t thrombocytopenia. Daniel Rae DO Sep 17, 2016 23:01
[2016-09-18] VITALS (9 sets, daily range): BP systolic 106–130; BP diastolic 47–64; PULSE 70–82; RESP 16–24; TEMP 96.3–98; O2SAT 93–99
[2016-09-18] MEDS: LACTOBACILLUS ACIDOPHILUS TAB PO SCH ×2 (00:30→21:02)
[2016-09-18] MEDS: CHLORHEXIDINE GLUCONATE 2 % 1 PACK (2 CLOTHS) TOP SCH (03:29)
[2016-09-18 05:06] LABS: AUTOMATED NEUTROPHIL # 6.2 TH/MM3 (1.8-7.7); BASOPHIL % 0.2 % (0.0-2.0); EOSINOPHIL % 0.2 % (0.0-4.0); HEMATOCRIT 25.2 % (35.0-46.0); LYMPH % 16.3 % (9.0-44.0); LYMPHOCYTE # 1.4 TH/MM3 (1.0-4.8); MEAN CELL VOLUME 87.5 FL (80.0-100.0); MEAN CORPUSCULAR HEMOGLOBIN 28.4 PG (27.0-34.0); MEAN CORPUSCULAR HGB CONC 32.4 % (32.0-36.0); MONO % 12.8 % (0.0-8.0); NEUT % 70.5 % (16.0-70.0); PLATELET COUNT 23 TH/MM3 (150-450); RED BLOOD COUNT 2.88 MIL/MM3 (4.00-5.30); RED CELL DISTRIBUTION WIDTH 18.2 % (11.6-17.2); WHITE BLOOD COUNT 8.8 TH/MM3 (4.0-11.0)
[2016-09-18 05:52] LABS: HEMO FLAGS AUTO DIFF
[2016-09-18 09:14] LABS: BANDS 9 % (0-6); MYELOCYTES 1 % (0-0); NEUTROPHIL # MANUAL DIFF 6.1 TH/MM3 (1.8-7.7); POLYS (SEG NEUTROPHILS) 59 % (16-70); WBC DIFF SAMPLE 100
[2016-09-18 09:15] LABS: PLATELET ESTIMATE SMEAR LOW (NORMAL); PLATELET MORPHOLOGY NORMAL (NORMAL); SCAN/DIFF FINAL DIFF MANUAL
--- NOTE | 2016-09-18 09:38 | PD.ONC.PN ---
Subjective Subjective Remarks Afebrile overnight. The pt is complaining of her lips being dry. I again spoke with her about getting a bone marrow biopsy today. She is in agreement with the plan. She denies pain or SOB. Objective Data Date Time Temp Pulse Resp B/P Pulse Ox O2 Delivery O2 Flow Rate FiO2 09/18/16 07:32 97 Nasal Cannula 3.00 09/18/16 04:05 97.4 74 18 114/48 99 09/18/16 00:00 97.2 70 16 106/47 97 09/17/16 23:22 99 BiPAP 30 09/17/16 23:22 99 30 09/17/16 20:00 97.6 71 16 107/49 100 09/17/16 18:21 96 30 09/17/16 16:00 97.4 77 16 121/55 99 09/17/16 15:30 96 35 09/17/16 12:00 97.1 64 16 132/62 97 09/17/16 11:45 97.1 64 16 132/62 97 09/17/16 11:25 97.7 70 26 131/65 95 09/17/16 10:32 97 Nasal Cannula 2.00 09/17/16 10:25 97.8 84 16 119/55 95 09/18/16 09/18/16 09/18/16 07:00 15:00 23:00 Intake Total 0 ml Balance 0 ml Result Diagram: 09/18/16 0343 09/17/16 0558 Laboratory Results Laboratory Tests Test 09/17/16 09/17/16 09/17/16 09/17/16 12:53 13:59 14:18 17:56 Blood Gas Puncture Site RT RADIAL RT RADIAL Blood Gas Patient Temperature 98.6 98.6 Blood Gas HCO3 40 mmol/L 39 mmol/L Blood Gas Base Excess 14.7 mmol/L 13.7 mmol/L Blood Gas Oxygen Saturation 92 % 93 % Arterial Blood pH 7.40 7.39 Arterial Blood Partial 66 mmHg 66 mmHg Pressure CO2 Arterial Blood Partial 78 mmHg 90 mmHg Pressure O2 Arterial Blood Oxygen Content 10.9 Vol % 11.0 Vol % Arterial Blood 3.4 % 3.4 % Carboxyhemoglobin Arterial Blood Methemoglobin 0.8 % 1.2 % Blood Gas Hemoglobin 8.3 G/DL 8.3 G/DL Oxygen Delivery Device NASAL CANNULA BIPAP Blood Gas Liter Flow 3 L/M Phosphorus Level 3.6 MG/DL Magnesium Level 2.3 MG/DL Lactic Acid Level 0.7 mmol/L Ammonia 24 MCMOL/L Blood Gas Ventilator Setting IPAP10/EPAP5 Blood Gas Inspired Oxygen 30 % Test 09/18/16 03:43 White Blood Count 8.8 TH/MM3 Red Blood Count 2.88 MIL/MM3 Hemoglobin 8.2 GM/DL Hematocrit 25.2 % Mean Corpuscular Volume 87.5 FL Mean Corpuscular Hemoglobin 28.4 PG Mean Corpuscular Hemoglobin 32.4 % Concent Red Cell Distribution Width 18.2 % Platelet Count 23 TH/MM3 Mean Platelet Volume 11.7 FL Neutrophils (%) (Auto) 70.5 % Lymphocytes (%) (Auto) 16.3 % Monocytes (%) (Auto) 12.8 % Eosinophils (%) (Auto) 0.2 % Basophils (%) (Auto) 0.2 % Neutrophils # (Auto) 6.2 TH/MM3 Lymphocytes # (Auto) 1.4 TH/MM3 Monocytes # (Auto) 1.1 TH/MM3 Eosinophils # (Auto) 0.0 TH/MM3 Basophils # (Auto) 0.0 TH/MM3 CBC Comment AUTO DIFF Differential Total Cells 100 Counted Neutrophils % (Manual) 59 % Band Neutrophils % 9 % Lymphocytes % 20 % Monocytes % 11 % Neutrophils # (Manual) 6.1 TH/MM3 Myelocytes 1 % Differential Comment FINAL DIFF MANUAL Platelet Estimate LOW Platelet Morphology Comment NORMAL Basophilic Stippling FAINT Culture Results Microbiology Date/Time Procedure Status Source Growth 09/17/16 13:59 Aerobic Blood Culture Received Blood Peripheral Pending 09/17/16 13:59 Anaerobic Blood Culture Received Blood Peripheral Pending 09/17/16 14:18 Aerobic Blood Culture Received Blood Peripheral Pending 09/17/16 14:18 Anaerobic Blood Culture Received Blood Peripheral Pending Imaging Studies Last Impressions Head CT 09/17/16 0000 Signed Impressions: Service Date/Time: Saturday, September 17, 2016 12:05 - CONCLUSION: 1. No acute intracranial abnormality is identified. Chronic changes include mild cerebral atrophy and periventricular white matter low attenuation characteristic of chronic microvascular ischemia. 2. There is fluid in the mastoid air cells bilaterally which can be seen with acute mastoiditis. Josue Mccall MD Upper Extremity Ultrasound 09/12/16 0000 Signed Impressions: Service Date/Time: September 14:08 - CONCLUSION: No DVT in the left arm. Eric Manning MD Chest X-Ray 09/12/16 0000 Signed Impressions: Service Date/Time: September 12:28 - CONCLUSION: 1. Bilateral mostly basilar and perihilar airspace disease similar in appearance to September 01. Moderate effusions. Findings most characteristic of congestive heart failure. Cannot exclude pneumonia. Sumit Vaughn MD Abdomen X-Ray 08/29/16 0000 Signed Impressions: Service Date/Time: August 19:31 - CONCLUSION: NG tube tip in the stomach. K. Alonzo Rehman MD Angiography 08/22/16 1420 Signed Impressions: Service Date/Time: August 13:13 - CONCLUSION: Diagnostic angiography as described above demonstrates high-grade bilateral external iliac artery stenoses and high-grade left common femoral artery stenosis. Successful angioplasty of the left common femoral artery and left external iliac artery. Right external iliac artery angioplasty and stenting as described above. Significant improvement in luminal patency of the external iliac arteries and left common femoral artery following endovascular treatment. Rajat Hu MD Aorta w/Runoff CTA 08/19/16 0000 Signed Impressions: Service Date/Time: Saturday, August 20, 2016 15:58 - CONCLUSION: Advanced atherosclerotic vasculopathy with hemodynamically significant stenotic/ occlusive lesions in the celiac, superior mesenteric, renal, external iliac, superficial femoral and popliteal arteries as described above. Severe irregularity with moderate to severe stenotic lesions are seen in the infrapopliteal runoff vessels to both calves and feet. Significantly diminished flow is evident to the right foot. Moderate bilateral pleural effusions with consolidating airspace disease in both lower lobes. Rajat Hu MD Renal Ultrasound 08/17/16 0000 Signed Impressions: Service Date/Time: Wednesday, August 17, 2016 16:01 - CONCLUSION: 1. Mild dilation of the collecting system of the right kidney. No evidence of hydronephrosis on the left. 2. 2.1 x 2.3 cm round non-shadowing lesion supermedial to the upper pole the right kidney of uncertain organ of origin. The right adrenal gland could be located in this area. Wei Corley MD Lower Extremity Ultrasound 08/16/16 0000 Signed Impressions: Service Date/Time: Tuesday, August 16, 2016 21:07 - CONCLUSION: No DVT. Josue White MD Foot X-Ray 08/16/16 0000 Signed Impressions: Service Date/Time: Tuesday, August 16, 2016 22:14 - CONCLUSION: No acute disease. Josue White MD Administered Medications Medications (Trade) Dose Ordered Sig/Alejandro Route PRN Reason Start Time Stop Time Status Last Admin Dose Admin IV Flush (NS Flush) 2 ml UNSCH PRN FLUSH FLUSH AFTER USING IV ACCESS 08/16/16 22:30 09/03/16 22:33 IV Flush (NS Flush) 2 ml BID FLUSH 08/17/16 09:00 09/17/16 00:30 Ondansetron HCl (Zofran Inj) 4 mg Q6H PRN IVP NAUSEA OR VOMITING 08/16/16 22:30 08/26/16 12:15 Miscellaneous Information 1 Q361D XX 08/17/16 01:00 08/17/16 01:00 Chlorhexidine Gluconate (Chlorhexidine 2% Cloth) Taper DAILY@04 TOP 08/17/16 04:00 08/13/17 03:59 08/17/16 03:40 Lactobacillus Acidophilus (Lactinex) 1 tab Q12HR PO 08/20/16 21:00 09/18/16 00:30 Clopidogrel Bisulfate 75 mg 75 mg DAILY PO 08/22/16 21:00 Hold 08/30/16 07:55 Levofloxacin/ Dextrose (Levaquin 750 Mg Premix Inj) 150 ml @ 100 mls/hr Q24H IV 09/02/16 12:00 09/17/16 14:08 Pantoprazole Sodium (Protonix Inj) 40 mg Q24H IV PUSH 09/16/16 11:00 09/17/16 11:00 Objective Remarks GENERAL: Elderly female, lying in bed, awake and watching TV on approach. SKIN: Warm and dry. Multiple ecchymoses noted to bilateral upper and lower extremities. Serous fluid noted to bandages to bilateral upper extremities. HEAD: Normocephalic. EYES: No injection or drainage. NECK: Supple, trachea midline. CARDIOVASCULAR: +S1/S2. RESPIRATORY: Anterior hernández clear. Breathing unlabored. On 2LNC. GASTROINTESTINAL: PEG tube in place to left upper quadrant. EXTREMITIES: LLE with bandages in place, RLE warm and well perfused. NEUROLOGICAL: Alert. No obvious focal deficit. Assessment/Plan Problem List: (1) Thrombocytopenia Status: Acute Plan: 09/18/16: Bone marrow biopsy on hold yesterday due to respiratory status. We will plan to do this today as she is off the BiPAP and much more alert. No platelets today. Discussed with RN. 09/17/16: bone marrow biopsy today. 1 unit platelets ordered 09/16/16: Platelets 15K today despite getting 2 units yesterday. Will order HLA matched platelets for refractory transfusions. Will transfuse one unit platelets and PRBC's today. BMB ordered. -- The thrombocytopenia is behaving less like a consumptive coagulopathy and more like a production failure in the marrow. -- We will order a bone marrow biopsy to r/o an underlying condition. Hospital Workup: The patient states that she had a bone marrow biopsy done approximately 10 years ago. She does not remember what the results were that time. During this hospitalization and her platelet count has been as high as 107 ,000 and today they are 15,000. This is behaving less like a consumptive coagulopathy and more like a problem with production in the bone marrow. We will plan to schedule a bone marrow biopsy for further workup. (2) Altered mental state Status: Resolved Plan: : Pt much more alert today. We will place her on bipap as needed and keep O2 sats greater than or equal to 90. Discussed with RN. -- CT brain study was within normal limits. -- ABG showed an elevated CO2 level. -- Bipap placed yesterday. (3) Normochromic normocytic anemia Status: Acute Plan: 09/18/16: Hgb 8.2 today. No transfusion. Continue to monitor CBC. 09/17/16: hgb improved to 9.0 today 09/16/16: Hgb 7.1 Will transfuse 1 unit PRBC's today. Pt will be going down for bone marrow biopsy with IR. 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 Hematology following for anemia, thrombocytopenia. --Aspiration PNA-->on IV levaquin Plan 1. Will attempt to get BMB today with IR as pt is much more alert and off the BiPAP. 2. Keep O2 sats greater than or equal to 90. 3. CBC in am. 4. Await BMB results. 5. Discussed with AKBAR. Fariha Rodriguez Sep 18, 2016 09:37
[2016-09-18] MEDS: SODIUM CHLORIDE 0.9% FLUSH 5 ML FLUSH FLUSH SCH ×2 (10:24→21:10)
[2016-09-18] MEDS: PANTOPRAZOLE SODIUM 40 MG VIAL IV PUSH SCH (11:49)
[2016-09-18] MEDS: LEVOFLOXACIN 750 MG PREMIX INJ 150 ML IV SCH (12:03)
--- NOTE | 2016-09-18 12:54 | HHI.PR ---
Subjective Remarks ollow up for PVD, possible aspiration pneumonia, respiratory failure. Ms. High is much more alert today - back to her baseline. She was on BiPAP throughout the night. Due to BiPAP she has not been able to sleep well, however. Denies any fever, chills. Going for Bone marrow bx today. Objective Vitals Vital Signs Date Time Temp Pulse Resp B/P Pulse Ox O2 Delivery O2 Flow Rate FiO2 09/18/16 12:00 98.0 82 24 116/50 98 09/18/16 09:00 97.6 76 20 130/49 99 09/18/16 07:32 97 Nasal Cannula 3.00 09/18/16 04:05 97.4 74 18 114/48 99 09/18/16 00:00 97.2 70 16 106/47 97 09/17/16 23:22 99 BiPAP 30 09/17/16 23:22 99 30 09/17/16 20:00 97.6 71 16 107/49 100 09/17/16 18:21 96 30 09/17/16 16:00 97.4 77 16 121/55 99 09/17/16 15:30 96 35 I/O 09/17/16 09/17/16 09/17/16 09/18/16 09/18/16 09/18/16 07:00 15:00 23:00 07:00 15:00 23:00 Intake Total 330 ml 0 ml Balance 330 ml 0 ml Intake Oral 0 ml IV Total 150 ml Platelets 180 ml # Voids 2 2 # Bowel Movements 0 0 Result Diagram: 09/18/16 0343 09/17/16 0558 Imaging Last Impressions Head CT 09/17/16 0000 Signed Impressions: Service Date/Time: Saturday, September 17, 2016 12:05 - CONCLUSION: 1. No acute intracranial abnormality is identified. Chronic changes include mild cerebral atrophy and periventricular white matter low attenuation characteristic of chronic microvascular ischemia. 2. There is fluid in the mastoid air cells bilaterally which can be seen with acute mastoiditis. Josue Mccall MD Upper Extremity Ultrasound 09/12/16 0000 Signed Impressions: Service Date/Time: September 14:08 - CONCLUSION: No DVT in the left arm. Eric Manning MD Chest X-Ray 1/5/17 0000 Signed Impressions: Service Date/Time: September 12:28 - CONCLUSION: 1. Bilateral mostly basilar and perihilar airspace disease similar in appearance to September 01. Moderate effusions. Findings most characteristic of congestive heart failure. Cannot exclude pneumonia. Sumit Vaughn MD Abdomen X-Ray 08/29/16 0000 Signed Impressions: Service Date/Time: August 19:31 - CONCLUSION: NG tube tip in the stomach. K. Alonzo Rehman MD Angiography 08/22/16 1420 Signed Impressions: Service Date/Time: August 13:13 - CONCLUSION: Diagnostic angiography as described above demonstrates high-grade bilateral external iliac artery stenoses and high-grade left common femoral artery stenosis. Successful angioplasty of the left common femoral artery and left external iliac artery. Right external iliac artery angioplasty and stenting as described above. Significant improvement in luminal patency of the external iliac arteries and left common femoral artery following endovascular treatment. Rajat Hu MD Aorta w/Runoff CTA 08/19/16 0000 Signed Impressions: Service Date/Time: Saturday, August 20, 2016 15:58 - CONCLUSION: Advanced atherosclerotic vasculopathy with hemodynamically significant stenotic/ occlusive lesions in the celiac, superior mesenteric, renal, external iliac, superficial femoral and popliteal arteries as described above. Severe irregularity with moderate to severe stenotic lesions are seen in the infrapopliteal runoff vessels to both calves and feet. Significantly diminished flow is evident to the right foot. Moderate bilateral pleural effusions with consolidating airspace disease in both lower lobes. Rajat Hu MD Renal Ultrasound 08/17/16 0000 Signed Impressions: Service Date/Time: Wednesday, August 17, 2016 16:01 - CONCLUSION: 1. Mild dilation of the collecting system of the right kidney. No evidence of hydronephrosis on the left. 2. 2.1 x 2.3 cm round non-shadowing lesion supermedial to the upper pole the right kidney of uncertain organ of origin. The right adrenal gland could be located in this area. Wei Corley MD Lower Extremity Ultrasound 08/16/16 0000 Signed Impressions: Service Date/Time: Tuesday, August 16, 2016 21:07 - CONCLUSION: No DVT. Josue White MD Foot X-Ray 08/16/16 0000 Signed Impressions: Service Date/Time: Tuesday, August 16, 2016 22:14 - CONCLUSION: No acute disease. Josue White MD Objective Remarks GENERAL: Drowsy but wakes up, NAD. SKIN: Warm and dry. LLE redness. HEAD: Normocephalic. EYES: No scleral icterus. No injection or drainage. NECK: Supple, trachea midline. No JVD or lymphadenopathy. CARDIOVASCULAR: Regular rate and rhythm without murmurs, gallops, or rubs. RESPIRATORY: Breath sounds equal bilaterally. No accessory muscle use. GASTROINTESTINAL: Abdomen soft, non-tender, nondistended. MUSCULOSKELETAL: No cyanosis, or edema. 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 BACK: Nontender without obvious deformity. No CVA tenderness. Procedures 09/06/16 status post Left hallux and 2nd digit amputation A/P Problem List: (1) Cellulitis of left lower extremity ICD Code: L03.116 Status: Acute (2) PVD (peripheral vascular disease) ICD Code: I73.9 Status: Acute (3) Hyperkalemia ICD Code: E87.5 Status: Acute (4) HARPAL (acute kidney injury) ICD Code: N17.9 Status: Acute (5) HTN (hypertension) ICD Code: I10 Status: Chronic (6) COPD (chronic obstructive pulmonary disease) ICD Code: J44.9 Status: Chronic (7) Respiratory failure ICD Code: J96.90 Status: Resolved (8) Normochromic normocytic anemia ICD Code: D64.9 Status: Acute Assessment and Plan 85yr old female - Hypercapnic respiratory failure - patient is oxygenating well. Due to CO2 retention, patient was on BiPAP last night - Discussed with RN to reduce O2 requirement to keep O2 sat > 88% - Continue BiPAP tonight as well if she tolerates it. PVD/ Gangrene - S/p angioplasty as per vasc surgery. The pt has gangrenous changes in the lower extremities. 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 Continue with Toradol when necessary for pain - Continue to hold heparin gtt, Plavix in setting of thrombocytopenia. Thrombocytopenia/ DIC - The pt has a history of thrombocytopenia but her plt count continues to drop. Appreciate hematology consult. 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 - Continue to follow CBC. INR - hold heparin gtt/ Plavix - continue antibiotics - Levofloxacin - Plt count 15K today. Hematology ordered one unit of Platelet transfusion today 09/16/2016. Transiently improved to 43 but today 17. - Discussed with hematology. Bone marrow bx attempt today 09/18/2016. Malnutrition Postoperatively very poor appetite. Failed calorie count. Appreciate GI consult. - s/p EGD with PEG tube placement 09/11/16 - Continue Tube feed with tray - Consider trial of Marinol LLE Cellulitis - Wound on plantar aspect of left foot x2 wks. Outpatient Wound Cultures positive for Staph per report. Resolved. Left arm swelling: DVT ruled out with Doppler 09/12/16 Aspiration PNA - Chest x-ray with evidence of consolidation. Repeat CXR 09/12/16 noted and reviewed - Continue IV Levaquin 09/02. - Speech therapy follow-up. Acute Hypercapnic respiratory failure: Keep oxygen saturation above 92%; may consider BIPAP vs Diuretic therapy +/- steroid Normocytic normochromic anemia Stable. - follow CBC and transfuse as needed. S/p 1 unit 09/03 per hematology. Diarrhea: C. difficile PCR negative;Resolved HARPAL Resolved. Renal ultrasound reviewed and no evidence of hydronephrosis on the left. 2. 2.1 x 2.3 cm round non-shadowing lesion supermedial to the upper pole the right kidney of uncertain organ of origin. Appreciate input from nephrology. Avoid all nephrotoxic drugs. - outpt follow-up for right kidney lesion. Full code. PPx: Heparin gtt on hold s/t thrombocytopenia. Overall poor prognosis. I have discussed with niece of the patient regarding DNR code status as well a hospice consult. However, at this point, the goal is aggressive care. Daniel Rae DO Sep 18, 2016 12:54
[2016-09-18] MEDS ORDERED: LIDOCAINE 1%/EPINEPHrine 1:100,000 SOLN 20 ML VIAL ONE (14:27)
[2016-09-19] VITALS (10 sets, daily range): BP systolic 119–148; BP diastolic 48–62; PULSE 72–92; RESP 16–20; TEMP 97.2–98; O2SAT 91–100
[2016-09-19] MEDS: CHLORHEXIDINE GLUCONATE 2 % 1 PACK (2 CLOTHS) TOP SCH (02:40)
[2016-09-19 06:44] LABS: AUTOMATED NEUTROPHIL # 6.1 TH/MM3 (1.8-7.7); BASOPHIL % 0.3 % (0.0-2.0); EOSINOPHIL % 0.2 % (0.0-4.0); HEMATOCRIT 25.3 % (35.0-46.0); LYMPH % 18.5 % (9.0-44.0); LYMPHOCYTE # 1.6 TH/MM3 (1.0-4.8); MEAN CELL VOLUME 88.3 FL (80.0-100.0); MEAN CORPUSCULAR HEMOGLOBIN 28.2 PG (27.0-34.0); MONO % 12.4 % (0.0-8.0); NEUT % 68.6 % (16.0-70.0); RED BLOOD COUNT 2.86 MIL/MM3 (4.00-5.30); RED CELL DISTRIBUTION WIDTH 17.7 % (11.6-17.2); WHITE BLOOD COUNT 8.9 TH/MM3 (4.0-11.0)
[2016-09-19 07:00] LABS: HEMO FLAGS AUTO DIFF
[2016-09-19 07:01] LABS: PLATELET COUNT 18 TH/MM3 (150-450)
[2016-09-19 08:19] LABS: PLATELET ESTIMATE SMEAR RARE (NORMAL); PLATELET MORPHOLOGY ENLARGED (NORMAL); SCAN/DIFF AUTO DIFF CONFIRMED
[2016-09-19] MEDS: PANTOPRAZOLE SODIUM 40 MG VIAL IV PUSH SCH (12:27)
[2016-09-19] MEDS: LEVOFLOXACIN 750 MG PREMIX INJ 150 ML IV SCH (12:28)
[2016-09-19] MEDS: LACTOBACILLUS ACIDOPHILUS TAB PO SCH ×2 (12:28→20:58)
[2016-09-19] MEDS: SODIUM CHLORIDE 0.9% FLUSH 5 ML FLUSH FLUSH SCH ×2 (12:28→20:59)
--- NOTE | 2016-09-19 13:39 | HHI.PR ---
Subjective Remarks Follow up for PVD, possible aspiration pneumonia, respiratory failure. Ms. High is much more alert today. Patient's family members are present at bedside. She did well on BiPAP overnight. However with BiPAP she cannot sleep well. We'll skip BiPAP tonight. Objective Vitals Vital Signs Date Time Temp Pulse Resp B/P Pulse Ox O2 Delivery O2 Flow Rate FiO2 09/19/16 13:19 95 Nasal Cannula 1.00 09/19/16 12:00 97.8 82 20 121/48 100 09/19/16 08:00 97.7 72 20 131/52 100 09/19/16 04:00 97.2 92 16 119/62 92 09/19/16 02:39 98 30 09/19/16 00:39 99 30 09/19/16 00:39 99 BiPAP 30 09/19/16 00:00 97.4 78 16 129/51 91 09/18/16 21:46 96 30 09/18/16 20:00 97.2 77 16 119/51 93 09/18/16 18:01 96 Nasal Cannula 3.00 09/18/16 16:50 96.3 77 24 110/64 96 I/O 09/18/16 09/18/16 09/18/16 09/19/16 09/19/16 09/19/16 07:00 15:00 23:00 07:00 15:00 23:00 Intake Total 0 ml 0 ml 0 ml 1153 ml Output Total 250 ml Balance 0 ml 0 ml -250 ml 1153 ml Intake Oral 0 ml 0 ml 0 ml 0 ml Tube Feeding 1153 ml Output Urine Total 250 ml # Voids 2 1 2 # Bowel Movements 0 0 0 1 1 Result Diagram: 09/19/16 0555 09/17/16 0558 Imaging Last Impressions Head CT 09/17/16 0000 Signed Impressions: Service Date/Time: Saturday, September 17, 2016 12:05 - CONCLUSION: 1. No acute intracranial abnormality is identified. Chronic changes include mild cerebral atrophy and periventricular white matter low attenuation characteristic of chronic microvascular ischemia. 2. There is fluid in the mastoid air cells bilaterally which can be seen with acute mastoiditis. Josue Mccall MD Upper Extremity Ultrasound 09/12/16 0000 Signed Impressions: Service Date/Time: September 14:08 - CONCLUSION: No DVT in the left arm. Eric Manning MD Chest X-Ray 09/12/16 0000 Signed Impressions: Service Date/Time: September 12:28 - CONCLUSION: 1. Bilateral mostly basilar and perihilar airspace disease similar in appearance to September 01. Moderate effusions. Findings most characteristic of congestive heart failure. Cannot exclude pneumonia. Sumit Vaughn MD Abdomen X-Ray 08/29/16 0000 Signed Impressions: Service Date/Time: August 19:31 - CONCLUSION: NG tube tip in the stomach. K. Alonzo Rehman MD Angiography 08/22/16 1420 Signed Impressions: Service Date/Time: August 13:13 - CONCLUSION: Diagnostic angiography as described above demonstrates high-grade bilateral external iliac artery stenoses and high-grade left common femoral artery stenosis. Successful angioplasty of the left common femoral artery and left external iliac artery. Right external iliac artery angioplasty and stenting as described above. Significant improvement in luminal patency of the external iliac arteries and left common femoral artery following endovascular treatment. Rajat Hu MD Aorta w/Runoff CTA 08/19/16 0000 Signed Impressions: Service Date/Time: Saturday, August 20, 2016 15:58 - CONCLUSION: Advanced atherosclerotic vasculopathy with hemodynamically significant stenotic/ occlusive lesions in the celiac, superior mesenteric, renal, external iliac, superficial femoral and popliteal arteries as described above. Severe irregularity with moderate to severe stenotic lesions are seen in the infrapopliteal runoff vessels to both calves and feet. Significantly diminished flow is evident to the right foot. Moderate bilateral pleural effusions with consolidating airspace disease in both lower lobes. Rajat Hu MD Renal Ultrasound 08/17/16 0000 Signed Impressions: Service Date/Time: Wednesday, August 17, 2016 16:01 - CONCLUSION: 1. Mild dilation of the collecting system of the right kidney. No evidence of hydronephrosis on the left. 2. 2.1 x 2.3 cm round non-shadowing lesion supermedial to the upper pole the right kidney of uncertain organ of origin. The right adrenal gland could be located in this area. Wei Corley MD Lower Extremity Ultrasound 08/16/16 0000 Signed Impressions: Service Date/Time: Tuesday, August 16, 2016 21:07 - CONCLUSION: No DVT. Josue White MD Foot X-Ray 08/16/16 0000 Signed Impressions: Service Date/Time: Tuesday, August 16, 2016 22:14 - CONCLUSION: No acute disease. Josue White MD Objective Remarks GENERAL: Drowsy but wakes up, NAD. SKIN: Warm and dry. LLE redness. HEAD: Normocephalic. EYES: No scleral icterus. No injection or drainage. NECK: Supple, trachea midline. No JVD or lymphadenopathy. CARDIOVASCULAR: Regular rate and rhythm without murmurs, gallops, or rubs. RESPIRATORY: Breath sounds equal bilaterally. No accessory muscle use. GASTROINTESTINAL: Abdomen soft, non-tender, nondistended. MUSCULOSKELETAL: No cyanosis, or edema. 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 BACK: Nontender without obvious deformity. No CVA tenderness. Procedures 09/06/16 status post Left hallux and 2nd digit amputation A/P Problem List: (1) Cellulitis of left lower extremity ICD Code: L03.116 Status: Acute (2) PVD (peripheral vascular disease) ICD Code: I73.9 Status: Acute (3) Hyperkalemia ICD Code: E87.5 Status: Acute (4) HARPAL (acute kidney injury) ICD Code: N17.9 Status: Acute (5) HTN (hypertension) ICD Code: I10 Status: Chronic (6) COPD (chronic obstructive pulmonary disease) ICD Code: J44.9 Status: Chronic (7) Respiratory failure ICD Code: J96.90 Status: Resolved (8) Normochromic normocytic anemia ICD Code: D64.9 Status: Acute Assessment and Plan 85yr old female - Hypercapnic respiratory failure - patient is oxygenating well. Due to CO2 retention, patient was on BiPAP last night - Discussed with RN to reduce O2 requirement to keep O2 sat > 88% - Skip BiPAP tonight. Discussed with RT regarding decreasing oxygen requirement. - Currently patient is on 2 L of oxygen via nasal cannula. PVD/ Gangrene - S/p angioplasty as per vasc surgery. The pt has gangrenous changes in the lower extremities. 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 Continue with Toradol when necessary for pain - Continue to hold heparin gtt, Plavix in setting of thrombocytopenia. Thrombocytopenia/ DIC - The pt has a history of thrombocytopenia but her plt count continues to drop. Appreciate hematology consult. 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 - Is cost with patient's primary care clinic. In August 2016 patient's platelet count was 121,000. - Continue to follow CBC. INR - hold heparin gtt/ Plavix - continue antibiotics - Levofloxacin - Plt count 18K today. Hematology ordered one unit of Platelet transfusion today 09/16/2016. Malnutrition Postoperatively very poor appetite. Failed calorie count. Appreciate GI consult. - s/p EGD with PEG tube placement 09/11/16 - Continue Tube feed with tray - Consider trial of Marinol LLE Cellulitis - Wound on plantar aspect of left foot x2 wks. Outpatient Wound Cultures positive for Staph per report. Resolved. Left arm swelling: DVT ruled out with Doppler 09/12/16 Aspiration PNA - Chest x-ray with evidence of consolidation. Repeat CXR 09/12/16 noted and reviewed - Continue IV Levaquin 09/02. - Speech therapy follow-up. Acute Hypercapnic respiratory failure: Keep oxygen saturation above 92%; may consider BIPAP vs Diuretic therapy +/- steroid Normocytic normochromic anemia Stable. - follow CBC and transfuse as needed. S/p 1 unit 09/03 per hematology. Diarrhea: C. difficile PCR negative;Resolved HARPAL Resolved. Renal ultrasound reviewed and no evidence of hydronephrosis on the left. 2. 2.1 x 2.3 cm round non-shadowing lesion supermedial to the upper pole the right kidney of uncertain organ of origin. Appreciate input from nephrology. Avoid all nephrotoxic drugs. - outpt follow-up for right kidney lesion. - Other - I discussed with patient's daughter Edith Lee . She agrees with a palliative consult. - Patient's platelet count is going to be a concern for placement I believe. If PLT count improves, patient can be discharged to SNF. Full code. PPx: Heparin gtt on hold s/t thrombocytopenia. Daniel Rae DO Sep 19, 2016 1:39 pm
--- NOTE | 2016-09-19 17:39 | RADRPT ---
EXAM DATE/TIME: 09/18/2016 00:00 COMPARISON: No previous studies available for comparison. INDICATIONS: Thrombocytopenia. FINDINGS: I have been asked to perform a bone marrow aspirate on Mrs. High. She came down for this bone biopsy and has a near confluent rash over the iliac crest, the only locat ion I could obtain satisfactory marrow from. I elected not to perform the bone marrow biopsy through this rash. With the rash and the biopsy she would be a significant risk for a skin breakdown with a hematoma and is at increased risk of infectio n. CONCLUSION: When this rash resolves or stabilizes we can reattempt a bone marrow aspirate. Mauricio Zelaya MD FACR on September 19, 2016 at 17:12 Board Certified Radiologist. This report was verified electronically.
[2016-09-20] VITALS (8 sets, daily range): BP systolic 119–165; BP diastolic 56–70; PULSE 77–87; RESP 14–17; TEMP 97.1–98.7; O2SAT 92–96
[2016-09-20] MEDS: CHLORHEXIDINE GLUCONATE 2 % 1 PACK (2 CLOTHS) TOP SCH (04:00)
[2016-09-20 09:25] LABS: AUTOMATED NEUTROPHIL # 7.5 TH/MM3 (1.8-7.7); BASOPHIL % 0.1 % (0.0-2.0); EOSINOPHIL % 0.2 % (0.0-4.0); HEMATOCRIT 28.4 % (35.0-46.0); LYMPH % 14.8 % (9.0-44.0); LYMPHOCYTE # 1.5 TH/MM3 (1.0-4.8); MEAN CELL VOLUME 88.5 FL (80.0-100.0); MEAN CORPUSCULAR HEMOGLOBIN 28.6 PG (27.0-34.0); MEAN CORPUSCULAR HGB CONC 32.3 % (32.0-36.0); MONO % 11.1 % (0.0-8.0); NEUT % 73.8 % (16.0-70.0); RED BLOOD COUNT 3.21 MIL/MM3 (4.00-5.30); RED CELL DISTRIBUTION WIDTH 17.9 % (11.6-17.2); WHITE BLOOD COUNT 10.2 TH/MM3 (4.0-11.0)
[2016-09-20 09:30] LABS: HEMO FLAGS AUTO DIFF
[2016-09-20] MEDS: SODIUM CHLORIDE 0.9% FLUSH 5 ML FLUSH FLUSH SCH ×2 (09:30→19:41)
[2016-09-20] MEDS: LACTOBACILLUS ACIDOPHILUS TAB PO SCH ×2 (09:30→19:41)
[2016-09-20 09:33] LABS: PLATELET COUNT 18 TH/MM3 (150-450)
[2016-09-20 09:52] LABS: BICARBONATE 41.2 MEQ/L (21.0-32.0); POTASSIUM 3.9 MEQ/L (3.5-5.1)
[2016-09-20 11:00] LABS: PLATELET ESTIMATE SMEAR RARE (NORMAL); PLATELET MORPHOLOGY NORMAL (NORMAL); SCAN/DIFF AUTO DIFF CONFIRMED
--- NOTE | 2016-09-20 11:35 | PD.CONS ---
Consult Service Palliative Care Consult Requested By Dr Rae . Primary Care Physician Non-Staff Reason for Consultation a. To assist with evaluation and management of symptoms including: Weakness , dyspnea, pain b. To assist medical decision maker(s) with: better understanding of current medical conditions; weighing benefits/burdens of medical treatment options; making medical treatment decisions. HPI History of Present Illness This 85-year-old patient presented to the ED on 08/16/16 with complaints of pain in her left foot. She apparently started on Keflex a few days prior secondary to cellulitic wound (wound present x 2wks) she subsequently continued to develop increasing edema erythema, pain. Reported that wound culture grew staph aureus resistant to Keflex. Was referred to outpt podiatry, however was not improving while waiting to be seen by podiatry so presented to the ED with granddaughter. Patient reported to be poor historian. Reported to be on chronic O2 at home for COPD. * ED course: Lower extremity ultrasound negative for DVT. Knee x-ray with no free air, disruption of bony cortex. Noted to have hyperkalemia potassium 6.8. BUN 121/creatinine 2.05. GFR 23. Initiated on IV fluids, antibiotics, vascular surgery consulted. Cultures obtained. Left foot noted to be cold and pulseless. Per CV surgery no need for emergent intervention. Admitted for further evaluation and management of renal failure, cellulitis. Nephrology consulted. * CV surgery notes multiple contributing factors to lower extremity issues including cardiac disease heart failure, PVD, arteriolosclerosis--not a candidate for further evaluation due to unable to have contrast because of renal failure. High risk for losing extremity pending improvement of renal failure would consider further evaluation of vasculature with contrast studies. * Acute kidney injury resolving with hydration, BMP improving, ultrasound kidney = mild hydronephrosis. Nephrology following however signed off as patient improved. * 08/20 2-D echo EF 5560 percent, wall motion normal. Possible mass and low atrial cavity right atrium which may be associated with catheter in SVC though not well visualized. * 08/21 Pt a & O. CTA studies completed,CV surgery notes right SFA occlusion, left stenosis, occlusion; recommends percutaneous endovascular iliac angioplasty and common femoral angioplasty with the eluding balloon and possibly a stent in the left external iliac--planned for endovascular procedure. * 08/23 status post percutaneous revascularization of the left leg with eluding balloon dilatation . feet warm and capillary refill improved, stable, discharge planning for rehabilitation/SNF in a few days. Patient noted to have poor appetite, on nutritional supplements boost. * 08/26 still w/ poor appetite . Calorie count in process. started on Megace. UTI + Ecoli. otherwise stable. rehab placement pending. * 08/27 dev. darkening/ischemia LEFT toes (1-2). Podiatry consulted. Lines of demarcation not clear enough for amputation though felt likely patient will need implantation once demarcation is clear that this may take days or weeks recommends outpatient follow-up. * 08/29 still not eating well but indicates feeling well. Started on Marinol. Patient agreed to proceed with NG tube , tube feeding. Daughter agreed. GI consulted. Placement at rehabilitation still pending. GI spoke with patient and daughter, planned for PEG tube. Thrombocytopenic, heparin drip held. 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 Hematology consulted. Hematology Dr. Liao notes patient with gangrenous changes, thrombocytopenia likely secondary consumptive coagulopathy due to associated gangrene. PEG held-- pending hematology, low platelets(36) * 09/01 bilateral pleural effusions slight pulmonary edema. * 09/06podiatry evaluated, amputation of left hallux, left second toe * 09/17 patient remains in the hospital, more lethargic and continues to have thrombocytopenia now less likely consumptive more likely bone marrow failure. Patient reporting to hematology she had a bone marrow biopsy done approximately 10 years ago does not recall the results. platelets have fluctuated during hospitalization as high as 107 as low as 15. Scheduled for bone marrow biopsy for additional information. CT brain pending. Receiving platelet transfusions as needed. Possible aspiration pneumonia. Head CT= no acute abnormality, chronic changes mild cerebral atrophy, chronic microvascular ischemia. * Platelets again decreasing(17) bone biopsy held due to this. Requiring BIPAP on and off. * 09/18 cont to do poorly. Med attending d/w niece poor prognosis, code status etc. family expresses aggressive goals. * 09/19 medical attending again discusses goals with patient daughter who agreed to palliative care consult. Palliative care consulted to assist with clarification of goals of treatment. I are also consulted to assist with possible bone marrow biopsy--she noted to have confluent rash over region which they would attempt biopsy, radiologist deferred until rash has improved/ stabilized as to not pose additional risks to patient. Patient seen initially in room with her daughter at bedside. Patient is being prepared to complete a barium swallow evaluation. Met with her daughter at length at bedside, see family conference for additional detail. Occupational Therapy Program Director later in the afternoon per daughter's request to again discuss with patient, daughter. Met again at bedside, see family conference for detail. *Review of 2016 records available in our EMR indicate patient had thrombocytopenia at that time and was evaluated by hematology, bone biopsy was negative for abnormality appears condition stabilized. Maira indicates that patient has not had recent hospitalizations or frequent illness visits. They did provide me with some copies of some recent lab work over the past year or so just from her regular visits with primary. Does appear to have some level of chronic thrombocytopenia platelet count 09/2014 108, 06/2014 124, 05/2014 115. Albumin from those labs 4.04.2. CBC otherwise for the most part unremarkable. Chemistry unremarkable. Daughter describes somewhat of a down hill trajectory since around of this past year. Prior to that she had been ambulatory able to grocery shop on her own, completely independent with ADLs and fairly social. Her granddaughter came down around that time to help her, she was developing a wound on the affected foot which limited her mobility she was then only walking short distances from bed to chair etc. As the wound continued to worsen her pain worsened by the end of July she was primarily bed to chair she was refusing to eat refusing to seek medical attention. Granddaughter finally forced her to present to the ED because she would not follow-up with medical providers. She apparently was refusing food, eating/drinking very little for days/weeks before admission. Function/Cognitive Trajectory Patient last was ambulatory about 2 weeks prior to admission, reported to last ambulating around Thanksgiving and at that time was very short distances. Daughter describes somewhat of a down hill trajectory since around of this past year. Prior to that she had been ambulatory able to grocery shop on her own, completely independent with ADLs and fairly social. Her granddaughter came down around that time to help her, she was developing a wound on the affected foot which limited her mobility she was then only walking short distances from bed to chair etc. Review of Systems ROS Limitations: Hearing Impaired (severe hearing impairment such the patient is essentially deaf, keep indicates verbally well but otherwise limited to writing for receptive), Other (becomes frustrated easily does not readily engage in extensive questioning for ROS) Constitutional: COMPLAINS OF: Pain (previously to lower extremity but none currently), DENIES: Fever, Change in appetite, Generalized weakness Ears, nose, mouth, throat: COMPLAINS OF: Hearing loss Respiratory: COMPLAINS OF: Shortness of breath (intermittent), DENIES: Cough Cardiovascular: COMPLAINS OF: Lower Extremity Edema, DENIES: Chest pain Gastrointestinal: DENIES: Abdominal pain, Constipation, Diarrhea, Nausea, Vomiting, Difficulty Swallowing Integumentary: COMPLAINS OF: Rash (to back, onset today) Neurologic: DENIES: Headache Past Family Social History Coded Allergies: Sulfa (Verified Allergy, Unknown, 08/16/16) Past Medical History Hypertension COPDO2 dependent PVD History of thrombocytopeniabone marrow biopsy 2005--bone marrow bx normal- suppression felt secondary to virus infection not ITP Possible CVA 2003 . Past Surgical History Hysterectomy bone marrow biopsy 2005 Left toe amputations 08/2016 Reported Medications Zaynab Enalapril Mesalamine ER Ventolin inhaler Advair inhaler Oxymetazoline nasal spr . Current Medications Medications (Trade) Dose Ordered Sig/Alejandro Route Start Time Stop Time Status Last Admin (NS Flush) 2 ml UNSCH PRN FLUSH 08/16/16 22:30 09/03/16 22:33 (NS Flush) 2 ml BID FLUSH 08/17/16 09:00 09/20/16 09:30 (Zofran Inj) 4 mg Q6H PRN IVP 08/16/16 22:30 08/26/16 12:15 (Dulcolax Supp) 10 mg DAILY PRN SC 08/16/16 22:30 (Tylenol) 650 mg Q6H PRN PO 08/16/16 22:30 09/18/16 21:10 Miscellaneous Information 1 Q361D XX 08/17/16 01:00 08/17/16 01:00 (Chlorhexidine 2% Cloth) Taper DAILY@04 TOP 08/17/16 04:00 08/13/17 03:59 08/17/16 03:40 (Chlorhexidine 2% Cloth) 3 pack UNSCH PRN TOP 08/17/16 01:00 (Lactinex) 1 tab Q12HR PO 08/20/16 21:00 09/20/16 09:30 (Plavix) 75 mg DAILY PO 08/22/16 21:00 Hold 08/30/16 07:55 (Heparin Inj) 5,000 units UNSCH PRN IV 08/31/16 00:30 Hold Heparin Sodium (Porcine) 2500 units 2,500 units UNSCH PRN IV 08/31/16 00:30 Hold (Heparin-D5W Inj) 250 ml @ 0 mls/hr TITRATE IV 08/31/16 12:00 Hold Enalaprilat 1.25 mg 1.25 mg Q6H PRN IV PUSH 09/01/16 17:15 (Levaquin 750 Mg Premix Inj) 150 ml @ 100 mls/hr Q24H IV 09/02/16 12:00 09/19/16 12:28 (Imodium) 2 mg Q6H PRN PO 09/09/16 12:30 (Protonix Inj) 40 mg Q24H IV PUSH 09/16/16 11:00 09/19/16 12:27 Family History No h/o DM or CAD Substance Use Tobacco: None Alcohol:none Prescription med abuse: None Illicits: None . Psychosocial History Originally from [place] has lived in [place] about 40 years. . 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 Supported by adult daughter, adult son as well as extended family grandchildren nieces etc. Prior to this admission lived at home independently, her granddaughter came down in July 2016 to provide more help the prior to that she was independent. Spiritual/Cultural Factors [place] Living Will: Copy in medical record (completed 04/2014) Health Care Surrogate: Copy in medical record (new document HCS completed 2015) Durable Power of Logistics Lead: Never completed Health Care Surrogate(s): Names daughter Ms. Lee as primary, granddaughter Daja Beal as secondary. Documented care wishes: Living will dated April 2014 has typical verbiage describing desire to not have dying artificially prolong under circumstances including terminal condition , and states condition, vegetative state. Direct life prolonging procedures be withheld or withdrawn when they would only artificially prolong the process of dying directs that nutrition and hydration be withheld if such is only prolonging artificially the process of dying. Also request that healthcare surrogate and providers honor provisions of declaration. It does designate a healthcare surrogate son Marc Marquez however she has a newer health care surrogate completed 08/2016 which designates her daughter. Ethical and Legal Issues Patient mental status has fluctuated some during hospital course. Likely she would be best supported in shared decision making. Living will designates healthcare surrogate son Marc Marquez however she has a newer health care surrogate completed 08/2016 which designates her daughter Ms. Lee. Physical Exam Vital Signs Date Time Temp Pulse Resp B/P Pulse Ox O2 Delivery O2 Flow Rate FiO2 09/20/16 08:00 98.0 80 16 123/57 95 09/20/16 04:00 98.7 87 17 165/70 94 09/20/16 00:00 98.2 82 17 132/65 96 09/19/16 23:41 91 Nasal Cannula 1.00 09/19/16 20:00 98.0 84 17 148/62 98 09/19/16 17:00 97.5 84 20 136/52 94 09/19/16 13:19 95 Nasal Cannula 1.00 09/19/16 12:00 97.8 82 20 121/48 100 09/19/16 09/20/16 19:00 07:00 Intake Total 360 ml 60 ml Balance 360 ml 60 ml Intake Oral 10 ml 60 ml Tube Feeding 350 ml # Voids 1 3 # Bowel Movements 4 3 Exam CONSTITUTIONAL/GENERAL: This is a frail, elderly-appearing female TUBES/LINES/DRAINS: Peripheral IV left upper extremity, nasal cannula, PEG tube SKIN: No jaundice. Pale. Multiple areas of ecchymosis upper and lower extremities. Ecchymosis along bony prominence/pérez left lower extremity. Left foot with dressing noted unable to visualize toe amputation sites but all appears clean and dry. Lower extremities very thin with chronic vascular changes evident. Dressings to the right forearm clean and dry. Skin temperature appropriate. Not diaphoretic. HEAD: Atraumatic. Normocephalic. EYES: Pupils equal and round and reactive. Extraocular motions intact. No scleral icterus. No injection or drainage. Fundi not examined. ENT: Very hard of hearingessentially deaf. Nose without bleeding or purulent drainage. Throat without visible erythema, exudates, masses, or lesions. Uterus membranes dry, pink. NECK: Trachea midline. Supple, nontender. No palpable thyroid enlargement or nodularity. CARDIOVASCULAR: Regular rate and rhythm without murmurs. No JVD. Peripheral pulses symmetric to upper extremities. Did not palpate pedal due to dressing. RESPIRATORY/CHEST: Symmetric, unlabored respirations on nasal cannula. Clear to auscultation, decreased air movement to bases. GASTROINTESTINAL: Abdomen soft, flat, nontender. Bowel sounds hypoactive. PEG tube mid abdomen-asymptomatic. PEG clamped. No hepato-splenomegaly, or palpable masses. No guarding. GENITOURINARY: Without palpable bladder distension. MUSCULOSKELETAL: Extremities without clubbing, cyanosis, or edema. No joint tenderness or effusion noted. No calf tenderness. No mottling or clubbing. LYMPHATICS: No palpable cervical or supraclavicular adenopathy. NEUROLOGICAL: Awake and alert-oriented and appropriate. Verbalizes well although extremely hard of hearing. Insight appears reasonable though limited ( patient for the most part has not been able to hear anything medical providers are telling her. ) Motor and sensory grossly within normal limits. Follows commands. Cognitively sharp. Moves all extremities. PSYCHIATRIC: No obvious anxiety/depression. no apparent hallucinations or other psychotic thought process. Diagnostic Tests Laboratory Laboratory Tests Test 09/17/16 09/17/16 09/17/16 09/17/16 12:53 13:59 14:18 17:56 Blood Gas Puncture Site RT RADIAL RT RADIAL Blood Gas Patient Temperature 98.6 98.6 Blood Gas HCO3 40 mmol/L 39 mmol/L (22-26) (22-26) Blood Gas Base Excess 14.7 mmol/L 13.7 mmol/L (-2-2) (-2-2) Blood Gas Oxygen Saturation 92 % (90-100) 93 % (90-100) Arterial Blood pH 7.40 7.39 (7.380-7.420) (7.380-7.420) Arterial Blood Partial 66 mmHg (38-42) 66 mmHg (38-42) Pressure CO2 Arterial Blood Partial 78 mmHg 90 mmHg Pressure O2 (61-120) (61-120) Arterial Blood Oxygen Content 10.9 Vol % 11.0 Vol % (12.0-20.0) (12.0-20.0) Arterial Blood 3.4 % (0-4) 3.4 % (0-4) Carboxyhemoglobin Arterial Blood Methemoglobin 0.8 % (0-2) 1.2 % (0-2) Blood Gas Hemoglobin 8.3 G/DL 8.3 G/DL (12.0-16.0) (12.0-16.0) Oxygen Delivery Device NASAL CANNULA BIPAP Blood Gas Liter Flow 3 L/M Phosphorus Level 3.6 MG/DL (2.5-4.9) Magnesium Level 2.3 MG/DL (1.5-2.5) Lactic Acid Level 0.7 mmol/L (0.4-2.0) Ammonia 24 MCMOL/L (11-32) Blood Gas Ventilator Setting [id number]/[id number] Blood Gas Inspired Oxygen 30 % Test 09/18/16 09/19/16 09/20/16 03:43 05:55 09:01 White Blood Count 8.8 TH/MM3 8.9 TH/MM3 10.2 TH/MM3 (4.0-11.0) (4.0-11.0) (4.0-11.0) Red Blood Count 2.88 MIL/MM3 2.86 MIL/MM3 3.21 MIL/MM3 (4.00-5.30) (4.00-5.30) (4.00-5.30) Hemoglobin 8.2 GM/DL 8.1 GM/DL 9.2 GM/DL (11.6-15.3) (11.6-15.3) (11.6-15.3) Hematocrit 25.2 % 25.3 % 28.4 % (35.0-46.0) (35.0-46.0) (35.0-46.0) Mean Corpuscular Volume 87.5 FL 88.3 FL 88.5 FL (80.0-100.0) (80.0-100.0) (80.0-100.0) Mean Corpuscular Hemoglobin 28.4 PG 28.2 PG 28.6 PG (27.0-34.0) (27.0-34.0) (27.0-34.0) Mean Corpuscular Hemoglobin 32.4 % 32.0 % 32.3 % Concent (32.0-36.0) (32.0-36.0) (32.0-36.0) Red Cell Distribution Width 18.2 % 17.7 % 17.9 % (11.6-17.2) (11.6-17.2) (11.6-17.2) Platelet Count 23 TH/MM3 18 TH/MM3 18 TH/MM3 (150-450) (150-450) (150-450) Mean Platelet Volume 11.7 FL 10.3 FL 10.5 FL (7.0-11.0) (7.0-11.0) (7.0-11.0) Neutrophils (%) (Auto) 70.5 % 68.6 % 73.8 % (16.0-70.0) (16.0-70.0) (16.0-70.0) Lymphocytes (%) (Auto) 16.3 % 18.5 % 14.8 % (9.0-44.0) (9.0-44.0) (9.0-44.0) Monocytes (%) (Auto) 12.8 % 12.4 % 11.1 % (0.0-8.0) (0.0-8.0) (0.0-8.0) Eosinophils (%) (Auto) 0.2 % (0.0-4.0) 0.2 % (0.0-4.0) 0.2 % (0.0-4.0) Basophils (%) (Auto) 0.2 % (0.0-2.0) 0.3 % (0.0-2.0) 0.1 % (0.0-2.0) Neutrophils # (Auto) 6.2 TH/MM3 6.1 TH/MM3 7.5 TH/MM3 (1.8-7.7) (1.8-7.7) (1.8-7.7) Lymphocytes # (Auto) 1.4 TH/MM3 1.6 TH/MM3 1.5 TH/MM3 (1.0-4.8) (1.0-4.8) (1.0-4.8) Monocytes # (Auto) 1.1 TH/MM3 1.1 TH/MM3 1.1 TH/MM3 (0-0.9) (0-0.9) (0-0.9) Eosinophils # (Auto) 0.0 TH/MM3 0.0 TH/MM3 0.0 TH/MM3 (0-0.4) (0-0.4) (0-0.4) Basophils # (Auto) 0.0 TH/MM3 0.0 TH/MM3 0.0 TH/MM3 (0-0.2) (0-0.2) (0-0.2) CBC Comment AUTO DIFF AUTO DIFF AUTO DIFF Differential Total Cells 100 Counted Neutrophils % (Manual) 59 % (16-70) Band Neutrophils % 9 % (0-6) Lymphocytes % 20 % (9-44) Monocytes % 11 % (0-8) Neutrophils # (Manual) 6.1 TH/MM3 (1.8-7.7) Myelocytes 1 % (0-0) Differential Comment FINAL DIFF AUTO DIFF MANUAL CONFIRMED Platelet Estimate LOW (NORMAL) RARE (NORMAL) Platelet Morphology Comment NORMAL ENLARGED (NORMAL) (NORMAL) Basophilic Stippling FAINT (NORMAL) FAINT (NORMAL) Sodium Level 147 MEQ/L (136-145) Potassium Level 3.9 MEQ/L (3.5-5.1) Chloride Level 102 MEQ/L (98-107) Carbon Dioxide Level 41.2 MEQ/L (21.0-32.0) Anion Gap 4 MEQ/L (5-15) Blood Urea Nitrogen 36 MG/DL (7-18) Creatinine 0.62 MG/DL (0.50-1.00) Estimat Glomerular Filtration 92 ML/MIN (>89) Rate Random Glucose 113 MG/DL (74-106) Calcium Level 7.8 MG/DL (8.5-10.1) Result Diagram: 09/20/1690009/20/16900 Microbiology Microbiology Date/Time Procedure Status Source Growth 09/17/16 13:59 Aerobic Blood Culture - Preliminary Resulted Blood Peripheral NO GROWTH IN 2 DAYS 09/17/16 13:59 Anaerobic Blood Culture - Preliminary Resulted Blood Peripheral NO GROWTH IN 2 DAYS 09/17/16 14:18 Aerobic Blood Culture - Preliminary Resulted Blood Peripheral NO GROWTH IN 2 DAYS 09/17/16 14:18 Anaerobic Blood Culture - Preliminary Resulted Blood Peripheral NO GROWTH IN 2 DAYS Imaging Last Impressions Modified Barium Swallow 09/20/16 0000 Signed Impressions: Service Date/Time: Tuesday, September 20, 2016 00:00 - CONCLUSION: No evidence of aspiration. Luci Evans MD Consultation 09/18/16 0000 Signed Impressions: Service Date/Time: Sunday, September 18, 2016 00:00 - CONCLUSION: When this rash resolves or stabilizes we can reattempt a bone marrow aspirate. Mauricio Zelaya MD FACR Head CT 09/17/16 0000 Signed Impressions: Service Date/Time: Saturday, September 17, 2016 12:05 - CONCLUSION: 1. No acute intracranial abnormality is identified. Chronic changes include mild cerebral atrophy and periventricular white matter low attenuation characteristic of chronic microvascular ischemia. 2. There is fluid in the mastoid air cells bilaterally which can be seen with acute mastoiditis. Josue Mccall MD Upper Extremity Ultrasound 09/12/16 0000 Signed Impressions: Service Date/Time: September 14:08 - CONCLUSION: No DVT in the left arm. Eric Mnaning MD Chest X-Ray 09/12/16 0000 Signed Impressions: Service Date/Time: September 12:28 - CONCLUSION: 1. Bilateral mostly basilar and perihilar airspace disease similar in appearance to September 01. Moderate effusions. Findings most characteristic of congestive heart failure. Cannot exclude pneumonia. Sumit Vaughn MD Abdomen X-Ray 08/29/16 0000 Signed Impressions: Service Date/Time: August 19:31 - CONCLUSION: NG tube tip in the stomach. K. Alonzo Rehman MD Angiography 08/22/16 1420 Signed Impressions: Service Date/Time: August 13:13 - CONCLUSION: Diagnostic angiography as described above demonstrates high-grade bilateral external iliac artery stenoses and high-grade left common femoral artery stenosis. Successful angioplasty of the left common femoral artery and left external iliac artery. Right external iliac artery angioplasty and stenting as described above. Significant improvement in luminal patency of the external iliac arteries and left common femoral artery following endovascular treatment. Rajat Hu MD Aorta w/Runoff CTA 08/19/16 0000 Signed Impressions: Service Date/Time: Saturday, August 20, 2016 15:58 - CONCLUSION: Advanced atherosclerotic vasculopathy with hemodynamically significant stenotic/ occlusive lesions in the celiac, superior mesenteric, renal, external iliac, superficial femoral and popliteal arteries as described above. Severe irregularity with moderate to severe stenotic lesions are seen in the infrapopliteal runoff vessels to both calves and feet. Significantly diminished flow is evident to the right foot. Moderate bilateral pleural effusions with consolidating airspace disease in both lower lobes. Rajat Hu MD Renal Ultrasound 08/17/16 0000 Signed Impressions: Service Date/Time: Wednesday, August 17, 2016 16:01 - CONCLUSION: 1. Mild dilation of the collecting system of the right kidney. No evidence of hydronephrosis on the left. 2. 2.1 x 2.3 cm round non-shadowing lesion supermedial to the upper pole the right kidney of uncertain organ of origin. The right adrenal gland could be located in this area. Wei Corley MD Lower Extremity Ultrasound 08/16/16 0000 Signed Impressions: Service Date/Time: Tuesday, August 16, 2016 21:07 - CONCLUSION: No DVT. Josue White MD Foot X-Ray 08/16/16 0000 Signed Impressions: Service Date/Time: Tuesday, August 16, 2016 22:14 - CONCLUSION: No acute disease. Josue White MD Patient/Family Conference Present at Family Conference: Initially met With patient daughterzoltan x55 minutes at bedside, then returned and met with patient as well as family at bedside another 45 minutes Family Conference Time (mins): 100 Family Conference Location: Bedside Issues Discussed: Initially met With patient daughterzoltan x55 minutes, then returned and met with patient as well as family at bedside another 45 minutes. Patient being prepared for swallow evaluation in radiology during my initial interaction, met at length with her daughter at bedside.. She returned later and I then returned to meet further with the patient and daughter again, per daughter's request. Discussions included: * Palliative care role, purpose, approach * Additional medical, psychosocial, and spiritual history * Patients general health, functional status, and cognitive changes in the months leading up to the current hospitalization * Patient/family understanding of the current medical problems * Patient/family understanding of prognosis * Patients goals of care as best understood from advance directives and/or conversations and/or values * Advance directive/legal decision maker designation--has newer documents (this admission) designating daughter Ms Lee as healthcare surrogate, patient also has a living will * Current medical treatment options and benefits/burdens of those options * Likely scenarios comparing ongoing aggressive care with a transition to comfort measures only--review that if patient did not want further aggressive interventions in the presence of her multiple conditions she would certainly be appropriate for hospice with end-stage conditions, and extensive review of hospice role, philosophy, services provided * Questions answered to the best of my ability * Palliative care contact information provided Upon my initial conversation with patient daughter and niece extensive review of all the above. Daughter details recent trajectory of decline, she tells me that she does not see the patient doing well at rehabilitation. She also details that the patient is very stubborn and does wish she wants on her own terms. He tells me that the patient has spoken to her and her brother many times in the past about never wanting life support, and when their grandfather he had been adamant about receiving comfort care only, and that the patient has always said that is what she would want as well. I did explore with family that patient has had prolonged hospitalization, and continues to develop multiple setbacks versus overall improvement. Given her ongoing thrombocytopenia, as well as other issues she will not likely rehabilitate well. She remains high risk for complications/setbacks. Even if she were able to stabilize enough to proceed with bone marrow biopsy, she may not be able to tolerate aggressive interventions directed at treating any conditions identified. Daughter is appropriately tearful at times, she wants to talk further with patient and the family though she feels she knows what patient's wishes would be. Upon review of CODE STATUS she thinks that the patient would not want resuscitation but wants to try to talk with the patient to confirm, as well as her brother, patient's son. 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 Family has brought her a hearing assistive device however she has never actually been fitted with an actual hearing aid and current [id number] device is not proving helpful. Upon communication with patient she seems to have a reasonable general understanding of why she is in the hospital. Current ROS is essentially negative--she gets frustrated with repeated questioning indicates she wants to be left alone to watch TV. She understands she has had ongoing thrombocytopenia , etiology unknown. She denies currently breathing problems, acknowledges underlying COPD and chronic O2 dependence, indicates that she only feels short of breath or has respiratory distress when they place her on BiPAP. She indicates her appetite is normally good, that she normally "eats like a PiG " but in the hospital there always "bugging her " and she is never able to actually eat. She denies pain currently says her extremities feel fine now. Denies any nausea or vomiting. Denies any abdominal complaints. Attempt to explore with her her goals I did review with her her actual living will document and ask her if she thinks she would want to be on a ventilator this admission if she needed it-- she shrugs and says "we might have to wait and see ". She also acknowledges writing the living will indicating she wouldn't want artificial measures. She indicates she does not want to go back on the BiPAP. Ask her if her condition worsened would she want comfort measures only, she shrugs and defers to her daughter. It seems to me she does not wish to answer these corrections directly though does defer to her daughter, her daughter is going to try to continue to engage her in this conversation they are currently leaning towards DNR status they will call me later this afternoon. Assessment and Plan Disease Oriented Problem List: (1) Dehydration (2) ARF (acute renal failure) (3) UTI (lower urinary tract infection) (4) History of amputation of hallux (5) Thrombocytopenia (6) COPD (chronic obstructive pulmonary disease) (7) Hyperkalemia (8) Respiratory failure (9) PVD (peripheral vascular disease) (10) HTN (hypertension) (11) Cellulitis of left lower extremity Symptom Scale: (1) Dyspnea (2) Malnutrition (3) Weakness Pertinent Non-Medical Issues Psychosocial:Originally from [place] has lived in [place] about 40 years. . 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 Supported by adult daughter , adult son as well as extended family grandchildren nieces etc. Prior to this admission lived at home independently, her granddaughter came down in July 2016 to provide more help the prior to that she was independent. Spiritual: [place] Legal:Patient mental status has fluctuated some during hospital course. Likely she would be best supported in shared decision making. Living will designates healthcare surrogate son Marc Marquez however she has a newer health care surrogate completed 08/2016 which designates her daughter Ms. Lee. Ethical issues impacting care: Important Contacts daughter Edith Lee . Daja Beal granddaughter [phone] Prognosis This patient was emergently admitted for a wound secondary to PVD, vascular issues. Now status post endovascular angioplasty, status post amputation of 2 toes.+ UTI Escherichia coli, aspiration pneumonia, malnutrition. Overall has had a recent trajectory of decline.+ Thrombocytopenia, etiology unknown. Not likely she will be able to resume independent living in the home setting. Not clear how well she will rehabilitate given her frail status and trajectory of decline. Appears appropriate for hospice if goals compatible. Code Status: No Code Plan * Legal decision maker:Patient mental status has fluctuated some during hospital course. Likely she would be best supported in shared decision making. Living will designates healthcare surrogate son Marc Mraquez however she has a newer health care surrogate completed 08/2016 which designates her daughter Ms. Lee. * Goals: I have met at length today with patient and her daughter. Daughter appears to have good overall understanding of condition trajectory and prognosis. Daughter does not feel patient would do well with rehabilitation, as detailed a recent trajectory of decline. Daughter indicates Patient has always been clear that if she faced end-stage condition she would want comfort measures only. Patient engages some today though becomes frustrated and is not fully engaged in goals of treatment. Does not appear that she would want to continue on BiPAP. Family is going to talk to her more regarding CODE STATUS for now she is a full code by default though they are leaning towards DNR as per her known wishes. Based on my extensive discussions with them today, for now they wish to continue aggressive course/ interventions; but if patient continues to decline and not do well they are open to ongoing discussions regarding hospice/transition to comfort focus 1645 -- received call back from patient daughter who tells me after discussion with patient, and her brother, they elect to proceed with DNR status - otherwise goals to continue current course. * CODE STATUS: (*Full by default) family/patient to continue to discuss and let me know later today if they desire DNR status--1600 elected to change to DNR * SYMPTOMS: --Dyspnea-new diagnosis suspected aspiration pneumonia, requiring BiPAP on and off further respiratory decline and possible intubation. If goals were comfort oriented and patient continued to refuse intubation/BiPAP opiates, benzodiazepines appropriate for respiratory discomfort. --Weakness-recent trajectory of decline and increased immobility, last ambulatory sometime around . PT/OT though given patient's weakened and, malnourished status not clear how much strength she will regain. --Pain-ongoing pain to left lower extremity secondary to wounds, now status post 2 toe amputation--today she denies pain. (Family indicates sometimes she denies everything because "she is stubborn "). She has prn Tylenol available, has not required any. Family indicates at home the only thing she would ever take for any type pain was occasional Tylenol but usually would refuse that. We 'll continue to evaluate pain. --Malnutrition-poor oral intake for at least the past month and a half family reports weight loss, unknown amount. Patient has always been a rather thin body habitus. Prior albumin levels per outpatient labs 2013, 2014 44.2. Albumin this admission 1.9. * Palliative care will continue to follow during hospital course as condition evolves, to assist patient/decision-maker with understanding of medical conditions, weighing benefits/burdens of treatment options, for clarification of goals of treatment. Additionally will assist with any symptoms of palliative concern Time Spent Time Periods: Chart review, History, d/w RN [id number] in room meeting d/w dtr/HCS +niece [phone] return to room d/w pt, dtr/HCS, + PE 1400- 1445 Total Floor Time (mins): 130 Face to Face Time (mins): 100 >50% Counseling/Coord of Care: Yes (d/w RN, attending ) Thank you for the opportunity to participate in the care of Ms. [facility]. Attestation To help prompt me to consider important information that might be impacting today's encounter and assessment, information from prior notes written by myself or my colleagues may have been "brought forward" into today's note. My signature on this note, however, is an attestation that I personally performed the exam, history, and/or decision-making noted today, and, unless otherwise indicated, the interactions with patient, family, and staff as well as the review of records all occurred today. I also attest that the listed assessment and stated plan reflect my best clinical judgment today based on the combination of historical information, prior notes, and today's exam/ interactions. When time spent is documented, it refers only to time spent today by the signer, or if indicated, combined time spent today by collaborating physician/nurse practitioner. Daria Dinh Sep 20, 2016 11:28
[2016-09-20] MEDS: PANTOPRAZOLE SODIUM 40 MG VIAL IV PUSH SCH (11:43)
--- NOTE | 2016-09-20 12:38 | RADRPT ---
EXAM DATE/TIME: 09/20/2016 00:00 [facility] COMPARISON: CT CONSULTATION, September 18, 2016, 0:00. INDICATIONS : Dysphagia. FLUORO TIME: 1.8 minutes IMAGE COUNT: 0 CONTRAST: Dose as prescribed by speech pathologist. MEDICAL HISTORY : Hypertension. Chronic obstructive pulmonary disease. SURGICAL HISTORY : Hysterectomy. Appendectomy. Tubal ligation. ENCOUNTER: Subsequent ACUITY: 4 - 6 days PAIN SCORE: Non-responsive. LOCATION: esophagus FINDINGS: A modified barium swallow was performed with speech pathology. Patient was given a variety of liquids to swallow. Normal swallowing mechanism. No aspiration identified. For a full detailed report, see report by the speech pathologist. CONCLUSION: No evidence of aspiration. Luci Evans MD on September 20, 2016 at 12:36 Board Certified Radiologist. This report was verified electronically.
[2016-09-20] MEDS: LEVOFLOXACIN 750 MG PREMIX INJ 150 ML IV SCH (12:59)
--- NOTE | 2016-09-20 15:47 | PD.ONC.PN ---
Subjective Subjective Remarks Afebrile overnight. Patient resting comfortably. No complaints. No overnight events. Objective Data Date Time Temp Pulse Resp B/P Pulse Ox O2 Delivery O2 Flow Rate FiO2 09/20/16 12:00 97.4 77 14 119/58 94 09/20/16 09:15 92 Nasal Cannula 1.00 09/20/16 08:00 98.0 80 16 123/57 95 09/20/16 04:00 98.7 87 17 165/70 94 09/20/16 00:00 98.2 82 17 132/65 96 09/19/16 23:41 91 Nasal Cannula 1.00 09/19/16 20:00 98.0 84 17 148/62 98 09/19/16 17:00 97.5 84 20 136/52 94 09/20/16 09/20/16 09/20/16 07:00 15:00 23:00 Intake Total 60 ml Balance 60 ml Result Diagram: 09/20/16 0909/20/16 0901 Laboratory Results Laboratory Tests Test 09/20/16 09:01 White Blood Count 10.2 TH/MM3 Red Blood Count 3.21 MIL/MM3 Hemoglobin 9.2 GM/DL Hematocrit 28.4 % Mean Corpuscular Volume 88.5 FL Mean Corpuscular Hemoglobin 28.6 PG Mean Corpuscular Hemoglobin 32.3 % Concent Red Cell Distribution Width 17.9 % Platelet Count 18 TH/MM3 Mean Platelet Volume 10.5 FL Neutrophils (%) (Auto) 73.8 % Lymphocytes (%) (Auto) 14.8 % Monocytes (%) (Auto) 11.1 % Eosinophils (%) (Auto) 0.2 % Basophils (%) (Auto) 0.1 % Neutrophils # (Auto) 7.5 TH/MM3 Lymphocytes # (Auto) 1.5 TH/MM3 Monocytes # (Auto) 1.1 TH/MM3 Eosinophils # (Auto) 0.0 TH/MM3 Basophils # (Auto) 0.0 TH/MM3 CBC Comment AUTO DIFF Differential Comment AUTO DIFF CONFIRMED Platelet Estimate RARE Platelet Morphology Comment NORMAL Basophilic Stippling FAINT Sodium Level 147 MEQ/L Potassium Level 3.9 MEQ/L Chloride Level 102 MEQ/L Carbon Dioxide Level 41.2 MEQ/L Anion Gap 4 MEQ/L Blood Urea Nitrogen 36 MG/DL Creatinine 0.62 MG/DL Estimat Glomerular Filtration 92 ML/MIN Rate Random Glucose 113 MG/DL Calcium Level 7.8 MG/DL Imaging Studies Last 24 hours Impressions Modified Barium Swallow 09/20/16 0000 Signed Impressions: Service Date/Time: Tuesday, September 20, 2016 00:00 - CONCLUSION: No evidence of aspiration. Luci Evans MD Administered Medications Medications (Trade) Dose Ordered Sig/Alejandro Route PRN Reason Start Time Stop Time Status Last Admin Dose Admin IV Flush (NS Flush) 2 ml UNSCH PRN FLUSH FLUSH AFTER USING IV ACCESS 08/16/16 22:30 09/03/16 22:33 IV Flush (NS Flush) 2 ml BID FLUSH 08/17/16 09:00 09/20/16 09:30 Ondansetron HCl (Zofran Inj) 4 mg Q6H PRN IVP NAUSEA OR VOMITING 08/16/16 22:30 08/26/16 12:15 Acetaminophen (Tylenol) 650 mg Q6H PRN PO FEVER/PAIN SCALE 1 TO 2 08/16/16 22:30 09/18/16 21:10 Miscellaneous Information 1 [id number] XX 08/17/16 01:00 08/17/16 01:00 Chlorhexidine Gluconate (Chlorhexidine 2% Cloth) Taper DAILY@04 TOP 08/17/16 04:00 08/13/17 03:59 08/17/16 03:40 Lactobacillus Acidophilus (Lactinex) 1 tab Q12HR PO 08/20/16 21:00 09/20/16 09:30 Clopidogrel Bisulfate 75 mg 75 mg DAILY PO 08/22/16 21:00 Hold 08/30/16 07:55 Levofloxacin/ Dextrose (Levaquin 750 Mg Premix Inj) 150 ml @ 100 mls/hr Q24H IV 09/02/16 12:00 09/20/16 12:59 Pantoprazole Sodium (Protonix Inj) 40 mg Q24H IV PUSH 09/16/16 11:00 09/20/16 11:43 Objective Remarks GENERAL: Elderly female, lying in bed in nad SKIN: Warm and dry. erythematous raised rash, on back. HEAD: Normocephalic. EYES: No injection or drainage. NECK: Supple, trachea midline. CARDIOVASCULAR: Regular rate and rhythm RESPIRATORY: Breath sounds equal bilaterally. No accessory muscle use. GASTROINTESTINAL: Abdomen soft, non-tender, nondistended. EXTREMITIES: No cyanosis, or edema. MUSCULOSKELETAL: weak and frail. NEUROLOGICAL: No obvious focal deficit. Awake, alert, and oriented x3. Assessment/Plan Problem List: (1) Thrombocytopenia Status: Acute Plan: --consumptive coagulopathy vs bone marrow disorder --will obtain CT ab/pelvis to look for splenomegaly, other pathology --could also be due to infectious component, i.e. from gangrene Assessment 85 y/o female admitted with cellulitis now s/p left hallux and 2nd digit amputation. Hematology following for anemia, thrombocytopenia. --Aspiration PNA-->on IV levaquin Plan 1. CT ab/pelvis today 2. pathologist smear review 3. monitor CBC d/w Dr. Keshawn Reynolds,Tamela HUANG Sep 20, 2016 15:47
[2016-09-20] MEDS ORDERED: DIATRIZOATE MEGLUM/DIATRIZOATE SOD 9 ML CUP PO ONE ×2 (16:00→17:00)
--- NOTE | 2016-09-20 17:04 | PD.POD ---
Subjective Podiatric Problems s/p left 1st and 2nd toe amputations with on 09/06/16. She states that she only has occasional discomfort in the foot. She has no complaints at this time. Pain scale used: 0-10 numeric scale Pain score: 2 Past Med/Surg/Social History Social History Smoking Status: Former Smoker Objective Vital Signs Vital Signs Date Time Temp Pulse Resp B/P Pulse Ox O2 Delivery O2 Flow Rate FiO2 09/20/16 16:00 98.4 82 14 129/62 95 09/20/16 12:00 97.4 77 14 119/58 94 09/20/16 09:15 92 Nasal Cannula 1.00 09/20/16 08:00 98.0 80 16 123/57 95 09/20/16 04:00 98.7 87 17 165/70 94 09/20/16 00:00 98.2 82 17 132/65 96 09/19/16 23:41 91 Nasal Cannula 1.00 09/19/16 20:00 98.0 84 17 148/62 98 09/19/16 17:00 97.5 84 20 136/52 94 Coded Allergies: Sulfa (Verified Allergy, Unknown, 08/16/16) Exam-Podiatry Remarks Non palpable pulses, distal foot is cool to touch, CFT < 3 secs, no erythema, no drainage. Multiple areas of soft tissue trauma, possible emboli? but no open lesions on the leg. The incision site shows sites of early ischemia at the central aspect but remains coapted with sutures intact. Assessment & Plan A/P 1) s/p left 1st and 2nd digit amputation 09/06 with secondary to ischemia - 1/2 sutures removed today, clean dressings applied - will continue to monitor closely while in house, f/u with upon discharge - no dressing changes needed by nursing - WBAT in surgical shoe Evelia Mckeon DPM Sep 20, 2016 17:04
--- NOTE | 2016-09-20 17:10 | HHI.GIFU ---
Subjective Remarks Reconsulted for clogged peg tube. Attempted to flush with warm soda, was not able, but left in tubing to see if this would unclog it. (Tita Mendez) Objective Vitals I&O Vital Signs Date Time Temp Pulse Resp B/P Pulse Ox O2 Delivery O2 Flow Rate FiO2 09/20/16 16:00 98.4 82 14 129/62 95 09/20/16 12:00 97.4 77 14 119/58 94 09/20/16 09:15 92 Nasal Cannula 1.00 09/20/16 08:00 98.0 80 16 123/57 95 09/20/16 04:00 98.7 87 17 165/70 94 09/20/16 00:00 98.2 82 17 132/65 96 09/19/16 23:41 91 Nasal Cannula 1.00 09/19/16 20:00 98.0 84 17 148/62 98 I/O 09/19/16 09/19/16 09/19/16 09/20/16 09/20/16 09/20/16 07:00 15:00 23:00 07:00 15:00 23:00 Intake Total 1153 ml 360 ml 0 ml 60 ml 0 ml Balance 1153 ml 360 ml 0 ml 60 ml 0 ml Intake Oral 0 ml 10 ml 0 ml 60 ml 0 ml Tube Feeding 1153 ml 350 ml # Voids 2 1 1 2 2 # Bowel Movements 1 3 2 2 1 Laboratory Laboratory Tests Test 09/20/16 09:01 White Blood Count 10.2 Red Blood Count 3.21 Hemoglobin 9.2 Hematocrit 28.4 Mean Corpuscular Volume 88.5 Mean Corpuscular Hemoglobin 28.6 Mean Corpuscular Hemoglobin 32.3 Concent Red Cell Distribution Width 17.9 Platelet Count 18 Mean Platelet Volume 10.5 Neutrophils (%) (Auto) 73.8 Lymphocytes (%) (Auto) 14.8 Monocytes (%) (Auto) 11.1 Eosinophils (%) (Auto) 0.2 Basophils (%) (Auto) 0.1 Neutrophils # (Auto) 7.5 Lymphocytes # (Auto) 1.5 Monocytes # (Auto) 1.1 Eosinophils # (Auto) 0.0 Basophils # (Auto) 0.0 CBC Comment AUTO DIFF Differential Comment AUTO DIFF CONFIRMED Platelet Estimate RARE Platelet Morphology Comment NORMAL Basophilic Stippling FAINT Sodium Level 147 Potassium Level 3.9 Chloride Level 102 Carbon Dioxide Level 41.2 Anion Gap 4 Blood Urea Nitrogen 36 Creatinine 0.62 Estimat Glomerular Filtration 92 Rate Random Glucose 113 Calcium Level 7.8 Date/Time Procedure Status Source Growth 09/17/16 14:18 Aerobic Blood Culture - Preliminary Resulted Blood Peripheral NO GROWTH IN 3 DAYS 09/17/16 14:18 Anaerobic Blood Culture - Preliminary Resulted Blood Peripheral NO GROWTH IN 3 DAYS Imaging Last Impressions Modified Barium Swallow 09/20/16 0000 Signed Impressions: Service Date/Time: Tuesday, September 20, 2016 00:00 - CONCLUSION: No evidence of aspiration. Luci Evans MD Consultation 09/18/16 0000 Signed Impressions: Service Date/Time: Sunday, September 18, 2016 00:00 - CONCLUSION: When this rash resolves or stabilizes we can reattempt a bone marrow aspirate. Mauricio Zelaya MD FACR Head CT 09/17/16 0000 Signed Impressions: Service Date/Time: Saturday, September 17, 2016 12:05 - CONCLUSION: 1. No acute intracranial abnormality is identified. Chronic changes include mild cerebral atrophy and periventricular white matter low attenuation characteristic of chronic microvascular ischemia. 2. There is fluid in the mastoid air cells bilaterally which can be seen with acute mastoiditis. Josue Mccall MD Upper Extremity Ultrasound 09/12/16 0000 Signed Impressions: Service Date/Time: September 14:08 - CONCLUSION: No DVT in the left arm. Eric Manning MD Chest X-Ray 09/12/16 0000 Signed Impressions: Service Date/Time: September 12:28 - CONCLUSION: 1. Bilateral mostly basilar and perihilar airspace disease similar in appearance to September 01. Moderate effusions. Findings most characteristic of congestive heart failure. Cannot exclude pneumonia. Sumit Vaughn MD Abdomen X-Ray 08/29/16 0000 Signed Impressions: Service Date/Time: August 19:31 - CONCLUSION: NG tube tip in the stomach. Nikko Rehman MD Angiography 08/22/16 1420 Signed Impressions: Service Date/Time: August 13:13 - CONCLUSION: Diagnostic angiography as described above demonstrates high-grade bilateral external iliac artery stenoses and high-grade left common femoral artery stenosis. Successful angioplasty of the left common femoral artery and left external iliac artery. Right external iliac artery angioplasty and stenting as described above. Significant improvement in luminal patency of the external iliac arteries and left common femoral artery following endovascular treatment. Rajat Hu MD Aorta w/Runoff CTA 08/19/16 0000 Signed Impressions: Service Date/Time: Saturday, August 20, 2016 15:58 - CONCLUSION: Advanced atherosclerotic vasculopathy with hemodynamically significant stenotic/ occlusive lesions in the celiac, superior mesenteric, renal, external iliac, superficial femoral and popliteal arteries as described above. Severe irregularity with moderate to severe stenotic lesions are seen in the infrapopliteal runoff vessels to both calves and feet. Significantly diminished flow is evident to the right foot. Moderate bilateral pleural effusions with consolidating airspace disease in both lower lobes. Rajat Hu MD Renal Ultrasound 08/17/16 0000 Signed Impressions: Service Date/Time: Wednesday, August 17, 2016 16:01 - CONCLUSION: 1. Mild dilation of the collecting system of the right kidney. No evidence of hydronephrosis on the left. 2. 2.1 x 2.3 cm round non-shadowing lesion supermedial to the upper pole the right kidney of uncertain organ of origin. The right adrenal gland could be located in this area. Wei Corley MD Lower Extremity Ultrasound 08/16/16 0000 Signed Impressions: Service Date/Time: Tuesday, August 16, 2016 21:07 - CONCLUSION: No DVT. Josue White MD Foot X-Ray 08/16/16 0000 Signed Impressions: Service Date/Time: Tuesday, August 16, 2016 22:14 - CONCLUSION: No acute disease. Josue White MD Physical Exam HEENT: Normocephalic; atraumatic; CHEST: CTA CARDIAC: RRR ABDOMEN: Soft, nondistended, nontender; no hepatosplenomegaly; bowel sounds are present in all four quadrants. PEG tube site without redness or swelling EXTREMITIES: Generalized edema. 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 MEAL GRINDER TENDER: Lethargic. (Tita Mendez) Assessment and Plan Plan ASSESSMENT: - Malfunctioning PEG tube. S/P EGD/PEG on (09/11/16)-----> esophageal ulcer in distal esophagus, bx with gastric antral mucosa without significant histologic abnormality, acute esophagitis, a stain for fungal organisms will be reported as an addendum. Attempted to flush PEG with war soda, no results. Instilled some of the soda in tubing to let this sit a bit to see if it will unclog the tube. Unable to exchange tube at bedside, as the site is still too fresh and will not have tract formed. Will monitor tomorrow. If unable to unclog, will need repeat EGD with PEG tube placement on Friday- Of note has significant thrombocytopenia and will likely need platelets prior to procedure. - Thrombocytopenia. hematology consulted and felt this was secondary to gangrenous changes, anticoagulants on hold - Wound on the bottom of her left foot/ gangrenous changes , s/p angioplasty, s/ p s/p Left partial 1st ray and left 2nd digit amputation - Respiratory failure- resolved - HARPAL- resolved. - PVD- Plavix on hold due to low platelets - COPD, PVD, UTI per attending Plan: - Will monitor - Cont. Protonix - If unable to unclog, will need repeat EGD with PEG tube placement on Friday- unable to exchange tube at bedside, as the site is still too fresh and will not have tract formed - ? Need for platelets prior to procedure - Supportive care - Patient seen and examined by Dr. Handley and myself and this note is written on his behalf. (Tita eMndez) Physician Comments Patient seen and examined Agree with above Continue current supportive care Monitor labs I was able to unclog the tube and now it flushes nicely and the nurses made aware that they need to flush it regularly We will sign off (Tobias Handley MD) Tita Mendez Sep 20, 2016 17:10 Tobias Handley MD Sep 20, 2016 23:07
--- NOTE | 2016-09-20 22:06 | RADRPT ---
EXAM DATE/TIME: 09/20/2016 20:38 [place] COMPARISON: CTA RUNOFF W 3D RECON, August 20, 2016, 15:58. EXTERNAL COMPARISON : [facility], US ABD-COMPLETE, April 18, 2014CT W/ Contrast, July 28, 2012 INDICATIONS : Mass. MEDICAL HISTORY : Hypertension. Chronic obstructive pulmonary disease. Dyspnea. Gait problems. Depression. SURGICAL HISTORY : Appendectomy. Hysterectomy. Tubal ligation. ENCOUNTER: Initial ACUITY: 1 day PAIN SCORE: Nonresponsive. LOCATION: Abdomen. MEASUREMENTS: LIVER: 17.3 cm length COMMON DUCT: 2 mm RIGHT KIDNEY: 11.2 x 5.3 x 3.4 cm SPLEEN: 15.1 cm length FINDINGS: LIVER: Normal echotexture without focal lesion or ductal dilatation. COMMON DUCT: No intraluminal mass or stone visualized. GALLBLADDER: The gallbladder is not distended. Gallbladder wall appears thickened which may be secondary to lack o f distention. Gallstones are not seen. PANCREAS: The visualized portions are within normal limits. RIGHT KIDNEY: No hydronephrosis. There is a 2.1 cm cystic area is seen adjacent to the superior right kidney. This has an echogenic rim. On a Prior CT examination, this appeared calcified. SPLEEN: Spleen is enlarged. No focal lesion. OTHER: Bilateral pleural effusions are present. CONCLUSION: 1. 2.1 cm cystic mass in the right quadrant likely of the supraspinatus and kidney this was present o n prior CTA and likely are present a peripherally calcified cyst. 2. Splenomegaly. 3. Bilateral pleural effusions. Josue White MD on September 20, 2016 at 21:58 Board Certified Radiologist. This report was verified electronically.
--- NOTE | 2016-09-20 22:15 | HHI.PR ---
Subjective Remarks Follow up for PVD, possible aspiration pneumonia, respiratory failure. Ms. High is doing well. Daughter at bedside. Ms. High did not use BiPAP last night. No fever, chills. Objective Vitals Vital Signs Date Time Temp Pulse Resp B/P Pulse Ox O2 Delivery O2 Flow Rate FiO2 09/20/16 20:00 97.1 82 17 135/56 94 09/20/16 17:51 95 Nasal Cannula 1.00 09/20/16 16:00 98.4 82 14 129/62 95 09/20/16 12:00 97.4 77 14 119/58 94 09/20/16 09:15 92 Nasal Cannula 1.00 09/20/16 08:00 98.0 80 16 123/57 95 09/20/16 04:00 98.7 87 17 165/70 94 09/20/16 00:00 98.2 82 17 132/65 96 09/19/16 23:41 91 Nasal Cannula 1.00 I/O 09/19/16 09/19/16 09/19/16 09/20/16 09/20/16 09/20/16 07:00 15:00 23:00 07:00 15:00 23:00 Intake Total 1153 ml 360 ml 0 ml 60 ml 120 ml Balance 1153 ml 360 ml 0 ml 60 ml 120 ml Intake Oral 0 ml 10 ml 0 ml 60 ml 120 ml Tube Feeding 1153 ml 350 ml # Voids 2 1 1 2 2 # Bowel Movements 1 3 2 2 1 Result Diagram: 09/20/16 0901 09/20/16 0901 Imaging Last Impressions Modified Barium Swallow 09/20/16 0000 Signed Impressions: Service Date/Time: Tuesday, September 20, 2016 00:00 - CONCLUSION: No evidence of aspiration. Lcui Evans MD Consultation 09/18/16 0000 Signed Impressions: Service Date/Time: Sunday, September 18, 2016 00:00 - CONCLUSION: When this rash resolves or stabilizes we can reattempt a bone marrow aspirate. Mauricio Zelaya MD FACR Head CT 09/17/16 0000 Signed Impressions: Service Date/Time: Saturday, September 17, 2016 12:05 - CONCLUSION: 1. No acute intracranial abnormality is identified. Chronic changes include mild cerebral atrophy and periventricular white matter low attenuation characteristic of chronic microvascular ischemia. 2. There is fluid in the mastoid air cells bilaterally which can be seen with acute mastoiditis. Josue Mccall MD Upper Extremity Ultrasound 09/12/16 0000 Signed Impressions: Service Date/Time: September 14:08 - CONCLUSION: No DVT in the left arm. Eric Manning MD Chest X-Ray 09/12/16 0000 Signed Impressions: Service Date/Time: September 12:28 - CONCLUSION: 1. Bilateral mostly basilar and perihilar airspace disease similar in appearance to September 01. Moderate effusions. Findings most characteristic of congestive heart failure. Cannot exclude pneumonia. Sumit Vaughn MD Abdomen X-Ray 08/29/16 0000 Signed Impressions: Service Date/Time: August 19:31 - CONCLUSION: NG tube tip in the stomach. KLexi Rehman MD Angiography 08/22/16 1420 Signed Impressions: Service Date/Time: August 13:13 - CONCLUSION: Diagnostic angiography as described above demonstrates high-grade bilateral external iliac artery stenoses and high-grade left common femoral artery stenosis. Successful angioplasty of the left common femoral artery and left external iliac artery. Right external iliac artery angioplasty and stenting as described above. Significant improvement in luminal patency of the external iliac arteries and left common femoral artery following endovascular treatment. Rajat Hu MD Aorta w/Runoff CTA 08/19/16 0000 Signed Impressions: Service Date/Time: Saturday, August 20, 2016 15:58 - CONCLUSION: Advanced atherosclerotic vasculopathy with hemodynamically significant stenotic/ occlusive lesions in the celiac, superior mesenteric, renal, external iliac, superficial femoral and popliteal arteries as described above. Severe irregularity with moderate to severe stenotic lesions are seen in the infrapopliteal runoff vessels to both calves and feet. Significantly diminished flow is evident to the right foot. Moderate bilateral pleural effusions with consolidating airspace disease in both lower lobes. Rajat uH MD Renal Ultrasound 08/17/16 0000 Signed Impressions: Service Date/Time: Wednesday, August 17, 2016 16:01 - CONCLUSION: 1. Mild dilation of the collecting system of the right kidney. No evidence of hydronephrosis on the left. 2. 2.1 x 2.3 cm round non-shadowing lesion supermedial to the upper pole the right kidney of uncertain organ of origin. The right adrenal gland could be located in this area. Wei Corley MD Lower Extremity Ultrasound 08/16/16 0000 Signed Impressions: Service Date/Time: Tuesday, August 16, 2016 21:07 - CONCLUSION: No DVT. Josue White MD Foot X-Ray 08/16/16 0000 Signed Impressions: Service Date/Time: Tuesday, August 16, 2016 22:14 - CONCLUSION: No acute disease. Josue White MD Objective Remarks GENERAL: Drowsy but wakes up, NAD. SKIN: Warm and dry. LLE redness. HEAD: Normocephalic. EYES: No scleral icterus. No injection or drainage. NECK: Supple, trachea midline. No JVD or lymphadenopathy. CARDIOVASCULAR: Regular rate and rhythm without murmurs, gallops, or rubs. RESPIRATORY: Breath sounds equal bilaterally. No accessory muscle use. GASTROINTESTINAL: Abdomen soft, non-tender, nondistended. MUSCULOSKELETAL: No cyanosis, or edema. 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 BACK: Nontender without obvious deformity. No CVA tenderness. Procedures 09/06/16 status post Left hallux and 2nd digit amputation A/P Problem List: (1) Cellulitis of left lower extremity ICD Code: L03.116 Status: Acute (2) PVD (peripheral vascular disease) ICD Code: I73.9 Status: Acute (3) Hyperkalemia ICD Code: E87.5 Status: Acute (4) HARPAL (acute kidney injury) ICD Code: N17.9 Status: Acute (5) HTN (hypertension) ICD Code: I10 Status: Chronic (6) COPD (chronic obstructive pulmonary disease) ICD Code: J44.9 Status: Chronic (7) Respiratory failure ICD Code: J96.90 Status: Resolved (8) Normochromic normocytic anemia ICD Code: D64.9 Status: Acute Assessment and Plan 85yr old female - Hypercapnic respiratory failure - patient is oxygenating well. Due to CO2 retention, patient was on BiPAP for two nights. - Discussed with RN to reduce O2 requirement to keep O2 sat > 88% - Hold BiPAP for now. - Currently patient is on 2 L of oxygen via nasal cannula. PVD/ Gangrene - S/p angioplasty as per vasc surgery. The pt has gangrenous changes in the lower extremities. 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 Continue with Toradol when necessary for pain - Continue to hold heparin gtt, Plavix in setting of thrombocytopenia. Thrombocytopenia/ DIC - The pt has a history of thrombocytopenia but her plt count continues to drop. 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 - Discussed with patient's primary care clinic. In August 2016 patient's platelet count was 121,000. - Continue to follow CBC. INR - hold heparin gtt/ Plavix - continue antibiotics - Levofloxacin - Plt count 18K today. Hematology ordered one unit of Platelet transfusion today 09/16/2016. - Ultrasound today shows Splenomegaly. Patient will likely not be able to tolerate splenectomy. Malnutrition Postoperatively very poor appetite. Failed calorie count. Appreciate GI consult. - s/p EGD with PEG tube placement 09/11/16 - Continue Tube feed with tray - Consider trial of Marinol LLE Cellulitis - Wound on plantar aspect of left foot x2 wks. Outpatient Wound Cultures positive for Staph per report. Resolved. Left arm swelling: DVT ruled out with Doppler 09/12/16 Aspiration PNA - Chest x-ray with evidence of consolidation. Repeat CXR 09/12/16 noted and reviewed - Continue IV Levaquin 09/02. - Speech therapy follow-up. Acute Hypercapnic respiratory failure: Keep oxygen saturation above 92%; may consider BIPAP vs Diuretic therapy +/- steroid Normocytic normochromic anemia Stable. - follow CBC and transfuse as needed. S/p 1 unit 09/03 per hematology. Diarrhea: C. difficile PCR negative;Resolved HARPAL Resolved. Renal ultrasound reviewed and no evidence of hydronephrosis on the left. 2. 2.1 x 2.3 cm round non-shadowing lesion supermedial to the upper pole the right kidney of uncertain organ of origin. Appreciate input from nephrology. Avoid all nephrotoxic drugs. - outpt follow-up for right kidney lesion. - Other - I discussed with patient's daughter Edith Lee . She agrees with a palliative consult. - Patient's platelet count is going to be a concern for placement I believe. If PLT count improves, patient can be discharged to SNF. Full code. PPx: Heparin gtt on hold s/t thrombocytopenia. Daniel Rae DO Sep 20, 2016 22:15
[2016-09-21] VITALS (8 sets, daily range): BP systolic 103–113; BP diastolic 39–55; PULSE 74–85; RESP 14–16; TEMP 96.9–98.8; O2SAT 85–98
[2016-09-21] MEDS: CHLORHEXIDINE GLUCONATE 2 % 1 PACK (2 CLOTHS) TOP SCH (04:00)
[2016-09-21 06:44] LABS: ALKALINE PHOSPHATASE 76 U/L (45-117); ALT (GPT) 11 U/L (10-53); ANION GAP 6 MEQ/L (5-15); AST (GOT) 6 U/L (15-37); BLOOD UREA NITROGEN 36 MG/DL (7-18); CHLORIDE 102 MEQ/L (98-107); GLOMERULAR FILTRATION RATE 97 ML/MIN (>89); POTASSIUM 3.9 MEQ/L (3.5-5.1); SODIUM (NA) 145 MEQ/L (136-145); TOTAL BILIRUBIN ADULT 0.3 MG/DL (0.2-1.0)
[2016-09-21 06:45] LABS: AUTOMATED NEUTROPHIL # 8.6 TH/MM3 (1.8-7.7); BASOPHIL % 0.2 % (0.0-2.0); EOSINOPHIL % 0.1 % (0.0-4.0); HEMATOCRIT 26.5 % (35.0-46.0); LYMPH % 18.4 % (9.0-44.0); LYMPHOCYTE # 2.2 TH/MM3 (1.0-4.8); MEAN CELL VOLUME 89.3 FL (80.0-100.0); MEAN CORPUSCULAR HEMOGLOBIN 28.5 PG (27.0-34.0); MEAN CORPUSCULAR HGB CONC 31.9 % (32.0-36.0); MONO % 10.3 % (0.0-8.0); RED BLOOD COUNT 2.97 MIL/MM3 (4.00-5.30); RED CELL DISTRIBUTION WIDTH 17.7 % (11.6-17.2)
[2016-09-21 06:46] LABS: APTT (PATIENT) 33.8 SEC (24.3-30.1); PROTHROMBIN TIME - PATIENT 11.6 SEC (9.8-11.6)
[2016-09-21 06:58] LABS: HEMO FLAGS AUTO DIFF
[2016-09-21 06:59] LABS: PLATELET COUNT 16 TH/MM3 (150-450)
[2016-09-21] MEDS: LACTOBACILLUS ACIDOPHILUS TAB PO SCH ×2 (09:13→20:31)
[2016-09-21] MEDS: SODIUM CHLORIDE 0.9% FLUSH 5 ML FLUSH FLUSH SCH ×2 (09:13→20:31)
[2016-09-21] MEDS: PANTOPRAZOLE SODIUM 40 MG VIAL IV PUSH SCH (11:00)
[2016-09-21] MEDS: LEVOFLOXACIN 750 MG PREMIX INJ 150 ML IV SCH (11:02)
[2016-09-21 11:03] LABS: BANDS 9 % (0-6); MYELOCYTES 3 % (0-0); NEUTROPHIL # MANUAL DIFF 9.6 TH/MM3 (1.8-7.7); PLATELET ESTIMATE SMEAR RARE (NORMAL); PLATELET MORPHOLOGY NORMAL (NORMAL); POLYS (SEG NEUTROPHILS) 68 % (16-70); SCAN/DIFF FINAL DIFF MANUAL; WBC DIFF SAMPLE 100
[2016-09-21] MEDS: RESP: ALBUTEROL 2.5 MG/IPRATROPIUM 0.5 MG NEB (PRN) NEB (13:32)
--- NOTE | 2016-09-21 14:36 | HHI.PR ---
Subjective Remarks Follow up for PVD, possible aspiration pneumonia, respiratory failure. Ms. High is doing well. A family member is present. Patient does not have any specific concerns. Denies any chest pain, SOB, fever, chills. No bleeding. Objective Vitals Vital Signs Date Time Temp Pulse Resp B/P Pulse Ox O2 Delivery O2 Flow Rate FiO2 09/21/16 13:32 85 Nasal Cannula 1.00 09/21/16 12:00 97.2 84 16 110/48 92 09/21/16 08:00 98.8 85 14 107/39 92 09/21/16 04:00 96.9 79 16 109/52 93 09/21/16 00:00 96.9 81 16 113/55 95 09/20/16 20:00 97.1 82 17 135/56 94 09/20/16 17:51 95 Nasal Cannula 1.00 09/20/16 16:00 98.4 82 14 129/62 95 I/O 09/20/16 09/20/16 09/20/16 09/21/16 09/21/16 09/21/16 07:00 15:00 23:00 07:00 15:00 23:00 Intake Total 60 ml 120 ml 480 ml Balance 60 ml 120 ml 480 ml Intake Oral 60 ml 120 ml 480 ml # Voids 2 3 2 1 # Bowel Movements 2 1 1 2 Result Diagram: 09/21/16 0525 09/21/16 0525 Imaging Last Impressions Modified Barium Swallow 09/20/16 0000 Signed Impressions: Service Date/Time: Tuesday, September 20, 2016 00:00 - CONCLUSION: No evidence of aspiration. Luci Evans MD Liver Ultrasound 09/20/16 0000 Signed Impressions: Service Date/Time: Tuesday, September 20, 2016 20:38 - CONCLUSION: 1. 2.1 cm cystic mass in the right quadrant likely of the supraspinatus and kidney this was present on prior CTA and likely are present a peripherally calcified cyst. 2. Splenomegaly. 3. Bilateral pleural effusions. Josue White MD Consultation 09/18/16 0000 Signed Impressions: Service Date/Time: Sunday, September 18, 2016 00:00 - CONCLUSION: When this rash resolves or stabilizes we can reattempt a bone marrow aspirate. Mauricio Zelaya MD FACR Head CT 09/17/16 0000 Signed Impressions: Service Date/Time: Saturday, September 17, 2016 12:05 - CONCLUSION: 1. No acute intracranial abnormality is identified. Chronic changes include mild cerebral atrophy and periventricular white matter low attenuation characteristic of chronic microvascular ischemia. 2. There is fluid in the mastoid air cells bilaterally which can be seen with acute mastoiditis. Josue Mccall MD Upper Extremity Ultrasound 09/12/16 0000 Signed Impressions: Service Date/Time: September 14:08 - CONCLUSION: No DVT in the left arm. Eric Manning MD Chest X-Ray 09/12/16 0000 Signed Impressions: Service Date/Time: September 12:28 - CONCLUSION: 1. Bilateral mostly basilar and perihilar airspace disease similar in appearance to September 01. Moderate effusions. Findings most characteristic of congestive heart failure. Cannot exclude pneumonia. Sumit Vaughn MD Abdomen X-Ray 08/29/16 0000 Signed Impressions: Service Date/Time: August 19:31 - CONCLUSION: NG tube tip in the stomach. K. Alonzo Rehman MD Angiography 08/22/16 1420 Signed Impressions: Service Date/Time: August 13:13 - CONCLUSION: Diagnostic angiography as described above demonstrates high-grade bilateral external iliac artery stenoses and high-grade left common femoral artery stenosis. Successful angioplasty of the left common femoral artery and left external iliac artery. Right external iliac artery angioplasty and stenting as described above. Significant improvement in luminal patency of the external iliac arteries and left common femoral artery following endovascular treatment. Rajat Hu MD Aorta w/Runoff CTA 08/19/16 0000 Signed Impressions: Service Date/Time: Saturday, August 20, 2016 15:58 - CONCLUSION: Advanced atherosclerotic vasculopathy with hemodynamically significant stenotic/ occlusive lesions in the celiac, superior mesenteric, renal, external iliac, superficial femoral and popliteal arteries as described above. Severe irregularity with moderate to severe stenotic lesions are seen in the infrapopliteal runoff vessels to both calves and feet. Significantly diminished flow is evident to the right foot. Moderate bilateral pleural effusions with consolidating airspace disease in both lower lobes. Rajat Hu MD Renal Ultrasound 08/17/16 0000 Signed Impressions: Service Date/Time: Wednesday, August 17, 2016 16:01 - CONCLUSION: 1. Mild dilation of the collecting system of the right kidney. No evidence of hydronephrosis on the left. 2. 2.1 x 2.3 cm round non-shadowing lesion supermedial to the upper pole the right kidney of uncertain organ of origin. The right adrenal gland could be located in this area. Wei Corley MD Lower Extremity Ultrasound 08/16/16 0000 Signed Impressions: Service Date/Time: Tuesday, August 16, 2016 21:07 - CONCLUSION: No DVT. Josue White MD Foot X-Ray 08/16/16 0000 Signed Impressions: Service Date/Time: Tuesday, August 16, 2016 22:14 - CONCLUSION: No acute disease. Josue White MD Objective Remarks GENERAL: Drowsy but wakes up, NAD. SKIN: Warm and dry. LLE redness. HEAD: Normocephalic. EYES: No scleral icterus. No injection or drainage. NECK: Supple, trachea midline. No JVD or lymphadenopathy. CARDIOVASCULAR: Regular rate and rhythm without murmurs, gallops, or rubs. RESPIRATORY: Breath sounds equal bilaterally. No accessory muscle use. GASTROINTESTINAL: Abdomen soft, non-tender, nondistended. MUSCULOSKELETAL: No cyanosis, or edema. 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 BACK: Nontender without obvious deformity. No CVA tenderness. Procedures 09/06/16 status post Left hallux and 2nd digit amputation A/P Problem List: (1) Cellulitis of left lower extremity ICD Code: L03.116 Status: Acute (2) PVD (peripheral vascular disease) ICD Code: I73.9 Status: Acute (3) Hyperkalemia ICD Code: E87.5 Status: Acute (4) HARPAL (acute kidney injury) ICD Code: N17.9 Status: Acute (5) HTN (hypertension) ICD Code: I10 Status: Chronic (6) COPD (chronic obstructive pulmonary disease) ICD Code: J44.9 Status: Chronic (7) Respiratory failure ICD Code: J96.90 Status: Resolved (8) Normochromic normocytic anemia ICD Code: D64.9 Status: Acute Assessment and Plan 85yr old female - Hypercapnic respiratory failure - patient is oxygenating well. Due to CO2 retention, patient was on BiPAP for two nights. - Discussed with RN to reduce O2 requirement to keep O2 sat > 88% - Hold BiPAP for now. - Currently patient is on 2 L of oxygen via nasal cannula. PVD/ Gangrene - S/p angioplasty as per [facility] surgery. The pt has gangrenous changes in the lower extremities. 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 Continue with Toradol when necessary for pain - Continue to hold heparin gtt, Plavix in setting of thrombocytopenia. Thrombocytopenia/ DIC - The pt has a history of thrombocytopenia but her plt count continues to drop. 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 - Discussed with patient's primary care clinic. In August 2016 patient's platelet count was 121,000. - Continue to follow CBC. INR - hold heparin gtt/ Plavix - continue antibiotics - Levofloxacin - Plt count 16K today. Hematology ordered one unit of Platelet transfusion today 09/16/2016. - Ultrasound today shows Splenomegaly. Patient will likely not be able to tolerate splenectomy. Malnutrition Postoperatively very poor appetite. Failed calorie count. Appreciate GI consult. - s/p EGD with PEG tube placement 09/11/16 - Continue Tube feed with tray - Consider trial of Marinol LLE Cellulitis - Wound on plantar aspect of left foot x2 wks. Outpatient Wound Cultures positive for Staph per report. Resolved. Left arm swelling: DVT ruled out with Doppler 09/12/16 Aspiration PNA - Chest x-ray with evidence of consolidation. Repeat CXR 09/12/16 noted and reviewed - Continue IV Levaquin started on 09/02/2016. We will discontinue Levaquin for now and observe patient off abx. - Speech therapy following. Acute Hypercapnic respiratory failure: Keep oxygen saturation above 92%; may consider BIPAP vs Diuretic therapy +/- steroid Normocytic normochromic anemia Stable. - follow CBC and transfuse as needed. S/p 1 unit 09/03 per hematology. Diarrhea: C. difficile PCR negative;Resolved HARPAL Resolved. Renal ultrasound reviewed and no evidence of hydronephrosis on the left. 2. 2.1 x 2.3 cm round non-shadowing lesion supermedial to the upper pole the right kidney of uncertain organ of origin. Appreciate input from nephrology. Avoid all nephrotoxic drugs. - outpt follow-up for right kidney lesion. - Other - I discussed with patient's daughter Edith Lee . She agrees with a palliative consult. - Patient's platelet count is going to be a concern for placement I believe. DNR. PPx: Heparin gtt on hold s/t thrombocytopenia. Daniel Rae DO Sep 21, 2016 2:36 pm
[2016-09-22] VITALS (9 sets, daily range): BP systolic 108–150; BP diastolic 51–64; PULSE 74–95; RESP 14–18; TEMP 97–98.2; O2SAT 93–99
[2016-09-22] MEDS: CHLORHEXIDINE GLUCONATE 2 % 1 PACK (2 CLOTHS) TOP SCH (04:00)
[2016-09-22 07:21] LABS: AUTOMATED NEUTROPHIL # 8.2 TH/MM3 (1.8-7.7); BASOPHIL % 0.1 % (0.0-2.0); EOSINOPHIL % 0.1 % (0.0-4.0); HEMATOCRIT 26.5 % (35.0-46.0); LYMPH % 15.4 % (9.0-44.0); LYMPHOCYTE # 1.7 TH/MM3 (1.0-4.8); MEAN CELL VOLUME 89.7 FL (80.0-100.0); MEAN CORPUSCULAR HEMOGLOBIN 27.9 PG (27.0-34.0); MEAN CORPUSCULAR HGB CONC 31.2 % (32.0-36.0); MONO % 10.7 % (0.0-8.0); NEUT % 73.7 % (16.0-70.0); RED BLOOD COUNT 2.96 MIL/MM3 (4.00-5.30); RED CELL DISTRIBUTION WIDTH 17.8 % (11.6-17.2); WHITE BLOOD COUNT 11.2 TH/MM3 (4.0-11.0)
[2016-09-22] MEDS ORDERED: LIDOCAINE HCL 2% 20 ML VIAL INFIL ONE (07:45)
[2016-09-22 07:46] LABS: HEMO FLAGS AUTO DIFF
[2016-09-22 07:49] LABS: PLATELET COUNT 12 TH/MM3 (150-450)
[2016-09-22] MEDS ORDERED: SODIUM CHLOR 0.9% 250 ML INJ 250 ML IV ONE (08:00)
[2016-09-22] MEDS ORDERED: ACETAMINOPHEN 325 MG TAB PO PRN (08:00)
[2016-09-22] MEDS ORDERED: diphenhydrAMINE HCL 25 MG CAP PO PRN (08:00)
[2016-09-22] MEDS: LACTOBACILLUS ACIDOPHILUS TAB PO SCH ×2 (08:36→21:00)
[2016-09-22] MEDS: SODIUM CHLORIDE 0.9% FLUSH 5 ML FLUSH FLUSH SCH ×2 (08:36→21:00)
--- NOTE | 2016-09-22 08:40 | HHI.PR ---
Subjective Remarks Patient seen in follow-up for respiratory failure, severe PVD/gangrene requiring amputation, severe and persistent thrombocytopenia, resolving aspiration pneumonia. Patient has no new complaints. She denies any pain or increase in shortness of breath. Discussed with RN. Objective Vitals Vital Signs Date Time Temp Pulse Resp B/P Pulse Ox O2 Delivery O2 Flow Rate FiO2 09/22/16 08:00 97.2 83 16 110/51 98 09/22/16 07:15 93 Nasal Cannula 2.00 09/22/16 04:15 97.8 84 16 136/63 94 09/22/16 00:00 98.2 83 16 129/58 94 09/21/16 20:00 97.6 82 16 113/53 98 09/21/16 19:53 96 Nasal Cannula 2.00 09/21/16 16:00 97.9 74 16 103/45 93 09/21/16 13:32 85 Nasal Cannula 1.00 09/21/16 12:00 97.2 84 16 110/48 92 I/O 09/21/16 09/21/16 09/21/16 09/22/16 09/22/16 09/22/16 07:00 15:00 23:00 07:00 15:00 23:00 Intake Total 480 ml 240 ml 1675 ml 880 ml Output Total 150 ml Balance 480 ml 240 ml 1675 ml 880 ml -150 ml Intake Oral 480 ml 240 ml 480 ml 480 ml IV Total 160 ml Tube Feeding 825 ml 400 ml Other 210 ml Output Urine Total 150 ml # Voids 2 1 3 3 # Bowel Movements 1 2 3 2 1 Result Diagram: 09/22/16 0557 09/21/16 0525 Imaging Last Impressions Modified Barium Swallow 09/20/16 0000 Signed Impressions: Service Date/Time: Tuesday, September 20, 2016 00:00 - CONCLUSION: No evidence of aspiration. Luci Evans MD Liver Ultrasound 09/20/16 0000 Signed Impressions: Service Date/Time: Tuesday, September 20, 2016 20:38 - CONCLUSION: 1. 2.1 cm cystic mass in the right quadrant likely of the supraspinatus and kidney this was present on prior CTA and likely are present a peripherally calcified cyst. 2. Splenomegaly. 3. Bilateral pleural effusions. Josue White MD Consultation 09/18/16 0000 Signed Impressions: Service Date/Time: Sunday, September 18, 2016 00:00 - CONCLUSION: When this rash resolves or stabilizes we can reattempt a bone marrow aspirate. Mauricio Zelaya MD FACR Head CT 09/17/16 0000 Signed Impressions: Service Date/Time: Saturday, September 17, 2016 12:05 - CONCLUSION: 1. No acute intracranial abnormality is identified. Chronic changes include mild cerebral atrophy and periventricular white matter low attenuation characteristic of chronic microvascular ischemia. 2. There is fluid in the mastoid air cells bilaterally which can be seen with acute mastoiditis. Josue Mccall MD Upper Extremity Ultrasound 09/12/16 0000 Signed Impressions: Service Date/Time: September 14:08 - CONCLUSION: No DVT in the left arm. Eric Manning MD Chest X-Ray 09/12/16 0000 Signed Impressions: Service Date/Time: September 12:28 - CONCLUSION: 1. Bilateral mostly basilar and perihilar airspace disease similar in appearance to September 01. Moderate effusions. Findings most characteristic of congestive heart failure. Cannot exclude pneumonia. Sumit Vaughn MD Abdomen X-Ray 08/29/16 0000 Signed Impressions: Service Date/Time: August 19:31 - CONCLUSION: NG tube tip in the stomach. Nikko Rehman MD Angiography 08/22/16 1420 Signed Impressions: Service Date/Time: August 13:13 - CONCLUSION: Diagnostic angiography as described above demonstrates high-grade bilateral external iliac artery stenoses and high-grade left common femoral artery stenosis. Successful angioplasty of the left common femoral artery and left external iliac artery. Right external iliac artery angioplasty and stenting as described above. Significant improvement in luminal patency of the external iliac arteries and left common femoral artery following endovascular treatment. Rajat Hu MD Aorta w/Runoff CTA 08/19/16 0000 Signed Impressions: Service Date/Time: Saturday, August 20, 2016 15:58 - CONCLUSION: Advanced atherosclerotic vasculopathy with hemodynamically significant stenotic/ occlusive lesions in the celiac, superior mesenteric, renal, external iliac, superficial femoral and popliteal arteries as described above. Severe irregularity with moderate to severe stenotic lesions are seen in the infrapopliteal runoff vessels to both calves and feet. Significantly diminished flow is evident to the right foot. Moderate bilateral pleural effusions with consolidating airspace disease in both lower lobes. Rajat Hu MD Renal Ultrasound 08/17/16 0000 Signed Impressions: Service Date/Time: Wednesday, August 17, 2016 16:01 - CONCLUSION: 1. Mild dilation of the collecting system of the right kidney. No evidence of hydronephrosis on the left. 2. 2.1 x 2.3 cm round non-shadowing lesion supermedial to the upper pole the right kidney of uncertain organ of origin. The right adrenal gland could be located in this area. Wei Corley MD Lower Extremity Ultrasound 08/16/16 0000 Signed Impressions: Service Date/Time: Tuesday, August 16, 2016 21:07 - CONCLUSION: No DVT. Josue White MD Foot X-Ray 08/16/16 0000 Signed Impressions: Service Date/Time: Tuesday, August 16, 2016 22:14 - CONCLUSION: No acute disease. Josue White MD Objective Remarks GENERAL: Frail and cachectic looking elderly female SKIN: Bilateral flank with erythema and evidence of skin breakdown. Not warm. CARDIOVASCULAR: Normal rate and regular rhythm without murmurs, gallops, or rubs. RESPIRATORY: Good respiratory efforts. Breath sounds equal and clear to auscultation bilaterally. GASTROINTESTINAL: Abdomen soft, non-tender, non-distended. PEG in place. 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 Could not palpate a dorsalis pedis pulse on the left. Left toes cool and pale. Right dorsalis pedis pulses faint. NEURO: Alert, follow commands. Very hard of hearing. PSYCH: Calm Procedures 09/06/16 status post Left hallux and 2nd digit amputation A/P Problem List: (1) Cellulitis of left lower extremity ICD Code: L03.116 Status: Acute (2) PVD (peripheral vascular disease) ICD Code: I73.9 Status: Acute (3) Hyperkalemia ICD Code: E87.5 Status: Acute (4) HARPAL (acute kidney injury) ICD Code: N17.9 Status: Acute (5) HTN (hypertension) ICD Code: I10 Status: Chronic (6) COPD (chronic obstructive pulmonary disease) ICD Code: J44.9 Status: Chronic (7) Respiratory failure ICD Code: J96.90 Status: Resolved (8) Normochromic normocytic anemia ICD Code: D64.9 Status: Acute Assessment and Plan 85 Y/O old female with respiratory failure, severe PVD/gangrene requiring amputation, severe and persistent thrombocytopenia, resolving aspiration pneumonia. - Hypercapnic respiratory failure - patient is oxygenating well. Due to CO2 retention, patient was on BiPAP for two nights. -Wean off oxygen as tolerated - Hold BiPAP for now. - Currently patient is on 2 L of oxygen via nasal cannula. Thrombocytopenia/ DIC - Appreciate hematology following. Consumptive coagulopathy versus bone marrow disorder per hematology. - Platelets dropped again to 12,000 today. Transfusion per hematology today - Per PCP records, August 2016 patient's platelet count was 121,000. - Continue to follow CBC. INR - hold heparin gtt/ Plavix - Ultrasound today shows Splenomegaly. Patient will likely not be able to tolerate splenectomy. PVD/ Gangrene - S/p angioplasty as per vas surgery. The pt has gangrenous changes in the lower extremities. 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 Continue with Toradol when necessary for pain - Continue to hold heparin gtt, Plavix in setting of thrombocytopenia. Bilateral flank skin breakdown: Does not appear to be infectious at this point. Wound care consulted. Follow closely. Frequent turning. Malnutrition Postoperatively very poor appetite. Failed calorie count. Appreciate GI consult. - s/p EGD with PEG tube placement 09/11/16 - Continue Tube feed with tray - Consider trial of Marinol LLE Cellulitis - Wound on plantar aspect of left foot x2 wks. Outpatient Wound Cultures positive for Staph per report. Resolved. Left arm swelling: DVT ruled out with Doppler 09/12/16 Aspiration PNA - Chest x-ray with evidence of consolidation. Repeat CXR 09/12/16 noted and reviewed - Levaquin discontinued. Continue to monitor off antibiotics. - Speech therapy following. Acute Hypercapnic respiratory failure: Keep oxygen saturation above 90%; may consider BIPAP as needed. Normocytic normochromic anemia Stable. - follow CBC and transfuse as needed. S/p 1 unit 09/03 per hematology. Diarrhea: C. difficile PCR negative;Resolved HARPAL Resolved. Renal ultrasound reviewed and no evidence of hydronephrosis on the left. 2. 2.1 x 2.3 cm round non-shadowing lesion supermedial to the upper pole the right kidney of uncertain organ of origin. Appreciate input from nephrology. Avoid all nephrotoxic drugs. - outpt follow-up for right kidney lesion. - Appreciate palliative care following and providing support to the patient and family. Patient has a DNR status. Family is open to discussion about hospice if she continues to deteriorate. PPx: Heparin gtt on hold s/t thrombocytopenia. Yaron Boewr MD Sep 22, 2016 08:40
[2016-09-22] MEDS: PANTOPRAZOLE SODIUM 40 MG VIAL IV PUSH SCH (10:21)
--- NOTE | 2016-09-22 11:19 | PD.ONC.PN ---
Subjective Subjective Remarks Afebrile overnight. Patient now has skin breakdown on back and buttocks. She denies pain and has no complaints. No family members at bedside. Objective Data Date Time Temp Pulse Resp B/P Pulse Ox O2 Delivery O2 Flow Rate FiO2 09/22/16 08:00 97.2 83 16 110/51 98 09/22/16 07:15 93 Nasal Cannula 2.00 09/22/16 04:15 97.8 84 16 136/63 94 09/22/16 00:00 98.2 83 16 129/58 94 09/21/16 20:00 97.6 82 16 113/53 98 09/21/16 19:53 96 Nasal Cannula 2.00 09/21/16 16:00 97.9 74 16 103/45 93 09/21/16 13:32 85 Nasal Cannula 1.00 09/21/16 12:00 97.2 84 16 110/48 92 09/22/16 09/22/16 09/22/16 07:00 15:00 23:00 Intake Total 880 ml Output Total 150 ml Balance 880 ml -150 ml Result Diagram: 09/22/16 0557 09/21/16 0525 Laboratory Results Laboratory Tests Test 09/22/16 09/22/16 05:57 07:57 White Blood Count 11.2 TH/MM3 Red Blood Count 2.96 MIL/MM3 Hemoglobin 8.3 GM/DL Hematocrit 26.5 % Mean Corpuscular Volume 89.7 FL Mean Corpuscular Hemoglobin 27.9 PG Mean Corpuscular Hemoglobin 31.2 % Concent Red Cell Distribution Width 17.8 % Platelet Count 12 TH/MM3 Mean Platelet Volume 11.0 FL Neutrophils (%) (Auto) 73.7 % Lymphocytes (%) (Auto) 15.4 % Monocytes (%) (Auto) 10.7 % Eosinophils (%) (Auto) 0.1 % Basophils (%) (Auto) 0.1 % Neutrophils # (Auto) 8.2 TH/MM3 Lymphocytes # (Auto) 1.7 TH/MM3 Monocytes # (Auto) 1.2 TH/MM3 Eosinophils # (Auto) 0.0 TH/MM3 Basophils # (Auto) 0.0 TH/MM3 CBC Comment AUTO DIFF Blood Bank Comment Administered Medications Medications (Trade) Dose Ordered Sig/Alejandro Route PRN Reason Start Time Stop Time Status Last Admin Dose Admin IV Flush (NS Flush) 2 ml UNSCH PRN FLUSH FLUSH AFTER USING IV ACCESS 08/16/16 22:30 09/03/16 22:33 IV Flush (NS Flush) 2 ml BID FLUSH 08/17/16 09:00 09/22/16 08:36 Ondansetron HCl (Zofran Inj) 4 mg Q6H PRN IVP NAUSEA OR VOMITING 08/16/16 22:30 08/26/16 12:15 Acetaminophen (Tylenol) 650 mg Q6H PRN PO FEVER/PAIN SCALE 1 TO 2 08/16/16 22:30 09/18/16 21:10 Miscellaneous Information 1 [id number] XX 08/17/16 01:00 08/17/16 01:00 Chlorhexidine Gluconate (Chlorhexidine 2% Cloth) Taper DAILY@04 TOP 08/17/16 04:00 08/13/17 03:59 08/17/16 03:40 Lactobacillus Acidophilus (Lactinex) 1 tab Q12HR PO 08/20/16 21:00 09/22/16 08:36 Clopidogrel Bisulfate (Plavix) 75 mg DAILY PO 08/22/16 21:00 Hold 08/30/16 07:55 Pantoprazole Sodium (Protonix Inj) 40 mg Q24H IV PUSH 09/16/16 11:00 09/22/16 10:21 Objective Remarks GENERAL: Elderly female, sitting up in bed innad. SKIN: Warm and dry. erythematous rash on back with associated skin breakdown. HEAD: Normocephalic. EYES: No injection or drainage. NECK: Supple, trachea midline. CARDIOVASCULAR: Regular rate and rhythm RESPIRATORY: Breath sounds equal bilaterally. No accessory muscle use. GASTROINTESTINAL: Abdomen soft, non-tender, nondistended. EXTREMITIES: No cyanosis, or edema. NEUROLOGICAL: very hard of hearing. awake and alert. Assessment/Plan Problem List: (1) Thrombocytopenia Status: Acute Plan: --consumptive coagulopathy vs bone marrow disorder --U/S liver shows splenomegaly, which would certainly contribute to the thrombocytopenia --could also be due to infectious component, i.e. from gangrene Assessment 85 y/o female admitted with cellulitis now s/p left hallux and 2nd digit amputation. Hematology following for anemia, thrombocytopenia. --Aspiration PNA-->on IV levaquin Plan 1. cannot attempt bone marrow biopsy until her rash/skin breakdown on her back improves. 2. one unit platelets today 3. prognosis poor. hospice would be appropriate given her multiple comorbidities, bed bound status. d/w Dr. Keshawn Reynolds,Tamela HUANG Sep 22, 2016 11:19
[2016-09-22 11:37] LABS: BANDS 20 % (0-6); BASOPHILS 1 % (0-2); NEUTROPHIL # MANUAL DIFF 8.5 TH/MM3 (1.8-7.7); PLATELET ESTIMATE SMEAR RARE (NORMAL); PLATELET MORPHOLOGY NORMAL (NORMAL); POLYS (SEG NEUTROPHILS) 56 % (16-70); SCAN/DIFF FINAL DIFF MANUAL; WBC DIFF SAMPLE 100
[2016-09-23] VITALS (7 sets, daily range): BP systolic 107–150; BP diastolic 53–65; PULSE 81–95; RESP 16–24; TEMP 96.1–98.6; O2SAT 91–98
[2016-09-23] MEDS: CHLORHEXIDINE GLUCONATE 2 % 1 PACK (2 CLOTHS) TOP SCH (04:00)
[2016-09-23 07:12] LABS: AUTOMATED NEUTROPHIL # 24.7 TH/MM3 (1.8-7.7); BASOPHIL % 0.1 % (0.0-2.0); HEMATOCRIT 28.1 % (35.0-46.0); LYMPH % 4.5 % (9.0-44.0); LYMPHOCYTE # 1.3 TH/MM3 (1.0-4.8); MEAN CELL VOLUME 90.4 FL (80.0-100.0); MEAN CORPUSCULAR HEMOGLOBIN 27.9 PG (27.0-34.0); MEAN CORPUSCULAR HGB CONC 30.9 % (32.0-36.0); MONO % 8.8 % (0.0-8.0); NEUT % 86.6 % (16.0-70.0); RED BLOOD COUNT 3.11 MIL/MM3 (4.00-5.30); RED CELL DISTRIBUTION WIDTH 17.3 % (11.6-17.2); WHITE BLOOD COUNT 28.5 TH/MM3 (4.0-11.0)
[2016-09-23 07:15] LABS: BICARBONATE 37.5 MEQ/L (21.0-32.0)
[2016-09-23 07:20] LABS: PROTHROMBIN TIME - PATIENT 11.1 SEC (9.8-11.6)
[2016-09-23 07:21] LABS: HEMO FLAGS AUTO DIFF
[2016-09-23 07:24] LABS: PLATELET COUNT 12 TH/MM3 (150-450)
[2016-09-23 08:50] LABS: BANDS 6 % (0-6); NEUTROPHIL # MANUAL DIFF 26.2 TH/MM3 (1.8-7.7); POLYS (SEG NEUTROPHILS) 86 % (16-70); WBC DIFF SAMPLE 100
[2016-09-23 08:51] LABS: PLATELET ESTIMATE SMEAR RARE (NORMAL); PLATELET MORPHOLOGY NORMAL (NORMAL); SCAN/DIFF FINAL DIFF MANUAL
[2016-09-23] MEDS: LACTOBACILLUS ACIDOPHILUS TAB PO SCH ×2 (09:28→21:40)
[2016-09-23] MEDS: SODIUM CHLORIDE 0.9% FLUSH 5 ML FLUSH FLUSH SCH ×2 (09:29→21:40)
--- NOTE | 2016-09-23 10:35 | HHI.PR ---
Subjective Remarks Patient seen in follow-up for respiratory failure, severe PVD/gangrene requiring amputation, severe and persistent thrombocytopenia, resolving aspiration pneumonia. No issues overnight. Patient hard of hearing. has no new complaints. Objective Vitals Vital Signs Date Time Temp Pulse Resp B/P Pulse Ox O2 Delivery O2 Flow Rate FiO2 09/23/16 09:40 92 Nasal Cannula 2.00 09/23/16 08:00 96.1 90 24 107/60 95 09/23/16 04:00 97.5 95 18 130/55 94 09/23/16 00:00 98.6 90 17 120/53 98 09/22/16 20:00 97.0 91 18 147/60 98 09/22/16 16:00 97.8 95 14 108/54 97 09/22/16 12:29 97.1 85 18 150/64 99 09/22/16 12:09 97.6 74 18 115/62 09/22/16 12:00 97.6 74 18 115/62 97 I/O 09/22/16 09/22/16 09/22/16 09/23/16 09/23/16 09/23/16 07:00 15:00 23:00 07:00 15:00 23:00 Intake Total 880 ml 1122 ml 1000 ml 640 ml Output Total 350 ml Balance 880 ml 772 ml 1000 ml 640 ml Intake Oral 480 ml 120 ml 480 ml 240 ml IV Total 400 ml Tube Feeding 400 ml 464 ml 400 ml Platelets 298 ml Other 240 ml 120 ml Output Urine Total 350 ml # Voids 3 1 2 1 # Bowel Movements 2 1 2 1 1 Result Diagram: 09/23/16 0545 09/23/16 0545 Objective Remarks GENERAL: Frail and cachectic looking elderly female SKIN: Bilateral flank with erythema and evidence of skin breakdown. Not warm. Drying out compared to yesterday CARDIOVASCULAR: Normal rate and regular rhythm without murmurs, gallops, or rubs. RESPIRATORY: Good respiratory efforts. Breath sounds equal and clear to auscultation bilaterally. GASTROINTESTINAL: Abdomen soft, non-tender, non-distended. PEG in place. 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 Could not palpate a dorsalis pedis pulse on the left. Left toes cool and pale. Right dorsalis pedis pulses faint. NEURO: Alert, follow commands. Very hard of hearing. PSYCH: Calm Procedures 09/06/16 status post Left hallux and 2nd digit amputation A/P Problem List: (1) Cellulitis of left lower extremity ICD Code: L03.116 Status: Acute (2) PVD (peripheral vascular disease) ICD Code: I73.9 Status: Acute (3) Hyperkalemia ICD Code: E87.5 Status: Acute (4) HARPAL (acute kidney injury) ICD Code: N17.9 Status: Acute (5) HTN (hypertension) ICD Code: I10 Status: Chronic (6) COPD (chronic obstructive pulmonary disease) ICD Code: J44.9 Status: Chronic (7) Respiratory failure ICD Code: J96.90 Status: Resolved (8) Normochromic normocytic anemia ICD Code: D64.9 Status: Acute Assessment and Plan 85 Y/O old female with respiratory failure, severe PVD/gangrene requiring amputation, severe and persistent thrombocytopenia, resolving aspiration pneumonia. - Hypercapnic respiratory failure - patient is oxygenating well. Due to CO2 retention, patient was on BiPAP for two nights. -Wean off oxygen as tolerated - Hold BiPAP for now. - Currently patient is on 2 L of oxygen via nasal cannula. Thrombocytopenia/ DIC - Appreciate hematology following. Consumptive coagulopathy versus bone marrow disorder per hematology. - Platelets remains 12,000 today. Defer transfusion to hematology - Per PCP records, August 2016 patient's platelet count was 121,000. - Continue to follow CBC. INR - hold heparin gtt/ Plavix - Ultrasound shows Splenomegaly. Patient will likely not be able to tolerate splenectomy. PVD/ Gangrene - S/p angioplasty as per vasc surgery. The pt has gangrenous changes in the lower extremities. 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 Continue with Toradol when necessary for pain - Continue to hold heparin gtt, Plavix in setting of thrombocytopenia. Bilateral flank skin breakdown: Does not appear to be infectious at this point. Improving. Wound care consulted. Follow closely. Frequent turning. Malnutrition Postoperatively very poor appetite. Failed calorie count. Appreciate GI consult. - s/p EGD with PEG tube placement 09/11/16 - Continue Tube feed with tray - Consider trial of Marinol LLE Cellulitis - Wound on plantar aspect of left foot x2 wks. Outpatient Wound Cultures positive for Staph per report. Resolved. Left arm swelling: DVT ruled out with Doppler 09/12/16 Probable Aspiration PNA - Chest x-ray with evidence of consolidation. Repeat CXR 09/12/16 noted and reviewed - Levaquin discontinued. Continue to monitor off antibiotics. - Speech therapy following. Acute Hypercapnic respiratory failure: Keep oxygen saturation above 90%; may consider BIPAP as needed. Normocytic normochromic anemia Stable. - follow CBC and transfuse as needed. S/p 1 unit 09/03 per hematology. Diarrhea: C. difficile PCR negative;Resolved HARPAL Resolved. Renal ultrasound reviewed and no evidence of hydronephrosis on the left. 2. 2.1 x 2.3 cm round non-shadowing lesion supermedial to the upper pole the right kidney of uncertain organ of origin. Appreciate input from nephrology. Avoid all nephrotoxic drugs. - outpt follow-up for right kidney lesion. - Appreciate palliative care following and providing support to the patient and family. Patient has a DNR status. Family is open to discussion about hospice if she continues to deteriorate. PPx: Heparin gtt on hold s/t thrombocytopenia. Yaron Bower MD Sep 23, 2016 10:35
[2016-09-23] MEDS: PANTOPRAZOLE SODIUM 40 MG VIAL IV PUSH SCH (11:52)
--- NOTE | 2016-09-23 14:45 | HHI.HCPN ---
Reason for visit a. To assist with evaluation and management of symptoms including: Weakness , dyspnea, pain b. To assist medical decision maker(s) with: better understanding of current medical conditions; weighing benefits/burdens of medical treatment options; making medical treatment decisions. (Daria Dinh) Subjective/Interval History Patient seen today to follow-up on comfort, goals with patient, decision makers. No events over the weekend. Platelets continue to decrease, required transfusion yesterday. Ultrasound liver ordered by oncology, indicative of splenomegaly-- This may be contributing to thrombocytopenia. Still not a candidate for biopsy. Continues to have confluent erythematous rash to back. He was sedated 12. WBC up to 28. Afebrile. Patient has been tolerating nasal cannula, 2 L O2 sats 9091 percent. Patient seen in room sleeping. She does arouse to touch. She is extremely hard of hearing and unable to hear requires writing for any communication. She is for the most part oriented and appropriate. Limited insight. ROS essentially negative she denies pain denies shortness of breath denies nausea. Reports poor appetite when asked why she points to the tube feeding and says because she is on that. Asked her how she understands her health is doing currently, she tells me that she understands her platelets are still low and not normal, and that they are still trying to help her rash and other problems. Explained to her that I'm worried because of her multiple conditions that she will not be able to return home as she continues to have multiple medical issues and she is still very weak. She shrugs and says she will "take it a day at a time ". To further questioning she tells me that I always come during her favorite TV show and that she just wants to be left alone. She does not seem to want to explore the severity of her conditions. Advised that I would call her daughter to provide an update, she is in agreement with that. Wound care nurse arrives as I am completing my exam and visit, patient is visibly short of breath with any turning or activity in the bed. Does not tolerate right side-lying for longer than a minute--visibly dyspneic. Visualize rash to back, large confluent erythema, some areas around the edges scabbed/crusted. Large 6-7 cm regions to mid and left back with some open skin/ denuded and raw appearing. Patient denies itching, she says rash actually feels better today than it did last week. On exam call to daughter Mr. Lee. She has just returned to her home out of state yesterday. She is planning on returning again tomorrow late evening. Again review with daughter current conditions, findings of liver ultrasound, multiple medical comorbidities and inability to further treat given frail status and DNR status. Review of worsening WBC, I'm concerned that patient seems much more short of breath with any level of activity, concern that she may be becoming septic. Discussed with daughter limited treatment options including ongoing aggressive interventions which may not resolve multiple underlying conditions versus transition to comfort focusreview hospice role and philosophy and services provided. Recommend hospice consultation if goals are for comfort treatment only for whatever time patient may have left. Review the hospice would not provide ongoing transfusions, would not do ongoing labs or other invasive/aggressive interventions. Daughter is in agreement with this however she would like to meet with hospice in person versus on the phone. She is due to arrive to [place] late tomorrow evening would like to meet with hospice sometime Friday. Discuss with oncology Vy HUANG, primary nurse. (Daria Dinh) Advance Directives Living Will: Copy in medical record (completed 04/2014) Health Care Surrogate: Copy in medical record (new document [facility] completed 2015) Durable Power of Grey Roll Man: Never completed (Daria Dinh) Advance Directive Specifics Health Care Surrogate(s): Names daughter Ms. Lee as primary, granddaughter Daja Beal as secondary. Documented care wishes: Living will dated April 2014 has typical verbiage describing desire to not have dying artificially prolong under circumstances including terminal condition , and states condition, vegetative state. Direct life prolonging procedures be withheld or withdrawn when they would only artificially prolong the process of dying directs that nutrition and hydration be withheld if such is only prolonging artificially the process of dying. Also request that healthcare surrogate and providers honor provisions of declaration. It does designate a healthcare surrogate son Marc Marquez however she has a newer health care surrogate completed 08/2016 which designates her daughter. (Daria Dinh) Objective Vital Signs Date Time Temp Pulse Resp B/P Pulse Ox O2 Delivery O2 Flow Rate FiO2 09/23/16 12:00 96.6 85 18 121/56 91 09/23/16 09:40 92 Nasal Cannula 2.00 09/23/16 08:00 96.1 90 24 107/60 95 09/23/16 04:00 97.5 95 18 130/55 94 09/23/16 00:00 98.6 90 17 120/53 98 09/22/16 20:00 97.0 91 18 147/60 98 09/22/16 16:00 97.8 95 14 108/54 97 Intake & Output 09/23/16 09/23/16 07:00 19:00 Intake Total 1640 ml Balance 1640 ml Intake Oral 720 ml IV Total 400 ml Tube Feeding 400 ml Other 120 ml # Voids 3 1 # Bowel Movements 3 1 Physical Exam CONSTITUTIONAL/GENERAL: This is a frail, elderly-appearing female TUBES/LINES/DRAINS: Peripheral IV left upper extremity, nasal cannula, PEG tube SKIN: No jaundice. Pale. Multiple areas of ecchymosis upper and lower extremities. Ecchymosis along bony prominence/pérez left lower extremity. Left foot with dressing noted unable to visualize toe amputation sites but all appears clean and dry. Lower extremities very thin with chronic vascular changes evident. Confluent, erythematous rash across lower to mid back, extends towards left flank region. Edges scab/crusted. Some areas open, raw with denuded skin. CARDIOVASCULAR: Regular rate and rhythm without murmurs. Peripheral pulses symmetric to upper extremities. RESPIRATORY/CHEST: Symmetric, mildly respirations on nasal cannula. Decreased air movement throughout, more so to the right. Visibly short of breath with any activity level. GASTROINTESTINAL: Abdomen soft, flat, nontender. Bowel sounds hypoactive. PEG tube mid abdomen-asymptomatic. PEG with tube feed infusing. No hepato- splenomegaly, or palpable masses. No guarding. NEUROLOGICAL: Awake and alert-oriented and appropriate. Verbalizes well although extremely hard of hearing. Insight appears reasonable though limited ( patient for the most part has not been able to hear anything medical providers are telling her. ) Motor and sensory grossly within normal limits. Follows commands. Cognitively sharp. Moves all extremities. PSYCHIATRIC: No obvious anxiety/depression. no apparent hallucinations or other psychotic thought process. (Daria Dinh) Diagnostic Tests Laboratory Laboratory Tests Test 09/21/16 09/22/16 09/22/16 09/23/16 05:25 05:57 07:57 05:45 White Blood Count 12.0 TH/MM3 11.2 TH/MM3 28.5 TH/MM3 (4.0-11.0) (4.0-11.0) (4.0-11.0) Red Blood Count 2.97 MIL/MM3 2.96 MIL/MM3 3.11 MIL/MM3 (4.00-5.30) (4.00-5.30) (4.00-5.30) Hemoglobin 8.4 GM/DL 8.3 GM/DL 8.7 GM/DL (11.6-15.3) (11.6-15.3) (11.6-15.3) Hematocrit 26.5 % 26.5 % 28.1 % (35.0-46.0) (35.0-46.0) (35.0-46.0) Mean Corpuscular Volume 89.3 FL 89.7 FL 90.4 FL (80.0-100.0) (80.0-100.0) (80.0-100.0) Mean Corpuscular Hemoglobin 28.5 PG 27.9 PG 27.9 PG (27.0-34.0) (27.0-34.0) (27.0-34.0) Mean Corpuscular Hemoglobin 31.9 % 31.2 % 30.9 % Concent (32.0-36.0) (32.0-36.0) (32.0-36.0) Red Cell Distribution Width 17.7 % 17.8 % 17.3 % (11.6-17.2) (11.6-17.2) (11.6-17.2) Platelet Count 16 TH/MM3 12 TH/MM3 12 TH/MM3 (150-450) (150-450) (150-450) Mean Platelet Volume 10.6 FL 11.0 FL 10.6 FL (7.0-11.0) (7.0-11.0) (7.0-11.0) Neutrophils (%) (Auto) 71.0 % 73.7 % 86.6 % (16.0-70.0) (16.0-70.0) (16.0-70.0) Lymphocytes (%) (Auto) 18.4 % 15.4 % 4.5 % (9.0-44.0) (9.0-44.0) (9.0-44.0) Monocytes (%) (Auto) 10.3 % 10.7 % 8.8 % (0.0-8.0) (0.0-8.0) (0.0-8.0) Eosinophils (%) (Auto) 0.1 % (0.0-4.0) 0.1 % (0.0-4.0) 0.0 % (0.0-4.0) Basophils (%) (Auto) 0.2 % (0.0-2.0) 0.1 % (0.0-2.0) 0.1 % (0.0-2.0) Neutrophils # (Auto) 8.6 TH/MM3 8.2 TH/MM3 24.7 TH/MM3 (1.8-7.7) (1.8-7.7) (1.8-7.7) Lymphocytes # (Auto) 2.2 TH/MM3 1.7 TH/MM3 1.3 TH/MM3 (1.0-4.8) (1.0-4.8) (1.0-4.8) Monocytes # (Auto) 1.2 TH/MM3 1.2 TH/MM3 2.5 TH/MM3 (0-0.9) (0-0.9) (0-0.9) Eosinophils # (Auto) 0.0 TH/MM3 0.0 TH/MM3 0.0 TH/MM3 (0-0.4) (0-0.4) (0-0.4) Basophils # (Auto) 0.0 TH/MM3 0.0 TH/MM3 0.0 TH/MM3 (0-0.2) (0-0.2) (0-0.2) CBC Comment AUTO DIFF AUTO DIFF AUTO DIFF Differential Total Cells 100 100 100 Counted Neutrophils % (Manual) 68 % (16-70) 56 % (16-70) 86 % (16-70) Band Neutrophils % 9 % (0-6) 20 % (0-6) 6 % (0-6) Lymphocytes % 14 % (9-44) 15 % (9-44) 4 % (9-44) Monocytes % 6 % (0-8) 8 % (0-8) 4 % (0-8) Neutrophils # (Manual) 9.6 TH/MM3 8.5 TH/MM3 26.2 TH/MM3 (1.8-7.7) (1.8-7.7) (1.8-7.7) Myelocytes 3 % (0-0) Differential Comment FINAL DIFF FINAL DIFF FINAL DIFF MANUAL MANUAL MANUAL Platelet Estimate RARE (NORMAL) RARE (NORMAL) RARE (NORMAL) Platelet Morphology Comment NORMAL NORMAL NORMAL (NORMAL) (NORMAL) (NORMAL) Basophilic Stippling FAINT (NORMAL) MOD (NORMAL) Prothrombin Time 11.6 SEC 11.1 SEC (9.8-11.6) (9.8-11.6) Prothromb Time International 1.0 RATIO 1.0 RATIO Ratio Activated Partial 33.8 SEC Thromboplast Time (24.3-30.1) Sodium Level 145 MEQ/L 144 MEQ/L (136-145) (136-145) Potassium Level 3.9 MEQ/L 4.0 MEQ/L (3.5-5.1) (3.5-5.1) Chloride Level 102 MEQ/L 102 MEQ/L (98-107) (98-107) Carbon Dioxide Level 37.0 MEQ/L 37.5 MEQ/L (21.0-32.0) (21.0-32.0) Anion Gap 6 MEQ/L (5-15) 5 MEQ/L (5-15) Blood Urea Nitrogen 36 MG/DL (7-18) 40 MG/DL (7-18) Creatinine 0.59 MG/DL 0.60 MG/DL (0.50-1.00) (0.50-1.00) Estimat Glomerular Filtration 97 ML/MIN (>89) 95 ML/MIN (>89) Rate Random Glucose 115 MG/DL 129 MG/DL (74-106) (74-106) Calcium Level 7.6 MG/DL 7.9 MG/DL (8.5-10.1) (8.5-10.1) Total Bilirubin 0.3 MG/DL (0.2-1.0) Aspartate Amino Transf 6 U/L (15-37) (AST/SGOT) Alanine Aminotransferase 11 U/L (10-53) (ALT/SGPT) Alkaline Phosphatase 76 U/L (45-117) Total Protein 4.8 GM/DL (6.4-8.2) Albumin 1.8 GM/DL (3.4-5.0) Basophils % 1 % (0-2) Blood Bank Comment D-Dimer Quantitative (PE/DVT) 2.72 MG/L FEU (0.00-0.50) (Daria Dinh) Result Diagram: 09/23/16 0545 09/23/16 0545 Imaging Last Impressions Modified Barium Swallow 09/20/16 0000 Signed Impressions: Service Date/Time: Tuesday, September 20, 2016 00:00 - CONCLUSION: No evidence of aspiration. Luci Evans MD Liver Ultrasound 09/20/16 0000 Signed Impressions: Service Date/Time: Tuesday, September 20, 2016 20:38 - CONCLUSION: 1. 2.1 cm cystic mass in the right quadrant likely of the supraspinatus and kidney this was present on prior CTA and likely are present a peripherally calcified cyst. 2. Splenomegaly. 3. Bilateral pleural effusions. Josue White MD Consultation 09/18/16 0000 Signed Impressions: Service Date/Time: Sunday, September 18, 2016 00:00 - CONCLUSION: When this rash resolves or stabilizes we can reattempt a bone marrow aspirate. Mauricio Zelaya MD FACR Head CT 09/17/16 0000 Signed Impressions: Service Date/Time: Saturday, September 17, 2016 12:05 - CONCLUSION: 1. No acute intracranial abnormality is identified. Chronic changes include mild cerebral atrophy and periventricular white matter low attenuation characteristic of chronic microvascular ischemia. 2. There is fluid in the mastoid air cells bilaterally which can be seen with acute mastoiditis. Josue Mccall MD Upper Extremity Ultrasound 09/12/16 0000 Signed Impressions: Service Date/Time: September 14:08 - CONCLUSION: No DVT in the left arm. Eric Manning MD Chest X-Ray 09/12/16 0000 Signed Impressions: Service Date/Time: September 12:28 - CONCLUSION: 1. Bilateral mostly basilar and perihilar airspace disease similar in appearance to September 01. Moderate effusions. Findings most characteristic of congestive heart failure. Cannot exclude pneumonia. Sumit Vaughn MD Abdomen X-Ray 08/29/16 0000 Signed Impressions: Service Date/Time: August 19:31 - CONCLUSION: NG tube tip in the stomach. KLexi Rehman MD Angiography 08/22/16 1420 Signed Impressions: Service Date/Time: August 13:13 - CONCLUSION: Diagnostic angiography as described above demonstrates high-grade bilateral external iliac artery stenoses and high-grade left common femoral artery stenosis. Successful angioplasty of the left common femoral artery and left external iliac artery. Right external iliac artery angioplasty and stenting as described above. Significant improvement in luminal patency of the external iliac arteries and left common femoral artery following endovascular treatment. Rajat Hu MD Aorta w/Runoff CTA 08/19/16 0000 Signed Impressions: Service Date/Time: Saturday, August 20, 2016 15:58 - CONCLUSION: Advanced atherosclerotic vasculopathy with hemodynamically significant stenotic/ occlusive lesions in the celiac, superior mesenteric, renal, external iliac, superficial femoral and popliteal arteries as described above. Severe irregularity with moderate to severe stenotic lesions are seen in the infrapopliteal runoff vessels to both calves and feet. Significantly diminished flow is evident to the right foot. Moderate bilateral pleural effusions with consolidating airspace disease in both lower lobes. Rajat Hu MD Renal Ultrasound 08/17/16 0000 Signed Impressions: Service Date/Time: Wednesday, August 17, 2016 16:01 - CONCLUSION: 1. Mild dilation of the collecting system of the right kidney. No evidence of hydronephrosis on the left. 2. 2.1 x 2.3 cm round non-shadowing lesion supermedial to the upper pole the right kidney of uncertain organ of origin. The right adrenal gland could be located in this area. Wei Corley MD Lower Extremity Ultrasound 08/16/16 0000 Signed Impressions: Service Date/Time: Tuesday, August 16, 2016 21:07 - CONCLUSION: No DVT. Josue White MD Foot X-Ray 08/16/16 0000 Signed Impressions: Service Date/Time: Tuesday, August 16, 2016 22:14 - CONCLUSION: No acute disease. Josue White MD (Daria Dinh) Assessment and Plan Disease Oriented Problem List: (1) Dehydration (2) ARF (acute renal failure) (3) UTI (lower urinary tract infection) (4) History of amputation of hallux (5) Thrombocytopenia (6) COPD (chronic obstructive pulmonary disease) (7) Hyperkalemia (8) Respiratory failure (9) PVD (peripheral vascular disease) (10) HTN (hypertension) (11) Cellulitis of left lower extremity Symptom Scale: (1) Dyspnea (2) Malnutrition (3) Weakness Pertinent Non-Medical Issues Psychosocial:Originally from [place] has lived in [place] about 40 years. . Used to work at [employer] until senior living. Supported by adult daughter , adult son as well as extended family grandchildren nieces etc. Prior to this admission lived at home independently, her granddaughter came down in July 2016 to provide more help the prior to that she was independent. Spiritual: Gnosticism Legal:Patient mental status has fluctuated some during hospital course. Likely she would be best supported in shared decision making. Living will designates healthcare surrogate son Mrac Marquez however she has a newer health care surrogate completed 08/2016 which designates her daughter Ms. Lee. Ethical issues impacting care: Important Contacts daughter Edith Lee . Daja Beal granddaughter [phone] Prognosis This patient was emergently admitted for a wound secondary to PVD, vascular issues. Now status post endovascular angioplasty, status post amputation of 2 toes.+ UTI Escherichia coli, aspiration pneumonia, malnutrition. Overall has had a recent trajectory of decline.+ Thrombocytopenia, etiology unknown. Not likely she will be able to resume independent living in the home setting. Not clear how well she will rehabilitate given her frail status and trajectory of decline. Appears appropriate for hospice if goals compatible. Code Status: No Code Plan * Legal decision maker:Patient mental status has fluctuated some during hospital course. Likely she would be best supported in shared decision making. Living will designates healthcare surrogate son Marc Marquez however she has a newer health care surrogate completed 08/2016 which designates her daughter Ms. Lee. * Goals: HOSPICE CONSULT -- PENDING. Patient does not really engage in discussions she essentially defers to her daughter. Daughter would like to meet with hospice Friday, is not arriving to [place] until late Friday. For now continue current treatments short of resuscitation, will probably enroll in hospice on Friday. * CODE STATUS: DNR * SYMPTOMS: --Dyspnea-new diagnosis suspected aspiration pneumonia, requiring BiPAP on and off further respiratory decline and possible intubation. If goals were comfort oriented and patient continued to refuse intubation/BiPAP opiates, benzodiazepines appropriate for respiratory discomfort. --Weakness-recent trajectory of decline and increased immobility, last ambulatory sometime around . PT/OT though given patient's weakened and, malnourished status not clear how much strength she will regain. --Pain-ongoing pain to left lower extremity secondary to wounds, now status post 2 toe amputation--today she denies pain. (Family indicates sometimes she denies everything because "she is stubborn "). She has prn Tylenol available, has not required any. Family indicates at home the only thing she would ever take for any type pain was occasional Tylenol but usually would refuse that. We 'll continue to evaluate pain. --Malnutrition-poor oral intake for at least the past month and a half family reports weight loss, unknown amount. Patient has always been a rather thin body habitus. Prior albumin levels per outpatient labs 2013, 2014 44.2. Albumin this admission 1.9. * Palliative care will continue to follow during hospital course as condition evolves, to assist patient/decision-maker with understanding of medical conditions, weighing benefits/burdens of treatment options, for clarification of goals of treatment. Additionally will assist with any symptoms of palliative concern (Daria Dinh) Time Spent Total Floor Time (mins): 30 >50% Counseling/Coord of Care: Yes (d/w RN, d/w Oncology PA ) (Daria Dinh) Attestation To help prompt me to consider important information that might be impacting today's encounter and assessment, information from prior notes written by myself or my colleagues may have been "brought forward" into today's note. My signature on this note, however, is an attestation that I personally performed the exam, history, and/or decision-making noted today, and, unless otherwise indicated, the interactions with patient, family, and staff as well as the review of records all occurred today. I also attest that the listed assessment and stated plan reflect my best clinical judgment today based on the combination of historical information, prior notes, and today's exam/ interactions. When time spent is documented, it refers only to time spent today by the signer, or if indicated, combined time spent today by collaborating physician/nurse practitioner. (Daria Dinh) Collaborating MD Comments Chart reviewed. Case discussed with palliative care CHICKEN BUYER. Above CHICKEN BUYER note reviewed and I concur. . (Carlos Cuadra MD) Daria Dinh Sep 23, 2016 14:45 Carlos Cuadra MD Oct 26, 2016 14:55
[2016-09-24] VITALS (7 sets, daily range): BP systolic 108–146; BP diastolic 46–72; PULSE 68–82; RESP 15–24; TEMP 96.2–97.2; O2SAT 92–96
[2016-09-24] MEDS: CHLORHEXIDINE GLUCONATE 2 % 1 PACK (2 CLOTHS) TOP SCH (04:00)
[2016-09-24 06:58] LABS: HEMATOCRIT 24.7 % (35.0-46.0); MEAN CELL VOLUME 90.4 FL (80.0-100.0); MEAN CORPUSCULAR HEMOGLOBIN 27.8 PG (27.0-34.0); MEAN CORPUSCULAR HGB CONC 30.8 % (32.0-36.0); RED BLOOD COUNT 2.74 MIL/MM3 (4.00-5.30); RED CELL DISTRIBUTION WIDTH 17.4 % (11.6-17.2); WHITE BLOOD COUNT 19.1 TH/MM3 (4.0-11.0)
[2016-09-24 07:06] LABS: REVIEW FLAG FINAL
[2016-09-24 07:12] LABS: PLATELET COUNT 14 TH/MM3 (150-450)
[2016-09-24 07:29] LABS: BICARBONATE 39.8 MEQ/L (21.0-32.0); POTASSIUM 4.2 MEQ/L (3.5-5.1)
[2016-09-24] MEDS: LACTOBACILLUS ACIDOPHILUS TAB PO SCH ×2 (10:09→21:28)
[2016-09-24] MEDS: PANTOPRAZOLE SODIUM 40 MG VIAL IV PUSH SCH (10:09)
[2016-09-24] MEDS: SODIUM CHLORIDE 0.9% FLUSH 5 ML FLUSH FLUSH SCH ×2 (10:28→21:28)
--- NOTE | 2016-09-24 13:49 | HHI.PR ---
Subjective Remarks Patient seen in follow-up for respiratory failure, severe PVD/gangrene requiring amputation, severe and persistent thrombocytopenia, resolving aspiration pneumonia. No new issues. Family to meet with Hospice soon. Patient has no complaints. Objective Vitals Vital Signs Date Time Temp Pulse Resp B/P Pulse Ox O2 Delivery O2 Flow Rate FiO2 09/24/16 12:00 72 24 126/47 96 09/24/16 10:09 95 Nasal Cannula 2.00 09/24/16 08:00 96.7 81 24 115/46 92 09/24/16 04:00 96.2 82 15 137/58 95 09/24/16 00:00 96.2 75 15 146/67 96 09/23/16 22:32 96 Nasal Cannula 2.00 09/23/16 20:00 96.5 81 16 150/65 93 I/O 09/23/16 09/23/16 09/23/16 09/24/16 09/24/16 09/24/16 07:00 15:00 23:00 07:00 15:00 23:00 Intake Total 640 ml 120 ml 1167 ml 120 ml Output Total 300 ml Balance 640 ml 120 ml 1167 ml -180 ml Intake Oral 240 ml 120 ml 120 ml Tube Feeding 400 ml 1167 ml Output Urine Total 300 ml # Voids 2 2 1 # Bowel Movements 1 1 0 Result Diagram: 09/24/1651909/24/16519 Objective Remarks GENERAL: Frail and cachectic looking elderly female SKIN: Bilateral flank with erythema and evidence of skin breakdown. Not warm. Drying out compared to yesterday CARDIOVASCULAR: Normal rate and regular rhythm without murmurs, gallops, or rubs. RESPIRATORY: Good respiratory efforts. Breath sounds equal and clear to auscultation bilaterally. GASTROINTESTINAL: Abdomen soft, non-tender, non-distended. PEG in place. 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 Could not palpate a dorsalis pedis pulse on the left. Left toes cool and pale. Right dorsalis pedis pulses faint. NEURO: Alert, follow commands. Very hard of hearing. PSYCH: Calm Procedures 09/06/16 status post Left hallux and 2nd digit amputation A/P Problem List: (1) Cellulitis of left lower extremity ICD Code: L03.116 Status: Acute (2) PVD (peripheral vascular disease) ICD Code: I73.9 Status: Acute (3) Hyperkalemia ICD Code: E87.5 Status: Acute (4) HARPAL (acute kidney injury) ICD Code: N17.9 Status: Acute (5) HTN (hypertension) ICD Code: I10 Status: Chronic (6) COPD (chronic obstructive pulmonary disease) ICD Code: J44.9 Status: Chronic (7) Respiratory failure ICD Code: J96.90 Status: Resolved (8) Normochromic normocytic anemia ICD Code: D64.9 Status: Acute Assessment and Plan 85 Y/O old female with respiratory failure, severe PVD/gangrene requiring amputation, severe and persistent thrombocytopenia, resolving aspiration pneumonia. - Hypercapnic respiratory failure - patient is oxygenating well. Due to CO2 retention, patient was on BiPAP for two nights. -Wean off oxygen as tolerated - Currently patient is on 2 L of oxygen via nasal cannula. Thrombocytopenia/ DIC - Appreciate hematology following. Consumptive coagulopathy versus bone marrow disorder per hematology. - Platelets 14,000 today. Defer transfusion to hematology - Per PCP records, August 2016 patient's platelet count was 121,000. - Continue to follow CBC. INR - hold heparin gtt/ Plavix - Ultrasound shows Splenomegaly. Patient will likely not be able to tolerate splenectomy. PVD/ Gangrene - S/p angioplasty as per vasc surgery. The pt has gangrenous changes in the lower extremities. 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 Continue with Toradol when necessary for pain - Continue to hold heparin gtt, Plavix in setting of thrombocytopenia. Bilateral flank skin breakdown: Does not appear to be infectious at this point. Improving. Wound care consulted. Follow closely. Frequent turning. Malnutrition Postoperatively very poor appetite. Failed calorie count. Appreciate GI consult. - s/p EGD with PEG tube placement 09/11/16 - Continue Tube feed with tray - Consider trial of Marinol LLE Cellulitis - Wound on plantar aspect of left foot x2 wks. Outpatient Wound Cultures positive for Staph per report. Resolved. Left arm swelling: DVT ruled out with Doppler 09/12/16 Probable Aspiration PNA - Chest x-ray with evidence of consolidation. Repeat CXR 09/12/16 noted and reviewed - Levaquin discontinued. Continue to monitor off antibiotics. - Speech therapy following. Normocytic normochromic anemia Stable. - follow CBC and transfuse as needed. S/p 1 unit 09/03 per hematology. Diarrhea: C. difficile PCR negative;Resolved HARPAL Resolved. Renal ultrasound reviewed and no evidence of hydronephrosis on the left. 2. 2.1 x 2.3 cm round non-shadowing lesion supermedial to the upper pole the right kidney of uncertain organ of origin. Appreciate input from nephrology. Avoid all nephrotoxic drugs. - outpt follow-up for right kidney lesion. - Appreciate palliative care following and providing support to the patient and family. Patient has a DNR status. Family to meet with Hospice. PPx: Heparin gtt on hold s/t thrombocytopenia. Yaron Bower MD Sep 24, 2016 13:49
--- NOTE | 2016-09-24 16:46 | HHI.HCPN ---
Reason for visit a. To assist with evaluation and management of symptoms including: Weakness , dyspnea, pain b. To assist medical decision maker(s) with: better understanding of current medical conditions; weighing benefits/burdens of medical treatment options; making medical treatment decisions. (Daria Dinh) Subjective/Interval History Patient seen today to follow-up on comfort, goals with patient, decision makers. Spoke at length to daughter yesterday, hospice order has been placed, pending meeting with hospice tomorrow around 10 AM. Patient with no significant changes today, WBC remains elevated though down slightly from yesterday. Platelets continue below today 14. Patient seen in room she is initially sleeping--she arouses to touch stimuli however closes her eyes and turns away from me after any written questions-she does not seem to wish to engage further. I did communicate her with her via written note pad as she is essentially deaf she denies pain denies any problems currently indicates she wants to sleep. Informed her her daughter would be coming tonight she nodded yes to this. Following exam call to daughterprovided update of current conditions, current assessment, patient sleeping right now. Review of current labs and no changes to overall condition or prognosis. She affirms she has set up to meet with hospice tomorrow morning and will likely proceed with hospice enrollment to allow patient to be comfortable. She indicates the patient just wants to watch TV and be left alone. Discussed with primary nurse, community center coordinator. . (Daria Dinh) Advance Directives Living Will: Copy in medical record (completed 04/2014) Health Care Surrogate: Copy in medical record (new document HCS completed 2015) Durable Power of Metal Fabricating [employer]: Never completed (Daria Dinh) Advance Directive Specifics Health Care Surrogate(s): Names daughter Ms. Lee as primary, granddaughter Daja Beal as secondary. Documented care wishes: Living will dated April 2014 has typical verbiage describing desire to not have dying artificially prolong under circumstances including terminal condition , and states condition, vegetative state. Direct life prolonging procedures be withheld or withdrawn when they would only artificially prolong the process of dying directs that nutrition and hydration be withheld if such is only prolonging artificially the process of dying. Also request that healthcare surrogate and providers honor provisions of declaration. It does designate a healthcare surrogate son Marc Marquez however she has a newer health care surrogate completed 08/2016 which designates her daughter. (Daria Dinh) Objective Vital Signs Date Time Temp Pulse Resp B/P Pulse Ox O2 Delivery O2 Flow Rate FiO2 09/24/16 12:00 72 24 126/47 96 09/24/16 10:09 95 Nasal Cannula 2.00 09/24/16 08:00 96.7 81 24 115/46 92 09/24/16 04:00 96.2 82 15 137/58 95 09/24/16 00:00 96.2 75 15 146/67 96 09/23/16 22:32 96 Nasal Cannula 2.00 09/23/16 20:00 96.5 81 16 150/65 93 Intake & Output 09/24/16 09/24/16 07:00 19:00 Intake Total 120 ml 520 ml Output Total 300 ml Balance -180 ml 520 ml Intake Oral 120 ml 120 ml IV Total 400 ml Output Urine Total 300 ml # Voids 1 3 # Bowel Movements 0 3 Physical Exam CONSTITUTIONAL/GENERAL: This is a frail, elderly-appearing female TUBES/LINES/DRAINS: Peripheral IV left upper extremity, nasal cannula, PEG tube SKIN: No jaundice. Pale. Multiple areas of ecchymosis upper and lower extremities. Ecchymosis along bony prominence/pérez left lower extremity. Left foot with dressing noted unable to visualize toe amputation sites but all appears clean and dry. Lower extremities very thin with chronic vascular changes evident. CARDIOVASCULAR: Regular rate and rhythm without murmurs. Peripheral pulses symmetric to upper extremities. RESPIRATORY/CHEST: Symmetric, unlabored respirations on nasal cannula. Decreased air movement throughout, more so to the right. GASTROINTESTINAL: Abdomen soft, flat, nontender. Bowel sounds hypoactive. PEG tube mid abdomen-asymptomatic. PEG with tube feed infusing. No hepato- splenomegaly, or palpable masses. No guarding. NEUROLOGICAL: Asleep -arouses some very exam. Oriented to self and hospital. Verbalizes well ,extremely hard of hearing. Moves all 4 extremities. PSYCHIATRIC: No obvious anxiety/depression. (Daria Dinh) Diagnostic Tests Laboratory Laboratory Tests Test 09/22/16 09/22/16 09/23/16 09/24/16 05:57 07:57 05:45 05:20 White Blood Count 11.2 TH/MM3 28.5 TH/MM3 19.1 TH/MM3 (4.0-11.0) (4.0-11.0) (4.0-11.0) Red Blood Count 2.96 MIL/MM3 3.11 MIL/MM3 2.74 MIL/MM3 (4.00-5.30) (4.00-5.30) (4.00-5.30) Hemoglobin 8.3 GM/DL 8.7 GM/DL 7.6 GM/DL (11.6-15.3) (11.6-15.3) (11.6-15.3) Hematocrit 26.5 % 28.1 % 24.7 % (35.0-46.0) (35.0-46.0) (35.0-46.0) Mean Corpuscular Volume 89.7 FL 90.4 FL 90.4 FL (80.0-100.0) (80.0-100.0) (80.0-100.0) Mean Corpuscular Hemoglobin 27.9 PG 27.9 PG 27.8 PG (27.0-34.0) (27.0-34.0) (27.0-34.0) Mean Corpuscular Hemoglobin 31.2 % 30.9 % 30.8 % Concent (32.0-36.0) (32.0-36.0) (32.0-36.0) Red Cell Distribution Width 17.8 % 17.3 % 17.4 % (11.6-17.2) (11.6-17.2) (11.6-17.2) Platelet Count 12 TH/MM3 12 TH/MM3 14 TH/MM3 (150-450) (150-450) (150-450) Mean Platelet Volume 11.0 FL 10.6 FL 10.7 FL (7.0-11.0) (7.0-11.0) (7.0-11.0) Neutrophils (%) (Auto) 73.7 % 86.6 % (16.0-70.0) (16.0-70.0) Lymphocytes (%) (Auto) 15.4 % 4.5 % (9.0-44.0) (9.0-44.0) Monocytes (%) (Auto) 10.7 % 8.8 % (0.0-8.0) (0.0-8.0) Eosinophils (%) (Auto) 0.1 % (0.0-4.0) 0.0 % (0.0-4.0) Basophils (%) (Auto) 0.1 % (0.0-2.0) 0.1 % (0.0-2.0) Neutrophils # (Auto) 8.2 TH/MM3 24.7 TH/MM3 (1.8-7.7) (1.8-7.7) Lymphocytes # (Auto) 1.7 TH/MM3 1.3 TH/MM3 (1.0-4.8) (1.0-4.8) Monocytes # (Auto) 1.2 TH/MM3 2.5 TH/MM3 (0-0.9) (0-0.9) Eosinophils # (Auto) 0.0 TH/MM3 0.0 TH/MM3 (0-0.4) (0-0.4) Basophils # (Auto) 0.0 TH/MM3 0.0 TH/MM3 (0-0.2) (0-0.2) CBC Comment AUTO DIFF AUTO DIFF Differential Total Cells 100 100 Counted Neutrophils % (Manual) 56 % (16-70) 86 % (16-70) Band Neutrophils % 20 % (0-6) 6 % (0-6) Lymphocytes % 15 % (9-44) 4 % (9-44) Monocytes % 8 % (0-8) 4 % (0-8) Basophils % 1 % (0-2) Neutrophils # (Manual) 8.5 TH/MM3 26.2 TH/MM3 (1.8-7.7) (1.8-7.7) Differential Comment FINAL DIFF FINAL DIFF MANUAL MANUAL Platelet Estimate RARE (NORMAL) RARE (NORMAL) Platelet Morphology Comment NORMAL NORMAL (NORMAL) (NORMAL) Blood Bank Comment Basophilic Stippling MOD (NORMAL) Prothrombin Time 11.1 SEC (9.8-11.6) Prothromb Time International 1.0 RATIO Ratio D-Dimer Quantitative (PE/DVT) 2.72 MG/L FEU (0.00-0.50) Sodium Level 144 MEQ/L 146 MEQ/L (136-145) (136-145) Potassium Level 4.0 MEQ/L 4.2 MEQ/L (3.5-5.1) (3.5-5.1) Chloride Level 102 MEQ/L 102 MEQ/L (98-107) (98-107) Carbon Dioxide Level 37.5 MEQ/L 39.8 MEQ/L (21.0-32.0) (21.0-32.0) Anion Gap 5 MEQ/L (5-15) 4 MEQ/L (5-15) Blood Urea Nitrogen 40 MG/DL (7-18) 50 MG/DL (7-18) Creatinine 0.60 MG/DL 0.59 MG/DL (0.50-1.00) (0.50-1.00) Estimat Glomerular Filtration 95 ML/MIN (>89) 97 ML/MIN (>89) Rate Random Glucose 129 MG/DL 120 MG/DL (74-106) (74-106) Calcium Level 7.9 MG/DL 8.1 MG/DL (8.5-10.1) (8.5-10.1) (Daria Dinh) Result Diagram: 09/24/1651909/24/16519 Imaging Last Impressions Modified Barium Swallow 09/20/16 0000 Signed Impressions: Service Date/Time: Tuesday, September 20, 2016 00:00 - CONCLUSION: No evidence of aspiration. Luci Evans MD Liver Ultrasound 09/20/16 0000 Signed Impressions: Service Date/Time: Tuesday, September 20, 2016 20:38 - CONCLUSION: 1. 2.1 cm cystic mass in the right quadrant likely of the supraspinatus and kidney this was present on prior CTA and likely are present a peripherally calcified cyst. 2. Splenomegaly. 3. Bilateral pleural effusions. Josue White MD Consultation 09/18/16 0000 Signed Impressions: Service Date/Time: Sunday, September 18, 2016 00:00 - CONCLUSION: When this rash resolves or stabilizes we can reattempt a bone marrow aspirate. Mauricio Zelaya MD FACR Head CT 09/17/16 0000 Signed Impressions: Service Date/Time: Saturday, September 17, 2016 12:05 - CONCLUSION: 1. No acute intracranial abnormality is identified. Chronic changes include mild cerebral atrophy and periventricular white matter low attenuation characteristic of chronic microvascular ischemia. 2. There is fluid in the mastoid air cells bilaterally which can be seen with acute mastoiditis. Josue Mccall MD Upper Extremity Ultrasound 09/12/16 0000 Signed Impressions: Service Date/Time: September 14:08 - CONCLUSION: No DVT in the left arm. Eric Manning MD Chest X-Ray 09/12/16 0000 Signed Impressions: Service Date/Time: September 12:28 - CONCLUSION: 1. Bilateral mostly basilar and perihilar airspace disease similar in appearance to September 01. Moderate effusions. Findings most characteristic of congestive heart failure. Cannot exclude pneumonia. Sumit Vaughn MD Abdomen X-Ray 08/29/16 0000 Signed Impressions: Service Date/Time: August 19:31 - CONCLUSION: NG tube tip in the stomach. K. Alonzo Rehman MD Angiography 08/22/16 1420 Signed Impressions: Service Date/Time: August 13:13 - CONCLUSION: Diagnostic angiography as described above demonstrates high-grade bilateral external iliac artery stenoses and high-grade left common femoral artery stenosis. Successful angioplasty of the left common femoral artery and left external iliac artery. Right external iliac artery angioplasty and stenting as described above. Significant improvement in luminal patency of the external iliac arteries and left common femoral artery following endovascular treatment. Rajat Hu MD Aorta w/Runoff CTA 08/19/16 0000 Signed Impressions: Service Date/Time: Saturday, August 20, 2016 15:58 - CONCLUSION: Advanced atherosclerotic vasculopathy with hemodynamically significant stenotic/ occlusive lesions in the celiac, superior mesenteric, renal, external iliac, superficial femoral and popliteal arteries as described above. Severe irregularity with moderate to severe stenotic lesions are seen in the infrapopliteal runoff vessels to both calves and feet. Significantly diminished flow is evident to the right foot. Moderate bilateral pleural effusions with consolidating airspace disease in both lower lobes. Rajat Hu MD Renal Ultrasound 08/17/16 0000 Signed Impressions: Service Date/Time: Wednesday, August 17, 2016 16:01 - CONCLUSION: 1. Mild dilation of the collecting system of the right kidney. No evidence of hydronephrosis on the left. 2. 2.1 x 2.3 cm round non-shadowing lesion supermedial to the upper pole the right kidney of uncertain organ of origin. The right adrenal gland could be located in this area. Wei Corley MD Lower Extremity Ultrasound 08/16/16 0000 Signed Impressions: Service Date/Time: Tuesday, August 16, 2016 21:07 - CONCLUSION: No DVT. Josue White MD Foot X-Ray 08/16/16 0000 Signed Impressions: Service Date/Time: Tuesday, August 16, 2016 22:14 - CONCLUSION: No acute disease. Josue White MD (Daria Dinh [facility]) Assessment and Plan Disease Oriented Problem List: (1) Dehydration (2) ARF (acute renal failure) (3) UTI (lower urinary tract infection) (4) History of amputation of hallux (5) Thrombocytopenia (6) COPD (chronic obstructive pulmonary disease) (7) Hyperkalemia (8) Respiratory failure (9) PVD (peripheral vascular disease) (10) HTN (hypertension) (11) Cellulitis of left lower extremity Symptom Scale: (1) Dyspnea (2) Malnutrition (3) Weakness Pertinent Non-Medical Issues Psychosocial:Originally from [place] has lived in [place] about 40 years. . 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 Supported by adult daughter , adult son as well as extended family grandchildren nieces etc. Prior to this admission lived at home independently, her granddaughter came down in July 2016 to provide more help the prior to that she was independent. Spiritual: Restoration Legal:Patient mental status has fluctuated some during hospital course. Likely she would be best supported in shared decision making. Living will designates healthcare surrogate son Marc Marquez however she has a newer health care surrogate completed 08/2016 which designates her daughter Ms. Lee. Ethical issues impacting care: Important Contacts daughter Edith Lee . Daja Beal granddaughter [phone] Prognosis This patient was emergently admitted for a wound secondary to PVD, vascular issues. Now status post endovascular angioplasty, status post amputation of 2 toes.+ UTI Escherichia coli, aspiration pneumonia, malnutrition. Overall has had a recent trajectory of decline.+ Thrombocytopenia, etiology unknown. Not likely she will be able to resume independent living in the home setting. Not clear how well she will rehabilitate given her frail status and trajectory of decline. Appears appropriate for hospice if goals compatible. Code Status: No Code Plan * Legal decision maker:Patient mental status has fluctuated some during hospital course. Likely she would be best supported in shared decision making. Living will designates healthcare surrogate son Marc Marquez however she has a newer health care surrogate completed 08/2016 which designates her daughter Ms. Lee. * Goals: HOSPICE CONSULT -- PENDING. Daughter to meet with hospice Monday 09/25 at 10 AM. Patient does not really engage in discussions she essentially defers to her daughter. For now continue current treatments short of resuscitation, will probably enroll in hospice on Friday. * CODE STATUS: DNR * SYMPTOMS: --Dyspnea-new diagnosis suspected aspiration pneumonia, requiring BiPAP on and off further respiratory decline and possible intubation. If goals were comfort oriented and patient continued to refuse intubation/BiPAP opiates, benzodiazepines appropriate for respiratory discomfort. History status slightly improved today. --Weakness-recent trajectory of decline and increased immobility, last ambulatory sometime around . PT/OT though given patient's weakened and, malnourished status not clear how much strength she will regain. --Pain-ongoing pain to left lower extremity secondary to wounds, now status post 2 toe amputation--today she denies pain. (Family indicates sometimes she denies everything because "she is stubborn "). She has prn Tylenol available, has not required any. Family indicates at home the only thing she would ever take for any type pain was occasional Tylenol but usually would refuse that. We 'll continue to evaluate pain. --Malnutrition-poor oral intake for at least the past month and a half family reports weight loss, unknown amount. Patient has always been a rather thin body habitus. Prior albumin levels per outpatient labs 2013, 2014 44.2. Albumin this admission 1.9. * Palliative care will continue to follow during hospital course as condition evolves, to assist patient/decision-maker with understanding of medical conditions, weighing benefits/burdens of treatment options, for clarification of goals of treatment. Additionally will assist with any symptoms of palliative concern (Daria Dinh) Time Spent Total Floor Time (mins): 20 >50% Counseling/Coord of Care: Yes (discussed with primary nurse, community center coordinator) (Daria Dinh) Attestation To help prompt me to consider important information that might be impacting today's encounter and assessment, information from prior notes written by myself or my colleagues may have been "brought forward" into today's note. My signature on this note, however, is an attestation that I personally performed the exam, history, and/or decision-making noted today, and, unless otherwise indicated, the interactions with patient, family, and staff as well as the review of records all occurred today. I also attest that the listed assessment and stated plan reflect my best clinical judgment today based on the combination of historical information, prior notes, and today's exam/ interactions. When time spent is documented, it refers only to time spent today by the signer, or if indicated, combined time spent today by collaborating physician/nurse practitioner. (Daria Dinh) Collaborating MD Comments Chart reviewed. Case discussed with palliative care BOOKKEEPING CLERK. Above BOOKKEEPING CLERK note reviewed and I concur. . (Carlos Cuadra MD) Daria Dinh Sep 24, 2016 16:46 Carlos Cuadra MD Oct 27, 2016 07:43
[2016-09-25] VITALS (13 sets, daily range): BP systolic 113–181; BP diastolic 55–84; PULSE 71–88; RESP 16–20; TEMP 95.1–97.5; O2SAT 93–98
[2016-09-25] MEDS: RESP: ALBUTEROL 2.5 MG/IPRATROPIUM 0.5 MG NEB (PRN) NEB (00:58)
[2016-09-25] MEDS: CHLORHEXIDINE GLUCONATE 2 % 1 PACK (2 CLOTHS) TOP SCH (04:00)
[2016-09-25] MEDS: SODIUM CHLORIDE 0.9% FLUSH 5 ML FLUSH FLUSH SCH ×2 (09:00→21:00)
--- NOTE | 2016-09-25 09:06 | HHI.PR ---
Subjective Remarks Patient seen in follow-up for respiratory failure, severe PVD/gangrene requiring amputation, severe and persistent thrombocytopenia, malnutrition, resolving aspiration pneumonia. Patient is requesting to go to the bathroom. Otherwise has no complaints. Family to meet with hospice today. Objective Vitals Vital Signs Date Time Temp Pulse Resp B/P Pulse Ox O2 Delivery O2 Flow Rate FiO2 09/25/16 05:12 94 30 09/25/16 04:03 96.3 88 18 114/84 96 09/25/16 01:10 94 30 09/25/16 00:59 94 BiPAP 30 09/25/16 00:02 97.4 80 16 134/58 94 09/24/16 20:00 97.2 77 16 108/51 96 09/24/16 16:00 96.6 68 24 122/72 94 09/24/16 12:00 72 24 126/47 96 09/24/16 10:09 95 Nasal Cannula 2.00 I/O 09/24/16 09/24/16 09/24/16 09/25/16 09/25/16 09/25/16 07:00 15:00 23:00 07:00 15:00 23:00 Intake Total 120 ml 520 ml 50 ml 750 ml Output Total 300 ml 0 ml Balance -180 ml 520 ml 50 ml 750 ml Intake Oral 120 ml 120 ml 50 ml 0 ml IV Total 400 ml Tube Feeding 600 ml Tube Irrigant 150 ml Output Urine Total 300 ml 0 ml # Voids 3 1 1 # Bowel Movements 3 0 0 Result Diagram: 09/24/1651909/24/16519 Objective Remarks GENERAL: Frail and cachectic looking elderly female SKIN: Bilateral flank with erythema and evidence of skin breakdown. Not warm. Drying out compared to yesterday CARDIOVASCULAR: Normal rate and regular rhythm without murmurs, gallops, or rubs. RESPIRATORY: Good respiratory efforts. Breath sounds equal and clear to auscultation bilaterally. GASTROINTESTINAL: Abdomen soft, non-tender, non-distended. PEG in place. 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 Could not palpate a dorsalis pedis pulse on the left. Left toes cool and pale. Right dorsalis pedis pulses faint. NEURO: Alert, follow commands. Very hard of hearing. PSYCH: Calm Procedures 09/06/16 status post Left hallux and 2nd digit amputation A/P Problem List: (1) Cellulitis of left lower extremity ICD Code: L03.116 Status: Acute (2) PVD (peripheral vascular disease) ICD Code: I73.9 Status: Acute (3) Hyperkalemia ICD Code: E87.5 Status: Acute (4) HARPAL (acute kidney injury) ICD Code: N17.9 Status: Acute (5) HTN (hypertension) ICD Code: I10 Status: Chronic (6) COPD (chronic obstructive pulmonary disease) ICD Code: J44.9 Status: Chronic (7) Respiratory failure ICD Code: J96.90 Status: Resolved (8) Normochromic normocytic anemia ICD Code: D64.9 Status: Acute Assessment and Plan 85 Y/O old female with respiratory failure, severe PVD/gangrene requiring amputation, severe and persistent thrombocytopenia, resolving aspiration pneumonia. - Hypercapnic respiratory failure - patient is oxygenating well. Due to CO2 retention, Bipap at night -Wean off oxygen as tolerated - Currently patient is on 2 L of oxygen via nasal cannula. Thrombocytopenia/ DIC - Appreciate hematology following. Consumptive coagulopathy versus bone marrow disorder per hematology. - Platelets 14,000 yesterday. Hematology recommends Hospice. - Per PCP records, August 2016 patient's platelet count was 121,000. - Continue to follow CBC. INR - hold heparin gtt/ Plavix - Ultrasound shows Splenomegaly. Patient will likely not be able to tolerate splenectomy. - Patient too frail for bone marrow biopsy. PVD/ Gangrene - S/p angioplasty as per vasc surgery. The pt has gangrenous changes in the lower extremities. 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 Continue with Toradol when necessary for pain - Continue to hold heparin gtt, Plavix in setting of thrombocytopenia. Bilateral flank skin breakdown: Does not appear to be infectious at this point. Improving. Wound care consulted. Follow closely. Frequent turning. Malnutrition Postoperatively very poor appetite. Failed calorie count. Appreciate GI consult. - s/p EGD with PEG tube placement 09/11/16 - Continue Tube feed with tray - Consider trial of Marinol LLE Cellulitis - Wound on plantar aspect of left foot x2 wks. Outpatient Wound Cultures positive for Staph per report. Resolved. Left arm swelling: DVT ruled out with Doppler 09/12/16 Probable Aspiration PNA - Chest x-ray with evidence of consolidation. Repeat CXR 09/12/16 noted and reviewed - Levaquin discontinued. Continue to monitor off antibiotics. - Speech therapy following. Normocytic normochromic anemia Stable. - follow CBC and transfuse as needed. S/p 1 unit 09/03 per hematology. Diarrhea: C. difficile PCR negative;Resolved HARPAL Resolved. Renal ultrasound reviewed and no evidence of hydronephrosis on the left. 2. 2.1 x 2.3 cm round non-shadowing lesion supermedial to the upper pole the right kidney of uncertain organ of origin. Appreciate input from nephrology. Avoid all nephrotoxic drugs. - outpt follow-up for right kidney lesion. - Appreciate palliative care following and providing support to the patient and family. Patient has a DNR status. Family to meet with Hospice. PPx: Heparin gtt on hold s/t thrombocytopenia. Yaron Bower MD Sep 25, 2016 09:06
[2016-09-25] MEDS: LACTOBACILLUS ACIDOPHILUS TAB PO SCH ×2 (10:56→22:23)
[2016-09-26] VITALS (9 sets, daily range): BP systolic 121–149; BP diastolic 42–69; PULSE 68–76; RESP 16–22; TEMP 96.4–98.1; O2SAT 93–99
[2016-09-26] MEDS: CHLORHEXIDINE GLUCONATE 2 % 1 PACK (2 CLOTHS) TOP SCH (03:31)
[2016-09-26 07:47] LABS: HEMATOCRIT 24.8 % (35.0-46.0); MEAN CELL VOLUME 90.3 FL (80.0-100.0); MEAN CORPUSCULAR HEMOGLOBIN 28.5 PG (27.0-34.0); MEAN CORPUSCULAR HGB CONC 31.6 % (32.0-36.0); RED BLOOD COUNT 2.75 MIL/MM3 (4.00-5.30); RED CELL DISTRIBUTION WIDTH 17.4 % (11.6-17.2); WHITE BLOOD COUNT 8.3 TH/MM3 (4.0-11.0)
[2016-09-26 07:54] LABS: REVIEW FLAG FINAL
[2016-09-26 08:08] LABS: PLATELET COUNT 16 TH/MM3 (150-450)
[2016-09-26 08:11] LABS: POTASSIUM 4.5 MEQ/L (3.5-5.1)
[2016-09-26] MEDS: LACTOBACILLUS ACIDOPHILUS TAB PO SCH ×2 (10:47→21:00)
[2016-09-26] MEDS: SODIUM CHLORIDE 0.9% FLUSH 5 ML FLUSH FLUSH SCH ×2 (10:48→21:00)
--- NOTE | 2016-09-26 14:37 | HHI.PR ---
Subjective Remarks Follow up for PVD, possible aspiration pneumonia, respiratory failure. Ms. High is sleepy. She does wake up on verbal commands. Per nursing staff, patient has been evaluated by hospice. Family members will check care centers. Platelet count remains low but no obvious bleeding. Objective Vitals Vital Signs Date Time Temp Pulse Resp B/P Pulse Ox O2 Delivery O2 Flow Rate FiO2 09/26/16 09:00 Nasal Cannula 3.00 30 Humidified 09/26/16 08:15 98.1 76 18 121/42 96 09/26/16 06:00 96 Nasal Cannula 3.00 Humidified 09/26/16 05:22 93 30 09/26/16 04:00 96.8 68 16 142/69 94 09/26/16 02:20 95 30 09/25/16 23:57 96.1 76 16 133/58 93 09/25/16 22:41 98 30 09/25/16 21:06 96 Nasal Cannula 3.00 09/25/16 20:00 96.9 76 16 181/78 96 09/25/16 15:29 97.5 81 20 145/63 93 I/O 09/25/16 09/25/16 09/25/16 09/26/16 09/26/16 09/26/16 07:00 15:00 23:00 07:00 15:00 23:00 Intake Total 750 ml 200 ml 50 ml 1100 ml 360 ml Output Total 335 ml 150 ml Balance 750 ml -135 ml 50 ml 950 ml 360 ml Intake Oral 0 ml 200 ml 50 ml 50 ml 360 ml Tube Feeding 600 ml 1050 ml Tube Irrigant 150 ml Output Urine Total 335 ml 150 ml # Voids 1 1 2 # Bowel Movements 0 2 0 0 1 Result Diagram: 09/26/1671609/26/1617 Objective Remarks GENERAL: Drowsy but wakes up, NAD. SKIN: Warm and dry. LLE redness. HEAD: Normocephalic. EYES: No scleral icterus. No injection or drainage. NECK: Supple, trachea midline. No JVD or lymphadenopathy. CARDIOVASCULAR: Regular rate and rhythm without murmurs, gallops, or rubs. RESPIRATORY: Breath sounds equal bilaterally. No accessory muscle use. GASTROINTESTINAL: Abdomen soft, non-tender, nondistended. MUSCULOSKELETAL: No cyanosis, or edema. 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 BACK: Nontender without obvious deformity. No CVA tenderness. Procedures 09/06/16 status post Left hallux and 2nd digit amputation A/P Problem List: (1) Cellulitis of left lower extremity ICD Code: L03.116 Status: Acute (2) PVD (peripheral vascular disease) ICD Code: I73.9 Status: Acute (3) Hyperkalemia ICD Code: E87.5 Status: Acute (4) HARPAL (acute kidney injury) ICD Code: N17.9 Status: Acute (5) HTN (hypertension) ICD Code: I10 Status: Chronic (6) COPD (chronic obstructive pulmonary disease) ICD Code: J44.9 Status: Chronic (7) Respiratory failure ICD Code: J96.90 Status: Resolved (8) Normochromic normocytic anemia ICD Code: D64.9 Status: Acute Assessment and Plan 85 Y/O old female with respiratory failure, severe PVD/gangrene requiring amputation, severe and persistent thrombocytopenia, resolving aspiration pneumonia. - Hypercapnic respiratory failure - patient is oxygenating well. Due to CO2 retention, Bipap at night - Patient does not tolerate well. -Wean off oxygen as tolerated - Currently patient is on 2 L of oxygen via nasal cannula. Thrombocytopenia/ DIC - Appreciate hematology following. Consumptive coagulopathy versus bone marrow disorder per hematology. - Platelets 16,000 today. Hematology recommends Hospice. - Per PCP records, August 2016 patient's platelet count was 121,000. - Continue to follow CBC. INR - hold heparin gtt/ Plavix - Ultrasound shows Splenomegaly. Patient will likely not be able to tolerate splenectomy. - Patient too frail for bone marrow biopsy. PVD/ Gangrene - S/p angioplasty as per vasc surgery. The pt has gangrenous changes in the lower extremities. 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 Continue with Toradol when necessary for pain - Continue to hold heparin gtt, Plavix in setting of thrombocytopenia. Bilateral flank skin breakdown: Does not appear to be infectious at this point. Improving. Wound care consulted. Follow closely. Frequent turning. Malnutrition Postoperatively very poor appetite. Failed calorie count. Appreciate GI consult. - s/p EGD with PEG tube placement 09/11/16 - Continue Tube feed with tray - Consider trial of Marinol LLE Cellulitis - Wound on plantar aspect of left foot x2 wks. Outpatient Wound Cultures positive for Staph per report. Resolved. Left arm swelling: DVT ruled out with Doppler 09/12/16 Probable Aspiration PNA - Chest x-ray with evidence of consolidation. Repeat CXR 09/12/16 noted and reviewed - Levaquin discontinued. Continue to monitor off antibiotics. - Speech therapy following. Normocytic normochromic anemia Stable. - follow CBC and transfuse as needed. S/p 1 unit 09/03 per hematology. Diarrhea: C. difficile PCR negative;Resolved HARPAL Resolved. Renal ultrasound reviewed and no evidence of hydronephrosis on the left. 2. 2.1 x 2.3 cm round non-shadowing lesion supermedial to the upper pole the right kidney of uncertain organ of origin. Appreciate input from nephrology. Avoid all nephrotoxic drugs. - outpt follow-up for right kidney lesion. - Appreciate palliative care following and providing support to the patient and family. Patient has a DNR status. Hospice is evaluating. Family has met with hospice. PPx: Heparin gtt on hold s/t thrombocytopenia. If agreed by family members, possible hospice discharge on 09/27/2016. Daniel Rae DO Sep 26, 2016 14:36
[2016-09-27] VITALS (7 sets, daily range): BP systolic 138–155; BP diastolic 47–61; PULSE 68–78; RESP 16–24; TEMP 96.6–98; O2SAT 93–99
[2016-09-27] MEDS: CHLORHEXIDINE GLUCONATE 2 % 1 PACK (2 CLOTHS) TOP SCH ×2 (04:00→09:01)
[2016-09-27] MEDS: LACTOBACILLUS ACIDOPHILUS TAB PO SCH (09:00)
[2016-09-27] MEDS: SODIUM CHLORIDE 0.9% FLUSH 5 ML FLUSH FLUSH SCH (09:00)
--- NOTE | 2016-09-27 11:22 | HHI.DS ---
Discharge Summary Admission Date Aug 16, 2016 at 10:16 pm Discharge Date: Sep 27, 2016 Admitting Diagnosis HyperK, Cellulitis, PVD, ARF (1) Cellulitis of left lower extremity ICD Code: L03.116 (2) PVD (peripheral vascular disease) ICD Code: I73.9 Diagnosis: Principal (3) Hyperkalemia ICD Code: E87.5 (4) HARPAL (acute kidney injury) ICD Code: N17.9 (5) HTN (hypertension) ICD Code: I10 (6) COPD (chronic obstructive pulmonary disease) ICD Code: J44.9 (7) Respiratory failure ICD Code: J96.90 (8) Normochromic normocytic anemia ICD Code: D64.9 (9) Thrombocytopenia ICD Code: D69.6 Diagnosis: Principal Procedures 09/06/16 status post Left hallux and 2nd digit amputation Brief History - From Admission This is an 85-year-old female with a PMH of HTN and COPD, O2 Dependent who came to the ER with complaints of left foot pain x2 wks. Pt is somewhat of a poor historian, however she states she developed a wound on the bottom of her left foot 2wks ago, seen by PCP at that time and started on Keflex without improvement. Was referred to Podiatry and was to have imaging at [facility], however pt states "they took too long" so Granddaughter brought her to ER. Also noted to have left pérez hematoma/blister which she states started last night. Not on ASA/Plavix or anticoagulation at home. Denies fever or chills. On arrival, BP 146/59, HR 105, O2 sat 96% on 2L NC, Afebrile. WBC normal. Creatinine 2.05, previously 0.7 on 06/27/06. K+ 6.8. S/p Ca/Insulin/D50 in ER. On exam, pt w/ cold left foot, pulses not dopplerable. ER physician spoke w/ Dr. Mccloud, no need for emergent intervention. Heparin gtt started in ER. S/p Clinda IV x1 dose in ER. CBC/BMP: 09/26/16 0717 09/26/16 0717 Significant Findings Laboratory Tests Test 09/26/16 07:17 Red Blood Count 2.75 MIL/MM3 (4.00-5.30) Hemoglobin 7.8 GM/DL (11.6-15.3) Hematocrit 24.8 % (35.0-46.0) Mean Corpuscular Hemoglobin 31.6 % Concent (32.0-36.0) Red Cell Distribution Width 17.4 % (11.6-17.2) Platelet Count 16 TH/MM3 (150-450) Sodium Level 148 MEQ/L (136-145) Carbon Dioxide Level 44.0 MEQ/L (21.0-32.0) Anion Gap 3 MEQ/L (5-15) Blood Urea Nitrogen 43 MG/DL (7-18) Random Glucose 107 MG/DL (74-106) Imaging Last Impressions Modified Barium Swallow 09/20/16 0000 Signed Impressions: Service Date/Time: Tuesday, September 20, 2016 00:00 - CONCLUSION: No evidence of aspiration. Luci Evans MD Liver Ultrasound 09/20/16 0000 Signed Impressions: Service Date/Time: Tuesday, September 20, 2016 20:38 - CONCLUSION: 1. 2.1 cm cystic mass in the right quadrant likely of the supraspinatus and kidney this was present on prior CTA and likely are present a peripherally calcified cyst. 2. Splenomegaly. 3. Bilateral pleural effusions. Josue White MD Consultation 09/18/16 0000 Signed Impressions: Service Date/Time: Sunday, September 18, 2016 00:00 - CONCLUSION: When this rash resolves or stabilizes we can reattempt a bone marrow aspirate. Mauricio Zelaya MD FACR Head CT 09/17/16 0000 Signed Impressions: Service Date/Time: Saturday, September 17, 2016 12:05 - CONCLUSION: 1. No acute intracranial abnormality is identified. Chronic changes include mild cerebral atrophy and periventricular white matter low attenuation characteristic of chronic microvascular ischemia. 2. There is fluid in the mastoid air cells bilaterally which can be seen with acute mastoiditis. Josue Mccall MD Upper Extremity Ultrasound 09/12/16 0000 Signed Impressions: Service Date/Time: September 14:08 - CONCLUSION: No DVT in the left arm. F. Tocci, MD Chest X-Ray 09/12/16 0000 Signed Impressions: Service Date/Time: September 12:28 - CONCLUSION: 1. Bilateral mostly basilar and perihilar airspace disease similar in appearance to September 01. Moderate effusions. Findings most characteristic of congestive heart failure. Cannot exclude pneumonia. Sumit Vaughn MD Abdomen X-Ray 08/29/16 0000 Signed Impressions: Service Date/Time: August 19:31 - CONCLUSION: NG tube tip in the stomach. K. Alonzo Rehman MD Angiography 08/22/16 1420 Signed Impressions: Service Date/Time: August 13:13 - CONCLUSION: Diagnostic angiography as described above demonstrates high-grade bilateral external iliac artery stenoses and high-grade left common femoral artery stenosis. Successful angioplasty of the left common femoral artery and left external iliac artery. Right external iliac artery angioplasty and stenting as described above. Significant improvement in luminal patency of the external iliac arteries and left common femoral artery following endovascular treatment. Rajat Hu MD Aorta w/Runoff CTA 08/19/16 0000 Signed Impressions: Service Date/Time: Saturday, August 20, 2016 15:58 - CONCLUSION: Advanced atherosclerotic vasculopathy with hemodynamically significant stenotic/ occlusive lesions in the celiac, superior mesenteric, renal, external iliac, superficial femoral and popliteal arteries as described above. Severe irregularity with moderate to severe stenotic lesions are seen in the infrapopliteal runoff vessels to both calves and feet. Significantly diminished flow is evident to the right foot. Moderate bilateral pleural effusions with consolidating airspace disease in both lower lobes. Rajat Hu MD Renal Ultrasound 08/17/16 0000 Signed Impressions: Service Date/Time: Wednesday, August 17, 2016 16:01 - CONCLUSION: 1. Mild dilation of the collecting system of the right kidney. No evidence of hydronephrosis on the left. 2. 2.1 x 2.3 cm round non-shadowing lesion supermedial to the upper pole the right kidney of uncertain organ of origin. The right adrenal gland could be located in this area. Wei Corley MD Lower Extremity Ultrasound 08/16/16 0000 Signed Impressions: Service Date/Time: Tuesday, August 16, 2016 21:07 - CONCLUSION: No DVT. Josue White MD Foot X-Ray 08/16/16 0000 Signed Impressions: Service Date/Time: Tuesday, August 16, 2016 22:14 - CONCLUSION: No acute disease. Josue White MD PE at Discharge GENERAL: Frail and cachectic looking elderly female SKIN: Bilateral flank with erythema and evidence of skin breakdown. Not warm. Drying out compared to yesterday CARDIOVASCULAR: Normal rate and regular rhythm without murmurs, gallops, or rubs. RESPIRATORY: Good respiratory efforts. Breath sounds equal and clear to auscultation bilaterally. GASTROINTESTINAL: Abdomen soft, non-tender, non-distended. PEG in place. 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 Could not palpate a dorsalis pedis pulse on the left. Left toes cool and pale. Right dorsalis pedis pulses faint. NEURO: Alert, follow commands. Very hard of hearing. PSYCH: Calm Pt update on day of discharge Ms. High is doing well. No acute concerns. She knows she is leaving hospital today. Hospital Course Ms. High is a very pleasant 85 year old female with a PMH of HTN and COPD, O2 Dependent who came to the ER with complaints of left foot pain x2 wks prior to her admission on 08/16/2016. On presentation, she was found to have hyperkalemia , acute kidney injury. She was started on IV fluid, abx, vascular surgery, nephrology were consulted. Vascular surgery determined that it would not be in the best interest of the patient to perform any kind of vascular surgery. Nephrology followed patient closely and her creatinine improved. Patient had severe thrombocytopenia and hematology followed patient very closely. She required multiple platelet transfusion. A bone marrow biopsy was considered but due to a rash on patient's back, it was not done. In terms of nutrition, patient required PEG tube placement. Patient was provided tube feed with tray. She also had hypercapnic respiratory failure for which she was placed on BiPAP. She did not like BiPAP at night as it interfered with her sleep. Overall prognosis was determined to be very poor given her multiple comorbidities including PVD, gangrene of the lower extremity, severe thrombocytopenia, malnutrition. I held multiple discussion with family members. They agreed to discuss with Palliative care team. Patient was evaluated by hospice on 2016 and she was subsequently discharged to hospice care center on 09/27/2016. Pt Condition on Discharge: Guarded Discharge Disposition: Hospice/Med Facility Discharge Time: > 30 minutes Discharge Instructions DIET: Follow Instructions for: As Tolerated, No Restrictions Activities you can perform: Regular-No Restrictions Daniel Rae DO Sep 27, 2016 11:22
--- NOTE | 2016-10-15 10:12 | MP ---
cc: JAI GOMEZ DPM DATE OF SURGERY: 09/06/2016 PREOPERATIVE DIAGNOSIS Left hallux and second digit gangrene. POSTOPERATIVE DIAGNOSIS Left hallux and second digit gangrene. PROCEDURE PERFORMED Left hallux and first metatarsal head resection as well as second digit amputation. FINDINGS Minimal bleeding at the surgery site. SPECIMEN Digits removed for pathological analysis. ESTIMATED BLOOD LOSS Less than 30 mL. ANESTHESIA Monitored anesthesia care with local block of the foot. COMPLICATIONS None. PLAN OF ACTIVITY Return to floor to monitor foot wound. PROCEDURE IN DETAIL Under mild sedation the patient was brought into the operating room, placed on the operating table in the supine position. Following the induction of monitored anesthesia care local anesthesia was obtained about the forefoot utilizing standard block fashion. The patient's foot was then scrubbed, prepped and draped in the usual aseptic fashion. The foot was elevated and examined. There was dry distal gangrene noted at the level of the second digit and ischemic changes and gangrenous changes of the left hallux. At this time a full-thickness fishmouth incision was performed ellipsing out the second digit at the level the second MPJ, and then a lateral fishmouth type incision was performed ellipsing out all necrotic tissue down to the level the first MPJ. The digits were sharply disarticulated. There was punctate bleeding at the surgery site. There was no obvious arterial pumping noted but there was noted to be viable flaps. There was no signs of deep infection or necrosis at the level of the amputation site. The wound was then flushed with copious amounts of normal saline. It was then re-approximated utilizing Vicryl deep and nylon on the superficial skin. A bulky bandage was applied. The patient was transferred from the OR to PACU with all vital signs stable. She will return to the floor, heel weight bear only. Will continue to follow in the post-op period. LUIS Tran/DAXA /8:48 AM /10:10 AM
== END 2016-09-27 14:03 | disposition hospice, inpatient (51) | DRG 252 ==
LOC: NEPC 16:44 → NEDA 22:16 → HIMN 08-17 01:00 → N07B 08-17 16:32 → HOCA 08-30 12:23
PROVIDERS: ADMIT Hospitalist; ATTEND Hospitalist
PROC: B41D1ZZ Fluoroscopy of Aorta and Bilateral Lower Extremity Arteries using Low Osmolar Contrast (ICD-10-PCS; 2016-08-20)
PROC: 047H3DZ Dilation of Right External Iliac Artery with Intraluminal Device, Percutaneous Approach (ICD-10-PCS; 2016-08-22)
PROC: 047J3ZZ Dilation of Left External Iliac Artery, Percutaneous Approach (ICD-10-PCS; 2016-08-22)
PROC: 047L3ZZ Dilation of Left Femoral Artery, Percutaneous Approach (ICD-10-PCS; 2016-08-22)
PROC: B41D1ZZ Fluoroscopy of Aorta and Bilateral Lower Extremity Arteries using Low Osmolar Contrast (ICD-10-PCS; 2016-08-22)
PROC: 30233N1 Transfusion of Nonautologous Red Blood Cells into Peripheral Vein, Percutaneous Approach (ICD-10-PCS; 2016-09-03)
PROC: 0Y6S0Z0 Detachment at Left 2nd Toe, Complete, Open Approach (ICD-10-PCS; 2016-09-06)
PROC: 0Y6Q0Z0 Detachment at Left 1st Toe, Complete, Open Approach (ICD-10-PCS; principal; 2016-09-06 13:53)
PROC: 0DB68ZX Excision of Stomach, Via Natural or Artificial Opening Endoscopic, Diagnostic (ICD-10-PCS; 2016-09-11)
PROC: 0DB38ZX Excision of Lower Esophagus, Via Natural or Artificial Opening Endoscopic, Diagnostic (ICD-10-PCS; 2016-09-11)
PROC: 30233R1 Transfusion of Nonautologous Platelets into Peripheral Vein, Percutaneous Approach (ICD-10-PCS; 2016-09-11)
PROC: 0DH63UZ Insertion of Feeding Device into Stomach, Percutaneous Approach (ICD-10-PCS; 2016-09-11 10:20)
PROC: 5A09457 Assistance with Respiratory Ventilation, 24-96 Consecutive Hours, Continuous Positive Airway Pressure (ICD-10-PCS; 2016-09-17)
DX: I70.245 Atherosclerosis of native arteries of left leg with ulceration of other part of foot (principal); J69.0 Pneumonitis due to inhalation of food and vomit; D65 Disseminated intravascular coagulation [defibrination syndrome]; J96.22 Acute and chronic respiratory failure with hypercapnia; N17.9 Acute kidney failure, unspecified; E87.0 Hyperosmolality and hypernatremia; I96 Gangrene, not elsewhere classified; K22.10 Ulcer of esophagus without bleeding; E87.2 Acidosis; N18.3 Chronic kidney disease, stage 3 (moderate); L03.116 Cellulitis of left lower limb; E46 Unspecified protein-calorie malnutrition; N39.0 Urinary tract infection, site not specified; N13.30 Unspecified hydronephrosis; Z99.81 Dependence on supplemental oxygen; E87.5 Hyperkalemia; J44.9 Chronic obstructive pulmonary disease, unspecified; I12.9 Hypertensive chronic kidney disease with stage 1 through stage 4 chronic kidney disease, or unspecified chronic kidney disease; E86.0 Dehydration; H91.90 Unspecified hearing loss, unspecified ear; L97.529 Non-pressure chronic ulcer of other part of left foot with unspecified severity; M19.90 Unspecified osteoarthritis, unspecified site; K29.70 Gastritis, unspecified, without bleeding; R19.7 Diarrhea, unspecified; R21 Rash and other nonspecific skin eruption; B96.20 Unspecified Escherichia coli [E. coli] as the cause of diseases classified elsewhere; Z53.8 Procedure and treatment not carried out for other reasons; K59.00 Constipation, unspecified; Z51.5 Encounter for palliative care; Z66 Do not resuscitate; Z74.01 Bed confinement status; Z87.891 Personal history of nicotine dependence
CPT/HCPCS: 36430; 36600; 37220; 37221; 37224; 70450; 71010; 73620; 74000; 74020; 74230; 75625; 75635; 75710; 76705; 76775; 76937; 80048; 80053; 81001; 82140; 82272; 82306; 82436; 82570; 82607; 82805; 83605; 83735; 83880; 84100; 84133; 84156; 84300; 85007; 85025; 85027; 85044; 85049; 85060; 85379; 85384; 85610; 85652; 85730; 86022; 86403; 86850; 86900; 86901; 86920; 86965; 87040; 87070; 87077; 87086; 87186; 87205; 87493; 87641; 88305; 88311; 88312; 93005; 93306; 93971; 94002; 94003; 94640; 94664; C1725; C1760; C1769; C1876; C1887; C1894; C2623; C9113; J0610; J0690; J1170; J1644; J1815; J1940; J1956; J2250; J2270; J2405; J3010; J7030; J7050; P9016; P9035; P9037; P9040; Q0167; Q9967